=== PATIENT | female | born 1965 | race American Indian/Alaskan Native ===

== ENCOUNTER 2018-06-01 15:29 | Emergency (ER) | payer OTHER ==
[~2018-06-01] VITALS: Ht 162.6 cm; Wt 70.3 kg
[~2018-06-01 15:29] MED LIST: ACETAMINOPHEN325 M1 PO; AROMASIN25 MG PO; DOXYCYCLINE HY100 MG PO; METRONIDAZOLE500 MG PO; MOTRIN IB200 MG PO; PERCOCET 5-3251 EACH PO; PERCOCET 7.5-31 EACH PO; PSEUDOEPHEDRINE60 MG PO; TYLENOL WITH C1 EACH PO
[2018-06-01] MEDS ORDERED: TAMOXIFEN CITRA20 MG PO (15:41)
[2018-06-01] MEDS ORDERED: GUAIFEN-CODEINE10 ML PO (15:56)
[2018-06-01] MEDS ORDERED: ZITHROMAX250 MG PO (15:56)
== END 2018-06-01 16:05 | disposition home or self-care (01) ==
LOC: ED 15:29
DX: J06.9 Acute upper respiratory infection, unspecified (principal)
CPT/HCPCS: 99282

== ENCOUNTER 2018-10-28 16:05 | Emergency (ER) | payer OTHER ==
[~2018-10-28] VITALS: Ht 162.6 cm; Wt 70.3 kg
[~2018-10-28 16:05] MED LIST changes: +GUAIFEN-CODEINE10 ML PO; +TAMOXIFEN CITRA20 MG PO; +ZITHROMAX250 MG PO
[2018-10-28] MEDS ORDERED: ULTRAM50 MG PO (16:31)
== END 2018-10-28 17:05 | disposition home or self-care (01) ==
LOC: ED 16:05
DX: J06.9 Acute upper respiratory infection, unspecified (principal); J45.909 Unspecified asthma, uncomplicated; K21.9 Gastro-esophageal reflux disease without esophagitis; Z79.899 Other long term (current) drug therapy
CPT/HCPCS: 99283

== ENCOUNTER 2019-08-09 17:29 | Emergency (ER) | payer OTHER ==
[~2019-08-09] VITALS: Ht 162.6 cm; Wt 62.6 kg
--- OUTSIDE RECORDS SUMMARY | ~2019-08-09 | XMS | Encounter Summary ---
Demographics + + + | Address | [address] | | | [place] [address] | + + + | Home Phone | | + + + | Preferred Language | Unknown | + + + | Marital Status | | + + + | Evangelical Affiliation | Unknown | + + + | Race | or | + + + | Ethnic Group | Not or | + + + Author + + + | Author | [facility] | + + + | Organization | [facility] | + + + | Address | Unknown | + + + | Phone | Unavailable | + + + Support + + +---------+ + | Name | Relationship | Address | Phone | + + +---------+ + | Jak Daley | ECON | Unknown | | + + +---------+ + Care Team Providers + +------+ + | Care Biofuels Engineering Manager Name | Role | Phone | + +------+ + | Mela Condon PA-C | PCP | | + +------+ + Encounter Details +--------+ + + + + | Date | Type | Department | Care Team | Description | +--------+ + + + + | 04/13/ | Ancillary | Diagnostic Imaging | Mela Condon | | | 2018 | Orders | Services [address] | | [facility] | | | | | [place], [place] | [place] [address] | | | | | [address] | [address] | | | | [address] [place], | | | | | | [place] [address] | | | | | | [phone] | | | | | | | | +--------+ + + + + Social History + +-------+ +--------+------+ | Tobacco Use | Types | Packs/Day | Years | Date | | | | | Used | | + +-------+ +--------+------+ | Never Smoker | | | | | + +-------+ +--------+------+ + +---+---+---+ | Smokeless Tobacco: | | | | | Never Used | | | | + +---+---+---+ + + +---------+ + | Alcohol Use | Drinks/Week | oz/Week | Comments | + + +---------+ + | No | | | | + + +---------+ + + + + | Sex Assigned at | Date Recorded | | | | + + + | Not on file | | + + + + + + + | Job Start Date | Occupation | Industry | + + + + | Not on file | Not on file | Not on file | + + + + + + + + | Travel History | Travel Start | Travel End | + + + + + + | No recent travel history available. | + + documented as of this encounter Plan of Treatment Not on filedocumented as of this encounter Visit Diagnoses Not on filedocumented in this encounter"
--- OUTSIDE RECORDS SUMMARY | ~2019-08-09 | XMS | Encounter Summary ---
Demographics + + + | Address | [address] | | | [place] [address] | + + + | Home Phone | | + + + | Preferred Language | Unknown | + + + | Marital Status | | + + + | Presybeterian Affiliation | Unknown | + + + | Race | Unknown | + + + | Ethnic Group | Unknown | + + + Author + + + | Author | [facility] | | | and [place] | + + + | Organization | [facility] | | | and [place] | + + + | Address | Unknown | + + + | Phone | Unavailable | + + + Support + + + + + | Name | Relationship | Address | Phone | + + + + + | Jak Daley | CARLOS | [address] | | | | [place], [place] | | | | | [address] | | + + + + + | Luis Downey | ECON | Unknown | | + + + + + | Kourtney Carlos | ECON | Unknown | | + + + + + | Adrianne Carlos | ECON | Unknown | | + + + + + | Rena Uribe | ECON | Unknown | | + + + + + | Luigi Benedict | ECON | [address] | | | | | [place] | | | | | [address] | | + + + + + Care Team Providers + +------+ + | Care Master Hearth Technician Name | Role | Phone | + +------+ + | Mela Condon PA-C | PCP | | + +------+ + Reason for Visit + + + | Reason | Comments | + + + | New Patient | swallowing-has a hard time eating or drinking-feels stuck been | | | going on for awhile and getting worse | + + + Evaluate & Treat (Routine) + + + + + + + | Status | Reason | Specialty | Diagnoses / | Referred By | Referred To | | | | | Procedures | Contact | Contact | + + + + + + + | Authorized | Specialty | Otolaryngolog | Diagnoses | Nina, | Servando Taylor | | | Services | y | Dysphagia, | Renee Haile, | [address], [address] | | | Required | | unspecified | MD [address] | | | | | type | [address] | [address] | | | | | | [place], | [place], | | | | | | [place] [address] | [place] [address] | | | | | | Phone: | Phone: | | | | | | [phone] | [phone] | | | | | | Fax: | Fax: | | | | | | [phone] | [phone] | + + + + + + + Encounter Details +--------+---------+ + + + | Date | Type | Department | Care Team | Description | +--------+---------+ + + + | 05/24/ | Office | [facility] | Renee Wood | Pharyngoesophageal | | 2019 | Visit | OTOLARYNGOLOGY [address] | MD Laz[place] [address] | dysphagia (Primary | | | | [address] | [place], [place] | Dx); | | | | [place], [place] | [address] | Laryngopharyngeal | | | | [address] | | reflux (LPR) | | | | [phone] | Servando Taylor MD | | | | | | [address] | | | | | | [address] [facility] [place] | | | | | | [address] | | | | | | | | +--------+---------+ + + + Social History + +-------+ [...] + + +---------+ + | No | 0 Standard drinks | 0.0 | | | | or equivalent | | | + + +---------+ + [...] + + documented as of this encounter Last Filed Vital Signs + + + + + | Vital Sign | Reading | Time Taken | Comments | + + + + + | Blood Pressure | - | - | | + + + + + | Pulse | 84 | 05/24/2019 1:06 PM | | | | | PDT | | + + + + + | Temperature | - | - | | + + + + + | Respiratory Rate | 16 | 05/24/2019 1:06 PM | | | | | PDT | | + + + + + | Oxygen Saturation | 98% | 05/24/2019 1:06 PM | | | | | PDT | | + + + + + | Inhaled Oxygen | - | - | | | Concentration | | | | + + + + + | Weight | 62.1 kg (137 lb) | 05/24/2019 1:06 PM | | | | | PDT | | + + + + + | Height | 162.6 cm (5' 4") | 05/24/2019 1:06 PM | | | | | PDT | | + + + + + | Body Mass Index | 23.52 | 05/24/2019 1:06 PM | | | | | PDT | | + + + + + documented in this encounter Progress Notes Servando Taylor MD - 05/24/2019 1:00 PM PDTPatient comes in because he is having difficulty with swallowing. She's had trouble intermittently now for about 5 years. About 4 years ag o she had an esophagoscopy and dilated the esophageal stricture. The symptoms have been wor se the last year and it generally is more of a problem when she eats something such as meat. It'll tend to get stuck in the area behind her voice box and then she has to try to get it back up or finally go through. She indicates she had a swallow study in [place] about a month ago and was told that it was normal. She does not use any medication for her heartbur n and takes only different types of foods to help. She stays away from acidic foods and the use of caffeine. She also stays away from IV Profen and anti-inflammatories that might giv e her more heartburn. She's having no change in her vocal function but has a very sensitive throat area. Examination: Patient is an alert 53-year-old female patient is communicating well in her vo ice quality is good. Skin of the face nose and ears all appears to be smooth and healthy. Ear canals are open and clean and drums were clear. No middle ear fluid or disease noted. In the nasal passages there's good space to breathe on both sides. The left side of the nos e was then sprayed well with some Abdullahi-Synephrine and topical Xylocaine. In the oral cavity no mass or lesions are noted. Patient is an extremely high gag reflex and basically choked herself with just opening her mouth. No mass seen in the posterior pharyngeal wall area. T ongue and soft palate otherwise are smooth the moves symmetrically. Neck there was no lymph adenopathy noted. Thyroid parotid and submandibular glands were smooth. She moves her neck well without any pain or discomfort noted. Special procedure: The fiberoptic scope was then used to look at the laryngeal area. The n mercedes passages open and clear and no mass or lesion seen in the nasopharynx. Rosenmuller's f osses are symmetrical and open. Posterior and lateral pharyngeal mercedes are very smooth. Ba se of the tongue vallecula and epiglottis there is no mass or lesion or thrush noted. The b ack of her vocal cords are swollen and she has evidence of laryngopharyngeal reflux. Her vo yobany cords are smooth and no tumor mass or noted on the vocal cord area. Piriform sinuses ar e open and clear without any mass or lesion noted. Impression: #1 dysphagia. #2 laryngopharyngeal reflux. Plan: Patient will start Prilosec 20 mg to take it twice a day. She'll be seen again in 6 weeks' time. The swallowing study will be obtained to be reviewed. documented in this encounter Plan of Treatment +--------+---------+ + + + | Date | Type | Specialty | Care Team | Description | +--------+---------+ + + + | 08/16/ | Office | Otolaryngology | Servando Taylor MD | | | 2018 | Visit | | [address] [facility] | | | | | | [address] [place], | | | | | | [place] [address] | | | | | | [phone] | | | | | | | | +--------+---------+ + + + + + +--------+ + + | Name | Type | Priori | Associated Diagnoses | Order Schedule | | | | ty | | | + + +--------+ + + | * [facility] [place] | Outpatient | Routin | Dysphagia, | Ordered: 02/19/2019 | | Otolaryngology - AMB | Referral | e | Unspecified Type | | | Referral | | | | | + + +--------+ + + documented as of this encounter Visit Diagnoses + + | Diagnosis | + + | Pharyngoesophageal dysphagia - Primary Dysphagia, pharyngoesophageal phase | + + | Laryngopharyngeal reflux (LPR) Other diseases of larynx | + + documented in this encounter
--- OUTSIDE RECORDS SUMMARY | ~2019-08-09 | XMS | Encounter Summary ---
Demographics + + + | Address | [address] | | | [place] [address] | + + + | Home Phone | | + + + | Preferred Language | Unknown | + + + | Marital Status | | + + + | Rastafarian Affiliation | Unknown | + + + | Race | Unknown | + + + | Ethnic Group | Unknown | + + + Author + + + | Author | [facility] | | | and [place] | + + + | Organization | [facility] | | | and [place] | [...] [place], [place] | | | | | [address] | | + + + + + [...] [place] | | | | | [address] | | + + + + + Care Team Providers + +------+ + | Care Data Entry Representative Name | Role | Phone | + +------+ + | Luis Garcia PA-C | PCP | | + +------+ + Encounter Details +--------+ + + + + | Date | Type | Department | Care Team | Description | +--------+ + + + + | 09/06/ | Hospital | [facility] | Renee Wood | | | 2015 | Encounter | [facility] | [place], [address] | | | | | ONCOLOGY [address] | [facility], [place] | | | | | [place], | [address] | | | | | [place] [address] | | | | | | [phone] | | | +--------+ + + + [...] + + documented as of this encounter Medications at Time of Discharge + + + +---------+ + + | Medication | Sig | Dispensed | Refills | Start | End Date | | | | | | Date | | + + + +---------+ + + | loratadine | Take 5 mg by mouth. | | 0 | | | | (CLARITIN) 10 mg | Every four hours prn | | | | 8 | | tablet | | | | | | + + + +---------+ + + | | Take 1 tablet by | 30 | 0 | 05/25/20 | | | oxyCODONE-acetaminop | mouth every 6 hours | tablet | | 15 | 6 | | hen (PERCOCET) 5-325 | as needed for Pain. | | | | | | mg per | | | | | | | tabletIndications: | | | | | | | Mastitis | | | | | | + + + +---------+ + + documented as of this encounter Plan of Treatment +--------+---------+ + + + | Date | Type | Specialty | Care Team | Description | +--------+---------+ + + + | 08/16/ | Office | Otolaryngology | Servando Taylor MD | | | 2019 | Visit | | [address] [facility] | | | | | | [address] [place], | | | | | | [place] [address] | | | | | | [phone] | | | | | | | | +--------+---------+ + + + documented as of this encounter Visit Diagnoses Not on filedocumented in this encounter"
--- OUTSIDE RECORDS SUMMARY | ~2019-08-09 | XMS | Encounter Summary ---
Demographics + + + | Address | [address] | | | [place] [address] | + + + | Home Phone | | + + + | Preferred Language | Unknown | + + + | Marital Status | | + + + | Oriental Orthodox Affiliation | Unknown | + + + | Race | Unknown | + + + | Ethnic Group | Unknown | + + + Author + + + | Author | [facility] | | | and [place] | + + + | Organization | [facility] | | | and [place] [...] [address], [place] | | | | | [address] | | + + + + + [...] [place] | | | | | [address] | | + + + + + Care Team Providers + +------+ + | Care Undergraduate Advisor Name | Role | Phone | + +------+ + | Mela Condon PA-C | PCP | | + +------+ + Reason for Visit + + + | Reason | Comments | + + + | Follow-up | | + + + Evaluate & Treat (Routine) +--------+--------+ + + + + | Status | Reason | Specialty | Diagnoses / | Referred By | Referred To | | | | | Procedures | Contact | Contact | +--------+--------+ + + + + | Closed | | Radiation | Diagnoses | [facility] | Nina, | | | | Oncology | Breast | Radiation | Renee Haile MD | | | | | cancer of | Oncology | [address] | | | | | upper-outer | Clinic [address] | | | | | quadrant of | [address] [place] | [place], | | | | | left female | [place], | [place] [address] | | | | | breast (HCC) | [place] | Phone: | | | | | Procedures | [address] | [phone] | | | | | [place] OFFICE | Phone: | Fax: | | | | | OUTPATIENT | [phone] | [phone] | | | | | VISIT 25 | Fax: | | | | | | MINUTES | [phone] | | +--------+--------+ + + + + Encounter Details +--------+ + + + + | Date | Type | Department | Care Team | Description | +--------+ + + + + | 01/20/ | Hospital | [facility] | Renee Wood | Malignant neoplasm | | 2019 | Encounter | [facility] | MD Lazara [address] | of upper-outer | | | | [facility]OG[facility] CLIN[facility] [address] [place], [place] | quadrant of left | | | | [address] [place] | [id number] | breast in female, | | | | [place] [address] | | estrogen receptor | | | | [phone] | | positive (HCC) | | | | | | (Primary Dx) | +--------+ + + + + Social [...] + + + | Blood Pressure | 116/64 | 01/20/2019 2:08 PM | | | | | PDT | | + + + + + | Pulse | 90 | 01/20/2019 2:08 PM | | | | | PDT | | + + + + + | Temperature | 36.6 C (97.9 F) | 01/20/2019 2:08 PM | | | | | PDT | | + + + + + | Respiratory Rate | 16 | 01/20/2019 2:08 PM | | | | | PDT | | + + + + + | Oxygen Saturation | 98% | 01/20/2019 2:08 PM | | | | | PDT | | + + + + + | Inhaled Oxygen | - | - | | | Concentration | | | | + + + + + | Weight | 62.6 kg (138 lb 0.1 | 01/20/2019 2:08 PM | | | | oz) | PDT | | + + + + + | Height | - | - | | + + + + + | Body Mass Index | 23.69 | 08/08/2016 4:34 PM | | | | | PST | | + + + + + documented in this encounter Discharge Instructions Patient Instructions Renee Wood MD - 01/20/2019 2:49 PM PDT- Bilateral screening mammogram due in February 2019. Anticipated at [facility], managed by Dr. Quesada. - Follow-up with Dr. Quesada, Med Onc at [facility] as directed with ongoing tamoxifen. - Order a swallow study at [place] to evaluate the difficulty swallowing and weight los s. From there I will determine if further imaging and/ evaluation by ENT or gastroenterolog y is needed. - Please also schedule a follow up with your PCP, Mela Condon PA-C. documented in this encounter Medications at Time of Discharge + + + +---------+ + + | Medication | Sig | Dispensed | Refills | Start | End Date | | | | | | Date | | + + + +---------+ + + | EPIPEN 2-DAVID 0.3 | Inject 0.3 mg into | | 0 | 06/27/20 | | | MG/0.3ML injection | the muscle as | | | 16 | | | | needed. | | | | | + + + +---------+ + + | Fexofenadine HCl | Take 1 tablet by | | 0 | | | | (TAMEKA ALLERGY PO) | mouth Daily. | | | | | + + + +---------+ + + | non-formulary | Allergy shots 1 | | 0 | | | | medication | time/week. | | | | | + + + +---------+ + + | tamoxifen | Take 1 tablet by | | 0 | 03/12/20 | | | (NOLVADEX) 20 MG | mouth Daily. | | | 18 | | | tablet | | | | | | + + + +---------+ + + documented as of this encounter Progress Notes Renee Wood MD - 01/20/2019 2:12 PM PDT Radiation Oncology Follow-up Chief Complaint/ICD10 ICD-10-CM ICD-9-CM 1. Malignant neoplasm of upper-outer quadrant of left breast in female, estrogen receptor p ositive (HCC) C50.412 174.4 Z17.0 V86.0 History of Present Illness: Carissa Downey is a 53 y.o. woman with a history of left breast cancer. Pathologic sta ge [place], pT1c pN0 cM0. Tumor characteristics: well-differentiated invasive ductal carcinoma, tumor size 1.1 cm, low-grade DCIS present. No LVSI. Negative margins. ER 100%, WA 7 0-75%, Ki-67 less than 1%, HER-2/jamia nonamplified by FISH with ratio 1.0, sentinel lymph n ode negative for metastatic carcinoma. Received adjuvant radiation with hypofractionated whole breast radiation, 40.05 to the breast with a 8 Gy of a Gy lumpectomy shu ost for a total 48.05 Gy in 20 fraction, completed on 06/14/15. Had undergone oophorectomy, intolerant of AI therapy due to arthralgia, continues on tamoxifen. - Carissa continues to report fatigue, low mood and multiple areas of pain. New for her is a low appetite and weight loss. She is also followed by Dr. Quesada at [facility], last seen in February 2018. Bilateral mammogram at that time was BIRADS-2. Concern over pain, fatigue and weigh t loss prompted a CT c/a/p and bone scan. These studies did not identify any evidence of me tastatic disease. - Carissa does continue on tamoxifen, started last spring reports generalized joint pain. Ot herwise she seems to be tolerating this well. - Today, she reports pain between her breast that is shooting in nature, 6/10 in severity a nd lasting about 1 week so far. - We also discussed some loss of appetite and weight loss. She describes difficulty eating due to an intermittent sore throat and difficulty swallowing. Does not report pain with sw allowing. Feels like things are getting stuck in her upper throat. She frequently regurgit ates or vomits after eating. Review of systems: Constitutional: Reports low energy. Reports loss appetite for last month. Patient has los t about 14 pounds since last visit. Denies fatigue. Denies high fevers, shaking chills, ano rexia, nausea, vomiting or night sweats. Ear, Nose, Mouth, Throat: Denies odynophagia, dysphagia, or tinnitus. Cardiovascular: Reports tires easily, only able to walk short distances when at the store. Denies shortness of breath, dyspnea on exertion, chest pain, palpitations or orthopnea. Respiratory: Reports sore throats on and off for last year. Denies cough, hemoptysis, or s putum production. Gastrointestinal: Denies abdominal pain, constipation, diarrhea, melena, or bright red bloo d per rectum. Genitourinary: Denies hematuria or dysuria. Musculoskeletal: Reports general joint pain. Neurologic: Reports headaches every other week over the last month and a half.. Denies vi sual changes, or numbness/tingling of the extremities. Endocrine: Denies peripheral edema or heat/cold intolerance. Hematologic: Denies spontaneous bruising or bleeding. Integumentary: Reports rash to left lower leg, being monitored by PCP. Note: Patient here for follow up for left breast cancer. Completed radiation on 06/14/15. Patient saw Dr. Quesada at [facility] on 03/12/2018 and had mammogram same day. My chart: Declined Pain assessment: Location: Reports pain to left breast and chest wall between breast, reports sharp shooting pains that last foe about a week. Pain Level: PAIN PROG PAIN LEVEL: 6 Pain Quality: Shooting Current pain regimen: none Current Outpatient Medications Medication Sig Dispense Refill EPIPEN 2-DAVID 0.3 MG/0.3ML injection Inject 0.3 mg into the muscle as needed. Fexofenadine HCl (TAMEKA ALLERGY PO) Take 1 tablet by mouth Daily. non-formulary medication Allergy shots 1 time/week. tamoxifen (NOLVADEX) 20 MG tablet Take 1 tablet by mouth Daily. No current facility-administered medications for this encounter. Allergies Allergen Reactions Bee Venom Swelling Intolerance No active intolerances/contraindications Vitals: 01/20/19 1408 BP: 116/64 Pulse: 90 Resp: 16 Temp: 36.6 C (97.9 F) Wt Readings from Last 3 Encounters: 01/20/19 62.6 kg (138 lb 0.1 oz) 08/08/16 68.9 kg (152 lb) 07/09/16 69.4 kg (152 lb 14.4 oz) Physical Exam: General: Healthy appearing woman in no acute medical distress. KPS: 80 HEENT: Pupils equal, round and reactive to light. No conjunctival icterus or injection. EOM I. Oral, moist mucus membranes. Lymphatic: No cervical, supraclavicular or axillary lymphadenopathy. Cardiovascular: Regular rate and rhythm, no murmur. Pulmonary: Breath sounds heard throughout, no adventitial sounds or increased work of breat drake at rest. Extremities: Upper and lower extremities warm and well perfused with no upper or lower extr emity edema. Neurologic: Alert, oriented and appropriated in conversation. CN II-IX grossly intact. Moves all 4 extremities normally with normal gait. Psychiatric: Appropriate. Breast: On upright exam breasts appear symmetric bilaterally with no contour abnormalities or malignant appearing skin changes. The left breast demonstrates a well-healed surgical i ncision. On supine exam palpation of the left breast demonstrates mild fibrosis at the site of prior lumpectomy. No discrete mass lesions are identified in either breast. There is n o pain with palpation. No nipple changes. Labs: No recent results. Imaging: Patient History: Patient has history of cancer in the left breast at age 48. No known family history of cancer. Malignant lumpectomy of the left breast, 2014. Last mammogram was performed 1 year and 1 month ago. Reason for exam: history of breast cancer, conservation therapy. C50.412 MA VY DIAGNOSTIC BILAT W/CAD: March 12, 2018 - Bilateral CC and MLO view(s) were taken. Prior study comparison: January 31, 2017, bilateral MA VY DIAGNOSTIC BILAT w/CAD performed at [facility]. There are scattered fibroglandular densities.Stable post-lumpectomy changes in the left breast. No suspicious calcifications, masses, or architectural distortion present in either breast.No significant changes when compared with prior studies. The images were obtained using full field digital mammography on the dedicated [email or web address] System with R2 CAD. Performed at [facility]. 3D tomosynthesis mammography was performed as part of this exam. ASSESSMENT: Benign - Category 2 RECOMMENDATION: Routine screening mammogram of both breasts in 1 year. I have personally reviewed the images and, if necessary, edited the report.I agree with the report as now presented. EXAM: CT of the chest, abdomen and pelvis WITH intravenous contrast. HISTORY: hx of early stage breast cancer, recent weight loss, diffuse bone pains COMPARISON: None available. TECHNIQUE:CT of the chest, abdomen and pelvis WITH intravenous contrast. Coronal and sa gittal reformats were generated and reviewed. FINDINGS: CHEST: No supraclavicular, axillary, mediastinal or hilar adenopathy. Heart and great vesse ls are unremarkable. No pleural or pericardial effusion. Lungs are clear. Left axillary clip s. LIVER: Gallbladder is surgically absent. No focal hepatic lesion. BILIARY: No ductal dilatation. PANCREAS: Unremarkable. SPLEEN: Unremarkable. ADRENALS: Unremarkable. KIDNEYS/URETERS: Unremarkable. PELVIC ORGANS/BLADDER: Bladder is unremarkable. Uterus is absent. No adnexal masses. GI TRACT: Unremarkable. PERITONEUM: No free air or fluid. LYMPH NODES: No lymphadenopathy. VESSELS: Unremarkable. BONES AND SOFT TISSUES: Unremarkable. IMPRESSION: No evidence of metastatic disease in the chest, abdomen or pelvis. I have personally reviewed the images and, if necessary, edited the report. I agree with e report as now presented. Final signature: Carolyn Murphy MD 04/09/2018 4:11 PM Preliminary: Carolyn Murphy MD Dictation initiated: Carolyn Murphy MD 04/09/2018 3:47 PM WHOLE-BODY BONE SCAN: 04/09/2018 3:00 PM HISTORY: 52 years of age, Female, with history of breast cancer, referred for staging. The patient reports no recent history of back pain, trauma, or fracture. COMPARISON: None. TECHNIQUE: Radiopharmaceutical: Tc-99m MDP 22.2 mCi intravenously. The intravenous administration of the radiopharmaceutical was uneventful. Approximately two and a half hours later, the patient returned for planar images of the whole body in anterio r and posterior projections. Additional spot views of the lateral skull, upper extremities, and posterior spine were obtained. FINDINGS: Physiologic distribution of the radiotracer with no abnormal foci of uptake concerning for osseous metastases. Irregular configuration of the bladder is attributed to extrinsic compre ssion. Soft tissue distribution of the radiopharmaceutical is normal. The kidneys and urinary bladder are visualized per normal clearance of the radiopharmaceuti yobany. IMPRESSION: No evidence of osseous metastasis. I have personally reviewed the images and, if necessary, edited the report. I agree with e report as now presented. Final signature: Vivek Meraz MD 04/09/2018 5:36 PM Preliminary: Stella Campbell MD 04/09/2018 3:32 PM Dictation initiated: Stella Campbell MD 04/09/2018 2:59 PM Assessment: ICD-10-CM ICD-9-CM 1. Malignant neoplasm of upper-outer quadrant of left breast in female, estrogen receptor p ositive (HCC) C50.412 174.4 Z17.0 V86.0 During today's visit Carissa appears to have ongoing issues with chest pain. She has reporte d this intermittently since treatment. Exam does not demonstrate any concerning for maligna nt findings. She underwent restaging studies as detailed above, requested by her primary ph ysician last summer. CT chest abdomen pelvis and bone scan did not identify any evidence of metastatic disease. She is also up-to-date on mammography which is benign. Breast exam to day also benign. Reassurance provided, regarding intermittent chest or breast pain. Manage ment with Tylenol or ibuprofen recommended. Concerning on review of systems she is having difficulty swallowing and losing weight. Her appetite is also down. The symptoms warrants further workup and I will request a swallow st udy to be done at [place]. Plan: - Bilateral screening mammogram due in February 2019. Anticipated at [facility], managed by Dr. Julio sun. - Follow-up with Dr. Quesada, Med Onc at [facility] as directed with ongoing tamoxifen. - Order a swallow study at [place] to evaluate the difficulty swallowing and weight los s. From there I will determine if further imaging and/ evaluation by ENT or gastroenterolog y is needed. - Please also schedule a follow up with your PCP, Mela Condon PA-C. Thank you for allowing me to participate in the care of Carissa Downey. If you should lepe ve any questions regarding this evaluation, please do not hesitate to contact me. Renee Wood M.D. Radiation Oncologist Department of Radiation Oncology [facility] Office: [phone] documented in this encounter Plan of Treatment +--------+---------+ + + + | Date | Type | Specialty | Care Team | Description | +--------+---------+ + + + | 08/16/ | Office | Otolaryngology | Servando Taylor MD | | | 2019 | Visit | | [address] [facility] | | | | | | [address], | | | | | | [place] [address] | | | | | | [phone] | | | | | | | | +--------+---------+ + + + documented as of this encounter Procedures + +--------+ + + + | Procedure Name | Priori | Date/Time | Associated Diagnosis | Comments | | | ty | | | | + +--------+ + + + | IMAGING REPORT - | | 03/19/2019 | | Results for this | | EXTERNAL SCAN | | 12:00 AM | | procedure are in the | | | | PDT | | results section. | + +--------+ + + + | IMAGING REPORT - | | 02/15/2019 | | Results for this | | EXTERNAL SCAN | | 12:00 AM | | procedure are in the | | | | PDT | | results section. | + +--------+ + + + | DIAGNOSTIC REPORT - | | 02/15/2019 | | Results for this | | EXTERNAL SCAN | | 12:00 AM | | procedure are in the | | | | PDT | | results section. | + +--------+ + + + documented in this encounter Results IMAGING REPORT - EXTERNAL SCAN (03/19/2019 12:00 AM PDT) + + + | Narrative | Performed At | + + + | Ordered by an | | | unspecified provider. | | + + + DIAGNOSTIC REPORT - EXTERNAL SCAN (02/15/2019 12:00 AM PDT) + + + | Narrative | Performed At | + + + | Ordered by an | | | unspecified provider. | | + + + IMAGING REPORT - EXTERNAL SCAN (02/15/2019 12:00 AM PDT) + + + | Narrative | Performed At | + + + | Ordered by an | | | unspecified provider. | | + + + documented in this encounter Visit Diagnoses + + | Diagnosis | + + | Malignant neoplasm of upper-outer quadrant of left breast in female, estrogen receptor | | positive (HCC) - Primary | + + documented in this encounter"
--- OUTSIDE RECORDS SUMMARY | ~2019-08-09 | XMS | Encounter Summary ---
Demographics + + + | Address | [address] | | | [place] [address] | + + + | Home Phone | | + + + | Preferred Language | Unknown | + + + | Marital Status | | + + + | Voodoo Affiliation | Unknown | + + + | Race | Unknown | + + + | Ethnic Group | Unknown | + + + Author + + + | Author | [facility] | | | and [place] | + + + | Organization | [facility] | | | and [place] [...] [address], [place] | | | | | [address] | | + + + + + [...] [place] | | | | | [address] | | + + + + + Care Team Providers + +------+ + | Care Publishing Manager Name | Role | Phone | [...] + + + | Closed | | Oncology | Diagnoses | Jose, | | | | | | Malignant | Luis Salcedo, | Narcisa, | | | | | neoplasm of | [id number] [id number] | Reggie Gutierrez MD | | | | | upper-outer | [facility] | [address] | | | | | quadrant of | [address] | [place] | | | | | unspecified | [place], | [place] | | | | | female | [place] [address] | [address] Phone: | | | | | breast (HCC) | Phone: | [phone] | | | | | Procedures | [phone] | Fax: | | | | | SC OFFICE | Fax: | [phone] | | | | | OUTPATIENT | [phone] | | | | | | VISIT 25 | | | | | | | MINUTES | | | +--------+--------+ + + + + Encounter Details +--------+ + + + + | Date | Type | Department | Care Team | Description | +--------+ + + + + | 07/09/ | Hospital | [facility] | Narcisa, | Breast cancer of | | 2016 | Encounter | [facility] | Reggie Gutierrez MD [address] | upper-outer quadrant | | | | [facility] [address] | of left female | | | | [address] | [place] [address] | breast (HCC) | | | | [facility] [place] [address] | [phone] | (Primary Dx) | | | | [phone] | | | +--------+ + + + [...] + + + | Blood Pressure | 112/74 | 07/09/2016 10:24 AM | | | | | PDT | | + + + + + | Pulse | 74 | 07/09/2016 10:24 AM | | | | | PDT | | + + + + + | Temperature | 37.1 C (98.7 F) | 07/09/2016 10:24 AM | | | | | PDT | | + + + + + | Respiratory Rate | 16 | 07/09/2016 10:24 AM | | | | | PDT | | + + + + + | Oxygen Saturation | 97% | 07/09/2016 10:24 AM | | | | | PDT | | + + + + + | Inhaled Oxygen | - | - | | | Concentration | | | | + + + + + | Weight | 69.4 kg (152 lb 14.4 | 07/09/2016 10:24 AM | | | | oz) | PDT | | + + + + + | Height | - | - | | + + + + + | Body Mass Index | 26.25 | 06/26/2016 2:44 PM | | | | | PDT | | + + + + + documented in this encounter Discharge Instructions Instructions Reggie Ervin MD - 07/09/2016Stop taking Exemestane. We won't do blood work today, since we are stopping your medicine. Repeat mammogram at [facility] in February 2017 I will see you after your mammogram in February to hear if you are feeling any better after sto pping Exemestane. documented in this encounter Medications at Time [...] + + + +---------+ + + | exemestane | | | 0 | 02/08/20 | | | (AROMASIN) 25 MG | | | | 16 | 6 | | tablet | | | | | | + + + +---------+ + + | | | | 0 | 06/05/20 | | | HYDROcodone-acetamin | | | | 16 | 8 | | ophen (NORCO) 5-325 | | | | | | | mg per tablet | | | | | | [...] documented as of this encounter Progress Notes Reggie Ervin MD - 07/09/2016 10:11 AM PDTFormatting of this note might be differe nt from the original. Hematology/Oncology Progress Note [facility] Pt. Name/Age/: Carissa Downey 50 y.o. 1965 Med. Record Number: [id number] Date of admission: 07/09/2016 Identifying Statement: Carissa Downey is a 50 y.o. female from [place] [address] with Stage IA, premenopausal ER-positive LEFT breast cancer. The patient chart and medications were reviewed in detail and the patient was seen and exam ined. History of Present Illnesses, their Current Assessments and Plans: Problems That Were Updated This Visit Breast cancer Overview ACTIVE DIAGNOSIS: Stage IA, ER-positive LEFT breast cancer, status post LEFT breast conse rvation and permanent ovarian function suppression. 1. Clinical breast exam by Dr. Nanci Kee on February 16, 2015 was notable for a palpable mas s in the upper outer quadrant of the left breast. Digital bilateral diagnostic mammography with left breast ultrasound on February 16, 2015 confirmed a hypoechoic mass in the upper outer q uadrant of the left breast 13 mm x 9 mm x 9 mm without evidence of any other suspicious nodu les. 2. On February 17, 2015 left breast core needle biopsy was performed by Dr. Iman Perales of [facility] diagnostic imaging. Pathological specimen [id number] was analyzed by Yessenia Champion a [facility] and returned a grade 1 invasive ductal carcinoma associated with ductal carcinoma in situ with comedonecrosis. Angiolymphatic invasion was a bsent. Estrogen receptor was positive with an Seth score of 8 out of 8. Progesterone rec eptor was positive with an Seth score of 7 out of 8. HER-2/jamia was negative by immunohist ochemistry with the score 0. HER-2/jamia analysis by FISH was indeterminate. 3. On March 14, 2015 Dr. Edi Upton performed and image guided left breast lumpectomy and ax [facility] sentinel lymph node biopsy. Specimen number [id number] returned a 1.1 cm well-diff erentiated invasive ductal carcinoma associated with ductal carcinoma in situ. No lymphovas cular invasion was identified. All surgical margins were free of disease. There was no reg ionally metastatic disease in the single sentinel lymph node. 4. Gynecological history: 3, para 3. Age of menarche was 15. Age of first pregnan cy was 21. She did not breast-feed her children. She has a history of exposure to oral con traceptive pills but no estrogen replacement therapy. The patient was menstruating irregula rly up until the time of her biopsy. 5. Status post adjuvant left breast radiation therapy supervised by Dr. Renee norton the [facility] in [facility] with 4005 cGy in 15 fractions to the left breast over 21 elapsed calendar days May 17, 2015 through 2014 followed immediately by 800 cGy boost to the lumpectomy scar in 4 fractions over 6 elapsed calendar days June 08, 2015 through June 14, 2015. 6. Initiation of endocrine therapy with medical ovarian function suppression and exemestane 25 mg orally daily June 30, 2015 7. Permanent ovarian function suppression with PARRISH/BSO August 28, 2015. 8. Exemestane discontinued on July 09, 2016 due to arthralgias. Current Assessment & Plan Carissa Downey returned to [facility] with her , Jak Daley, for follow-up after one year of adjuvant endocrine therapy with exemestane in itially combined with ovarian function suppression with goserelin and subsequently with perm anent ovarian function suppression with PARRISH/BSO. Chief complaint today is intractable arthralgias that are severe enough to require narcotic therapy. Clinical exam is notable for the absence of any joint deformities. Cosmetic result followi ng left breast conservation is excellent with no evidence of local recurrence. Mammographic data from [facility] in [facility] on February 29, [address] and inter[address] Dr. Iman Perales as BI-RADS Category 2, benign. Plan; extended, 25 minute office encounter with Carissa reviewing her symptom complex of intr actable arthralgias that coincided with the initiation of adjuvant endocrine therapy with ex emestane 25 mg orally daily on June 30, 2015. Symptoms are severe enough to warrant narco tic therapy. I gave Carissa my professional opinion that her arthralgias are due to exemestane and that jose m e adverse effects of exemestane on her sense of well-being do not warrant continuation of th erapy. Carissa will discontinue adjuvant endocrine therapy with exemestane. She'll follow up with jaqueline avila in February after her next mammogram at [facility] cancer clinic in [facility] to review her symptoms and to discuss other options for adjuvant endocrine therapy for her stage IA ER positive left breast cancer. Review of Systems: Constitutional: Reports energy level is pretty low- "barely get up to go to work, lunch yesica e I take a nap and go home and take nap". States night sweats happen 2 times per month. Repo rts appetite has been very low, weight loss of 3 lbs since end of May 2016. Denies hig h fevers, shaking chills, anorexia, nausea, vomiting. Ear, Nose, Mouth, Throat: Denies odynophagia, dysphagia, or tinnitus. Cardiovascular: Reports dyspnea on exertion, chest pain describes as ache in left breast ar ea. Denies shortness of breath, palpitations or orthopnea. Respiratory: Denies cough, hemoptysis, or sputum production. Gastrointestinal: Denies abdominal pain, constipation, diarrhea, melena, or bright red bloo d per rectum. Genitourinary: Denies hematuria or dysuria. Musculoskeletal: Reports generalized joint aches, all the time everyday. Neurologic: Report headaches intermittently. States she has numbness in fingers. Denies vi sual changes. Endocrine: Reports occasional swelling in left elbow. Denies heat/cold intolerance. Hematologic: Denies spontaneous bruising or bleeding. Integumentary: Reports having skin spots on along collarbone that are new to her. Denies ra sh or wounds. Pain: Reports pain today at 6/10, located in left breast. Note: Here for 3 month follow up. My chart: pending Past Medical and Surgical History, Social History and Problems: Past Medical History Diagnosis Date Anemia Cancer (HCC) breast cancer Environmental allergies GERD (gastroesophageal reflux disease) Heart murmur Past Surgical History Procedure Laterality Date Hysterectomy Breast surgery Upper gastrointestinal endoscopy Eye surgery Gallbladder surgery N/A Tubal ligation Social History Social History Marital Status: Spouse Name: N/A Number of Children: N/A Years of Education: N/A Occupational History Not on file. Social History Main Topics Smoking status: Not on file Smokeless tobacco: Not on file Alcohol Use: Not on file Drug Use: Not on file Sexual Activity: Not on file Other Topics Concern Not on file Social History Narrative No narrative on file Patient Active Problem List Diagnosis Breast cancer of upper-outer quadrant of left female breast Scheduled Medications: Patient Reported Taking Dosage exemestane (AROMASIN) 25 MG tablet (Taking) HYDROcodone-acetaminophen (NORCO) 5-325 mg per tablet (Taking) loratadine (CLARITIN) 10 mg tablet (Taking) Take 5 mg by mouth. Every four hours prn Number of times this order has been changed since signin Order [facility] [place] non-formulary medication (Taking) Allergy shots 1 time/week. oxyCODONE-acetaminophen (PERCOCET) 5-325 mg per tablet (Taking) Take 1 tablet by mouth ev lili 6 hours as needed for Pain. Number of times this order has been changed since signin Order [facility] [place] Allergies: Allergy: No Known Allergies Objectives: Temp: 37.1 C (98.7 F) BP: 112/74 mmHg Pulse: 74 Resp: 16 SpO2: 97 % on Min/Max Temp past 24 hours:No Data Recorded No intake or output data in the 24 hours ending 07/12/16 0702 Wt. Admission: Weight: 69.355 kg (152 lb 14.4 oz) Wt. Current: Weight: 69.355 kg (152 l b 14.4 oz) Wt Readings from Last 3 Encounters: 07/09/16 69.355 kg (152 lb 14.4 oz) 06/26/16 70.761 kg (156 lb) 04/15/16 67.5 kg (148 lb 13 oz) Physical Exam: General: The patient is alert and oriented. No acute distress. Eyes: Conjunctiva clear. Sclera anicteric. ENMT: Oropharynx fee of lesions, mucous membranes moist. Cardiovascular: Regular rate and rhythm, no rubs, gallops, or murmurs. Lungs: Clear to auscultation and percussion. Chest: Right breast is free of masses nipple discharge or nipple retraction. Treated left breast has an overall perfect cosmetic result. There are no palpable masses, nipple discha rge, nipple retraction; there is no edema or myofascial contraction. Abdomen: Soft, nontender, no hepatospenomegaly. No palpable masses. Bowel sounds present. Extremities: Nontender, no erythema, no edema. Skin: No rashes, bruising, or petechiae. Lymph: No palpable nodes in the neck, supraclavicular fossa, axilla or groin. Neurological: Cranial nerves are intact. Normal sensory and motor function, No focal defi cits noted. Muscular/Skeletal: No acute bony tenderness. No evidence of sarcopenia. Psychiatric: Normal mood and affect ECOG Performance Status [x] 0 [] 1 [] 2 []3 [] 4 ECOG PERFORMANCE STATUS* Grade ECOG Karnofsky 0 Fully active, able to carry on all pre-disease performance without restriction. 90 - 100 1 Restricted in physically strenuous activity but ambulatory and able to carry out work of a light or sedentary nature, e.g., light house work, office work 70 - 80 2 Ambulatory and capable of all selfcare but unable to carry out any work activ ities. Up and about more than 50% of waking hours 50 - 60 3 Capable of only limited selfcare, confined to bed or chair more than 50% of w aking hours 30 - 40 4 Completely disabled. Cannot carry on any selfcare. Totally confined to bed or chair 10 - 20 * As published in Am. J. Clin. Oncol.: Bill Aceves., Clint, R.H., Ney Rivers, Lauro Rincon, Gary Grossman., Troy Samson., Nadia, P CliveP.: Toxicity And Response Criteria Of The Eastern Cooperative Oncology Group. Am J Clin Onc ol 5:649-655, 1982. The ECOG Performance Status is in the public domain therefore available for public use. To duplicate the scale, please cite the reference above and credit the Eastern Cooperative Onco logy Group, Reggie Hurtado M.D., Group Chair Diagnostic studies: Available data and images were reviewed personally. See reports. Significant results and findings are addressed here or in the Assessment and Plan. Digital diagnostic bilateral mammography with CAD February 29, 2016 is [facility] in [facility] BI-RADS Category 2 benign. Pharmacovigilance: Palliative Care: Patient's Medications New Prescriptions No medications on file Modified Medications No medications on file Discontinued Medications OXYCODONE-ACETAMINOPHEN (PERCOCET) 5-325 MG PER TABLET Take 1 tablet by mouth every 6 h ours as needed for Pain. Procedure: REGGIE ERVIN MD Portions of this chart may have been created with [employer] voice recognition software. Occasi onal wrong-word or sound-alike substitutions may have occurred due to the inherent richard itations of voice recognition software. Please read the chart carefully and recognize, using context, where these substitutions have occurred. documented in t his encounter Plan of Treatment +--------+---------+ + + + | Date | Type | Specialty | Care Team | Description | +--------+---------+ + + + | 08/16/ | Office | Otolaryngology | Servando Taylor MD | | | 2019 | Visit | | [address] [facility] | | | | | | [address] [place], | | | | | | [place] [address] | | | | | | [phone] | | | | | | | | +--------+---------+ + + + + +---------+--------+ + + | Name | Type | Priori | Associated Diagnoses | Order Schedule | | | | ty | | | + +---------+--------+ + + | [facility] | Imaging | Routin | Breast cancer of | Expected: | | Diagnostic Bilateral | | e | upper-outer quadrant | 03/03/2017, Expires: | | | | | of left female | 09/09/2017 | | | | | breast (HCC) | | + +---------+--------+ + + documented as of this encounter Procedures + +--------+ + + + | Procedure Name | Priori | Date/Time | Associated Diagnosis | Comments | | | ty | | | | + +--------+ + + + | IMAGING REPORT - | | 02/29/2016 | | Results for this | | EXTERNAL SCAN | | 12:00 AM | | procedure are in the | | | | PDT | | results section. | + +--------+ + + + documented in this encounter Results IMAGING REPORT - EXTERNAL SCAN (02/29/2016 12:00 AM PDT) + + + | Narrative | Performed At | + + + | Ordered by an | | | unspecified provider. | | + + + documented in this encounter Visit Diagnoses + + | Diagnosis | + + | Breast cancer of upper-outer quadrant of left female breast (HCC) - Primary | + + documented in this encounter
--- OUTSIDE RECORDS SUMMARY | ~2019-08-09 | XMS | Clinical Summary ---
Demographics + + + | Address | [address] | | | [place] [address] | + + + | Home Phone | | + + + | Preferred Language | Unknown | + + + | Marital Status | | + + + | Voodoo Affiliation | Unknown | + + + | Race | or | + + + | Ethnic Group | Not or | + + + Author + + + | Author | [facility] | + + + | Organization | [facility] | + + + | Address | Unknown | + + + | Phone | Unavailable | + + + Support + + +---------+ + | Name | Relationship | Address | Phone | + + +---------+ + | Jak Edi | ECON | Unknown | | + + +---------+ + Care Team Providers + +------+ + | Care Electrical Engineering Designer Name | Role | Phone | + +------+ + | Mela Condon PA-C | PCP | | + +------+ + Source Comments BILLY is fully live on both [facility] and [facility] InPatient.[facility] Allergies + + + + + + | Active Allergy | Reactions | Severity | Noted | Comments | | | | | Date | | + + + + + + | Venom-Honey Bee | Edema | | 08/05/20 | | | | | | 16 | | + + + + + + Medications + + + +---------+------+------+-------+ | Medication | Sig | Dispensed | Refills | Star | End | Statu | | | | | | t | Date | s | | | | | | Date | | | + + + +---------+------+------+-------+ | | Take 1 tablet by | | 0 | | | Activ | | fexofenadine/pseudoe | mouth once daily. | | | | | e | | phedrine (TAMEKA-D | | | | | | | | 12 HOUR ORAL) | | | | | | | + + + +---------+------+------+-------+ | tamoxifen 20 mg | Take 1 tablet by | 90 | 3 | 06/ | | Activ | | oral | mouth once daily. | tablet | | 4/20 | | e | | tabletIndications: | | | | 18 | | | | Malignant neoplasm | | | | | | | | of upper-outer | | | | | | | | quadrant of left | | | | | | | | breast in female, | | | | | | | | estrogen receptor | | | | | | | | positive (HCC) | | | | | | | + + + +---------+------+------+-------+ Active Problems + + + | Problem | Noted Date | + + + | Encounter for monitoring tamoxifen therapy | 06/18/2018 | + + + | Malignant neoplasm of upper-outer quadrant of left breast in | 01/30/2018 | | female, estrogen receptor positive | | + + + Family History + + +------+ + | Medical History | Relation | Name | Comments | + + +------+ + | Lung Cancer | Mother | | | + + +------+ + | Breast Cancer | Neg Hx | | No family hx of breast cancer | + + +------+ + + +------+--------+ + | Relation | Name | Status | Comments | + +------+--------+ + | Mother | | | | + +------+--------+ + Social History + +-------+ +--------+------+ | [...] recent travel history available. | + + Last Filed Vital Signs + + + + + | Vital Sign | Reading | Time Taken | Comments | + + + + + | Blood Pressure | 111/70 | 03/12/2018 11:19 AM | | | | | PDT | | + + + + + | Pulse | 88 | 03/12/2018 11:19 AM | | | | | PDT | | + + + + + | Temperature | 36.9 C (98.5 F) | 03/12/2018 11:19 AM | | | | | PDT | | + + + + + | Respiratory Rate | 16 | 03/12/2018 11:19 AM | | | | | PDT | | + + + + + | Oxygen Saturation | 99% | 03/12/2018 11:19 AM | | | | | PDT | | + + + + + | Inhaled Oxygen | - | - | | | Concentration | | | | + + + + + | Weight | 64.5 kg (142 lb 4.8 | 03/12/2018 11:19 AM | | | | oz) | PDT | | + + + + + | Height | 164.5 cm (5' 4.75") | 03/12/2018 11:19 AM | | | | | PDT | | + + + + + | Body Mass Index | 23.86 | 03/12/2018 11:19 AM | | | | | PDT | | + + + + + Plan of Treatment + + + + + | Health Maintenance | Due Date | Last Done | Comments | + + + + + | Pneumococcal | | | | | vaccination (1 of 3 | 4 | | | | - PCV13) | | | | + + + + + | Influenza (Flu) | | | | | vaccination (#1) | 9 | | | + + + + + Results Not on filefrom Last 3 Months Insurance + +--------+ +--------+ + +--------+ | Payer | Benefi | Subscriber | Effect | Phone | Address | Type | | | t Plan | ID | cortney | | | | | | / | | Dates | | | | | | Group | | | | | | + +--------+ +--------+ + +--------+ | GEHA | GEHA | [phone] | Effect | [phone] | [address] | Indemn | | | | | [place]ney | [address] | [id number] [place] | ity | | | | | for | | [place] | | | | | | all | | [address] | | | | | | dates | | | | + +--------+ +--------+ + +--------+ | [employer] | [employer] | [phone] | Effect | | | Agency | | SERVICE | | | cortney | | | | | | HEALTH | | for | | | | | | | | all | | | | | | SERVIC | | dates | | | | | | E | | | | | | + +--------+ +--------+ + +--------+ + +--------+ +--------+ + + | Guarantor Name | Accoun | Relation to | Date | Phone | Billing Address | | | t Type | Patient | of | | | | | | | | | | + +--------+ +--------+ + + | Carissa Downey | Person | Self | [birth year] | [address] | | | madhuri/[place]in | | 1966 | [phone] | [place] [address] | | | daniel | | | 9 (Home) | | + +--------+ +--------+ + +
--- OUTSIDE RECORDS SUMMARY | ~2019-08-09 | XMS | Encounter Summary ---
Demographics + + + | Address | [address] | | | [place] [address] | + + + | Home Phone | | + + + | Preferred Language | Unknown | + + + | Marital Status | | + + + | Yazdanism Affiliation | Unknown | + + + | Race | Unknown | + + + | Ethnic Group | Unknown | + + + Author + + + | Author | [facility] | | | and [place] | + + + | Organization | [facility] | | | [...] [address], [place] | | | | | [address] | | + + + + + [...] [place] | | | | | [address] | | + + + + + Care Team Providers + +------+ + | Care Technical Writing Lead/Mgr Name | Role | Phone | + +------+ + | Luis Garcia PA-C | PCP | | + +------+ + Reason for Visit + + + | Reason | Comments | + + + | IDT Note | | + + + Encounter Details +--------+ + + + + | Date | Type | Department | Care Team | Description | +--------+ + + + + | 05/11/ | Telephone | [facility] | Leo Rawls, | IDT Note | | 2014 | | [facility] | RN | | | | | ONCOLOGY [address] | | | | | | [place], | | | | | | [place] [address] | | | | | | [phone] | | | +--------+ + + + [...] 2019 | Visit | | [address] [facility] | | | | | | [address], | | | | | | [place] [address] | | | | | | [phone] | | | | | | | | +--------+---------+ + + + documented as of this encounter Visit Diagnoses Not on filedocumented in this encounter"
--- OUTSIDE RECORDS SUMMARY | ~2019-08-09 | XMS | Encounter Summary ---
Demographics + + + | Address | [address] | | | [place] [address] | + + + | Home Phone | | + + + | Preferred Language | Unknown | + + + | Marital Status | | + + + | Alevism Affiliation | Unknown | + + + | Race | Unknown | + + + | Ethnic Group | Unknown | + + + Author + + + | Author | [facility] | | | and [place] | + + + | Organization | [facility] | | | and [place] [...] [address], [place] | | | | | [address] | | + + + + + [...] [place] | | | | | [address] | | + + + + + Care Team Providers + +------+ + | Care Ship Erector Name | Role | Phone | + +------+ + | Luis Garcia PA-C | PCP | | + +------+ + Reason for Visit Evaluate & Treat (Routine) +--------+--------+ + + + + | Status | Reason | Specialty | Diagnoses / | Referred By | Referred To | | | | | Procedures | Contact | Contact | +--------+--------+ + + + + | Closed | | Radiation | Diagnoses | Won, | Nina, | | | | Oncology | Malignant | Edi Morse | Renee Haile MD | | | | | neoplasm of | [address] | | | | | breast | [address] | | | | | (female), | [address] | [place], | | | | | unspecified | [place], | [place] [address] | | | | | site | [place] [address] | Phone: | | | | | consult/dante | Phone: | [phone] | | | | | st/won | [phone] | Fax: | | | | | Procedures | Fax: | [phone] | | | | | [place] OFFICE | [phone] | | | | | | OUTPATIENT | | | | | | | VISIT 25 | | | | | | | MINUTES NEW | | | | | | | PATIENT | | | +--------+--------+ + + + + Encounter Details +--------+ + + + + | Date | Type | Department | Care Team | Description | +--------+ + + + + | 05/03/ | Hospital | [facility] | Renee Wood | | | 2015 | Encounter | MED CTR RADIATION | [place], [address] | | | | | ONCOLOGY [address] [place], [place] | | | | | [place], | [address] | | | | | [place] [address] | | | | | | [phone] | | | +--------+ + + + [...] 2019 | Visit | | [address] [facility] | | | | | | [address] [place], | | | | | | [place] [address] | | | | | | [phone] | | | | | | | | +--------+---------+ + + + documented as of this encounter Visit Diagnoses Not on filedocumented in this encounter"
--- OUTSIDE RECORDS SUMMARY | ~2019-08-09 | XMS | Encounter Summary ---
Demographics + + + | Address | [address] | | | [place] [address] | + + + | Home Phone | | + + + | Preferred Language | Unknown | + + + | Marital Status | | + + + | Sikh Affiliation | Unknown | + + + | Race | or | + + + | Ethnic Group | Not or | + + + Author + + + | Author | [facility] [employer] [facility] | + + + | Organization | [facility] | + + + | Address | Unknown | + + + | Phone | Unavailable | + + + Support + + +---------+ + | Name | Relationship | Address | Phone | + + +---------+ + | Jak Daley | ECON | Unknown | | + + +---------+ + Care Team Providers + +------+ + | Care Funding Specialist Name | Role | Phone | + +------+ + | Mela Condon PA-C | PCP | | + +------+ + Encounter Details +--------+ + + + + | Date | Type | Department | Care Team | Description | +--------+ + + + + | 02/28/ | Document-Sc | Health Information | Unknown . | | | 2016 | anned | Services [id number] | | | | | | [address] | | | | | | Mailcode: [id number] | | | | | | [facility] | | | | | | [place], [place] | | | | | | [address] | | | | | | [phone] | | | +--------+ + + + [...] + + + | RADIOLOGY | | 02/29/2016 | | Results for this | | | | 12:00 AM | | procedure are in the | | | | PDT | | results section. | + +--------+ + + + documented in this encounter Results RADIOLOGY (02/29/2016 12:00 AM PDT) + + + | Narrative | Performed At | + + + | | | + + + documented in this encounter Visit Diagnoses Not on filedocumented in this encounter"
--- OUTSIDE RECORDS SUMMARY | ~2019-08-09 | XMS | Encounter Summary ---
Demographics + + + | Address | [address] | | | [place] [address] | + + + | Home Phone [...] Author | [facility] | | | and [place] | + + + | Organization | [facility] | | | and [...] [address], [place] | | | | | [address] | | + + + + + [...] [place] | | | | | [address] | | + + + + + Care Team Providers + +------+ + | Care Serologist Name | Role | Phone | + [...] Closed | | Radiation | Diagnoses | Jose, | Nina, | | | | Oncology | Malignant | Luis Salcedo, | Renee Haile MD | | | | | neoplasm of | [place] [address] | [address] | | | | | upper-outer | [address] | [address] | | | | | quadrant of | [address] | [place], | | | | | unspecified | [place], | [place] [address] | | | | | female | [place] [address] | Phone: | | | | | breast (HCC) | Phone: | [phone] | | | | | Procedures | [phone] | Fax: | | | | | [place] OFFICE | Fax: | [phone] | | | | | OUTPATIENT | [phone] | | | | | | VISIT 25 | | | | | | | MINUTES | | | +--------+--------+ + + + + Encounter Details +--------+ + + + + | Date | Type | Department | Care Team | Description | +--------+ + + + + | 07/09/ | Hospital | [facility] | Narcisa, | | | 2016 | Encounter | MED CTR RADIATION | Mu Gutierrez MD [address] | | | | [address] [place] | | | | | [place], | [place] [address] | | | | | [place] [address] | [phone] | | | | | [phone] | | | | | | | Renee Wood, | | | | | | [address] | | | | | | [place], [place] | | | | | | [address] | | | | | | | [...] as of this encounter Progress Notes Renee Fuentes MD - 07/09/2016 12:00 AM [facility] Radiation Oncology Follow-up Note PATIENT: Carissa Downey MR#: [id number] :1965 DOS:07/09/2016 ICD/Diagnosis: 174.4 - Malignant neoplasm of upper-outer quadrant of female breast, Diagnosed 04/2015 (Act cortney) Chief Complaint/History of Present Illness: Carissa Downey is a 50 year old woman with a history of left breast cancer. Pathologic stage IA, pT1c pN0 cM0. Tumor characteristics: well-differentiated invasive ductal carcinom a, tumor size 1.1 cm, low-grade DCIS present. No LVSI. Negative margins. ER 100%, IL 70- 75%, Ki-67 less than 1%, HER-2/jamia nonamplified by FISH with ratio 1.0, sentinel lymph node negative for metastatic carcinoma. Received adjuvant radiation with hypofractionated whol e breast radiation, 40.05 to the breast with a 8 Gy of a lbabdqz90 Gy lumpectomy boost for a total 48.05 Gy in 20 fraction, completed on 06/14/15. Had undergone oophorectomy, contin ued AI therapy due to arthralgia. Carissa returns to clinic for routine follow-up, she is one year out from radiation treatmen t. Continues to have difficulty with breast tenderness. She has not been able to see OT d ue to difficulty with scheduling around work. Also continues to follow with . They have opted to discontinue exemestane due to arthralgia. Bilateral diagnostic mammogram performed at [facility] on 02/29/16 was benign, BIRADS-2. She has not identified any lumps or nodules. Denies headaches or new areas of pain. Cont inues to feel fatigue and a depressed mood. Review of Systems: ROS ConstitutionalAbnormal - Complains of a poor appetite. Complains of fatigue. Complains of night sweats. Complains of rigors / chills. Denies fever and change in weight.ROS EyesN ormal - Denies blurred vision, double vision and visual difficulties.ROS ENMTNormal - Denie s dysphagia, esophagitis, mouth dryness and sinusitis.ROS NeckNormal - Denies neck masses, muscle weakness, neck pain, decreased range of motion and swelling of the neck.ROS Integum entaryNormal - Denies blistering, bruising, dry skin, pruritus and rash.ROS BreastsAbnormal - Complains of pain.ROS CardiovascularAbnormal - Complains of dyspnea. Denies arrhythmias, chest pain, edema and palpitations. ROS RespiratoryNormal - Denies cough, hemoptysis and w heezing.ROS GastrointestinalNormal - Denies abdominal pain, constipation, diarrhea, nausea and vomiting.ROS Genitourinary (F)Normal - Denies dysuria, frequency, nocturia, urgency an d urine color change.ROS MusculoskeletalAbnormal - Complains of bone pain, joint pain and m uscle weakness. Denies arthritis and decreased range of motion.ROS NeurologicAbnormal - Com plains of motor weakness Numbness in hands. Denies dizziness, headaches and sensory problem s. ROS PsychiatricAbnormal - Complains of depression related to the CA diagnosis. Denies m ood swings and euphoria.ROS EndocrineNormal - Denies diabetes, hot flashes and thyroid dise ase.ROS Hematologic/LymphaticAbnormal - Complains of easy bruising. Denies tender or enlarg ed lymph nodes. Medications: EXEMESTANE TABLET ORAL percocet 7.5-325 mg TABLET Take as Directed Allergies: No Known Allergies Vital Signs: Performed on 07/09/2016, 11:29Weight 68.7 kg Temperature 36.2 C (LOW) Pulse 88 / min Respiration 16 / min BP111/59 mm(hg) O2 Sat 99 % Pain 6 Physical Exam: General: Healthy appearing woman in no acute medical distress. KPS: 90 HEENT: Pupils equal , round and reactive to light. No conjunctival icterus or injection. EOMI. Oral, moist mucu s membranes. Lymphatic: No cervical, supraclavicular or axillary lymphadenopathy. Cardiovascular: Regul ar rate and rhythm, no murmur. Pulmonary: Breath sounds heard throughout, no adventitial sounds or increased work of dante thing at rest. Extremities: Upper and lower extremities warm and well perfused with no upper or lower ext remity edema. Neurologic: Alert, oriented and appropriated in conversation. CN II-IX grossly intact. Moves all 4 extremities normally with normal gait. Psychiatric: Appropriate. Breast: On upright exam breasts appear symmetric bilaterally with no contour abnormalitie s or malignant appearing skin changes. The left breast demonstrates a well-healed surgical incision. On supine exam palpation of the left breast demonstrates minimal fibrosis at th e site of prior lumpectomy. No discrete mass lesions are identified in either breast. The re is mild pain with palpation. No nipple changes. Questionnaires: Are you having pain?YesWhere does it hurt most?left breastRate your pain from 0-10: 0-10 scale with 0 = no pain and 10= worst [id number] your pain (quality) i.e. aching, s harp, stabbing, etc.sharpWhat do you use for pain medication? Name and dosePercocet Imaging, pathology and pertinent labs reviewed personally and described above in history o f present illness. Impression/Plan: 50 year old woman with a history of left breast cancer. Pathologic stage IA, pT1c pN0 cM0. Tumor characteristics: well-differentiated invasive ductal carcinoma, tumor size 1.1 cm, l ow-grade DCIS present. No LVSI. Negative margins. ER 100%, IL 70-75%, Ki-67 less than 1 %, HER-2/jamia nonamplified by FISH with ratio 1.0, sentinel lymph node negative for metasta tic carcinoma. Recieved adjuvant radiation with hypofractionated whole breast irradiaiton, 40.05 to the breast with a 8 Gy of a aecghkl80 Gy lumpectomy boost for a total 48.05 Gy in 20 fraction, completed on 06/14/15. Had undergone oophorectomy, continued AI therapy due t o arthralgias. History and exam today are benign with regard to breast cancer. She continues to have mil d edema and hypersensitivity at the left breast, but is unable to receive OT due to work sc heduling conflicts. She also continues to be challenged by chronic fatigue and depression. I attempted to connect her with our onsite OT, but she was not immediately available. OT referral again offered, and declined. She was encouraged to continue physical activity and massage/stretching techniques on the treated side. Aerobic physical activity would also be supportive for her mood. We will plan for follow-up in 6 months. Next mammogram due i n February 2017. She will also continue follow-up with Dr. Brewster in [place]. Thank you for allowing me to participate in the care of Carissa Downey. If you should have any questions regarding this evaluation, please do not hesitate to contact me. Renee Johnson M.D. Radiation Oncologist Department of Radiation Oncology [facility] Electronically signed by Renee Fuentes M.D CC: FREDDY Kitchen M.D. Nanci Kee M.D. Mu Brewster M.D. [facility]-- This note was transcribed using [employer] speech recognition software. As a result, there ma y be unintended for medical and/or spelling errors. Every attempt is made to correct dicta tion. If there are any questions or errors please contact our office. CSN: [id number] signed by Renee Fuentes MD at 07/15/2016 2:59 PM PDTd ocumented in this encounter Plan of Treatment +--------+---------+ + + + | Date | Type | Specialty | Care Team | Description | +--------+---------+ + + + | 08/16/ | Office | Otolaryngology | Servando Taylor MD | | | 2019 | Visit | | [address] [facility] | | | | | | [address] [place], | | | | | | [place] [address] | | | | | | [phone] | | | | | | | | +--------+---------+ + + + documented as of this encounter Visit Diagnoses Not on filedocumented in this encounter"
--- OUTSIDE RECORDS SUMMARY | ~2019-08-09 | XMS | Encounter Summary ---
Demographics + + + | Address | [address] | | | [place] [address] | + + + | Home Phone | | + + + | Preferred Language | Unknown | + + + | Marital Status | | + + + | Jew Affiliation | Unknown | + + + | Race | Unknown | + + + | Ethnic Group | Unknown | + + + Author + + + | Author | [facility] | | | and [place] | + + + | Organization | [facility] | | | and [place] [...] [address], [place] | | | | | [address] | | + + + + + [...] [place] | | | | | [address] | | + + + + + Care Team Providers + +------+ + | Care Consumer Services Consultant Name | Role | Phone | + +------+ + | Luis Garcia PA-C | PCP | | + +------+ + Reason for Visit +--------+ + | Reason | Comments | +--------+ + | Other | | +--------+ + Encounter Details +--------+ + + + + | Date | Type | Department | Care Team | Description | +--------+ + + + + | 02/06/ | Telephone | [facility] | Renee Wood | Other | | 2017 | | MED CTR RADIATION | MD [place] [address] | | | | | ONCOLOGY [address] [place], [place] | | | | | [place], | [address] | | | | | [place] [address] | | | | | | [phone] | | | +--------+ + + + [...] 2019 | Visit | | [address] [facility] | | | | | | [address], | | | | | | [place] [address] | | | | | | [phone] | | | | | | | | +--------+---------+ + + + documented as of this encounter Visit Diagnoses Not on filedocumented in this encounter"
--- OUTSIDE RECORDS SUMMARY | ~2019-08-09 | XMS | Encounter Summary ---
Demographics + + + | Address | [address] | | | [place] [address] | + + + | Home Phone | | + + + | Preferred Language | Unknown | + + + | Marital Status | | + + + | Druze Affiliation | Unknown | + + + | Race | or | + + + | Ethnic Group | Not or | + + + Author + + + | Author | [facility] | + + + | Organization | [facility] | + + + | Address | Unknown | + + + | Phone | Unavailable | + + + Support + + +---------+ + | Name | Relationship | Address | Phone | + + +---------+ + | Jak Daley | ECON | Unknown | | + + +---------+ + Care Team Providers + +------+ + | Care Industrial Economics Professor Name | Role | Phone | + +------+ + | Mela Condon PA-C | PCP | | + +------+ + Encounter Details +--------+ + + + + | Date | Type | Department | Care Team | Description | +--------+ + + + + | 03/12/ | Hospital | Women's Imaging | Jemima Quesada | | | 2018 | Encounter | Center at [facility] [address] | MD Carolyn [address] | | | | | [facility] | [place], [place] | | | | | [place], | [address] | | | | | [address], | [phone] | | | | | [place] [address] | | | | | | [phone] | | | +--------+ + + + [...] | + +--------+ + + + | [facility] | Routin | 03/12/2018 | Malignant neoplasm | Results for this | | BILAT W/CAD | e | 10:01 AM | of upper-outer | procedure are in the | | | | PDT | quadrant of left | results section. | | | | | breast in female, | | | | | | estrogen receptor | | | | | | positive (HCC) | | + +--------+ + + + documented in this encounter Results [facility] BILAT W/CAD (03/12/2018 10:01 AM PDT) [...] cancer, conservation | | | therapy. C50.412 [facility]ST[facility] BILAT W/CAD: March 12, 2018 - | | | Bilateral CC and MLO view(s) were taken. | | | Prior study comparison: January 31, 2017, bilateral [facility] | | | BILAT w/CAD performed at [facility]. There | | | are scattered fibroglandular densities. Stable post-lumpectomy | | | changes in the left breast. No suspicious calcifications, masses, or | | | architectural distortion present in either breast. No significant | | | changes when compared with prior studies. The images were | | | obtained using full field digital mammography on the dedicated | | | [employer] with R2 CAD. Performed at [facility] | | | [place]. 3D tomosynthesis mammography was performed as part [...] 12, 2018 - Accession #: | | [id number] CC and MLO view(s) were taken.Prior study comparison: January 31, 2017, | | bilateral MA VY DIAGNOSTICBILAT w/CAD performed at [facility] | | [place].There are scattered fibroglandular densities. Stable post-lumpectomy changes | | in the left breast. No suspicious calcifications, masses, or architectural distortion | | present in either breast. No significant changes when compared with prior studies.The | | images were obtained using full field digital mammography on the dedicated [employer] | | System with R2 CAD. Performed at [facility]. 3D | | tomosynthesis mammography wasperformed as [...] Hologic System with R2 CAD. Performed at [facility]. 3D tomosynthesis mammography was | |performed as [...] | | positive (HCC) | + + documented in this encounter"
--- OUTSIDE RECORDS SUMMARY | ~2019-08-09 | XMS | Encounter Summary ---
Demographics + + + | Address | [address] | | | [place] [address] | + + + | Home Phone | | + + + | Preferred Language | Unknown | + + + | Marital Status | | + + + | Baptist Affiliation | Unknown | + + + | Race | Unknown | + + + | Ethnic Group | Unknown | + + + Author + + + | Author | [facility] | | | and [place] | + + + | Organization | [facility] | | | and [place] | [...] [address], [place] | | | | | [address] | | + + + + + [...] [place] | | | | | [address] | | + + + + + Care Team Providers + +------+ + | Care Senior Construction Manager Name | Role | Phone | + +------+ + | Luis Garcia PA-C | PCP | | + +------+ + Encounter Details +--------+ + + + + | Date | Type | Department | Care Team | Description | +--------+ + + + + | 08/05/ | Abstract | [facility] | Rubén Merlos, | | | 2016 | | REHABILITATION | [address] | | | | | MEDICINE [address] [place], [place] | | | | | [address] [place] | [address] | | | | | [place] [address] | | | | | | [phone] | | | +--------+ + + + [...] 2018 | Visit | | [address] [facility] | | | | | | [address] | | | | | | [place] [address] | | | | | | [phone] | | | | | | | | +--------+---------+ + + + documented as of this encounter Visit Diagnoses Not on filedocumented in this encounter"
--- OUTSIDE RECORDS SUMMARY | ~2019-08-09 | XMS | Encounter Summary ---
Demographics + + + | Address | [address] | | | [place] [address] | + + + | Home Phone [...] + + + | Author | [facility] | + + + | Organization | [facility] | + + + | Address | Unknown | + + + | Phone | Unavailable | + + + Support + + +---------+ + | Name | Relationship | Address | Phone | + + +---------+ + | Jak Daley | ECON | Unknown | | + + +---------+ + Care Team Providers + +------+ + | Care Patent Searcher Name | Role | Phone | + +------+ + | Mela Condon PA-C | PCP | | + +------+ + Reason for Visit + + + | Reason | Comments | + + + | New Patient Visit | | + + + Intake Referral (Routine) +--------+--------+ + + + + | Status | Reason | Specialty | Diagnoses / | Referred By | Referred To | | | | | Procedures | Contact | Contact | +--------+--------+ + + + + | Closed | | Surgical | Diagnoses | | Fairchild, | | | | Oncology | Malignant | Narcisa, | Puja Haile, | | | | | neoplasm of | Mu Gutierrez, | [employer] [address] | | | | | upper-outer | MD [address] | [address] | | | | | quadrant of | Re[address] Lucio | [address] | | | | | left female | [place], | [facility], [place] | | | | | breast | [place] [address] | [address] | | | | | request for | Phone: | Phone: | | | | | 2nd opinion | [phone] | [phone] | | | | | | Fax: | Fax: | | | | | | [phone] | [phone] | +--------+--------+ + + + + Encounter Details +--------+---------+ + + + | Date | Type | Department | Care Team | Description | +--------+---------+ + + + | 05/05/ | Office | [facility] | Puja Fairchild, | Breast pain, right | | 2017 | Visit | at [facility] [address] | [employer] [address] | (Primary Dx); | | | | [address] | [address] | Personal history of | | | | Thomas Mccormick | [place], [place] | breast cancer | | | | [place], [place] | [address] | | | | | [address] | [phone] | | | | | [phone] | | | +--------+---------+ + + + [...] this encounter Last Filed Vital Signs + +---------+ + + | Vital Sign | Reading | Time Taken | Comments | + +---------+ + + | Blood Pressure | 122/74 | 01/31/2017 11:39 AM | | | | | PDT | | + +---------+ + + | Pulse | - | - | | + +---------+ + + | Temperature | - | - | | + +---------+ + + | Respiratory Rate | - | - | | + +---------+ + + | Oxygen Saturation | - | - | | + +---------+ + + | Inhaled Oxygen | - | - | | | Concentration | | | | + +---------+ + + | Weight | - | - | | + +---------+ + + | Height | - | - | | + +---------+ + + | Body Mass Index | - | - | | + +---------+ + + documented in this encounter Progress Katie Austin MA - 01/31/2017 11:00 AM PDTSpoke with pt and read her the note below bibi robert and she say she is comfortable with waiting 1 yr for FU with us. She had an appt with Moy vega's office but cancelled it when she received the letter stating everything looked ok. I told her I would add a recall for 10 months to call her and schedule her for her 1 yr fu. El ectronically signed by Katie Dee MA at 02/19/2017 10:13 AM PDTKatie Dee MA - 01/2017 11:00 AM PDTTc to pt, [facility] Puja Heck FNP - 01/31/2017 11:00 AM PDTBreast imaging results as follow s: ASSESSMENT: Benign - Category 2 (Overall) VY NAVJOT BI CAD: Benign - category 2 finding. Right breast ULTRASOUND R: Right breast is negative - category 1. There were no suspicious findings in either breast, in particular in areas of concern. Will offer patient screening breast MRI to assess for recurrent disease. I have also referred he r to Hem Onc but I received a message from Dr. Quesada's office informing me that they have b een unable to get a hold of her. Will have MA phone her with above options and schedule acco rdingly. If she declines would encourage her to continue her follow-up with her Hem Onc/PCP providers and see her back PRN. Puja Heck FNP - 01/31/2017 11:00 AM PDT [facility] OUTPATIENT [facility] Patient: Carissa Downey Date: 01/31/2017 : 1965 AGE: 51 y.o. Referring Provider: Mu Brewster MD Visit Provider: NORRIS SALAS Reason for Visit: New patient visit History of present illness: Carissa Downey 51 y.o. female presents today for a breast evalu ation regarding right breast pain. Her history is such she was diagnosed with a stage IA lef t breast cancer in 2014 which was teated with lumpectomy and sentinel lymph node biopsy foll owed by whole breast radiation. 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 She had 0/1 SLN. She was started on examestane which she took for about a year but she stopped due to intoler able arthralgias. She was not started on any other risk reduction medication. She has done w ell up until mid-2015 when she started having sharp shooting pains in the contralateral d[address] st. The pain is intermittent, happens about 4-5 times per month, but when it happens the kimberley n is sharp "like a needle poking me". It will hurt for a while and then go away. The pain in itially started in the medial breast but now it effects both the medial and lateral breast. She also says she feels some intermittent swelling in both her axillary regions but this is not necessarily in relation to when she is having the pain. She says that she has been presc ribed pain medication for this and it will help but she would prefer not to take pain pills due to side effects, makes her too sleepy. She had a BIRADS cat. 2 mammogram 02/2016. She say s she has had a lot of generalized joint pain and has been diagnosed with arthritis. She say s she has been referred to a Head Of It. She is also reporting an intermittent R sternal "lump or swelling" that is very tender. She seems to notice this every couple of months and then this seems to resolve. Says she doesn' t feel it today. She denies other breast symptoms of masses, skin changes, nipple discharge, or adenopathy. She also denies any new constitutional symptoms of fatigue, weight loss, fev er, or headache. She had a permanent ovarian suppression PARRISH/BSO 08/28/2015 which she report s was for risk reduction. Past Medical History: Diagnosis Date Arthropathy Malignant neoplasm (HCC) left breast 2014, low grade IDC Past Surgical History Procedure Laterality Date Tubal ligation Hysterectomy PARRISH/BSO 2014 Allergies Allergen Reactions Venom-Honey Bee Edema Current Medication List Name Sig EPINEPHRINE 0.3 MG/0.3 ML INJECTION, AUTO-INJECTOR Inject into the muscle (IM). LORATADINE 10 MG TABLET Take by mouth. NAPROXEN 500 MG TABLET REVIEW OF SYSTEMS: A 14-point review of systems intake form was filled out by the patient a nd reviewed with the patient. Patient denies any new constitutional symptoms. CONSTITUTIONAL: No fevers, chills, night sweats, unusual fatigue anorexia or weight loss. EYES: No significant visual difficulties. No diplopia. EARS, NOSE, AND THROAT: No difficulties with hearing. No difficulty swallowing, sore throat or mouth pain.No symptoms of rhinitis. ENDOCRINE: No polyuria or polydipsia. No cold or heat intolerance. No significant hot fla shes. HEMATOLOGIC/LYMPHATIC: No abnormal bleeding or bruises. Unaware of any adenopathy. CARDIOVASCULAR: No anginal chest pain, palpitations or orthopnea. RESPIRATORY: No dyspnea on exertion, pleuritic chest pain, cough or hemoptysis. GASTROINTESTINAL: No nausea, vomiting, diarrhea, constipation, or significant change in shu wels. No melena or hematochezia. No abdominal pain. GENITOURINARY: No hematuria, dysuria, increased frequency, urgency, hesitancy or incontinen ce. MUSCULOSKELETAL: No unusual aches or pains. No decreased range of motion. INTEGUMENTARY: No rashes, inflammation, ulcerations or skin changes. NEUROLOGIC: No headache, blurred vision, no weakness or numbness. PSYCHIATRIC: No depression or anxiety. 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 No acute distress. Head and neck: Normocephalic, atraumatic. Sclerae are anicteric. Neck is soft and supple. N o masses. No cervical or clavicular adenopathy. Chest/Lungs: CTAB Heart: RRR, no m/r/g Abdomen: Soft, nontender, and nondistended. No palpable masses. No organomegaly detected. Extremities: No cyanosis, clubbing, or edema. Breast exam: A multi-positional bilateral breast exam was performed. There is no skin dimpl ing or nipple retraction. Mild left radiation skin changes. Well healed R axillary scar from excision of "fatty tumor". Well healed left upper outer quadrant lumpectomy scar and keloi d left axillary scar. Right breast: no palpable dominant masses, no nipple discharge, no ski n changes. Right axilla: no palpable adenopathy. Left breast: no palpable dominant masses, n o nipple discharge. There is a paucity of tissue underlying lumpectomy scar from surgical re moval. Medial to this there is some mild tissue thickening likely from radiation changes. Le ft axilla: no palpable adenopathy. Assessment: Carissa Downey is a 51 year old with a personal history of stage 1a left breast cancer 2014. She presents today with a year long history of R breast pain. Her clinical exam today is wi thout suspicious findings. Today I have recommended B/L diagnostic mammograms (vy) and R U S. We discussed her concern about the intermittent sternal mass and that given that there is no visible mass on exam today this is hard to assess. We will start with the imaging today and pending those results we can discuss a plan from there. We briefly touched on an MRI giv en her concerns about her symptoms, including pros and cons, namely the risk for false posit ginger but that a negative study would be very reassuring that there was no evidence of malign velasquez in either breast. We may also be able to evaluate inframammary lymph nodes. We then discussed that breast pain can be cyclical or noncyclical. Cyclical pain being asso ciated with hormonal changes associated with the menstrual cycle, usually occuring prior to the onset of the menstrual cycle. Noncyclical pain, however, is often more elusive and can b e related to various causes such as breast masses (i.e. Cysts), large pendulous breasts due to stretching of the Rupert's ligaments, diet and lifestyle, hormone therapies, duct ectasia , mastitis, or musculoskeletal causes. Pain can also be related to malignancy, although less commonly. We discussed that there are various things to try to help manage the pain, namely wearing a good supportive bra (having a proper bra fitting), wearing a bra to sleep in for support, using warm compresses or ice, taking a trial course of Tylenol or ibuprofen and/or both. We discussed that in some cases when pain is severe, the medication tamoxifen can be u seful in managing these symptoms. We briefly touched on this as a possible option for the pa in but also as an adjuvant therapy for her breast cancer. I have informed her that if she is interested I would have her talk to her medical oncologist. Today she has asked if she can see one of our Hem Onc providers here at [facility]. I have placed a referral for this but this wi ll have to be scheduled on another day which she is willing to come back for. I will plan to phone her with her final imaging results and we can establish a further plan from there. At the end of her visit today, all of her questions were answered to her satisf action. Contact information given for any questions and/or concerns. Follow-up Plan: B/L diagnostic mammograms and R US today Consider MRI pending imaging Referral to Hem Onc to discuss adjuvant endocrine therapy (? Tamoxifen for breast pain) I spent 45 minutes with this patient, over 50% of which was spent in counseling/coordinatio n of care. NORRIS SALAS documented in this encounter Plan of Treatment Not on filedocumented as of this encounter Results US BREAST RIGHT (01/31/2017 1:53 PM PDT) + + | Specimen | + + | | + + + + + | Narrative | Performed At | + + + | Reason for exam: history of breast cancer, conservation therapy. | [facility] | | N64.4 Mastodynia Z85.3 Personal history of malignant neoplasm of | RADIOLOGY | | breast Reason for Exam:->Personal history of breast cancer h/o | BREAST IMAGING | | left breast cancer s/p lumpectomy with radiation for stage I breast | | | ca. having R breast pain for about a year with no clinical | | | abnormalities appreciate. also reporting an intermittent R side | | | sternal mass no clinical findings today Reason for Exam:->Other (see | | | comments) Location of Concern?->R medial and lateral breast. R | | | sternal region reports intermittent mass not appreciated on exam | | | today How many target lesions?->0 Associated symptoms?->pain Mode of | | | Travel->AMBULATORY Is this paid for by an IRB-approved research | | | study?->No Order Comment: BP on (01/31/2017) 122/74 MA VY | | | DIAGNOSTIC BILAT W/CAD: January 31, 2017 - | | | Bilateral CC and MLO view(s) were taken. CC with magnification and | | | LM with magnification view(s) were taken of the left breast. | | | Radiologists: Radha Shine MD; Andres Osborn MD There are | | | scattered fibroglandular densities. Stable post-lumpectomy changes | | | in the left breast. No suspicious calcifications, masses, or | | | architectural distortion present in either breast. No significant | | | changes when compared with prior studies. US BREAST RIGHT: January | | | 2016 - Radiologist: Radha Shine MD Targeted | | | ultrasound to evaluate the area of focal breast pain in the mid | | | upper right breast and at the lower outer quadrant, as well as the | | | area of intermittent swelling at the sternum demonstrated normal | | | tissue in all these areas without suspicious calcifications, masses, | | | or architectural distortion present. The images were obtained | | | using full field digital mammography on the dedicated Hologic System | | | with R2 CAD. Performed at [facility]. | | | ASSESSMENT: Benign - Category 2 (Overall) VY NAVJOT BI CAD: Benign - | | | category 2 finding. Right breast ULTRASOUND R: Right breast is | | | negative - category 1. RECOMMENDATION: Continued clinical | | | monitoring of the right breast and sternum to assess for worsening | | | of symptoms or new symptoms. Routine screening mammogram in 1 year. | | | I have personally reviewed the images and, if necessary, edited | | | the report. I agree with the report as now presented. | | + + + + + | Procedure Note | + + | Service Account, Radiant Res In Interface - 01/31/2017 3:00 PM PDT Reason for exam: | | history of breast cancer, conservation therapy. N64.4 Mastodynia Z85.3 Personal history | | of malignant neoplasm ofbreast Reason for Exam:->Personal history of breast cancer | | h/o left breast cancer s/p lumpectomy with radiation for stage I breast ca. having R | | breast pain for about a year with no clinicalabnormalities appreciate. also reporting an | | intermittent R side sternal mass no clinical findings today Reason for Exam:->Other | | (see comments) Location of Concern?->R medial and lateral breast.R sternal region | | reports intermittent mass not appreciated on exam today How many target lesions?->0 | | Associated symptoms?->painMode of Travel->AMBULATORY Is this paid for by an IRB-approved | | research study?->No Order Comment: BP on (01/31/2017) 122/74MA VY DIAGNOSTIC BILAT | | W/CAD: January 31, 2017 - CC and MLO view(s) were taken. CC | | with magnification and LM with magnification view(s) were taken of the left | | breast.Radiologists: Radha Shine MD; Andres Osborn MDThere are scattered | | fibroglandular densities. Stable post-lumpectomy changes in the left breast. No | | suspicious calcifications, masses, or architectural distortion present in either breast. | | No significant changes when compared with prior studies.US BREAST RIGHT: January 31, 2017 - | | Radha Shine MDTargeted ultrasound to evaluate the | | area of focal breast pain in the mid upper right breast and at the lower outer quadrant, | | as well as the area of intermittent swelling at the sternum demonstrated normal tissue | | in all these areas without suspicious calcifications, masses, or architectural | | distortion present.The images were obtained using full field digital mammography on the | | dedicated Hologic System with R2 CAD. Performed at [facility] | | [place].ASSESSMENT: Benign - Category 2 (Overall)VY NAVJOT BI CAD: Benign - category 2 | | finding.Right breast ULTRASOUND R: Right breast is negative - category | | 1.RECOMMENDATION:Continued clinical monitoring of the right breast and sternum to assess | | for worsening of symptoms or new symptoms.Routine screening mammogram in 1 year.I have | | personally reviewed the images and, if necessary, edited the report. I agree with the | | report as now presented. | |well as the area of intermittent swelling at the sternum | |demonstrated normal tissue in all these areas without suspicious | |calcifications, masses, or architectural distortion present. | | | |The images were obtained using full field digital mammography on | |the dedicated Hologic System with R2 CAD. Performed at [place] | |[facility] [place]. | | | |ASSESSMENT: Benign - Category 2 (Overall) | |VY NAVJOT BI CAD: Benign - category 2 finding. | |Right breast ULTRASOUND R: Right breast is negative - category 1. | | | |RECOMMENDATION: | |Continued clinical monitoring of the right breast and sternum to | |assess for worsening of symptoms or new symptoms. | |Routine screening mammogram in 1 year. | | | | | |I have personally reviewed the images and, if necessary, edited the report. I agree with t he report as now presented. | + + + +---------+ + + | Performing | Address | City/State/[facility] | Phone Number | | Organization | | | | + +---------+ + + | [facility] | | | | | BREAST IMAGING | | | | + +---------+ + + MA VY DIAGNOSTIC CARMEN W/CHEO (01/31/2017 1:15 PM PDT) + + | Specimen | + + | | + + + + + | Narrative | Performed At | + + + | ADDENDUM: This addendum does not change the prior final report. | [facility] | | It is generated in order to document 3D tomosynthesis was utilized | RADIOLOGY VOICE | | in interpretation of the digital mammogram. Reason for exam: | RECOGNITION | | history of breast cancer, conservation therapy. N64.4 Mastodynia | | | Z85.3 Personal history of malignant neoplasm of breast Reason for | | | Exam:->Personal history of breast cancer h/o left breast cancer | | | s/p lumpectomy with radiation for stage I breast ca. having R breast | | | pain for about a year with no clinical abnormalities appreciate. | | | also reporting an intermittent R side sternal mass no clinical | | | findings today Reason for Exam:->Other (see comments) Location of | | | Concern?->R medial and lateral breast. R sternal region reports | | | intermittent mass not appreciated on exam today How many target | | | lesions?->0 Associated symptoms?->pain Mode of Travel->AMBULATORY Is | | | this paid for by an IRB-approved research study?->No Order Comment: | | | BP on (01/31/2017) 122/74 MA VY DIAGNOSTIC BILAT W/CAD: January 31 | | | 2016 - Bilateral CC and MLO view(s) were | | | taken. CC with magnification and LM with magnification view(s) | | | were taken of the left breast. Radiologists: Radha Shine MD; | | | Andres Osborn MD There are scattered fibroglandular densities. | | | Stable post-lumpectomy changes in the left breast. No suspicious | | | calcifications, masses, or architectural distortion present in | | | either breast. No significant changes when compared with prior | | | studies. US BREAST RIGHT: January 31, 2017 - | | | Radiologist: Radha Shine MD Targeted ultrasound to evaluate the area | | | of focal breast pain in the mid upper right breast and at the lower | | | outer quadrant, as well as the area of intermittent swelling at the | | | sternum demonstrated normal tissue in all these areas without | | | suspicious calcifications, masses, or architectural distortion | | | present. The images were obtained using full field digital | | | mammography on the dedicated Hologic System with R2 CAD. Performed | | | at [facility]. ASSESSMENT: Benign - | | | Category 2 (Overall) VY NAVJOT BI CAD: Benign - category 2 finding. | | | Right breast ULTRASOUND R: Right breast is negative - category 1. | | | RECOMMENDATION: Continued clinical monitoring of the right breast and | | | sternum to assess for worsening of symptoms or new symptoms. | | | Routine screening mammogram in 1 year. I have personally | | | reviewed the images and, if necessary, edited the report. I agree | | | with the report as now presented. | | + + + + + | Procedure Note | + + | Service Account, Radiant Res In Interface - 03/14/2017 10:47 AM PDT ADDENDUM:This | | addendum does not change the prior final report. It is generated in order to document | | 3D tomosynthesis was utilized in interpretation of the digital mammogram.Reason for | | exam: history of breast cancer, conservation therapy. N64.4 Mastodynia Z85.3 Personal | | history of malignant neoplasm ofbreast Reason for Exam:->Personal history of breast | | cancer h/o left breast cancer s/p lumpectomy with radiation for stage I breast ca. | | having R breast pain for about a year with no clinicalabnormalities appreciate. also | | reporting an intermittent R side sternal mass no clinical findings today Reason for | | Exam:->Other (see comments) Location of Concern?->R medial and lateral breast.R sternal | | region reports intermittent mass not appreciated on exam today How many target | | lesions?->0 Associated symptoms?->painMode of Travel->AMBULATORY Is this paid for by an | | IRB-approved research study?->No Order Comment: BP on (01/31/2017) 122/74MA VY | | DIAGNOSTIC BILAT W/CAD: January 31, 2017 - CC and MLO view(s) | | were taken. CC with magnification and LM with magnification view(s) were taken of the | | left breast.Radiologists: Radha Shine MD; Andres Osborn MDThere are scattered | | fibroglandular densities. Stable post-lumpectomy changes in the left breast. No | | suspicious calcifications, masses, or architectural distortion present in either breast. | | No significant changes when compared with prior studies.US BREAST RIGHT: January 31, 2017 - | | Radha Shine MDTargeted ultrasound to evaluate the | | area of focal breast pain in the mid upper right breast and at the lower outer quadrant, | | as well as the area of intermittent swelling at the sternum demonstrated normal tissue | | in all these areas without suspicious calcifications, masses, or architectural | | distortion present.The images were obtained using full field digital mammography on the | | dedicated Hologic System with R2 CAD. Performed at [facility] | | [place].ASSESSMENT: Benign - Category 2 (Overall)VY NAVJOT BI CAD: Benign - category 2 | | finding.Right breast ULTRASOUND R: Right breast is negative - category | | 1.RECOMMENDATION:Continued clinical monitoring of the right breast and sternum to assess | | for worsening of symptoms or new symptoms.Routine screening mammogram in 1 year.I have | | personally reviewed the images and, if necessary, edited the report. I agree with the | | report as now presented. | |Targeted ultrasound to evaluate the area of focal breast pain in | |the mid upper right breast and at the lower outer quadrant, as | |well as the area of intermittent swelling at the sternum | |demonstrated normal tissue in all these areas without suspicious | |calcifications, masses, or architectural distortion present. | | | |The images were obtained using full field digital mammography on | |the dedicated Hologic System with R2 CAD. Performed at [place] | |[place] [facility]. | | | |ASSESSMENT: Benign - Category 2 (Overall) | |VY NAVJOT BI CAD: Benign - category 2 finding. | |Right breast ULTRASOUND R: Right breast is negative - category 1. | | | |RECOMMENDATION: | |Continued clinical monitoring of the right breast and sternum to | |assess for worsening of symptoms or new symptoms. | |Routine screening mammogram in 1 year. | | | | [...] | | | | | VOICE RECOGNITION | | | | + +---------+ + + documented in this encounter Visit Diagnoses + + | Diagnosis | + + | Breast pain, right - Primary Mastodynia | + + | Personal history of breast cancer Personal history of malignant neoplasm of breast | + + documented in this encounter
--- OUTSIDE RECORDS SUMMARY | ~2019-08-09 | XMS | Encounter Summary ---
Demographics + + + | Address | [address] | | | [place] [address] | + + + | Home Phone | | + + + | Preferred Language | Unknown | + + + | Marital Status | | + + + | Evangelical Affiliation | Unknown | + + + | Race | or | + + + | Ethnic Group | Not or | + + + Author + + + | Author | [facility] [employer] [facility] | + + + | Organization | [facility] | + + + | Address | Unknown | + + + | Phone | Unavailable | + + + Support + + +---------+ + | Name | Relationship | Address | Phone | + + +---------+ + | Jka Daley | ECON | Unknown | | + + +---------+ + Care Team Providers + +------+ + | Care Locomotive Pipe Fitter Name | Role | Phone | + +------+ + | Mela Condon PA-C | PCP | | + +------+ + Reason for Visit + + + | Reason | Comments | + + + | Lab Results | | + + + Encounter Details +--------+ + + + + | Date | Type | Department | Care Team | Description | +--------+ + + + + | 03/13/ | Telephone | Hematology/Medical | Jemima Quesada | Lab Results | | 2018 | | Oncology at [place] | MD Carolyn [address] | | | | | for Health & Healing | [address] [place], [place] | | | | | [address] | [address] | | | | | Mailcode: [place] | [phone] | | | | | for Health and | | | | | | Healing, [address] | | | | | | [place], [place] | | | | | | [address] | | | | | | [phone] | | | +--------+ + + + [...]
--- OUTSIDE RECORDS SUMMARY | ~2019-08-09 | XMS | Encounter Summary ---
Demographics + + + | Address | [address] | | | [place] [address] | + + + | Home Phone | | + + + | Preferred Language | Unknown | + + + | Marital Status | | + + + | Buddhism Affiliation | Unknown | + + + | Race | or | + + + | Ethnic Group | Not or | + + + Author + + + | Author | [facility] [facility] | + + + | Organization | [facility] | + + + | Address | Unknown | + + + | Phone | Unavailable | + + + Support + + +---------+ + | Name | Relationship | Address | Phone | + + +---------+ + | Jak Daley | ECON | Unknown | | + + +---------+ + Care Team Providers + +------+ + | Care Category Director Name | Role | Phone | + +------+ + | Mela Condon PA-C | PCP | | + +------+ + Encounter Details +--------+ + + + + | Date | Type | Department | Care Team | Description | +--------+ + + + + | 03/14/ | Document-Sc | Health Information | Unknown . | | | 2014 | anned | Services [phone] | | | | | | [address] | | | | | | Mailcode: OP17A | | | | | | [facility] | | | | | | [place], [place] | | | | | | [address] | | | | | | [phone] | | | +--------+ + + + [...] + + + | RADIOLOGY | | 03/14/2015 | | Results for this | | | | 12:00 AM | | procedure are in the | | | | PDT | | results section. | + +--------+ + + + documented in this encounter Results RADIOLOGY (03/14/2015 12:00 AM PDT) + + + | Narrative | Performed At | + + + | | | + + + documented in this encounter Visit Diagnoses Not on filedocumented in this encounter"
--- OUTSIDE RECORDS SUMMARY | ~2019-08-09 | XMS | Encounter Summary ---
Demographics + + + | Address | [address] | | | [place] [address] | + + + | Home Phone [...] + + + | Author | [facility] | + + + | Organization | [facility] | + + + | Address | Unknown | + + + | Phone | Unavailable | + + + Support + + +---------+ + | Name | Relationship | Address | Phone | + + +---------+ + | Jak Daley | ECON | Unknown | | + + +---------+ + Care Team Providers + +------+ + | Care Marketing Analytics Analyst Name | Role | Phone | + +------+ + | Mela Condon PA-C | PCP | | + +------+ + Encounter Details +--------+ + + + + | Date | Type | Department | Care Team | Description | +--------+ + + + + | 03/13/ | Document-Sc | Health Information | Unknown . | | | 2014 | anned | Services [phone] | | | | | | [address] | | | | | | Mailcode: OP17A | | | | | | [facility] | | | | | | [place], [place] | | | | | | [address] | | | | | | [phone] | | | +--------+ + + + [...] + + + | RADIOLOGY | | 03/13/2015 | | Results for this | | | | 12:00 AM | | procedure are in the | | | | PDT | | results section. | + +--------+ + + + documented in this encounter Results RADIOLOGY (03/13/2015 12:00 AM PDT) + + + | Narrative | Performed At | + + + | | | + + + documented in this encounter Visit Diagnoses Not on filedocumented in this encounter"
--- OUTSIDE RECORDS SUMMARY | ~2019-08-09 | XMS | Encounter Summary ---
Demographics + + + | Address | [address] | | | [place] [address] | + + + | Home Phone [...] + + | Author | [facility] | + + + | Organization | [facility] | + + + | Address | Unknown | + + + | Phone | Unavailable | + + + Support + + +---------+ + | Name | Relationship | Address | Phone | + + +---------+ + | Jak Daley | ECON | Unknown | | + + +---------+ + Care Team Providers + +------+ + | Care Pest Locator Name | Role | Phone | + [...] | Malignant | Jemima Leon, | [address] | | | | | neoplasm of | [address] | [address] | | | | | upper-outer | [address] | [address] | | | | | quadrant of | [place], [place] | Mailcode: | | | | | left breast | [address] | [address] | | | | | in female, | Phone: | [address] | | | | | estrogen | [phone] | [place], [place] | | | | | receptor | Fax: | [address] | | | | | positive | [phone] | Phone: | | | | | (HCC) | | [phone] | | | | | Weight loss | | Fax: | | | | | Bone pain | | [phone] | | | | | Procedures | | | | | | | NM BONE &/OR | | | | | | | JOINT | | | | | | | IMAGING | | | | | | | WHOLE BODY | | | | | | | CO BONE | | | | | | [...] | Malignant | Jemima Leon, | [address] | | | | | neoplasm of | MD [address] | [address] | | | | | upper-outer | [address] | [address] | | | | | quadrant of | [place], [place] | Mailcode: | | | | | left breast | [address] | [address] | | | | | in female, | Phone: | [address] | | | | | estrogen | [phone] | [place], [place] | | | | | receptor | Fax: | [address] | | | | | positive | [phone] | Phone: | | | | | (HCC) | | [phone] | | | | | Weight loss | | Fax: | | | | | Bone pain | | [phone] | | | | | Procedures | | | | | | | NM BONE &/OR | | | | | | | JOINT | | | | | | | IMAGING | | | | | | | WHOLE BODY | | | | | | | CO BONE | | | | | | | IMAGING, | | | | | | | WHOLE BODY | | | +--------+--------+ + + + + Encounter Details +--------+ + + + + | Date | Type | Department | Care Team | Description | +--------+ + + + + | 04/09/ | Hospital | Nuclear Medicine | Jemima Quesada | | | 2018 | Encounter | at [facility] [address] MD [address] | | | | | [address] | [place], [place] | | | | | Mailcode: [address] | [address] | | | | | [address] | [phone] | | | | | [place], [place] | | | | | | [address] | | | | | | [phone] | | | +--------+ + + + [...]
--- OUTSIDE RECORDS SUMMARY | ~2019-08-09 | XMS | Encounter Summary ---
Demographics + + + | Address | [address] | | | [place] [address] | + + + | Home Phone | | + + + | Preferred Language | Unknown | + + + | Marital Status | | + + + | Rastafarian Affiliation | Unknown | + + + | Race | Unknown | + + + | Ethnic Group | Unknown | + + + Author + + + | Author | [facility] | | | and [place] | + + + | Organization | [facility] | | | and [place] [...] [place], [place] | | | | | [address] | | + + + + + [...] [place] | | | | | [address] | | + + + + + Care Team Providers + +------+ + | Care Beverage Specialist Name | Role | Phone | [...] | +--------+ + + + + | 06/29/ | Telephone | [facility] | Renee Wood | Other | | 2015 | | [facility] | MD Lazara [address] | | | | | ONCOLOGY CLINIC [address] | [address] [place], [place] | | | | | [address] | [address] | | | | | [place] [address] | | | | | | [phone] | | | +--------+ + + + [...] | Visit | | [address] [facility] | | | | | | [address], | | | | | | [place] [address] | | | | | | [phone] | | | | | | | | +--------+---------+ + + + documented as of this encounter Visit Diagnoses Not on filedocumented in this encounter"
--- OUTSIDE RECORDS SUMMARY | ~2019-08-09 | XMS | Encounter Summary ---
Demographics + + + | Address | [address] | | | [place] [address] | + + + | Home Phone | | + + + | Preferred Language | Unknown | + + + | Marital Status | | + + + | Sikh Affiliation | Unknown | + + + | Race | Unknown | + + + | Ethnic Group | Unknown | + + + Author + + + | Author | [facility] | | | and [place] | + + + | Organization | [facility] | | | and [...] [address], [place] | | | | | [address] | | + + + + + [...] [place] | | | | | [address] | | + + + + + Care Team Providers + +------+ + | Care Cvt Rn Name | Role | Phone | + +------+ + | Luis Garcia PA-C | PCP | | + +------+ + Reason for Visit +--------+ + | Reason | Comments | +--------+ + | Other | Survivorship | +--------+ + Encounter Details +--------+ + + + + | Date | Type | Department | Care Team | Description | +--------+ + + + + | 12/26/ | Telephone | [facility] | MargaritaPanchitoy Fili, | Other (Survivorship) | | 2015 | | MED CTR MEDICAL | RN | | | | | ONCOLOGY CLINIC [address] | | | | | | [address] | | | | | | [place] [address] | | | | | | [phone] | | | +--------+ + + + [...] 2019 | Visit | | [address] [facility] | | | | | | [address] | | | | | | [place] [address] | | | | | | [phone] | | | | | | | | +--------+---------+ + + + documented as of this encounter Visit Diagnoses Not on filedocumented in this encounter"
--- OUTSIDE RECORDS SUMMARY | ~2019-08-09 | XMS | Encounter Summary ---
Demographics + + + | Address | [address] | | | [place] [address] | + + + | Home Phone [...] + | Author | [facility] | | | and [place] | + + + | Organization | [facility] | | | and [place] [...] [place], [place] | | | | | [address] | | + + + + + [...] [place] | | | | | [address] | | + + + + + Care Team Providers + +------+ + | Care Supervisor Process Testing Name | Role | Phone | + +------+ + | Luis Garcia PA-C | PCP | | + +------+ + Reason for Visit +--------+ + | Reason | Comments | +--------+ + | Other | | +--------+ + Encounter Details +--------+ + + + + | Date | Type | Department | Care Team | Description | +--------+ + + + + | 03/06/ | Telephone | [facility] | Jeanine Barfield, | Other | | 2015 | | [facility] RAD[facility] | RN | | | | | ONCOLOGY [address] | | | | | | [place], | | | | | | [place] [address] | | | | | | [phone] | | | +--------+ + + + [...] 2019 | Visit | | [address] [facility] | | | | | | [address], | | | | | | [place] [address] | | | | | | [phone] | | | | | | | | +--------+---------+ + + + documented as of this encounter Visit Diagnoses Not on filedocumented in this encounter"
--- OUTSIDE RECORDS SUMMARY | ~2019-08-09 | XMS | Encounter Summary ---
Demographics + + + | Address | [address] | | | [place] [address] | + + + | Home Phone | | + + + | Preferred Language | Unknown | + + + | Marital Status | | + + + | Mosque Affiliation | Unknown | + + + | Race | Unknown | + + + | Ethnic Group | Unknown | + + + Author + + + | Author | [facility] | | | and [place] | + + + | Organization | [facility] | | | and [...] [address], [place] | | | | | [address] | | + + + + + [...] [place] | | | | | [address] | | + + + + + Care Team Providers + +------+ + | Care Litigation Counsel Name | Role | Phone | + [...] | Renee Wood | Other | | 2014 | | MED CTR RAD[facility]ATION | MD Lazara [address] | | | | | ONCOLOGY [address] | [address] [place], [place] | | | | | [place], | [address] | | | | | [place] [address] | | | | | | [phone] | | | +--------+ + + + [...] 2019 | Visit | | [address] [facility] | | | | | | [address], | | | | | | [place] [address] | | | | | | [phone] | | | | | | | | +--------+---------+ + + + documented as of this encounter Visit Diagnoses Not on filedocumented in this encounter"
--- OUTSIDE RECORDS SUMMARY | ~2019-08-09 | XMS | Encounter Summary ---
Demographics + + + | Address | [address] | | | [place] [address] | + + + | Home Phone [...] + + | Author | [facility] | + + + | Organization | [facility] | + + + | Address | Unknown | + + + | Phone | Unavailable | + + + Support + + +---------+ + | Name | Relationship | Address | Phone | + + +---------+ + | Jak Daley | ECON | Unknown | | + + +---------+ + Care Team Providers + +------+ + | Care Field Crop Harvest Worker Name | Role | Phone | + +------+ + | Mela Condon PA-C | PCP | | + +------+ + Reason for Referral Consultation (Routine) +--------+--------+ + + + + | Status | Reason | Specialty | Diagnoses / | Referred By | Referred To | | | | | Procedures | Contact | Contact | +--------+--------+ + + + + | Closed | | Hematology & | Diagnoses | Zzsro | Dipak, | | | | Oncology | Hx of | Breast [facility] | Jemima Leon, | | | | | breast | [address] | [address] | | | | | cancer | [address] | [address] | | | | | Procedures | [address] | [place], [place] | | | | | CONSULT TO | Thomas | [address] | | | | | HEMATOLOGY / | Pavilion | Phone: | | | | | ONCOLOGY | [place], [place] | [phone] | | | | | PRACTICE | [address] | Fax: | | | | | | Phone: | [phone] | | | | | | [phone] | | | | | | | Fax: | | | | | | | [phone] | | +--------+--------+ + + + + Reason for Visit + + + | Reason | Comments | + + + | Medication Question | [facility] 02/04 | + + + Encounter Details +--------+ + + + + | Date | Type | Department | Care Team | Description | +--------+ + + + + | 02/04/ | Telephone | [facility] | Katie Dee MA | Medication Question | | 2017 | | at [facility] [address] | [address] | ([facility] 02/04 ) | | | | [address] | [address] | | | | | Thomas [address] | [place], [place] | | | | | [place], [place] | [address] | | | | | [address] | | | | | | [phone] | | | +--------+ + + + [...] + | Diagnosis | + + | Hx of breast cancer - Primary Personal history of malignant neoplasm of breast | + + documented in this encounter"
--- OUTSIDE RECORDS SUMMARY | ~2019-08-09 | XMS | Encounter Summary ---
Demographics + + + | Address | [address] | | | [place] [address] | + + + | Home Phone | | + + + | Preferred Language | Unknown | + + + | Marital Status | | + + + | Orthodoxy Affiliation | Unknown | + + + | Race | Unknown | + + + | Ethnic Group | Unknown | + + + Author + + + | Author | [facility] | | | and [place] | + + + | Organization | [facility] | | | and [place] [...] [address], [place] | | | | | [address] | | + + + + + [...] [place] | | | | | [address] | | + + + + + Care Team Providers + +------+ + | Care Training Engineer Name | Role | Phone | [...] | +--------+ + + + + | 07/24/ | Telephone | [facility] | Kayla Avila, | Other | | 2014 | | [facility] | RN | | | | | ONCOLOGY CLINIC [address] | | | | | | [address] | | | | | | [place] [address] | | | | | | [phone] | | | +--------+ + + + [...] 2019 | Visit | | [address] [facility] | | | | | | [address], | | | | | | [place] [address] | | | | | | [phone] | | | | | | | | +--------+---------+ + + + documented as of this encounter Visit Diagnoses Not on filedocumented in this encounter"
--- OUTSIDE RECORDS SUMMARY | ~2019-08-09 | XMS | Encounter Summary ---
Demographics + + + | Address | [address] | | | [place] [address] | + + + | Home Phone | | + + + | Preferred Language | Unknown | + + + | Marital Status | | + + + | Episcopalian Affiliation | Unknown | + + + | Race | or | + + + | Ethnic Group | Not or | + + + Author + + + | Author | [facility] [employer] [facility] | + + + | Organization | [facility] | + + + | Address | Unknown | + + + | Phone | Unavailable | + + + Support + + +---------+ + | Name | Relationship | Address | Phone | + + +---------+ + | Jak Daley | ECON | Unknown | | + + +---------+ + Care Team Providers + +------+ + | Care Sales Representative Raw Fibers Name | Role | Phone | + +------+ + | Mela Condon PA-C | PCP | | + +------+ + Encounter Details +--------+ + + + + | Date | Type | Department | Care Team | Description | +--------+ + + + + | 02/12/ | Night Monitor | Hematology/Medical | Jemiam Quesada | Breast cancer of | | 2017 | | Oncology at [place] | MD Carolyn [address] | lower-inner quadrant | | | | for Health & Healing | [address] [place], [place] | of left female | | | | [address] | [address] | breast (HCC) | | | | Mailcode: [place] | [phone] | (Primary Dx) | | | | for Health and | | | | | | Healing, [address] | | | | | | [place], [place] | | | | | | [address] | | | | | | [phone] | | | +--------+ + + + [...] | + +--------+ + + + | PATHOLOGY CONSULT - | Routin | 02/19/2017 | Breast cancer of | Results for this | | REVIEW OUTSIDE | e | | lower-inner quadrant | procedure are in the | | SLIDES | | | of left female | results section. | | | | | breast (HCC) | | + +--------+ + + + documented in this encounter Results PATHOLOGY CONSULT - REVIEW OUTSIDE SLIDES (02/19/2017) + + + + + + | Component | Value | Ref Range | Performed | Pathologist | | | | | At | Signature | + + + + + + | PATHOLOGY | SOURCE OF SPECIMEN:A | | [facility] | | | CONSULT - | Left breast core biopsy- | | DEPARTMENT | | | SLIDES | 3:00SOURCE OF | | OF | | | | SPECIMEN:B [place] | | PATHOLOGY | | | | lymph node left axilla; | | | | | | left breastlumpectomy | | | | | | Materials | | | | | | Received:Referring | | | | | | Institution: [facility] | | | | | | [facility] | | | | | | [place] [address] | | | | | | Specimen A:Outside | | | | | | Accession Number: | | | | | | [id number] | | | | | | Collection Date: | | | | | | 02/17/2015Sublabeled | | | | | | H&E | | | | | | A | | | | | | 1 | | | | | | Specimen B:Outside | | | | | | Accession Number: | | | | | | [id number] | | | | | | Collection Date: | | | | | | 03/14/2015Sublabeled | | | | | | | | | | | | H&E | | | | | | A-B | | | | | | 10 Final | | | | | | Pathologic Diagnosis:A. 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 | | | | | | [place] lymph node left | | | | | | axilla, biopsy | | | | | | ([id number], 03.14.15, A): | | | | | | - One lymph | | | | | | node with no diagnostic | | | | | | abnormality (0/1)- | | | | | | Negative for | | | | | | malignancy C. | | | | | | Left breast lumpectomy | | | | | | ([id number], 03.14.15, B) | | | | | | - Invasive | | | | | | ductal carcinoma, 1.1 | | | | | | cm, modified | | | | | | Pleitez-Holloway grade I | | | | | | - Ductal | | | | | | carcinoma in-situ, | | | | | | oof-vy-sfyangetdrdz | | | | | | grade - Negative | | | | | | for definitive | | | | | | lymphovascular | | | | | | invasion - | | | | | | Surgical margins free of | | | | | | tumor Comment: | | | | | | Thank you for sharing | | | | | | this case, we completely | | | | | | concur with | | | | | | Akira and Dr. Prieto | | | | | | Lyle' diagnoses. | | | | | | Case seen by:Mela | | | | | | Cuba Saldana/Surgical | | | | | | Pathology Oswald Olvera | | | | | | Cuba Barba/Pathologist | | | | | | Clinical | | | | | | History:51 yo female. | | | | | | My electronic | | | | | | signature indicates that | | | | | | I have personally | | | | | | reviewed alldiagnostic | | | | | | slides, the gross and/or | | | | | | microscopic portion of | | | | | | thisreport and | | | | | | formulated the final | | | | | | diagnosis. | | | | | | Rendering Diagnostician: | | | | | | Rohit Barba | | | | | | CubaPathologistElectroni | | | | | | sunita Signed 02/25/2017 | | | | | | 6:21PM | | | | + + + + + + + + | Specimen | + + | | + + + + + + + | Performing | Address | City/State/Zipcode | Phone Number | | Organization | | | | + + + + + | [facility] | [address] | [place] [address] | | | PATHOLOGY | [address] | | | + + + + + documented in this encounter Visit Diagnoses + + | Diagnosis | + + | Breast cancer of lower-inner quadrant of left female breast (HCC) - Primary | + + documented in this encounter"
--- OUTSIDE RECORDS SUMMARY | ~2019-08-09 | XMS | Encounter Summary ---
Demographics + + + | Address | [address] | | | [place] [address] | + + + | Home Phone | | + + + | Preferred Language | Unknown | + + + | Marital Status | | + + + | Muslim Affiliation | Unknown | + + + | Race | Unknown | + + + | Ethnic Group | Unknown | + + + Author + + + | Author | [facility] | | | and Johnnyana | + + + | Organization | [facility] | | | and [...] [place], [place] | | | | | [address] | | + + + + + [...] [place] | | | | | [address] | | + + + + + Care Team Providers + +------+ + | Care Retail Tire Sales Manager Name | Role | Phone | + +------+ + | Luis Garcia PA-C | PCP | | + +------+ + Reason for Referral Evaluate & Treat (Routine) +--------+ + + + + + | Status | Reason | Specialty | Diagnoses / | Referred By | Referred To | | | | | Procedures | Contact | Contact | +--------+ + + + + + | Closed | Specialty | Physical | Diagnoses | Janett, | Gaurang, | | | Services | Medicine and | Bilateral | Ross | MD Rubén | | | Required | Rehabilitatio | javed | LAURA Smith | [address] | | | | n | tunnel | [address] | [address] | | | | | syndrome | [address] [place] | [place], [place] | | | | | Cubital | [place], [place] | [address] Phone: | | | | | tunnel | [address] | [phone] | | | | | syndrome, | Phone: | Fax: | | | | | bilateral | [phone] | [phone] | | | | | | Fax: | | | | | | | [phone] | | +--------+ + + + + + Encounter Details +--------+ + + + + | Date | Type | Department | Care Team | Description | +--------+ + + + + | 07/01/ | Orders Only | [facility] | Ross Rowland | Bilateral carpal | | 2016 | | ORTHOPEDIC SURGERY | LAURA Smith [address] | tunnel syndrome | | | | [address] [facility] | [address] [place] | (Primary Dx); | | | | [place], [place] | [place] [address] | Cubital tunnel | | | | [address] | [phone] | syndrome, bilateral | | | | [phone] | | | +--------+ + + + [...] 2019 | Visit | | [address] [place] | | | | | | [address] [place], | | | | | | [place] [address] | | | | | | [phone] | | | | | | | | +--------+---------+ + + + + + +--------+ + + | Name | Type | Priori | Associated Diagnoses | Order Schedule | | | | ty | | | + + +--------+ + + | * [facility] | Outpatient | Routin | Bilateral carpal | Ordered: 07/01/2016 | | Physiatry - AMB | Referral | e | tunnel syndrome | | | Referral | | | Cub[place] Tunnel | | | | | | Syndrome, Bilateral | | + + +--------+ + + documented as of this encounter Visit Diagnoses + + | Diagnosis | + + | Bilateral carpal tunnel syndrome - Primary Carpal tunnel syndrome | + + | Cub[place] tunnel syndrome, bilateral | + + documented in this encounter"
--- OUTSIDE RECORDS SUMMARY | ~2019-08-09 | XMS | Encounter Summary ---
Demographics + + + | Address | [address] | | | [place] [address] | + + + | Home Phone | | + + + | Preferred Language | Unknown | + + + | Marital Status | | + + + | Rastafari Affiliation | Unknown | + + + | Race | Unknown | + + + | Ethnic Group | Unknown | + + + Author + + + | Author | [facility] | | | and Johnnyana | + + + | Organization | [facility] | [...] [address], [place] | | | | | [address] | | + + + + + [...] [place] | | | | | [address] | | + + + + + Care Team Providers + +------+ + | Care Technician Name | Role | Phone | [...] | +--------+ + + + + | 05/30/ | Telephone | [facility] | Narcisa, | Other | | 2014 | | [facility] | Mu Gutierrez MD [address] | | | | | ON[facility]OGY CLINIC [address] | [address] [place] | | | | | [address] [place] | [place] [address] | | | | | [place] [address] | [phone] | | | | | [phone] | | | +--------+ + + + [...] | Visit | | [address] [facility] | | | | | | [address] [place], | | | | | | [place] [address] | | | | | | [phone] | | | | | | | | +--------+---------+ + + + documented as of this encounter Visit Diagnoses Not on filedocumented in this encounter"
--- OUTSIDE RECORDS SUMMARY | ~2019-08-09 | XMS | Encounter Summary ---
Demographics + + + | Address | [address] | | | [place] [address] | + + + | Home Phone | | + + + | Preferred Language | Unknown | + + + | Marital Status | | + + + | Evangelical Affiliation | Unknown | + + + | Race | Unknown | + + + | Ethnic Group | Unknown | + + + Author + + + | Author | [facility] | | | and Johnnyana | + + + | Organization | [facility] | | | and Johnnyana [...] [address], [place] | | | | | [address] | | + + + + + [...] [place] | | | | | [address] | | + + + + + Care Team Providers + +------+ + | Care Rn Primary Care Name | Role | Phone | + +------+ + | Luis Garcia PA-C | PCP | | + +------+ + Reason for Visit +--------+ + | Reason | Comments | +--------+ + | Other | | +--------+ + Encounter Details +--------+ + + + + | Date | Type | Department | Care Team | Description | +--------+ + + + + | 01/29/ | Telephone | [facility] | Renee Wood | Other | | 2017 | | [facility] | MD Lazara [address] | | | | | ONCOLOGY CLINIC [address] | [address] [place] | | | | | [address] [place] | [address] | | | | | [place] [address] | | | | | | [phone] | | | +--------+ + + + [...] | Visit | | [address] [facility] | | | | | | [address] [place], | | | | | | [place] [address] | | | | | | [phone] | | | | | | | | +--------+---------+ + + + documented as of this encounter Visit Diagnoses Not on filedocumented in this encounter"
--- OUTSIDE RECORDS SUMMARY | ~2019-08-09 | XMS | Encounter Summary ---
Demographics + + + | Address | [address] | | | [place] [address] | + + + | Home Phone | | + + + | Preferred Language | Unknown | + + + | Marital Status | | + + + | Gnosticism Affiliation | Unknown | + + + | Race | or | + + + | Ethnic Group | Not or | + + + Author + + + | Author | [facility] [employer] [facility] | + + + | Organization | [facility] | + + + | Address | Unknown | + + + | Phone | Unavailable | + + + Support + + +---------+ + | Name | Relationship | Address | Phone | + + +---------+ + | Jak Daley | ECON | Unknown | | + + +---------+ + Care Team Providers + +------+ + | Care Fitting Room Maintenance Mechanic Name | Role | Phone | + +------+ + | Mela Condon PA-C | PCP | | + +------+ + Encounter Details +--------+ + + + + | Date | Type | Department | Care Team | Description | +--------+ + + + + | 02/17/ | Document-Sc | Health Information | Unknown . | | | 2014 | anned | Services [address] | | | | | | [address] | | | | | | Mailcode: [id number] | | | | | | [facility] | | | | | | [place], [place] | | | | | | [address] | | | | | | [phone] | | | +--------+ + + + [...] + + + | RADIOLOGY | | 02/17/2015 | | Results for this | | | | 12:00 AM | | procedure are in the | | | | PDT | | results section. | + +--------+ + + + documented in this encounter Results RADIOLOGY (02/17/2015 12:00 AM PDT) + + + | Narrative | Performed At | + + + | | | + + + documented in this encounter Visit Diagnoses Not on filedocumented in this encounter"
--- OUTSIDE RECORDS SUMMARY | ~2019-08-09 | XMS | Encounter Summary ---
Demographics + + + | Address | [address] | | | [place] [address] | + + + | Home Phone | | + + + | Preferred Language | Unknown | + + + | Marital Status | | + + + | Spiritism Affiliation | Unknown | + + + | Race | Unknown | + + + | Ethnic Group | Unknown | + + + Author + + + | Author | [facility] | | | and Johnnyana | + + + | Organization | [facility] | | | and Johnnyana [...] [address], [place] | | | | | [address] | | + + + + + [...] [place] | | | | | [address] | | + + + + + Care Team Providers + +------+ + | Care Leather Goods I Assembler Name | Role | Phone | + +------+ + | Luis Garcia PA-C | PCP | | + +------+ + Reason for Referral Diagnostic/Screening (Routine) +--------+--------+ + + + + | Status | Reason | Specialty | Diagnoses / | Referred By | Referred To | | | | | Procedures | Contact | Contact | +--------+--------+ + + + + | Closed | | Radiology | Diagnoses | Riegert, | [address] | | | | | Malignant | Renee M, | [address] | | | | | neoplasm of | [address] | [place], | | | | | left breast | [address] | [place] [address] | | | | | (HCC) | [place], | Phone: | | | | | Procedures | [place] [address] | [phone] | | | | | CT Treatment | Phone: | Fax: | | | | | Plan | [phone] | [phone] | | | | | Complex | Fax: | | | | | | | [phone] | | +--------+--------+ + + + + Encounter Details +--------+ + + + + | Date | Type | Department | Care Team | Description | +--------+ + + + + | 05/04/ | Orders Only | [facility] | Renee Wood | Malignant neoplasm | | 2015 | | [facility] RAD[facility] | MD Lazara [address] | of left breast (HCC) | | | | ONCOLOGY [address] | [address] [place] | (Primary Dx) | | | | [place], | [address] | | | | | [place] [address] | | | | | | [phone] | | | +--------+ + + + [...] 2019 | Visit | | [address] [facility] | | | | | | [address] [place], | | | | | | [place] [address] | | | | | | [phone] | | | | | | | | +--------+---------+ + + + documented as of this encounter Results CT Treatment Plan Complex (05/10/2015 3:59 PM PDT) + + | Specimen | + + | | + + + + + | Narrative | Performed At | + + + | No Radiologist interpretation, please see Chart Review. | [facility] | + + + + +---------+ + + | Performing | Address | City/State/Zipcode | Phone Number | | Organization | | | | + +---------+ + + | [facility] | | | | + +---------+ + + documented in this encounter Visit Diagnoses + + | Diagnosis | + + | Malignant neoplasm of left breast (HCC) - Primary Malignant neoplasm of breast | | (female), unspecified site | + + documented in this encounter"
--- OUTSIDE RECORDS SUMMARY | ~2019-08-09 | XMS | Encounter Summary ---
Demographics + + + | Address | [address] | | | [place] [address] | + + + | Home Phone | | + + + | Preferred Language | Unknown | + + + | Marital Status | | + + + | Samaritan Affiliation | Unknown | + + + | Race | or | + + + | Ethnic Group | Not or | + + + Author + + + | Author | [facility] | + + + | Organization | [facility] | + + + | Address | Unknown | + + + | Phone | Unavailable | + + + Support + + +---------+ + | Name | Relationship | Address | Phone | + + +---------+ + | Jak Daley | ECON | Unknown | | + + +---------+ + Care Team Providers + +------+ + | Care Manufacturing Engineer Paint Name | Role | Phone | + [...] | Malignant | Jemima Leon, | s [address] | | | | | neoplasm of | [address] | [address] | | | | | upper-outer | [address] | [address] | | | | | quadrant of | [place], [place] | Mailcode: | | | | | left breast | [address] | [address] [facility] | | | | | in female, | Phone: | Hospital | | | | | estrogen | [phone] | [place], [place] | | | | | receptor | Fax: | [address] | | | | | positive | [phone] | Phone: | | | | | (HCC) | | [phone] | | | | | Weight loss | | Fax: | | | | | Bone pain | | [phone] | | | | | Procedures | | | | | | | CT CHEST, | | | | | | | ABDOMEN AND | | | | | | | PELVIS W IV | | | | | | | CONTRAST RI | | | | | | | CT | | | | | | | ABDOMEN&PELV | | | | | | | IS | | | | | | | W/CONTRAST | | | | | | | RI CAT SCAN | | | | | [...] | | | | quadrant of | [place], [place] | Mailcode: | | | | | left breast | [address] | [address] [facility] | | | | | in female, | Phone: | Hospital | | | | | estrogen | [phone] | [place], [place] | | | | | receptor | Fax: | [address] | | | | | positive | [phone] | Phone: | | | | | (HCC) | | [phone] | | | | | Weight loss | | Fax: | | | | | Bone pain | | [phone] | | | | | Procedures | | | | | | | CT CHEST, | | | | | | | ABDOMEN AND | | | | | | | PELVIS W IV | | | | | | | CONTRAST RI | | | | | | | CT | | | | | | | ABDOMEN&PELV | | | | | | | IS | | | | | | | W/CONTRAST | | | | | | | RI CAT SCAN | | | | | [...] | 2018 | Encounter | Services at [facility] | MD Carolyn [address] | | | | | [address] | [place], [place] | | | | | [address] Mailcode: | [id number] | | | | | [address] [facility] | [phone] | | | | | [place], [place] | | | | | | [address] | | | | | | [phone] | | | +--------+ + + + [...]
--- OUTSIDE RECORDS SUMMARY | ~2019-08-09 | XMS | Encounter Summary ---
Demographics + + + | Address | [address] | | | [place] [address] | + + + | Home Phone | | + + + | Preferred Language | Unknown | + + + | Marital Status | | + + + | Mandaeism Affiliation | Unknown | + + + | Race | or | + + + | Ethnic Group | Not or | + + + Author + + + | Author | [facility] | + + + | Organization | [facility] | + + + | Address | Unknown | + + + | Phone | Unavailable | + + + Support + + +---------+ + | Name | Relationship | Address | Phone | + + +---------+ + | Jak Daley | ECON | Unknown | | + + +---------+ + Care Team Providers + +------+ + | Care Lapidarist Name | Role | Phone | + +------+ + | Mela Condon PA-C | PCP | | + +------+ + Encounter Details +--------+ + + + + | Date | Type | Department | Care Team | Description | +--------+ + + + + | 02/12/ | Concrete Boom Pump Operator | Hematology/Medical | Jemima Quesada | Breast cancer of | | 2017 | | Oncology at [place] | MD Carolyn [address] | lower-inner quadrant | | | | for Health & Healing | [address] [place], [place] | of left female | | | | [address] | [address] | breast (HCC) | | | | Mailcode: [place] | [phone] | (Primary Dx) | | | | for Health and | | | | | | Healing, [address] | | | | | | [place], [place] | | | | | | [address] | | | | | | [phone] | | | +--------+ + + + [...] | OF | | | | SPECIMEN:B Letart | | PATHOLOGY | | | | lymph node left axilla; | | | | | | left breastlumpectomy | | | | | | Materials | | | | | | Received:Referring | | | | | | Institution: [facility] | | | | | | [facility] | | | | | | [place] [address] | | | | | | Specimen A:Outside | | | | | | Accession Number: | | | | | | [id number] | | | | | | Collection Date: | | | | | | 02/17/2015Sublabeled | | | | | | H&E | | | | | | A | | | | | | 1 | | | | | | Specimen B:Outside | | | | | | Accession Number: | | | | | | [id number] | | | | | | Collection [...] | | | | | biopsy- 3:00 ([id number], | | | | | | 05.15) [...] B. | | | | | | Letart lymph node left | | | | | | axilla, biopsy | | | | | | ([id number], 03.14.15, A): | | | | | | - One lymph | | | | | | node with no diagnostic | | | | | | abnormality (0/1)- | | | | | | Negative for | | | | | | malignancy C. 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
--- OUTSIDE RECORDS SUMMARY | ~2019-08-09 | XMS | Encounter Summary ---
Demographics + + + | Address | [address] | | | [place] [address] | + + + | Home Phone | | + + + | Preferred Language | Unknown | + + + | Marital Status | | + + + | Mandaen Affiliation | Unknown | + + + | Race | Unknown | + + + | Ethnic Group | Unknown | + + + Author + + + | Author | [facility] | | | and Johnnyana | + + + | Organization | [facility] | | | and [...] [address], [place] | | | | | [address] | | + + + + + [...] [place] | | | | | [address] | | + + + + + Care Team Providers + +------+ + | Care Sub Arc Operator Name | Role | Phone | [...] neoplasm of | Mu C, | [address] | | | | | upper-outer | MD [address] | [place], | | | | | quadrant of | [address] | [place] [address] | | | | | female | [place], | Phone: | | | | | breast (HCC) | [place] [address] | [phone] | | | | | Procedures | Phone: | Fax: | | | | | [place] | [phone] | [phone] | | | | | [place] | Fax: | | | | | | ACETATE | [phone] | | | | | | IMPLANT, 3.6 | | | | | | | MG | | | +--------+--------+ + + + + Encounter Details +--------+ + + + + | Date | Type | Department | Care Team | Description | +--------+ + + + + | 05/25/ | Hospital | [facility] | Narcisa, | Canceled (Clinic | | 2015 | Encounter | MED CTR CHEMO | Mu Gutierrez MD [address] | and/or Provider | | | | INFUSION [address] | [address] [place] | Cancellation) | | | | [place], | [place] [address] | | | | | [place] [address] | [phone] | | | | | [phone] | | | +--------+ + + + [...] | | | | | | [place] [address] | | | | | | [phone] | | | | | | | | +--------+---------+ + + + documented as of this encounter Visit Diagnoses Not on filedocumented in this encounter"
--- OUTSIDE RECORDS SUMMARY | ~2019-08-09 | XMS | Encounter Summary ---
Demographics + + + | Address | [address] | | | [place] [address] | + + + | Home Phone | | + + + | Preferred Language | Unknown | + + + | Marital Status | | + + + | Denominational Affiliation | Unknown | + + + | Race | or | + + + | Ethnic Group | Not or | + + + Author + + + | Author | [facility] | + + + | Organization | [facility] | + + + | Address | Unknown | + + + | Phone | Unavailable | + + + Support + + +---------+ + | Name | Relationship | Address | Phone | + + +---------+ + | Jak Daley | ECON | Unknown | | + + +---------+ + Care Team Providers + +------+ + | Care Gang Rider Name | Role | Phone | + +------+ + | Mela Condon PA-C | PCP | | + +------+ + Reason for Visit + + + | Reason | Comments | + + + | Refill Request | Tamoxifen | + + + Encounter Details +--------+--------+ + + + | Date | Type | Department | Care Team | Description | +--------+--------+ + + + | 04/30/ | Refill | Hematology/Medical | Jemima Quesada | Refill Request | | 2019 | | Oncology at Center | MD Carolyn [address] | (Tamoxifen) | | | | for Health & Healing | [address] [place], [place] | | | | | [address] | [address] | | | | | Mailcode: [place] | [phone] | | | | | for Health and | | | | | | Healing, [address] | | | | | | [place], [place] | | | | | | [address] | | | | | | [phone] | | | +--------+--------+ + + + Social History + +-------+ [...]
--- OUTSIDE RECORDS SUMMARY | ~2019-08-09 | XMS | Encounter Summary ---
Demographics + + + | Address | [address] | | | [place] [address] | + + + | Home Phone | | + + + | Preferred Language | Unknown | + + + | Marital Status | | + + + | Bahai Affiliation | Unknown | + + + | Race | Unknown | + + + | Ethnic Group | Unknown | + + + Author + + + | Author | [facility] | | | and Johnnyana | + + + | Organization | [facility] | [...] [address], [place] | | | | | [address] | | + + + + + [...] [place] | | | | | [address] | | + + + + + Care Team Providers + +------+ + | Care Incoming Inspector Name | Role | Phone | + [...] | | ONCOLOGY CLINIC [address] [place], [place] | | | | | [address] [place] | [address] | | | | | [place] [address] | | | | | | [phone] | | | +--------+ + + + [...] | Visit | | [address] [facility] | | | | | | [address] [place], | | | | | | [place] [address] | | | | | | [phone] | | | | | | | | +--------+---------+ + + + documented as of this encounter Visit Diagnoses Not on filedocumented in this encounter"
--- OUTSIDE RECORDS SUMMARY | ~2019-08-09 | XMS | Encounter Summary ---
Demographics + + + | Address | [address] | | | [place] [address] | + + + | Home Phone | | + + + | Preferred Language | Unknown | + + + | Marital Status | | + + + | Jehovah'S Witness Affiliation | Unknown | + + + | Race | Unknown | + + + | Ethnic Group | Unknown | + + + Author + + + | Author | [facility] | | | and Johnnyana | + + + | Organization | [facility] | | | and [place] [...] [address], [place] | | | | | [address] | | + + + + + [...] [place] | | | | | [address] | | + + + + + Care Team Providers + +------+ + | Care Harvest Contractor Name | Role | Phone | + +------+ + | Luis Garcia PA-C | PCP | | + +------+ + Reason for Visit +--------+ + | Reason | Comments | +--------+ + | Other | | +--------+ + Encounter Details +--------+ + + + + | Date | Type | Department | Care Team | Description | +--------+ + + + + | 07/04/ | Telephone | [facility] | Renee Wood | Other | | 2015 | | MED CTR MEDICAL | MD Lazara [address] | | | | | ONCOLOGY CLINIC [address] | [address] [place], [place] | | | | | [address] [place] | [address] | | | | | [place] [address] | | | | | | [phone] | | | +--------+ + + + [...] | Visit | | [address] [facility] | | | | | | [address] [place] [place], | | | | | | [place] [address] | | | | | | [phone] | | | | | | | | +--------+---------+ + + + documented as of this encounter Visit Diagnoses Not on filedocumented in this encounter"
--- OUTSIDE RECORDS SUMMARY | ~2019-08-09 | XMS | Encounter Summary ---
Demographics + + + | Address | [address] | | | [place] [address] | + + + | Home Phone | | + + + | Preferred Language | Unknown | + + + | Marital Status | | + + + | Episcopal Affiliation | Unknown | + + + | Race | Unknown | + + + | Ethnic Group | Unknown | + + + Author + + + | Author | [facility] | | | and Johnnyana | + + + | Organization | [facility] | | | and [place] [...] [address], [place] | | | | | [address] | | + + + + + [...] [place] | | | | | [address] | | + + + + + Care Team Providers + +------+ + | Care Operating Cost Clerk Name | Role | Phone | + +------+ + | Luis Garcia PA-C | PCP | | + +------+ + Encounter Details +--------+ + + + + | Date | Type | Department | Care Team | Description | +--------+ + + + + | 08/06/ | Hospital | [facility] | Renee Wood | | | 2015 | Encounter | MED CTR RADIATION | [place], [address] | | | | | ONCOLOGY [address] | [facility] [place] | | | | | [place], | [address] | | | | | [place] [address] | | | | | | [phone] | | | +--------+ + + + [...] 2019 | Visit | | [address] [facility] | | | | | | [address] [place], | | | | | | [place] [address] | | | | | | [phone] | | | | | | | | +--------+---------+ + + + documented as of this encounter Visit Diagnoses Not on filedocumented in this encounter"
--- OUTSIDE RECORDS SUMMARY | ~2019-08-09 | XMS | Encounter Summary ---
Demographics + + + | Address | [address] | | | [place] [address] | + + + | Home Phone | | + + + | Preferred Language | Unknown | + + + | Marital Status | | + + + | Bahai Affiliation | Unknown | + + + | Race | or | + + + | Ethnic Group | Not or | + + + Author + + + | Author | [facility] [email or web address] [facility] | + + + | Organization | [facility] | + + + | Address | Unknown | + + + | Phone | Unavailable | + + + Support + + +---------+ + | Name | Relationship | Address | Phone | + + +---------+ + | Jak Daley | ECON | Unknown | | + + +---------+ + Care Team Providers + +------+ + | Care Supervisor Sunglasses Name | Role | Phone | + [...] [address] | | | | | | [place], [place] | | | | | | [address] | | | +--------+ + + + [...]
--- OUTSIDE RECORDS SUMMARY | ~2019-08-09 | XMS | Encounter Summary ---
Demographics + + + | Address | [address] | | | [place] [address] | + + + | Home Phone [...] | Author | [facility] | | | and [place] | + + + | Organization | [facility] | | | and [...] [place], [place] | | | | | [address] | | + + + + + [...] [place] | | | | | [address] | | + + + + + Care Team Providers + +------+ + | Care Towerman Name | Role | Phone | + [...] | | | quadrant of | [address] | [place], | | | | | left female | [place], | [place] [address] | | | | | breast (HCC) | [place] | Phone: | | | | | Procedures | [address] | [phone] | | | | | [place] OFFICE | Phone: | Fax: | | | | | OUTPATIENT | [phone] | [phone] | | | | | VISIT 25 | Fax: | | | | | | MINUTES | [phone] | | +--------+--------+ + + + + Encounter Details +--------+ + + + + | Date | Type | Department | Care Team | Description | +--------+ + + + + | 12/23/ | Hospital | [facility] | Renee Wood | No Show | | 2019 | Encounter | MED CTR RADIATION | MD Lazara [address] | | | | | ONCOLOGY CLINIC [address] [facility] | | | | | [address] | [address] | | | | | [place] [address] | | | | | | [phone] | | | +--------+ + + + [...] 2018 | Visit | | [address] [facility] | | | | | | [address] | | | | | | [place] [address] | | | | | | [phone] | | | | | | | | +--------+---------+ + + + documented as of this encounter Visit Diagnoses Not on filedocumented in this encounter"
--- OUTSIDE RECORDS SUMMARY | ~2019-08-09 | XMS | Encounter Summary ---
Demographics + + + | Address | [address] | | | [place] [address] | + + + | Home Phone | | + + + | Preferred Language | Unknown | + + + | Marital Status | | + + + | Catholic Affiliation | Unknown | + + + | Race | Unknown | + + + | Ethnic Group | Unknown | + + + Author + + + | Author | [facility] | | | and [place] | + + + | Organization | [facility] | | [...] [address], [place] | | | | | [address] | | + + + + + [...] [place] | | | | | [address] | | + + + + + Care Team Providers + +------+ + | Care Senior Mechanical Engineer Name | Role | Phone | [...] | | | neoplasm of | PA-C [id number] | [address] | | | | | upper-outer | [address] | | | | | quadrant of | WAY | [place], | | | | | unspecified | [place], | [place] [address] | | | | | female | [place] [address] | Phone: | | | | | breast (HCC) | Phone: | [phone] | | | | | Procedures | [phone] | Fax: | | | | | IN OFFICE | Fax: | [phone] | | | | | OUTPATIENT | [phone] | | | | | | VISIT 25 | | | | | | | MINUTES | | | +--------+--------+ + + + + Encounter Details +--------+ + + + + | Date | Type | Department | Care Team | Description | +--------+ + + + + | 01/08/ | Hospital | [facility] | Renee Wood | No Show | | 2017 | Encounter | MED CTR RADIATION | Lazara, [address] | | | | | ONCOLOGY [address] [place], [place] | | | | | [place], | [address] | | | | | [place] [address] | | | | | | [phone] | | | +--------+ + + + [...] 2018 | Visit | | [address] [facility] | | | | | | [address] | | | | | | [place] [address] | | | | | | [phone] | | | | | | | | +--------+---------+ + + + documented as of this encounter Visit Diagnoses Not on filedocumented in this encounter"
--- OUTSIDE RECORDS SUMMARY | ~2019-08-09 | XMS | Encounter Summary ---
Demographics + + + | Address | [address] | | | [place] [address] | + + + | Home Phone | | + + + | Preferred Language | Unknown | + + + | Marital Status | | + + + | Spiritism Affiliation | Unknown | + + + | Race | or | + + + | Ethnic Group | Not or | + + + Author + + + | Author | [facility] [place] | + + + | Organization | [facility] | + + + | Address | Unknown | + + + | Phone | Unavailable | + + + Support + + +---------+ + | Name | Relationship | Address | Phone | + + +---------+ + | Jak Daley | ECON | Unknown | | + + +---------+ + Care Team Providers + +------+ + | Care Refinery Operator Helper Crude Unit Name | Role | Phone | + +------+ + | Mela Condon PA-C | PCP | | + +------+ + Encounter Details +--------+ + + + + | Date | Type | Department | Care Team | Description | +--------+ + + + + | 02/28/ | Document-Sc | Health Information | Unknown . | | | 2016 | anned | Services [id number] | | | | | | [address] | | | | | | Mailcode: [id number] | | | | | | [facility] | | | | | | [place], [place] | | | | | | [address] | | | | | | [phone] | | | +--------+ + + + [...]
--- OUTSIDE RECORDS SUMMARY | ~2019-08-09 | XMS | Encounter Summary ---
Demographics + + + | Address | [address] | | | [place] [address] | + + + | Home Phone | | + + + | Preferred Language | Unknown | + + + | Marital Status | | + + + | Mandaen Affiliation | Unknown | + + + | Race | Unknown | + + + | Ethnic Group | Unknown | + + + Author + + + | Author | [facility] | | | and [place] | + + + | Organization | [facility] | | | and [...] [address], [place] | | | | | [address] | | + + + + + [...] [place] | | | | | [address] | | + + + + + Care Team Providers + +------+ + | Care Seismic Prospecting Observer Helper Name | Role | Phone | [...] [place] | | | | | [address] [place] | [place] [address] | | | | | [place] [address] | [phone] | | | | | [phone] | | | +--------+ + + + [...] | Visit | | [address] [facility] | | | | | | [address] [place] [place], | | | | | | [place] [address] | | | | | | [phone] | | | | | | | | +--------+---------+ + + + documented as of this encounter Visit Diagnoses Not on filedocumented in this encounter"
--- OUTSIDE RECORDS SUMMARY | ~2019-08-09 | XMS | Encounter Summary ---
Demographics + + + | Address | [address] | | | [place] [address] | + + + | Home Phone | | + + + | Preferred Language | Unknown | + + + | Marital Status | | + + + | Voodoo Affiliation | Unknown | + + + | Race | Unknown | + + + | Ethnic Group | Unknown | + + + Author + + + | Author | [facility] | | | and [place] | + + + | Organization | [facility] | | | and [...] [address], [place] | | | | | [address] | | + + + + + [...] [place] | | | | | [address] | | + + + + + Care Team Providers + +------+ + | Care Cash Application Clerk Name | Role | Phone | [...] | | ONCOLOGY CLINIC [address] [place], [place] | (Primary Dx) | | | | [place] | [address] | | | | | [place] [address] | | | | | | [phone] | | | +--------+ + + + [...] 2019 | Visit | | [address] [facility] | | | | | | [address] | | | | | | [place] [address] | | | | | | [phone] | | | | | | | [...]
--- OUTSIDE RECORDS SUMMARY | ~2019-08-09 | XMS | Encounter Summary ---
Demographics + + + | Address | [address] | | | [place] [address] | + + + | Home Phone [...] [facility] | | | and [place] | + + + | Organization | [facility] | | | and [place] [...] [address], [place] | | | | | [address] | | + + + + + [...] | Luigi Benedict | ECON | [address] | | | | | [place] | | | | | [address] | | + + + + + Care Team Providers + +------+ + | Care Electrical Maintenance Supervisor Name | Role | Phone | + [...] [place], [place] | | | | | [place], | [address] | | | | | [place] [address] | | | | | | [phone] | | | +--------+ + + + [...] 2018 | Visit | | [address] [facility] | | | | | | [address], | | | | | | [place] [address] | | | | | | [phone] | | | | | | | | +--------+---------+ + + + documented as of this encounter Visit Diagnoses + + | Diagnosis | + + | Mastitis - Primary Inflammatory disease of breast | + + documented in this encounter"
--- OUTSIDE RECORDS SUMMARY | ~2019-08-09 | XMS | Encounter Summary ---
Demographics + + + | Address | [address] | | | [place] [address] | + + + | Home Phone | | + + + | Preferred Language | Unknown | + + + | Marital Status | | + + + | Sabianism Affiliation | Unknown | + + + | Race | Unknown | + + + | Ethnic Group | Unknown | + + + Author + + + | Author | [facility] | | | and [place] | + + + | Organization | [facility] | | | and [...] [address], [place] | | | | | [address] | | + + + + + [...] [place] | | | | | [address] | | + + + + + Care Team Providers + +------+ + | Care Fresh Foods Technician Name | Role | Phone | [...] | +--------+ + + + + | 03/23/ | Telephone | [facility] | Renee Wood | Other | | 2019 | | MED CTR MEDICAL | MD Lazara [address] | | | | | ONCOLOGY CLINIC [address] | [place], [place] | | | | | [facility] | [address] | | | | | [place] [address] | | | | | | [phone] | | | +--------+ + + + [...] Visit | | [address] [facility] | | | | | | [address], | | | | | | [place] [address] | | | | | | [phone] | | | | | | | | +--------+---------+ + + + documented as of this encounter Visit Diagnoses Not on filedocumented in this encounter"
--- OUTSIDE RECORDS SUMMARY | ~2019-08-09 | XMS | Clinical Summary ---
Demographics + + + | Address | [address] | | | [place] [address] | + + + | Home Phone | | + + + | Preferred Language | Unknown | + + + | Marital Status | Unknown | + + + | Holiness Affiliation | Unknown | + + + | Race | Unknown | + + + | Ethnic Group | Unknown | + + + Author + + + | Author | [facility] (Historical as of | | | 05-15-19) | + + + | Organization | [facility] (Historical as of | | | 05-15-19) [...] [place] | | | | | [address] | | + + + + + Care Team Providers + +------+ + | Care Varitypist Name | Role | Phone | + [...] | | | + +--------+ +------+-------+---------+ | /[facility] | YELLOW | [id number] | | | | | PLANS | [place] | | | | | + +--------+ +------+-------+---------+ | [employer] | [employer] | [id number] | | | | | | - [...] | daniel | | | 0428 | [address] | + +--------+ +--------+ + +"
--- OUTSIDE RECORDS SUMMARY | ~2019-08-09 | XMS | Encounter Summary ---
Demographics + + + | Address | [address] | | | [place] [address] | + + + | Home Phone [...] + | Author | [facility] | + + + | Organization | [facility] | + + + | Address | Unknown | + + + | Phone | Unavailable | + + + Support + + +---------+ + | Name | Relationship | Address | Phone | + + +---------+ + | Jak Daley | ECON | Unknown | | + + +---------+ + Care Team Providers + +------+ + | Care Rn Case Manager Name | Role | Phone | [...] | Malignant | Jemima Leon, | [address] | | | | | neoplasm of | [address] | [address] | | | | | upper-outer | [address] | [address] | | | | | quadrant of | [place], [place] | Mailcode: | | | | | left breast | [address] | [address] | | | | | in female, | Phone: | [address] | | | | | estrogen | [phone] | [place], [place] | | | | | receptor | Fax: | [address] | | | | | positive | [phone] | Phone: | | | | | (HCC) | | [phone] | | | | | Weight loss | | Fax: | | | | | Bone pain | | [phone] | | | | | Procedures | | | | | | | NM BONE &/OR | | | | | | | JOINT | | | | | | | IMAGING | | | | | | | WHOLE BODY | | | | | | | CA BONE | | | | | | | IMAGING, | | | | | | | WHOLE BODY | | | +--------+--------+ + + + + Diagnostic Testing (Routine) +--------+--------+ + + + + | Status | Reason | Specialty | Diagnoses / | Referred By | Referred To | | | | | Procedures | Contact | Contact | +--------+--------+ + + + + | Closed | | Radiology | Diagnoses | Moymmer, | Rad Ct Scan | | | | | Malignant | Jemima Leon, | [facility] [address] | | | | | neoplasm of | MD [address] | [address] | | | | | upper-outer | [address] | [address] | | | | | quadrant of | [place], [place] | Mailcode: | | | | | left breast | [address] | [address] [facility] | | | | | in female, | Phone: | Hospital | | | | | estrogen | [phone] | [place], [place] | | | | | receptor | Fax: | [address] | | | | | positive | [phone] | Phone: | | | | | (HCC) | | [phone] | | | | | Weight loss | | Fax: | | | | | Bone pain | | [phone] | | | | | Procedures | | | | | | | CT CHEST, | | | | | | | ABDOMEN AND | | | | | | | PELVIS W IV | | | | | | | CONTRAST CA | | | | | | | CT | | | | | | | ABDOMEN&PELV | | | | | | | IS | | | | | | | W/CONTRAST | | | | | | | CA CAT SCAN | | | | | | | OF CHEST | | | | | | | CONTRAST | | | +--------+--------+ + + + + Reason for Visit Intake Referral (Routine) +--------+--------+ + + + + | Status | Reason | Specialty | Diagnoses / | Referred By | Referred To | | | | | Procedures | Contact | Contact | +--------+--------+ + + + + | Closed | | Hematology & | Diagnoses | [facility] | | | | Oncology | breast | Epic Dept | [facility] | | | | | cancer | | [address] | | | | | Procedures | | Mailcode: | | | | | [place] NEW | | Center for | | | | | PATIENT | | Health and | | | | | LEVEL V CA | | Healing, | | | | | EST PATIENT | | [address] | | | | | LEVEL V | | [place], [place] | | | | | | | [address] | | | | | | | Phone: | | | | | | | [phone] | | | | | | | Fax: | | | | | | | [phone] | +--------+--------+ + + + + Encounter Details +--------+---------+ + + + | Date | Type | Department | Care Team | Description | +--------+---------+ + + + | 03/12/ | Office | Hematology/Medical | Justus Waddelleen | Malignant neoplasm | | 2018 | Visit | Oncology at [place] | MD Caorlyn [address] | of upper-outer | | | | for Health & Healing | Ave [place], [place] | quadrant of left | | | | [address] | [address] | breast in female, | | | | Mailcode: [place] | [phone] | estrogen receptor | | | | for Health and | | positive (HCC) | | | | Healing, [address] | | (Primary Dx); Weight | | | | [place], [place] | | loss; Bone pain | | | | [address] | | | | | | [phone] | | | +--------+---------+ + + + [...] + + + documented in this encounter Patient Instructions Patient Instructions Jemima Waddell Md - 03/12/2018 11:00 AM PDTDoris, I do recommend diagnostic bone scan and CAT scan given your weight loss and diffuse bone pa ins. Schedule these at [facility] in next 1-3 weeks. We will contact you with results. Go to lab today. You are a good candidate for tamoxifen to decrease risk of breast cancer recurrence. You ca n start this now. If your weight loss and feeling full easily persists, you should schedule office visit with you primary care provider to consider referral for upper endoscopy (especially if CAT scan is normal). Schedule routine follow-up with me in 3-4 months. JEMIMA WADDELL MD HEMATOLOGY/MEDICAL ONCOLOGY AT [address] Mailcode: [address] [place] [address] documented in this encounter Progress Notes Dipak Ortega, Jemima Leon - 03/12/2018 11:00 AM PDTFormatting of this note might be different f rom the original. Medical Oncology [facility] [place] Consult 03/12/2018 Carissa Downey is a 52 y.o. female here for evaluation of breast cancer. Referred by No Referring Provider P*. Records reviewed as detailed in my note. 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 She presented with palpable lump. She is s/p lumpectomy and SNB, T = 1.1 cm IDC G1, SN = 0/1 (Dr. Edi Upton, [place] ). Left breast radiation ended 06/14/15. She took adjuvant exemestane Jun 2015 to Jun 2016 (i nitially with ovarian suppression, then PARRISH/BSO 08/28/15), stopped due to arthralgias and shu ne pains. Then tried tamoxifen from Jul 2016 to Aug 2016 (and she can't remember why she sto pped, outside chart notes depression and brain fog). She last saw Dr. Brewster last year (in [place]). She tells me today she is interested in re-trying adjuvant endocrine therapy and transferri ng her care to [facility]. 03/12/18 bilateral mammogram: benign, cat 2. Carissa tells me she has been quite limited in last 1.5 years due to chronic, diffuse bone pa ins (describes not being able to play with grandson due to pains, becomes tearful about this ). She describes pains located in shoulders, between shoulders, wrists, elbows, knees, and b ack. She tells me providers closer to home have diagnosed her with fibromyalgia and she ment ions work-up for rheumatoid arthritis was done (presumably negative). She also describes 10 lb weight loss in last 1-2 months, associated with feeling full easy. Denies any nausea, vom iting, difficulty swallowing, or abdominal pains/stomach pains. She tells me her previous right breast pain is not as bothersome. She is . No HRT. No family hx of breast or ovarian cancer. She is unaccompanied. She lives with domestic partner (of >10 years). She has three grown alexandra baptiste (in their 20's, youngest just moved back in with her). She lives in [place]. PAST MEDICAL HISTORY: Past Medical History: Diagnosis Date Arthropathy Breast cancer, stage 1, estrogen receptor positive, left (HCC) 2014 [id number] IDC ER+CA+ Chronic fatigue Depression Mastodynia of right breast chronic PAST SURGICAL HISTORY: Past Surgical History: Procedure Laterality Date LUMPECTOMY OF LEFT BREAST WITH SENTINEL NODE BIOPSY 2014 NASAL SEPTOPLASTY 03/01/2016 PARRISH-BSO (TOTAL ABDOMINAL HYSTERECTOMY AND BILATERAL SALPINGO-OOPHORECTOMY) 07/2015 TUBAL LIGATION Current Outpatient Prescriptions Medication Sig fexofenadine/pseudoephedrine (TAMEKA-D 12 HOUR ORAL) Take 1 tablet by mouth once daily . tamoxifen 20 mg oral tablet Take 1 tablet by mouth once daily. No current facility-administered medications for this visit. Social History Social History Marital status: Spouse name: N/A Number of children: N/A Years of education: N/A Occupational History Not on file. Social History Main Topics Smoking status: Never Smoker Smokeless tobacco: Never Used Alcohol use No Drug use: No Sexual activity: Yes Partners: Male Other Topics Concern Not on file Social History Narrative No narrative on file Family History Problem Relation Lung Cancer Mother Breast Cancer Neg Hx No family hx of breast cancer Review of Systems: As per HPI. See scanned document reviewed by me. She also reports hx of anemia, trouble sleeping, headaches, blurry vision, stiff neck. Rest of 14-point ROS is neg ative. Physical exam ECOG status is 0 BP 111/70 | Pulse 88 | Temp (Src) 36.9 C (98.5 F) (Oral) | RR 16 | Ht 1.645 m (5' 4.75" ) | Wt 64.5 kg (142 lb 4.8 oz) | SpO2 99% | BMI 23.86 kg/(m^2) General: pleasant, no acute distress. HEENT: Normocephalic and atraumatic. The pupils are equal, round, and reactive to light. Or opharynx is clear. Neck: Supple. Nodes: No cervical, supraclavicular, or axillary lymphadenopathy appreciated. Cardiac: Regular rate and rhythm. Lungs: Clear to auscultation in all landeros. Breast examination: s/p left lumpectomy UOQ, no dominant masses. Right breast is without do minant masses. Abdomen: Normal bowel sounds. Soft, nondistended, and nontender. No hepatosplenomegaly. Extremities: No edema. Musculoskeletal: 5/5 strength in bilteral long tract groups Neurologic: Awake, alert, oriented, appropriate. Grossly nonfocal. Skin: Without rashes or ecchymoses. 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 She presented with palpable waldo mp. She is s/p lumpectomy and SNB, T = 1.1 cm IDC G1, SN = 0/1. Left breast radiation ended 06/14/15. She took adjuvant exemestane Jun 2015 to Jun 2016 (initially with ovarian suppressi on, then PARRISH/BSO 08/28/15), stopped due to arthralgias and bone pains. Then tried tamoxifen from Jul 2016 to Aug 2016 (and she can't remember why she stopped, outside chart notes depre ssion and brain fog). She presents to discuss re-initiation of adjuvant endocrine therapy an d would like to transfer care to [facility]. She is motivated to try tamoxifen again (and she chooses this over aromatase inhibitor). We reviewed this is associated with lower rates of breast cancer recurrence and improved overa survival. Reviewed side effects of tamoxifen, including but not limited to hot flashes, v aginal dryness or discharge, less commonly cataracts and rarely blood clots (she does not lepe ve to worry about uterine cancer given prior hysterectomy). Given her chronic, diffuse bone pains for last 1.5 years and weight loss, recommend staging CT c/a/p and bone scan to rule out disease recurrence. We also discussed if CAT scan and bone scan are normal, but her early satiety and weight lo ss persists, she should follow-up with her PCP for consideration for upper endoscopy val cazares Also recommend comprehensive labs given weight loss (and tells me feels cold a lot)--CBC wi th diff, CMP, and TSH. Routine follow-up in 3-4 months, will coordinate sooner if diagnostic tests are abnormal an d is needed. I spent 60 minutes with the patient. Greater than 50% of the time was spent counseling the patient regarding diagnosis and treatment plan. JEMIMA WADDELL MD HEMATOLOGY/MEDICAL ONCOLOGY AT [address] [place] Mailcode: [address] [place] [address] documented in this encounter Plan of Treatment Not on filedocumented as of this encounter Results CT CHEST, ABDOMEN AND [...] presented. | | | |Final signature: Carolyn Muprhy MD 04/09/2018 4:11 PM | |Preliminary: Carolyn [...] | | | + +---------+ + + NM BONE &/OR JOINT IMAGING WHOLE BODY [...] necessary, edited the report. I agree with th e report as now presented. | | [...] | | | + +---------+ + + TSH (03/12/2018 12:54 PM PDT) + +-------+ + + + | Component | Value | Ref Range | Performed | Pathologist | | | | | At | Signature | + +-------+ + + + | TSH | 1.46 | 0.50 - 5.07 | [facility] | | | | | mIU/L | LABORATORY | | | | | | SERVICES, | | | | | | CORE | | + +-------+ + + + + + | Specimen | + + | Blood - Blood | | (substance) | + + + + + | Narrative | Performed At | + + + | TSH reference ranges are influenced by a variety of environmental | [facility] | | influences, age, gender and ethnicity. The supplied reference limits | LABORATORY | | are based on published values utilizing a similar TSH assay, and | SERVICES, CORE | | should be interpreted with caution. | | + + + + + + + + | Performing | Address | City/State/Zipcode | Phone Number | | Organization | | | | + + + + + | [facility] | [address] | [place] [address] | | | SERVICES, CORE | [address] | | | + + + + + COMPLETE METABOLIC SET (NA,K,CL,CO2,BUN,CREAT,GLUC,CA,AST,ALT,BILI TOTAL,ALK PHOS,ALB,PROT TOTAL) (03/12/2018 12:54 PM PDT) + +---------+ + + + | Component | Value | Ref Range | Performed | Pathologist | | | | | At | Signature | + +---------+ + + + | GLUCOSE, | 92 | 70 - 99 mg/dL | [facility] | | | PLASMA | | | LABORATORY | | | (LAB) | | | SERVICES, | | | | | | CORE | | + +---------+ + + + | BUN, PLASMA | 10 | 6 - 20 mg/dL | [facility] | | | (LAB) | | | LABORATORY | | | | | | SERVICES, | | | | | | CORE | | + +---------+ + + + | CREATININE | 0.92 | 0.60 - 1.10 | [facility] | | | PLASMA | | mg/dL | LABORATORY | | | (LAB) | | | SERVICES, | | | | | | CORE | | + +---------+ + + + | EGFR | >60 | >60 mL/min | [facility] | | | - | | | LABORATORY | | | GEORGIAN | | | SERVICES, | | | | | | CORE | | + +---------+ + + + | EGFR NON | >60 | >60 mL/min | [facility] | | | -HOLA | | | LABORATORY | | | RICAN | | | SERVICES, | | | | | | CORE | | + +---------+ + + + | SODIUM, | 141 | 136 - 145 | [facility] | | | PLASMA | | mmol/L | LABORATORY | | | (LAB) | | | SERVICES, | | | | | | CORE | | + +---------+ + + + | POTASSIUM, | 3.8 | 3.4 - 5.0 | [facility] | | | PLASMA | | mmol/L | LABORATORY | | | (LAB) | | | SERVICES, | | | | | | CORE | | + +---------+ + + + | CHLORIDE, | 107 | 97 - 108 mmol/L | [facility] | | | PLASMA | | | LABORATORY | | | (LAB) | | | SERVICES, | | | | | | CORE | | + +---------+ + + + | TOTAL CO2, | 27 | 21 - 32 mmol/L | [facility] | | | PLASMA | | | LABORATORY | | | (LAB) | | | SERVICES, | | | | | | CORE | | + +---------+ + + + | CALCIUM, | 9.1 | 8.6 - 10.2 | [facility] | | | PLASMA | | mg/dL | LABORATORY | | | (LAB) | | | SERVICES, | | | | | | CORE | | + +---------+ + + + | CALCIUM(ALB | 9.2 | 8.6 - 10.2 | [facility] | | | CORRECTED) | | mg/dL | LABORATORY | | | | | | SERVICES, | | | | | | CORE | | + +---------+ + + + | BILIRUBIN | 0.6 | 0.3 - 1.2 mg/dL | [facility] | | | TOTAL | | | LABORATORY | | | | | | SERVICES, | | | | | | CORE | | + +---------+ + + + | TOTAL | 8.1 | 6.4 - 8.2 g/dL | [facility] | | | PROTEIN, | | | LABORATORY | | | PLASMA | | | SERVICES, | | | (LAB) | | | CORE | | + +---------+ + + + | ALBUMIN, | 3.9 | 3.5 - 4.7 g/dL | [facility] | | | PLASMA | | | LABORATORY | | | (LAB) | | | SERVICES, | | | | | | CORE | | + +---------+ + + + | ALK PHOS | 93 | 42 - 98 U/L | [facility] | | | | | | LABORATORY | | | | | | SERVICES, | | | | | | CORE | | + +---------+ + + + | AST(SGOT) | 17 | <=41 U/L | [facility] | | | | | | LABORATORY | | | | | | SERVICES, | | | | | | CORE | | + +---------+ + + + | ALT (SGPT) | 20 | <=60 U/L | [facility] | | | | | | LABORATORY | | | | | | SERVICES, | | | | | | CORE | | + +---------+ + + + | ANION GAP | 7 | 4 - 11 mmol/L | [facility] | | | | | | LABORATORY | | | | | | SERVICES, | | | | | | CORE | | + +---------+ + + + | ANION | 7 | 4 - 11 mmol/L | [facility] | | | GAP(ALB | | | LABORATORY | | | CORRECTED) | | | SERVICES, | | | | | | CORE | | + +---------+ + + + | POTASSIUM | No Hemo | | [facility] | | | CMNT | | | LABORATORY | | | | | | SERVICES, | | | | | | CORE | | + +---------+ + + + | BILI T CMNT | No Hemo | | [facility] | | | | | | LABORATORY | | | | | | SERVICES, | | | | | | CORE | | + +---------+ + + + | AST CMNT | No Hemo | | [facility] | | | | | | LABORATORY | | | | | | SERVICES, | | | | | | CORE | | + +---------+ + + + + + | Specimen | + + | Blood - Blood | | (substance) | + + + + + | Narrative | Performed At | + + + | GFR is estimated using the MDRD equation recommended by the | [facility] | | National Kidney Disease Education Program. Estimated GFR | LABORATORY | | Interpretive Information: <60 mL/min/1.73 sq m | SERVICES, CORE | | Chronic Kidney Disease <15 mL/min/1.73 sq m | | | Kidney Failure Estimated GFR greater that 60 mL/min/1.73 sq m is of | | | limited clinical value. The MDRD equation is not valid in the | | | following situations: - Patients under 18 years of age - Severe | | | malnutrition or obesity - Vegetarian diet - Rapidly changing kidney | | | function - Amputees, paraplegics, or other muscle-wasting diseses | | + + + + + + + + | Performing | Address | City/State/Zipcode | Phone Number | | Organization | | | | + + + + + | [facility] | [address] | [place] [address] | | | SERVICES, CORE | [address] | | | + + + + + documented in this encounter Visit Diagnoses + + | Diagnosis | + + | Malignant neoplasm of upper-outer quadrant of left breast in female, estrogen receptor | | positive (HCC) - Primary | + + | Weight loss Loss of weight | + + | Bone pain Disorder of bone and cartilage, unspecified | + + documented in this encounter
--- OUTSIDE RECORDS SUMMARY | ~2019-08-09 | XMS | Encounter Summary ---
Demographics + + + | Address | [address] | | | [place] [address] | + + + | Home Phone | | + + + | Preferred Language | Unknown | + + + | Marital Status | | + + + | Restorationist Affiliation | Unknown | + + + | Race | Unknown | + + + | Ethnic Group | Unknown | + + + Author + + + | Author | [facility] | | | and [place]ana | + + + | Organization | [facility] [...] [place], [place] | | | | | [address] | | + + + + + [...] [place] | | | | | [address] | | + + + + + Care Team Providers + +------+ + | Care Gas Reverser Name | Role | Phone | + [...] W | | | | | | [place], | | | | | | [place] [address] | | | | | | [phone] | | | +--------+ + + + [...] 08/16/ | Office | Otolaryngology | Servando Tyalor MD | | | 2019 | Visit | | [address] [facility] | | | | | | [address], | | | | | | [place] [address] | | | | | | [phone] | | | | | | | | +--------+---------+ + + + documented as of this encounter Visit Diagnoses Not on filedocumented in this encounter"
--- OUTSIDE RECORDS SUMMARY | ~2019-08-09 | XMS | Encounter Summary ---
Demographics + + + | Address | [address] | | | [place] [address] | + + + | Home Phone [...] + + + | Author | [facility] | + + + | Organization | [facility] | + + + | Address | Unknown | + + + | Phone | Unavailable | + + + Support + + +---------+ + | Name | Relationship | Address | Phone | + + +---------+ + | Jak Daley | ECON | Unknown | | + + +---------+ + Care Team Providers + +------+ + | Care Lead Cook Name | Role | Phone | + [...] 2017 | Encounter | Center at [facility] [address] | SKI LIFT OPERATOR [address] | | | | | [address] [facility] | [address] | | | | | [place] M[place]orm[place], | [place], [place] | | | | | [address] [place], | [address] | | | | | [place] [address] | [phone] | | | | | [phone] | | | +--------+ + + + [...] | [facility] | Routin | 01/31/2017 | Breast pain, right | Results for this | | BILAT W/CAD | e | 1:15 PM | Personal history | procedure are in the | | | | PDT | of breast cancer | results section. | + +--------+ + + + documented in this encounter Results [facility] BILAT W/CAD (01/31/2017 1:15 PM PDT) + + | [...] | | BP on (01/31/2017) 122/74 [place] Pay with [employer] DIAGNOSTIC BILAT W/CAD: January 31, | | | 2016 - Bilateral CC [...] CAD. Performed | | | at [facility]. ASSESSMENT: Benign - | | | [...] | | left breast.Radiologists: Radha Shine MD; Aurora Amaya are scattered | | fibroglandular densities. Stable post-lumpectomy changes in the left breast. No | | suspicious calcifications, masses, or architectural distortion present in either breast. | | No significant changes when compared with prior studies.US BREAST RIGHT: January 31, 2017 - | | Radha Shnie MDTargeted ultrasound to evaluate the | | [...] Hologic System with R2 CAD. Performed at [facility] | | [place].ASSESSMENT: Benign - Category 2 (Overall)VY NAVJOT BI [...] Hologic System with R2 CAD. Performed at [facility]. | | | |ASSESSMENT: Benign - [...]
--- OUTSIDE RECORDS SUMMARY | ~2019-08-09 | XMS | Clinical Summary ---
Demographics + + + | Address | [address] | | | [place] [address] | + + + | Home Phone | | + + + | Preferred Language | Unknown | + + + | Marital Status | | + + + | Roman Catholic Affiliation | Unknown | + + [...] Team Providers + +------+ + | Care Product Grader Name | Role | Phone | + +------+ + | Mela Condon PA-C | PCP | | + +------+ + Source Comments [facility] is fully live on both [facility] Ambulatory and [facility] InPatient.[facility] Allergies + + + + [...] | | | cortney | 6 | [id number] | ity | | | | | for | | [place] | | | | | | all | | [address] | | | | | | dates | | | | + +--------+ +--------+ + +--------+ | [facility] | BELGIAN | [phone] | Effect | | | [...] | | madhuri/Lenin | | 1966 | [phone] | [place] [address] | | | danile | | | 9 (Home) | | + +--------+ +--------+ + +
--- OUTSIDE RECORDS SUMMARY | ~2019-08-09 | XMS | Encounter Summary ---
Demographics + + + | Address | [address] | | | [place] [address] | + + + | Home Phone | | + + + | Preferred Language | Unknown | + + + | Marital Status | | + + + | Faith Affiliation | Unknown | + + + | Race | Unknown | + + + | Ethnic Group | Unknown | + + + Author + + + | Author | [facility] | | | and [place] | + + + | Organization | [facility] | | | and [place] [...] [place], [place] | | | | | [address] | | + + + + + [...] [place] | | | | | [address] | | + + + + + Care Team Providers + +------+ + | Care Electrical And Instrumentation Mechanic Name | Role | Phone | [...] [place], [place] | | | | | [place], | [address] | | | | | [place] [address] | | | | | | [phone] | | | +--------+ + + + [...] | Visit | | [address] [facility] | | | | | | [address], | | | | | | [place] [address] | | | | | | [phone] | | | | | | | | +--------+---------+ + + + documented as of this encounter Visit Diagnoses Not on filedocumented in this encounter"
--- OUTSIDE RECORDS SUMMARY | ~2019-08-09 | XMS | Encounter Summary ---
Demographics + + + | Address | [address] | | | [place] [address] | + + + | Home Phone [...] + + | Author | [facility] | + + + | Organization | [facility] | + + + | Address | Unknown | + + + | Phone | Unavailable | + + + Support + + +---------+ + | Name | Relationship | Address | Phone | + + +---------+ + | Jak Daley | ECON | Unknown | | + + +---------+ + Care Team Providers + +------+ + | Care Armored Service Technician Name | Role | Phone | + +------+ + PCP | Unavailable | + +------+ + Encounter Details +--------+ + + + + | Date | Type | Department | Care Team | Description | +--------+ + + + + | 03/13/ | Hospital | LAB SURGICAL | | | | 2014 | Encounter | PATHOLOGY [address] | | | | | | [address] | | | | | | [place], [place] | | | | | | [address] | | | +--------+ + + + [...] | PATHOLOGY CONSULT - | Routin | 03/13/2015 | | Results for this | | REVIEW OUTSIDE | e | | | procedure are in the | | SLIDES | | | | results section. | + +--------+ + + + documented in this encounter Results PATHOLOGY CONSULT - REVIEW OUTSIDE SLIDES (03/13/2015) + + + + + + | Component | Value | Ref Range | Performed | Pathologist | | | | | At | Signature | + + + + + + | PATHOLOGY | SOURCE OF SPECIMEN:A | | [facility] | | | CONSULT - | Endometrial biopsy; | | DEPARTMENT | | | SLIDES | cervical polyp, | | OF | | | | biopsySOURCE OF | | PATHOLOGY | | | | SPECIMEN:B PapSOURCE OF | | | | | | SPECIMEN:C Uterus, | | | | | | cervix, 6 o'clock | | | | | | region, biopsy; | | | | | | uterus,endocervix, | | | | | | curettageSOURCE OF | | | | | | SPECIMEN:D Endocervix, | | | | | | curettage; endometrium, | | | | | | curettage; cervix,cone | | | | | | bx; cervix, 5-6, bx | | | | | | Materials | | | | | | Received:Referring | | | | | | Institution: [facility] | | | | | | [facility] | | | | | | [facility] [place], [place] | | | | | | [address]on | | | | | | Accession Number: | | | | | | [id number] | | | | | | Collection Date: | | | | | | 02/10/2015Sublabeled | | | | | | H&E | | | | | | IHC Blocks | | | | | | A to B | | | | | | 8 | | | | | | 1 2 | | | | | | (A, B) Specimen | | | | | | BOutside Accession | | | | | | Number: [id number] | | | | | | Collection Date: | | | | | | 02/10/2015Stained | | | | | | 1 Specimen | | | | | | COutside Accession | | | | | | Number: [id number] | | | | | | Collection Date: | | | | | | 02/27/2015Sublabeled | | | | | | H&E | | | | | | Blocks A to B | | | | | | 4 | | | | | | 2 (A, B) | | | | | | Specimen DOutside | | | | | | Accession Number: | | | | | | [id number] | | | | | | Collection Date: | | | | | | 03/03/2015Sublabeled | | | | | | H&E | | | | | | IHC | | | | | | | | | | | | Blocks A to D | | | | | | 9 | | | | | | 13 | | | | | | 9 (A, B, C1, | | | | | | C2, C3, C4,C5, C6, D) | | | | | | Final Pathologic | | | | | | Diagnosis:A: | | | | | | Endometrial biopsy and | | | | | | cervical polyp | | | | | | ([id number], 02/10/15): | | | | | | - Secretory phase | | | | | | endometrium, negative | | | | | | for hyperplasia and | | | | | | carcinoma - Benign | | | | | | endocervical polyp | | | | | | B: Cervix, [facility] | | | | | | Pap cytology ([id number], | | | | | | 02/10/15): - | | | | | | Atypical glandular cells | | | | | | of undetermined | | | | | | significance (ANDRA) | | | | | | (seecomment) C: | | | | | | Cervix biopsy at 6:00 | | | | | | and ECC ([id number], | | | | | | 02/27/15):- Benign | | | | | | squamous and glandular | | | | | | mucosa -D: | | | | | | Cervical cone, | | | | | | cervical biopsies, and | | | | | | endometrial curettage | | | | | | ([id number],03/03/15):- | | | | | | Benign cervical | | | | | | mucosa- | | | | | | Proliferative phase | | | | | | endometrium, negative | | | | | | for hyperplasia | | | | | | andcarcinoma | | | | | | Comment: Thank you for | | | | | | sharing this | | | | | | challenging case for our | | | | | | review. Wereviewed the | | | | | | cervical Pap blinded to | | | | | | your diagnosis and the | | | | | | followupsurgical | | | | | | biopsies. Two of us | | | | | | thought the Pap smear | | | | | | was best classified | | | | | | asreactive. One | | | | | | thought ANDRA, favor | | | | | | reactive. We agree | | | | | | there are a fewatypical | | | | | | glandular groups that in | | | | | | retrospect are most | | | | | | likely | | | | | | reactiveendocervical | | | | | | cells. The followup | | | | | | biopsies, including | | | | | | cervical cone biopsyare | | | | | | all negative for | | | | | | dysplasia and carcinoma. | | | | | | In the absence of | | | | | | endocervical AIS | | | | | | cytologic features, or | | | | | | grade 3endometrial or | | | | | | ovarian cancer features, | | | | | | we prefer ANDRA when | | | | | | thedifferential | | | | | | diagnosis is low grade | | | | | | endometrial cancer. | | | | | | Approximately 50%of | | | | | | ANDRA diagnoses are | | | | | | negative for malignancy | | | | | | in followup, which is | | | | | | alsothe outcome in this | | | | | | case. This opinion | | | | | | was discussed with | | | | | | Akira on03/14/15. | | | | | | Case seen by:Edi | | | | | | Cuba Duarte/Surgical | | | | | | Pathology FellowAndy | | | | | | Veyliotti, | | | | | | ASCP/CytotechnologistTer | | | | | | ry Tiago Nash M.D., | | | | | | Ph.D./Cytopathologist | | | | | | and Surgical | | | | | | PathologistThese slides | | | | | | will be returned at a | | | | | | later dateT:03/14/15/ | | | | | | Clinical | | | | | | History:49-year-old | | | | | | female with negative HPV | | | | | | test, but atypical | | | | | | cervical Papdiagnosed as | | | | | | adenocarcinoma (NOS). | | | | | | Pap and followup | | | | | | biopsies submitted | | | | | | forconsultation. | | | | | | My electronic signature | | | | | | indicates that I have | | | | | | personally reviewed | | | | | | alldiagnostic slides, | | | | | | the gross and/or | | | | | | microscopic portion of | | | | | | thisreport and | | | | | | formulated the final | | | | | | diagnosis. | | | | | | Rendering Diagnostician: | | | | | | Harsh Nash M.D., | | | | | | Ph.DPathologistElectroni | | | | | | sunita Signed 03/15/2015 | | | | | | 1:51PM | | | | + + + + + + + + | Specimen | + + | | + + + + + + + | Performing | Address | City/State/Zipcode | Phone Number | | Organization | | | | + + + + + | [facility] | [address] | [place] [address] | | | PATHOLOGY | [address] | | | + + + + + documented in this encounter Visit Diagnoses Not on filedocumented in this encounter"
--- OUTSIDE RECORDS SUMMARY | ~2019-08-09 | XMS | Encounter Summary ---
Demographics + + + | Address | [address] | | | [place] [address] | + + + | Home Phone [...] | Author | [facility] | + + + | Organization | [facility] | + + + | Address | Unknown | + + + | Phone | Unavailable | + + + Support + + +---------+ + | Name | Relationship | Address | Phone | + + +---------+ + | Jak Daley | ECON | Unknown | | + + +---------+ + Care Team Providers + +------+ + | Care Ocean Import Representative Name | Role | Phone | [...] 2018 | Only | YOHAN Leon MD [address] | | | | | [address] Mail[address]: RPB07 | [place], [place] | | | | | [facility] [place] | [address] | | | | | [address] | [phone] | | | | | [phone] | | | +--------+ + + + [...] | | | | REGIMEN | - [id number]: Anastrozole | | | | | | [...] | | | | REGIMEN - Breast [id number]: | | | | | | Anastrozole [...] | | | | | | Category: [id number] | | | | | | Grade: [id number] Surgical | | | | | | Plan: No Surgery | | | | | | PlannedER Status: | | | | | | Positive (+)AJCC 8 Stage | | | | | | Grouping: IAHER2 | | | | | | Status: Negative (-)AJCC | | | | | | T Category: [id number] N | | | | | | Category: [id number] Status: | | | | | | Positive (+)Intent of | | | | | | Therapy:Non-Curative / | | | | | | Palliative Intent, | | | | | | Discussed with Patient | | | | + + + + + + | ONCOLOGY | [id number] | | VIA | | | PATHWAYS [...]
--- OUTSIDE RECORDS SUMMARY | ~2019-08-09 | XMS | Encounter Summary ---
Demographics + + + | Address | [address] | | | [place] [address] | + + + | Home Phone [...] + | Author | [facility] | | | and [place]hnyana | + + + | Organization | [facility] | | | and [...] [place], [place] | | | | | [address] | | + + + + + [...] [place] | | | | | [address] | | + + + + + Care Team Providers + +------+ + | Care Night Guard Name | Role | Phone | + +------+ + | Mela Condon PA-C | PCP | | + +------+ + Encounter Details +--------+ + + + + | Date | Type | Department | Care Team | Description | +--------+ + + + + | 05/25/ | Hospital | [facility] | Narcisa, | Canceled (Clinic | | 2015 | Encounter | MED CTR MEDICAL | Mu Gutierrez MD [address] | and/or Provider | | | | ONCOLOGY CLINIC [address] [place] | Cancellation) | | | | [address] [place] | [place] [address] | | | | | [place] [address] | [phone] | | | | | [phone] | | | +--------+ + + + [...] 2019 | Visit | | [address] [place] | | | | | | [address], | | | | | | [place] [address] | | | | | | [phone] | | | | | | | | +--------+---------+ + + + documented as of this encounter Visit Diagnoses Not on filedocumented in this encounter"
--- OUTSIDE RECORDS SUMMARY | ~2019-08-09 | XMS | Encounter Summary ---
Demographics + + + | Address | [address] | | | [place] [address] | + + + | Home Phone | | + + + | Preferred Language | Unknown | + + + | Marital Status | | + + + | Druze Affiliation | Unknown | + + + | Race | or | + + + | Ethnic Group | Not or | + + + Author + + + | Author | [facility] | + + + | Organization | [facility] | + + + | Address | Unknown | + + + | Phone | Unavailable | + + + Support + + +---------+ + | Name | Relationship | Address | Phone | + + +---------+ + | Jak Daley | ECON | Unknown | | + + +---------+ + Care Team Providers + +------+ + | Care Natural Gas Plant Supervisor Name | Role | Phone | [...] | | | | breast | [address] | [address] | | | | | cancer | [address] | [address]pos | | | | | Procedures | [address] | [place], [place] | | | | | CONSULT TO | Thomas | [address] | | | | | HEMATOLOGY / | Pavilion | Phone: | | | | | ONCOLOGY | [place], [place] | [phone] | | | | | PRACTICE | [address] | Fax: | | | | | | Phone: | [phone] | | | | | | [phone] | | | | | | | Fax: | | | | | | | [phone] | | +--------+--------+ + + + + [...] E | [address] | ([facility] 02/04 ) | | | | [address] | [address] | | | | | [address] | [place], [place] | | | | | [place], [place] | [address] | | | | | [address] | | | | | | [phone] | | | +--------+ + + + [...]
--- OUTSIDE RECORDS SUMMARY | ~2019-08-09 | XMS | Encounter Summary ---
Demographics + + + | Address | [address] | | | [place] [address] | + + + | Home Phone [...] | Author | [facility] | | | and [place] | + + + | Organization | [facility] [...] [place], [place] | | | | | [address] | | + + + + + [...] [place] | | | | | [address] | | + + + + + Care Team Providers + +------+ + | Care Surgical Assistant Certified Name | Role | Phone | + [...] | | | | female | [place] [address] | [place], [place] | | | | | breast, | Phone: | [address] | | | | | unspecified | [phone] | Phone: | | | | | laterality | Fax: | [phone] | | | | | 174.4 | [phone] | Fax: | | | | | (ICD-9-CM) - | | [phone] | | | | | [phone] | [...] | | | | | | | [place] [facility] | | | | | | [...] | | ONCOLOGY [address] [facility] [place] | quadrant of female | | | | [place], | [address] | breast, unspecified | | | | [place] [address] | | laterality (HCC) | | | | [phone] | | (Primary Dx) | +--------+ + [...] 2019 | Visit | | [address] [facility] | | | | | | [address], | | | | | | [place] [address] | | | | | | [phone] | | | | | | | [...]
--- OUTSIDE RECORDS SUMMARY | ~2019-08-09 | XMS | Encounter Summary ---
Demographics + + + | Address | [address] | | | [place] [address] | + + + | Home Phone | | + + + | Preferred Language | Unknown | + + + | Marital Status | | + + + | Uatsdin Affiliation | Unknown | + + + | Race | Unknown | + + + | Ethnic Group | Unknown | + + + Author + + + | Author | [facility] | | | and [place] | + + + | Organization | [facility] | | | and [place] [...] [place], [place] | | | | | [address] | | + + + + + [...] [place] | | | | | [address] | | + + + + + Care Team Providers + +------+ + | Care Art Dealer Name | Role | Phone | + [...] | | ONCOLOGY CLINIC [address] [place], [place] | (Primary Dx) | | | | [address] [place] | [address] | | | | | [place] [address] | | | | | | [phone] | | | +--------+ + + + [...] 2019 | Visit | | [address] | | | | | | [address] | | | | | | [place] [address] | | | | | | [phone] | | | | | | | [...]
--- OUTSIDE RECORDS SUMMARY | ~2019-08-09 | XMS | Encounter Summary ---
Demographics + + + | Address | [address] | | | [place] [address] | + + + | Home Phone | | + + + | Preferred Language | Unknown | + + + | Marital Status | | + + + | Restoration Affiliation | Unknown | + + + | Race | Unknown | + + + | Ethnic Group | Unknown | + + + Author + + + | Author | [facility] | | | and [place] | + + + | Organization | [facility] | | | and [place] [...] [place], [place] | | | | | [address] | | + + + + + [...] [place] | | | | | [address] | | + + + + + Care Team Providers + +------+ + | Care Lacquerer Name | Role | Phone | + [...] | | | | syndrome | [facility] | [place], [place] | | | | | Cubital | [place], [place] | [address] Phone: | | | | | tunnel | [address] | [phone] | | | | | syndrome, | Phone: | Fax: | | | | | bilateral | [phone] | [phone] | | | | | | Fax: | | | | | | | [phone] | | +--------+ + + + + + Encounter Details +--------+ + + + + | Date | Type | Department | Care Team | Description | +--------+ + + + + | 08/08/ | Procedure | [facility] | Rubén Merlos, | Bilateral hand | | 2015 | visit | PHYSIATRY [address] | MD Noni SCHAEFER | numbness (Primary | | | | [place], | [address] [place], [place] | Dx) | | | | [place] [address] | [id number] | | | | | [phone] | | | +--------+ + + + [...] | | | | | | [place] [address] | | | | | | [phone] | | | | | | | [...] + | Rubén Merlos MD 08/20/2016 16:23 [facility] | | | Physician Group Musculoskeletal[facility] Sp[facility], [facility]iatry [place] | | | Medical [address] [address] Ph: | | | Test Date: 08/08/2016 | | | Patient Name: Carissa Downey : 1955 Physician: Kvng Merlos | | | MR #: [id number] Sex: Female Referring Physician: Arya Rowland, | | | PA-Brenda HISTORY: Ms. Downey is a 50 year-old [...] Kvng | | | MD Gaurang Diplomate, [place] Board [employer] Physical Medicine and | | | Rehabilitation. | | + + + documented in this encounter Visit Diagnoses + + | Diagnosis | + + | Bilateral hand numbness - Primary Disturbance of skin sensation | + + documented in this encounter
--- OUTSIDE RECORDS SUMMARY | ~2019-08-09 | XMS | Encounter Summary ---
Demographics + + + | Address | [address] | | | [place] [address] | + + + | Home Phone | | + + + | Preferred Language | Unknown | + + + | Marital Status | | + + + | Orthodox Affiliation | Unknown | + + + | Race | Unknown | + + + | Ethnic Group | Unknown | + + + Author + + + | Author | [facility] | | | and [place] | + + + | Organization | [facility] | | | and [...] [place], [place] | | | | | [address] | | + + + + + [...] [place] | | | | | [address] | | + + + + + Care Team Providers + +------+ + | Care Community Ambassador Name | Role | Phone | + +------+ + | Luis Garcia PA-C | PCP | | + +------+ + Encounter Details +--------+ + + + + | Date | Type | Department | Care Team | Description | +--------+ + + + + | 09/06/ | Hospital | [facility] | Renee Wood | | | 2015 | Encounter | MED CTR RADIATION | [place], [address] | | | | | ONCOLOGY [address] | [facility], [place] | | | | | [place], | [address] | | | | | [place] [address] | | | | | | [phone] | | | +--------+ + + + [...] 2019 | Visit | | [address] [facility] | | | | | | [address], | | | | | | [place] [address] | | | | | | [phone] | | | | | | | | +--------+---------+ + + + documented as of this encounter Visit Diagnoses Not on filedocumented in this encounter"
--- OUTSIDE RECORDS SUMMARY | ~2019-08-09 | XMS | Encounter Summary ---
Demographics + + + | Address | [address] | | | [place] [address] | + + + | Home Phone [...] + + + | Author | [facility] | + + + | Organization | [...] Team Providers + +------+ + | Care Florist Supplies Salesperson Name | Role | Phone | + +------+ + | Mela Condon PA-C | PCP | | + +------+ + Encounter Details +--------+ + + + + | Date | Type | Department | Care Team | Description | +--------+ + + + + | 02/02/ | Results | Registration [address] | | | 2018 | Only | YOHAN Leon MD [address] | | | | | [address] Mail[address]: RPB07 | [place], [place] | | | | | [facility] [place] | [address] | | | | | [address] | [phone] | | | | | [phone] | | | +--------+ + + + [...] + | ONCOLOGY PATHWAYS | Routin | 02/02/2018 | | Results for this | | TREATMENT DECISION | e | | | procedure are in the | | | | | | results section. | + +--------+ + + + documented in this encounter Results ONCOLOGY PATHWAYS TREATMENT DECISION (02/02/2018) + + + + + + | Component | Value | Ref Range | Performed | Pathologist | | | | | At | Signature | + + + + + + | ONCOLOGY | Breast - No Medical | | VIA | | | PATHWAYS | Intervention - Off | | ONCOLOGY | | | TREATMENT | Treatment. | | PATHWAYS | | | PLAN | | | | | | REGIMEN | | | | | + + + + + + | ONCOLOGY | Breast - No Medical | | VIA | | | PATHWAYS | Intervention - Off | | ONCOLOGY | | | TREATMENT | Treatment. | | PATHWAYS | | | DECISION | | | | | | DETAILS | | | | | + + [...]
--- OUTSIDE RECORDS SUMMARY | ~2019-08-09 | XMS | Encounter Summary ---
Demographics + + + | Address | [address] | | | [place] [address] | + + + | Home Phone | | + + + | Preferred Language | Unknown | + + + | Marital Status | | + + + | Anabaptist Affiliation | Unknown | + + + | Race | Unknown | + + + | Ethnic Group | Unknown | + + + Author + + + | Author | [facility] | | | and [place]ana | + + + | Organization | [facility] | | | and [place] | [...] [place], [place] | | | | | [address] | | + + + + + [...] [place] | | | | | [address] | | + + + + + Care Team Providers + +------+ + | Care Cupola Melter Name | Role | Phone | + [...] + | 06/19/ | Telephone | [facility] | Renee Wood | Other | | 2014 | | MED CTR RADIATION | MD [address]azara [address] | | | | | ONCOLOGY [address] | [address] [place], [place] | | | | | [place], | [address] | | | | | [place] [address] | | | | | | [phone] | | | +--------+ + + + [...] 2019 | Visit | | [address] [facility] | | | | | | [address], | | | | | | [place] [address] | | | | | | [phone] | | | | | | | | +--------+---------+ + + + documented as of this encounter Visit Diagnoses Not on filedocumented in this encounter"
--- OUTSIDE RECORDS SUMMARY | ~2019-08-09 | XMS | Encounter Summary ---
Demographics + + + | Address | [address] | | | [place] [address] | + + + | Home Phone | | + + + | Preferred Language | Unknown | + + + | Marital Status | | + + + | Buddhist Affiliation | Unknown | + + + | Race | or | + + + | Ethnic Group | Not or | + + + Author + + + | Author | [facility] | + + + | [...] Providers + +------+ + | Care Sales Mgr Name | Role | Phone | + [...] Records | | 2017 | | at [facility] [address] | [address] | Received (St. | | | | [address] | [address] | [place] bolden | | | | [place] | [place], [place] | reports ) | | | | [place], [place] | [address] | | | | | [address] | | | | | | [phone] | | | +--------+ + + + [...]
--- OUTSIDE RECORDS SUMMARY | ~2019-08-09 | XMS | Encounter Summary ---
Demographics + + + | Address | [address] | | | [place] [address] | + + + | Home Phone [...] Author | [facility] | | | and Johnnyana | + + + | Organization | [facility] | | | and Johnnyana [...] [place], [place] | | | | | [address] | | + + + + + [...] [place] | | | | | [address] | | + + + + + Care Team Providers + +------+ + | Care Stone Polisher Name | Role | Phone | + [...] | | | quadrant of | [address] | [place], | | | | | left female | [place], | [place] [address] | | | | | breast (HCC) | [place] | Phone: | | | | | Procedures | [address] | [phone] | | | | | NE OFFICE | Phone: | Fax: | | | | | OUTPATIENT | [phone] | [phone] | | | | | VISIT 25 | Fax: | | | | | | MINUTES | [phone] | | +--------+--------+ + + + + Encounter Details +--------+ + + + + | Date | Type | Department | Care Team | Description | +--------+ + + + + | 12/23/ | Hospital | [facility] | Renee Wood | No Show | | 2019 | Encounter | MED CTR RADIATION | MD Lazara [address] | | | | | ONCOLOGY CLINIC [address] | [facility] | | | | | [address] | [address] | | | | | [place] [address] | | | | | | [phone] | | | +--------+ + + + [...] 2018 | Visit | | [address] [facility] | | | | | | [address] | | | | | | [place] [address] | | | | | | [phone] | | | | | | | | +--------+---------+ + + + documented as of this encounter Visit Diagnoses Not on filedocumented in this encounter"
--- OUTSIDE RECORDS SUMMARY | ~2019-08-09 | XMS | Encounter Summary ---
Demographics + + + | Address | [address] | | | [place] [address] | + + + | Home Phone | | + + + | Preferred Language | Unknown | + + + | Marital Status | | + + + | Islam Affiliation | Unknown | + + + | Race | Unknown | + + + | Ethnic Group | Unknown | + + + Author + + + | Author | [facility] | | | and [place]ana | + + + | Organization | [facility] | | | and [place] | [...] [address], [place] | | | | | [address] | | + + + + + [...] [place] | | | | | [address] | | + + + + + Care Team Providers + +------+ + | Care Welding Supervisor Name | Role | Phone | [...] | | ONCOLOGY CLINIC [address] | [address] [place], [place] | | | | | [address] [place] | [id number] | | | | | [place] [address] | | | | | | [phone] | | | +--------+ + + + [...] | Visit | | [address] [facility] | | | | | | [address], | | | | | | [place] [address] | | | | | | [phone] | | | | | | | | +--------+---------+ + + + documented as of this encounter Visit Diagnoses Not on filedocumented in this encounter"
--- OUTSIDE RECORDS SUMMARY | ~2019-08-09 | XMS | Encounter Summary ---
Demographics + + + | Address | [address] | | | [place] [address] | + + + | Home Phone | | + + + | Preferred Language | Unknown | + + + | Marital Status | | + + + | Oriental Orthodox Affiliation | Unknown | + + + | Race | Unknown | + + + | Ethnic Group | Unknown | + + + Author + + + | Author | [facility] | | | and [place] | + + + | Organization | [facility] | [...] [place], [place] | | | | | [address] | | + + + + + [...] [place] | | | | | [address] | | + + + + + Care Team Providers + +------+ + | Care Mammal Keeper Name | Role | Phone | + [...] | | | | | | [place] [address] | | | | | | [phone] | | | +--------+ + + + [...] | | | | | | [place] [address] | | | | | | [phone] | | | | | | | | +--------+---------+ + + + documented as of this encounter Visit Diagnoses Not on filedocumented in this encounter"
--- OUTSIDE RECORDS SUMMARY | ~2019-08-09 | XMS | Encounter Summary ---
Demographics + + + | Address | [address] | | | [place] [address] | + + + | Home Phone [...] | [facility] | | | and [place] | + + + | Organization | [facility] | [...] [address], [place] | | | | | [address] | | + + + + + [...] [place] | | | | | [address] | | + + + + + Care Team Providers + +------+ + | Care Supervisor Pullet Farm Name | Role | Phone | + [...] ONCOLOGY CLINIC [address] | [address] [place], [place] | | | | | [address] | [address] | | | | | [place] [address] | | | | | | [phone] | | | +--------+ + + + [...] | Visit | | [address] [facility] | | | | | | [address] [place] [place], | | | | | | [place] [address] | | | | | | [phone] | | | | | | | | +--------+---------+ + + + documented as of this encounter Visit Diagnoses Not on filedocumented in this encounter"
--- OUTSIDE RECORDS SUMMARY | ~2019-08-09 | XMS | Encounter Summary ---
Demographics + + + | Address | [address] | | | [place] [address] | + + + | Home Phone | | + + + | Preferred Language | Unknown | + + + | Marital Status | | + + + | Jehovah'S Witness Affiliation | Unknown | + + + | Race | Unknown | + + + | Ethnic Group | Unknown | + + + Author + + + | Author | [facility] | | | and [place] | + + + | Organization | [facility] | | | and [...] [address], [place] | | | | | [address] | | + + + + + [...] [place] | | | | | [address] | | + + + + + Care Team Providers + +------+ + | Care Insurance Sales Assistant Name | Role | Phone | + +------+ + | Mela Condon PA-C | PCP | | + +------+ + Encounter Details +--------+ + + + + | Date | Type | Department | Care Team | Description | +--------+ + + + + | 05/25/ | Hospital | [facility] | Narcisa, | Canceled (Clinic | | 2015 | Encounter | [facility] | Mu Gutierrez MD [address] | and/or Provider | | | | ONCOLOGY CLINIC [address] | [address] [place] | Cancellation) | | | | [address] [place] | [place] [address] | | | | | [place] [address] | [phone] | | | | | [phone] | | | +--------+ + + + [...] 2019 | Visit | | [address] [place] | | | | | | [address] [place], | | | | | | [place] [address] | | | | | | [phone] | | | | | | | | +--------+---------+ + + + documented as of this encounter Visit Diagnoses Not on filedocumented in this encounter"
--- OUTSIDE RECORDS SUMMARY | ~2019-08-09 | XMS | Encounter Summary ---
Demographics + + + | Address | [address] | | | [place] [address] | + + + | Home Phone [...] Author | [facility] | + + + | Organization | [facility] | + + + | Address | Unknown | + + + | Phone | Unavailable | + + + Support + + +---------+ + | Name | Relationship | Address | Phone | + + +---------+ + | Jak Daley | ECON | Unknown | | + + +---------+ + Care Team Providers + +------+ + | Care Security System Installer Name | Role | Phone | + [...] | | 2018 | | [facility] [place] | MD Carolyn [address] | | | | | for Health & Healing | [facility] [place] | | | | | [address] | [address] | | | | | Mailcode: [place] | [phone] | | | | | for Health and | | | | | | [address] | | | | | | [place], [place] | | | | | | [address] | | | | | | [phone] | | | +--------+ + + + [...]
--- OUTSIDE RECORDS SUMMARY | ~2019-08-09 | XMS | Encounter Summary ---
Demographics + + + | Address | [address] | | | [place] [address] | + + + | Home Phone [...] | Author | [facility] | | | and [place] | + + + | Organization | [facility] | | | and [place] [...] [address], [place] | | | | | [address] | | + + + + + [...] [place] | | | | | [address] | | + + + + + Care Team Providers + +------+ + | Care Computer Patternmaker Name | Role | Phone | + [...] | Malignant | Renee M, | [address] [place] | | | | | neoplasm of | MD [address] | [place], | | | | | left breast | [address] | [place] [address] | | | | | (HCC) | [place], | Phone: | | | | | Procedures | [place] [address] | [phone] | | | | | CT Treatment | Phone: | Fax: | | | | | Plan | [phone] | [phone] | | | | | Complex | Fax: | | | | | | | [phone] | | +--------+--------+ + + + + Reason for Visit Diagnostic/Screening (Routine) +--------+--------+ + + + + | Status | Reason | Specialty | Diagnoses / | Referred By | Referred To | | | | | Procedures | Contact | Contact | +--------+--------+ + + + + | Closed | | Radiology | Diagnoses | Riegert, | [address] | | | | | Malignant | Renee M, | [address] [place] | | | | | neoplasm of | MD [address] | [place], | | | | | left breast | [address] | [place] [address] | | | | | (HCC) | [place], | Phone: | | | | | Procedures | [place] [address] | [phone] | | | | | CT Treatment | Phone: | Fax: | | | | | Plan | [phone] | [phone] | | | | | Complex | Fax: | | | | | | | [phone] | | +--------+--------+ + + + + Encounter Details +--------+ + + + + | Date | Type | Department | Care Team | Description | +--------+ + + + + | 05/10/ | Hospital | [facility] | Renee Wood | Malignant neoplasm | | 2015 | Encounter | MED CTR CT [address] | MD Lazara [address] | of left breast (HCC) | | | | [place], | [place], [place] | | | | | [place] [address] | [address] | | | | | [phone] | | | +--------+ + + + [...] [place], | | | | | | [place] [address] | | | | | | [phone] | | | | | | | | +--------+---------+ + + + documented as of this encounter Procedures + +--------+ + + + | Procedure Name | Priori | Date/Time | Associated Diagnosis | Comments | | | ty | | | | + +--------+ + + + | CT TREATMENT PLAN | Routin | 05/10/2015 | Malignant neoplasm | Results for this | | COMPLEX | e | 3:59 PM | of left breast | procedure are in the | | | | PDT | (HCC) | results section. | + +--------+ + + + documented in this encounter Results CT Treatment Plan Complex [...] | Malignant neoplasm of left breast (HCC) Malignant neoplasm of breast (female), | | unspecified site | + + documented in this encounter"
--- OUTSIDE RECORDS SUMMARY | ~2019-08-09 | XMS | Encounter Summary ---
Demographics + + + | Address | [address] | | | [place] [address] | + + + | Home Phone | | + + + | Preferred Language | Unknown | + + + | Marital Status | | + + + | Caodaism Affiliation | Unknown | + + + | Race | or | + + + | Ethnic Group | Not or | + + + Author + + + | Author | [facility] | + + + | Organization | [facility] | + + + | Address | Unknown | + + + | Phone | Unavailable | + + + Support + + +---------+ + | Name | Relationship | Address | Phone | + + +---------+ + | Jak Daley | ECON | Unknown | | + + +---------+ + Care Team Providers + +------+ + | Care Plug Paster Name | Role | Phone | + +------+ + | Mela Condon PA-C | PCP | | + +------+ + Reason for Visit Diagnostic Testing (Routine) +--------+--------+ + + + + | Status | Reason | Specialty | Diagnoses / | Referred By | Referred To | | | | | Procedures | Contact | Contact | +--------+--------+ + + + + | Closed | | Radiology | Diagnoses | Dipak | Rad Nuc Med | | | | | Malignant | Jemima Leon, | [address] | | | | | neoplasm of | [address] | [address] | | | | | upper-outer | [address] | [address] | | | | | quadrant of | [place], [place] | Mailcode: | | | | | left breast | [address] | [address] | | | | | in female, | Phone: | [address] | | | | | estrogen | [phone] | [place], [place] | | | | | receptor | Fax: | [address] | | | | | positive | [phone] | Phone: | | | | | (HCC) | | [phone] | | | | | Weight loss | | Fax: | | | | | Bone pain | | [phone] | | | | | Procedures | | | | | | | NM BONE &/OR | | | | | | | JOINT | | | | | | | IMAGING | | | | | | | WHOLE BODY | | | | | | | OH BONE | | | | | | [...] | | 2018 | Encounter | at [facility] [address] | Carolyn, [address] | | | | | [address] | [facility] [place] | | | | | Mailcode: [id number] | [address] | | | | | [address] | [phone] | | | | | [place], [place] | | | | | | [address] | | | | | | [phone] | | | +--------+ + + + [...] tablet by | 90 | 3 | // | | | oral | mouth once [...]
--- OUTSIDE RECORDS SUMMARY | ~2019-08-09 | XMS | Encounter Summary ---
Demographics + + + | Address | [address] | | | [place] [address] | + + + | Home Phone [...] | Author | [facility] | + + + | Organization [...] Team Providers + +------+ + | Care Resin Painter Name | Role | Phone | + +------+ + | Mela Condon PA-C | PCP | | + +------+ + Encounter Details +--------+ + + + + | Date | Type | Department | Care Team | Description | +--------+ + + + + | 03/14/ | Document-Sc | Health Information | Unknown . | | | 2014 | anned | Services [address] | | | | | | [address] | | | | | | Mailcode: [id number] | | | | | | [facility] | | | | | | [place], [place] | | | | | | [address] | | | | | | [phone] | | | +--------+ + + + [...]
--- OUTSIDE RECORDS SUMMARY | ~2019-08-09 | XMS | Encounter Summary ---
Demographics + + + | Address | [address] | | | [place] [address] | + + + | Home Phone | | + + + | Preferred Language | Unknown | + + + | Marital Status | | + + + | Sikhism Affiliation | Unknown | + + + | Race | Unknown | + + + | Ethnic Group | Unknown | + + + Author + + + | Author | [facility] | | | and [place] | + + + | Organization | [facility] [...] [place], [place] | | | | | [address] | | + + + + + [...] [place] | | | | | [address] | | + + + + + Care Team Providers + +------+ + | Care Fitness And Wellness Director Name | Role | Phone | [...] | +--------+ + + + + | 07/25/ | Telephone | [facility] | Narcisa, | Other | | 2015 | | MED CTR MED[facility] | Mu Gutierrez MD [address] | | | | | ONCOLOGY CLINIC [address] | [address] [place] | | | | | [address] [place] | [place] [address] | | | | | [place] [address] | [phone] | | | | | [phone] | | | +--------+ + + + [...] | Visit | | [address] [facility] | | | | | | [address] [place], | | | | | | [place] [address] | | | | | | [phone] | | | | | | | | +--------+---------+ + + + documented as of this encounter Visit Diagnoses Not on filedocumented in this encounter"
--- OUTSIDE RECORDS SUMMARY | ~2019-08-09 | XMS | Encounter Summary ---
Demographics + + + | Address | [address] | | | [place] [address] | + + + | Home Phone | | + + + | Preferred Language | Unknown | + + + | Marital Status | | + + + | Yarsanism Affiliation | Unknown | + + + | Race | or | + + + | Ethnic Group | Not or | + + + Author + + + | Author | [facility] | + + + | [...] Team Providers + +------+ + | Care Sas Architect Name | Role | Phone | + [...] (recall | | 2018 | | at [facility] [address] | [address] [facility] | letter mailed ) | | | | [address] | [address] | | | | | Thomas Mccormick | [place], [place] | | | | | [place], [place] | [address] | | | | | [address] | | | | | | [phone] | | | +--------+ + + + [...]
--- OUTSIDE RECORDS SUMMARY | ~2019-08-09 | XMS | Encounter Summary ---
Demographics + + + | Address | [address] | | | [place] [address] | + + + | Home Phone [...] | [facility] | | | and [place] | + + + | Organization | [facility] | | | and [place] [...] [address], [place] | | | | | [address] | | + + + + + [...] [place] | | | | | [address] | | + + + + + Care Team Providers + +------+ + | Care Irrigation Manager Name | Role | Phone | [...] | | | ONCOLOGY CLINIC [address] | [place], [place] | | | | | [facility] | [address] | | | | | [place] [address] | | | | | | [phone] | | | +--------+ + + + [...] Visit | | [address] [facility] | | | | | | [address] [place], | | | | | | [place] [address] | | | | | | [phone] | | | | | | | | +--------+---------+ + + + documented as of this encounter Visit Diagnoses Not on filedocumented in this encounter"
--- OUTSIDE RECORDS SUMMARY | ~2019-08-09 | XMS | Encounter Summary ---
Demographics + + + | Address | [address] | | | [place] [address] | + + + | Home Phone | | + + + | Preferred Language | Unknown | + + + | Marital Status | | + + + | Adventism Affiliation | Unknown | + + + | Race | Unknown | + + + | Ethnic Group | Unknown | + + + Author + + + | Author | [facility] | | | and [place] | + + + | Organization | [facility] | [...] [address], [place] | | | | | [address] | | + + + + + [...] [place] | | | | | [address] | | + + + + + Care Team Providers + +------+ + | Care Language Interpreter Name | Role | Phone | + [...] | | | neoplasm of | [place] [address] | [address] | | | | | upper-outer | [address] | [address] | | | | | quadrant of | WAY | [place], | | | | | unspecified | [place], | [place] [address] | | | | | female | [place] [address] | Phone: | | | | | breast (HCC) | Phone: | [phone] | | | | | Procedures | [phone] | Fax: | | | | | [place] OFFICE | Fax: | [phone] | | | | | OUTPATIENT | [phone] | | | | | | VISIT 25 | | | | | | | MINUTES | | | +--------+--------+ + + + + Encounter Details +--------+ + + + + | Date | Type | Department | Care Team | Description | +--------+ + + + + | 01/08/ | Hospital | [facility] | Renee Wood | No Show | | 2017 | Encounter | MED CTR RADIATION | [place], [address] | | | | | ONCOLOGY [address] | [address] [place], [place] | | | | | [place], | [address] | | | | | [place] [address] | | | | | | [phone] | | | +--------+ + + + [...] 2018 | Visit | | [address] [facility] | | | | | | [address] | | | | | | [place] [address] | | | | | | [phone] | | | | | | | | +--------+---------+ + + + documented as of this encounter Visit Diagnoses Not on filedocumented in this encounter"
--- OUTSIDE RECORDS SUMMARY | ~2019-08-09 | XMS | Encounter Summary ---
Demographics + + + | Address | [address] | | | [place] [address] | + + + | Home Phone | | + + + | Preferred Language | Unknown | + + + | Marital Status | | + + + | Synagogue Affiliation | Unknown | + + + | Race | Unknown | + + + | Ethnic Group | Unknown | + + + Author + + + | Author | [facility] | | | and [place] | + + + | Organization | [facility] | | | and [...] [place], [place] | | | | | [address] | | + + + + + [...] [place] | | | | | [address] | | + + + + + Care Team Providers + +------+ + | Care Fisheries Technical Officer Name | Role | Phone | [...] | | unspecified | [place], | [place] [address] | | | | | site | [place] [address] | Phone: | | | | | consult/dante | Phone: | [phone] | | | | | st/won | [phone] | Fax: | | | | | Procedures | Fax: | [phone] | | | | | [place] OFFICE | [phone] | | | | | | OUTPATIENT [...] + | 05/03/ | Hospital | [facility] | Renee Wood | | | 2015 | Encounter | MED CTR RADIATION | [place], [address] | | | | | ONCOLOGY [address] | [address] [place], [place] | | | | | [place], | [address] | | | | | [place] [address] | | | | | | [phone] | | | +--------+ + + + [...] | Visit | | [address] [facility] | | | | | | [address] [place], | | | | | | [place] [address] | | | | | | [phone] | | | | | | | | +--------+---------+ + + + documented as of this encounter Visit Diagnoses Not on filedocumented in this encounter"
--- OUTSIDE RECORDS SUMMARY | ~2019-08-09 | XMS | Encounter Summary ---
Demographics + + + | Address | [address] | | | [place] [address] | + + + | Home Phone | | + + + | Preferred Language | Unknown | + + + | Marital Status | | + + + | Scientologist Affiliation | Unknown | + + + | Race | Unknown | + + + | Ethnic Group | Unknown | + + + Author + + + | Author | [facility] | | | and [place] | + + + | Organization | [facility] | | | [...] [address], [place] | | | | | [address] | | + + + + + [...] [place] | | | | | [address] | | + + + + + Care Team Providers + +------+ + | Care Front Desk Name | Role | Phone | + [...] | | syndrome | [address] [place] | [place], [place] | | | | | Cubital | [place], [place] | [address] Phone: | | | | | tunnel | [address] | [phone] | | | | | syndrome, | Phone: | Fax: | | | | | bilateral | [phone] | [phone] | | | | | | Fax: | | | | | | | [phone] | | +--------+ + + + + + Encounter Details +--------+ + + + + | Date | Type | Department | Care Team | Description | +--------+ + + + + | 07/01/ | Orders Only | [facility] | [facility] [place] | Bilateral carpal | | 2016 | | ORTHOPEDIC SURGERY | [address] | tunnel syndrome | | | | [address] [facility] | [address] [place] | (Primary Dx); | | | | [place], [place] | [place] [address] | 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
--- OUTSIDE RECORDS SUMMARY | ~2019-08-09 | XMS | Encounter Summary ---
Demographics + + + | Address | [address] | | | [place] [address] | + + + | Home Phone [...] + + + | Author | [facility] | + [...] Team Providers + +------+ + | Care Flight Engineer Name | Role | Phone | + +------+ + | Mela Condon PA-C | PCP | | + +------+ + Encounter Details +--------+------+ + + + | Date | Type | Department | Care Team | Description | +--------+------+ + + + | 03/12/ | Lab | Laboratory at [facility] | | Malignant neoplasm | | 2018 | | [address] | | of upper-outer | | | | [place], [place] | | quadrant of left | | | | [address] | | breast in female, | | | | [phone] | | estrogen receptor | | | [...] | 2018. | LABORATORY | | | [facility], | | | [facility] | | | HEALTH + | | | HEALING | + + + + + + + + | Performing | Address | City/State/Zipcode | Phone Number | | Organization | | | | + + + + + | [facility] | [address] | [place] [address] | | | SERVICES, [facility] | | | | | HEALTH [...] | + + + + + | [facility] | [address] [facility] | [place] [address] | | | SERVICES, CORE | [place] [...] | | | LABORATORY | | | [place] | | | SERVICES, | | | [...] | + + + + + | [facility] | [address] | [place] [address] | | | SERVICES, CORE | [place] [...]
--- OUTSIDE RECORDS SUMMARY | ~2019-08-09 | XMS | Encounter Summary ---
Demographics + + + | Address | [address] | | | [place] [address] | + + + | Home Phone | | + + + | Preferred Language | Unknown | + + + | Marital Status | | + + + | Gnosticist Affiliation | Unknown | + + + | Race | Unknown | + + + | Ethnic Group | Unknown | + + + Author + + + | Author | [facility] | | | and [place] | + + + | Organization | [facility] | | | and [place] [...] [place], [place] | | | | | [address] | | + + + + + [...] [place] | | | | | [address] | | + + + + + Care Team Providers + +------+ + | Care Electric Hoist Operator Name | Role | Phone | [...] | | | | | | [place] [address] | | | | | | [phone] | | | +--------+ + + + [...] 2019 | Visit | | [address] [facility] | | | | | | [address] [place], | | | | | | [place] [address] | | | | | | [phone] | | | | | | | | +--------+---------+ + + + documented as of this encounter Visit Diagnoses Not on filedocumented in this encounter"
--- OUTSIDE RECORDS SUMMARY | ~2019-08-09 | XMS | Encounter Summary ---
Demographics + + + | Address | [address] | | | [place] [address] | + + + | Home Phone [...] | [facility] | | | and Johnnyana | + + + | Organization | [facility] | | | and [place] [...] [place], [place] | | | | | [address] | | + + + + + | Luis Downey | ECON | Unknown | | + + + + + | Kourtney Carlos | ECON | Unknown | | + + + + + | Adrianne Carlos | ECON | Unknown | | + + + + + | Rena rUibe | ECON | Unknown | | + + + + + | Luigi Benedict | ECON | [address] | | | | | [place] | | | | | [address] | | + + + + + Care Team Providers + +------+ + | Care Executive Vice President And Chief Operating Officer Name | Role | Phone | [...] | | | | site | [place] [address] | [address] Phone: | | | | | Procedures | Phone: | [phone] | | | | | [place] OFFICE | [phone] | Fax: | | | | | OUTPATIENT | Fax: | [phone] | | | | | VISIT 25 | [phone] | | | | | | MINUTES | | | +--------+--------+ + + + + Encounter Details +--------+ + + + + | Date | Type | Department | Care Team | Description | +--------+ + + + + | 05/22/ | Hospital | [facility] | Narcisa, | Breast cancer of | | 2015 | Encounter | MED CTR MEDICAL | Reggie Gutierrez MD [address] | upper-outer quadrant | | | | ONCOLOGY CLINIC [address] [place] | of left female | | | | [address] [place] | [place] [address] | breast (HCC) | | | | [place] [address] | [phone] | (Primary Dx) | | | | [phone] | | | +--------+ + + + [...] nt from the original. Hematology/Oncology Progress Note [facility] Pt. Name/Age/: Carissa Downey 49 y.o. 1965 Med. Record Number: [id number] Date of admission: 05/22/2015 Identifying Statement: Carissa Downey is a 49 y.o. female from [address] [place] [address] [place] [address] with Stage IA, premenopausal ER-positive LEFT breast [...] was performed by Dr. Iman Perales of [facility] diagnostic imaging. Pathological specimen [id number] was analyzed by Yessenia Champion a [facility] and returned a grade 1 invasive [...] image guided left breast lumpectomy and [facility] sentinel lymph node biopsy. Specimen number [id number] returned a 1.1 cm well-diff erentiated invasive [...] mg subcutaneously monthly. To be initiated in [place], then sandhya ed forward monthly in [place] once she is finished with her radiation [...] this chart may have been created with [employer] voice recognition software. 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
--- OUTSIDE RECORDS SUMMARY | ~2019-08-09 | XMS | Encounter Summary ---
Demographics + + + | Address | [address] | | | [place] [address] | + + + | Home Phone [...] + | Author | [facility] | | | and [place] | + + + | Organization | [facility] | | | and [...] [address], [place] | | | | | [address] | | + + + + + [...] [place] | | | | | [address] | | + + + + + Care Team Providers + +------+ + | Care Magnetizer Name | Role | Phone | + [...] | | unspecified | [place], | [place] [address] | | | | | female | [place] [address] | Phone: | | | | | breast (HCC) | Phone: | [phone] | | | | | Procedures | [phone] | Fax: | | | | | [place] OFFICE | Fax: | [phone] | | | | | OUTPATIENT | [phone] | | | | | | VISIT 25 | | | | | | | MINUTES | | | +--------+--------+ + + + + Encounter Details +--------+ + + + + | Date | Type | Department | Care Team | Description | +--------+ + + + + | 09/27/ | Hospital | [facility] | Renee Wood | Screening mammogram | | 2015 | Encounter | MED CTR RADIATION | MD Lazara [address] | for high-risk | | | | ONCOLOGY [address] | [facility] [place] | patient (Primary Dx) | | | | [place], | [address] | | | | | [place] [address] | | | | | | [phone] | | | +--------+ + + + [...] 12:00 AM PSTPATIENT: Carissa Miriam Vicente:09/27/2013MR #: [id number]:[id number] Radiation Oncology Follow-up Clinic Note ICD/Diagnosis: 174.4 [...] present. No LVSI. Negative margins. ER 100%, DC 70-75%, Ki-67 less than 1 %, HER-2/jamia nonamplified by FISH with ratio 1.0, sentinel lymph node negative for metasta tic carcinoma. Received adjuvant radiation with hypofractionated whole breast irradiation, 40.05 to the breast with a 8 Gy of a dxpaevs77 Gy lumpectomy boost for a total 48.05 [...] Exam performed in the presence of a aeronautical engineering technologist. On upright exam breasts appear sym metric [...] present. No LVSI. Negative margins. ER 100%, DC 70-75%, Ki-67 less than 1 %, HER-2/jamia nonamplified by FISH with ratio 1.0, sentinel lymph node negative for metasta tic carcinoma. Received adjuvant radiation with hypofractionated whole breast irradiation, 40.05 to the breast with a 8 Gy of a jnasmid62 Gy lumpectomy boost for a total 48.05 [...] will be ordered to be done at [facility]. I have asked her to return for [...] M.D. Radiation Oncologist Department of Radiation Oncology [facility] This note was transcribed using PingSome speech recognition software. As a result, there ma y be unintended for medical and/or spelling errors. Every attempt is made to correct dicta tion. If there are any questions or errors please contact our office. Page 1 of 3 CSN: [id number] signed by Renee Fuentes MD at 10/04/2015 2:58 PM PSTd ocumented in this encounter Plan of Treatment +--------+---------+ + + + | Date | Type | Specialty | Care Team | Description | +--------+---------+ + + + | 08/16/ | Office | Otolaryngology | Servando Taylor MD | | | 2018 | Visit | | [address] [facility] | | | | | | [address] [place], | | | | | | [place] [address] | | | | | | [phone] | | | | | | | [...]
--- OUTSIDE RECORDS SUMMARY | ~2019-08-09 | XMS | Encounter Summary ---
Demographics + + + | Address | [address] | | | [place] [address] | + + + | Home Phone [...] | Author | [facility] | + + + | Organization [...] Team Providers + +------+ + | Care Four Slide Machine Operator Name | Role | Phone | + +------+ + | Mela Condon PA-C | PCP | | + +------+ + Encounter Details +--------+ + + + + | Date | Type | Department | Care Team | Description | +--------+ + + + + | 01/30/ | Color Expert | Hematology/Medical | Jemima Quesada | Malignant neoplasm | | 2018 | | Oncology at [place] | MD Carolyn [address] | of [facility] | | | | for Health & Healing | [address] [place], [place] | quadrant of left | | | | [address] | [address] | breast in female, | | | | Mailcode: [place] | [phone] | estrogen receptor | | | | for Health and | | positive (HCC) | | | | Healing, [address] | | (Primary Dx) | | | | [place], [place] | | | | | | [address] | | | | | | [phone] | | | +--------+ + + + [...] on filedocumented as of this encounter Results Daqi DIAGNOSTIC BILAT W/CAD (03/12/2018 10:01 AM PDT) [...] cancer, conservation | | | therapy. C50.412 Daqi DIAGNOSTIC BILAT W/CAD: March 12, 2018 - | | | Bilateral CC and MLO view(s) were taken. | | | Prior study comparison: January 31, 2017, bilateral MA YV DIAGNOSTIC | | | BILAT w/CAD performed at [facility]. There | | | are scattered fibroglandular densities. Stable post-lumpectomy | | | changes in the left breast. No suspicious calcifications, masses, or | | | architectural distortion present in either breast. No significant | | | changes when compared with prior studies. The images were | | | obtained using full field digital mammography on the dedicated | | | The Library System with R2 CAD. Performed at [facility] | | | [place]. 3D tomosynthesis mammography was performed as part [...] 12, 2018 - Accession #: | | [id number] CC and MLO view(s) were taken.Prior study comparison: January 31, 2017, | | bilateral MA VY DIAGNOSTICBILAT w/CAD performed at [facility] | | [place].There are scattered fibroglandular densities. Stable post-lumpectomy changes | | in the left breast. No suspicious calcifications, masses, or architectural distortion | | present in either breast. No significant changes when compared with prior studies.The | | images were obtained using full field digital mammography on the dedicated The Library | | System with R2 CAD. Performed at [facility]. 3D | | tomosynthesis mammography wasperformed [...] Hologic System with R2 CAD. Performed at [facility]. 3D tomosynthesis mammography was | [...]
--- OUTSIDE RECORDS SUMMARY | ~2019-08-09 | XMS | Encounter Summary ---
Demographics + + + | Address | [address] | | | [place] [address] | + + + | Home Phone | | + + + | Preferred Language | Unknown | + + + | Marital Status | | + + + | Latter Day Affiliation | Unknown | + + + | Race | Unknown | + + + | Ethnic Group | Unknown | + + + Author + + + | Author | [facility] | | | and [place] | + + + | Organization | [facility] | | | [...] [address], [place] | | | | | [address] | | + + + + + [...] [place] | | | | | [address] | | + + + + + Care Team Providers + +------+ + | Care Wheelchair Van Driver Name | Role | Phone | [...] + | 07/24/ | Telephone | [facility] | Lisa Regalado, | Psychosocial Support | | 2014 | | MED CTR MEDICAL | PROCESSING MANAGER | | | | | ONCOLOGY CLINIC [address] | | | | | | [address] | | | | | | [place] [address] | | | | | | [phone] | | | +--------+ + + + [...] 2019 | Visit | | [address] | | | | | | [address] [place], | | | | | | [place] [address] | | | | | | [phone] | | | | | | | | +--------+---------+ + + + documented as of this encounter Visit Diagnoses Not on filedocumented in this encounter"
--- OUTSIDE RECORDS SUMMARY | ~2019-08-09 | XMS | Encounter Summary ---
Demographics + + + | Address | [address] | | | [place] [address] | + + + | Home Phone | | + + + | Preferred Language | Unknown | + + + | Marital Status | | + + + | Mormon Affiliation | Unknown | + + + | Race | Unknown | + + + | Ethnic Group | Unknown | + + + Author + + + | Author | [facility] | | | and [place] | + + + | Organization | [facility] | | | [...] [address], [place] | | | | | [address] | | + + + + + [...] [place] | | | | | [address] | | + + + + + Care Team Providers + +------+ + | Care Sales Trainee Name | Role | Phone | + [...] [place], [place] | | | | | [place], | [address] | | | | | [place] [address] | | | | | | [phone] | | | +--------+ + + + [...] | Visit | | [address] [facility] | | | | | | [address], | | | | | | [place] [address] | | | | | | [phone] | | | | | | | | +--------+---------+ + + + documented as of this encounter Visit Diagnoses + + | Diagnosis | + + | Mastitis - Primary Inflammatory disease of breast | + + documented in this encounter"
--- OUTSIDE RECORDS SUMMARY | ~2019-08-09 | XMS | Encounter Summary ---
Demographics + + + | Address | [address] | | | [place] [address] | + + + | Home Phone [...] Author | [facility] | | | and [place] | + + + | Organization | [facility] | | | and [place] [...] [address], [place] | | | | | [address] | | + + + + + [...] [place] | | | | | [address] | | + + + + + Care Team Providers + +------+ + | Care Raw Hide Trimmer Name | Role | Phone | + [...] [place], [place] | | | | | [place], | [address] | | | | | [place] [address] | | | | | | [phone] | | | +--------+ + + + [...] | Visit | | [address] [facility] | | | | | | [address] [place], | | | | | | [place] [address] | | | | | | [phone] | | | | | | | | +--------+---------+ + + + documented as of this encounter Visit Diagnoses Not on filedocumented in this encounter"
--- OUTSIDE RECORDS SUMMARY | ~2019-08-09 | XMS | Encounter Summary ---
Demographics + + + | Address | [address] | | | [place] [address] | + + + | Home Phone | | + + + | Preferred Language | Unknown | + + + | Marital Status | | + + + | Sikh Affiliation | Unknown | + + + | Race | or | + + + | Ethnic Group | Not or | + + + Author + + + | Author | [facility] | + + + | Organization | [facility] | + + + | Address | Unknown | + + + | Phone | Unavailable | + + + Support + + +---------+ + | Name | Relationship | Address | Phone | + + +---------+ + | Jak Daley | ECON | Unknown | | + + +---------+ + Care Team Providers + +------+ + | Care Certified Emergency Vehicle Technician Name | Role | Phone | [...] | Malignant | Jemima Leon, | [address] | | | | | neoplasm of | [address] | | | | | upper-outer | [address] | [address] | | | | | quadrant of | [place], [place] | Mailcode: | | | | | left breast | [address] | [address] | | | | | in female, | Phone: | [address] | | | | | estrogen | [phone] | [place], [place] | | | | | receptor | Fax: | [address] | | | | | positive | [phone] | Phone: | | | | | (HCC) | | [phone] | | | | | Weight loss | | Fax: | | | | | Bone pain | | [phone] | | | | | Procedures | | | | | | | [place] BONE &/OR | | | | | | | JOINT | | | | | | | IMAGING | | | | | | | WHOLE BODY | | | | | | | MS BONE | | | | | | [...] | | 2018 | Encounter | at [facility] [address] | [place]yn, [address] | | | | | [address] | [facility] [place] | | | | | Mailcode: [address] | [address] | | | | | [address] | [phone] | | | | | [place], [place] | | | | | | [address] | | | | | | [phone] | | | +--------+ + + + [...]
--- OUTSIDE RECORDS SUMMARY | ~2019-08-09 | XMS | Encounter Summary ---
Demographics + + + | Address | [address] | | | [place] [address] | + + + | Home Phone | | + + + | Preferred Language | Unknown | + + + | Marital Status | | + + + | Pentecostal Affiliation | Unknown | + + + | Race | Unknown | + + + | Ethnic Group | Unknown | + + + Author + + + | Author | [facility] | | | and [place] | + + + | Organization | [facility] | | | and [...] [address], [place] | | | | | [address] | | + + + + + [...] [place] | | | | | [address] | | + + + + + Care Team Providers + +------+ + | Care Armorer Technician Name | Role | Phone | [...] | | ONCOLOGY CLINIC [address] | [address] [place], [place] | | | | | [address] [place] | [address] | | | | | [place] [address] | | | | | | [phone] | | | +--------+ + + + [...] | Visit | | [address] [facility] | | | | | | [address], | | | | | | [place] [address] | | | | | | [phone] | | | | | | | | +--------+---------+ + + + documented as of this encounter Visit Diagnoses Not on filedocumented in this encounter"
--- OUTSIDE RECORDS SUMMARY | ~2019-08-09 | XMS | Encounter Summary ---
Demographics + + + | Address | [address] | | | [place] [address] | + + + | Home Phone [...] | Author | [facility] | | | and [place] | + + + | Organization | [facility] | | | and [...] [address], [place] | | | | | [address] | | + + + + + [...] [place] | | | | | [address] | | + + + + + Care Team Providers + +------+ + | Care Dry Cleaning Machine Operator Name | Role | Phone [...] | | | | syndrome | [facility] | [place], [place] | | | | | Cubital | [place], [place] | [address] Phone: | | | | | tunnel | [address] | [phone] | | | | | syndrome, | Phone: | Fax: | | | | | bilateral | [phone] | [phone] | | | | | | Fax: | | | | | | | [phone] | | +--------+ + + + + + Encounter Details +--------+ + + + + | Date | Type | Department | Care Team | Description | +--------+ + + + + | 08/08/ | Procedure | [facility] | Rubén Merlos, | Bilateral hand | | 2015 | visit | PHYSIATRY [address] | MD Noni SCHAEFER | numbness (Primary | | | | [place], | [address] [place], [place] | Dx) | | | | [place] [address] | [id number] | | | | | [phone] | | | +--------+ + + + [...] [place], | | | | | | [place] [address] | | | | | | [phone] | | | | | | | [...] + | Rubén Merlos MD 08/20/2016 16:23 [facility] | | | Physician Group Musculoskeletal[facility] Sp[facility], Physiatry [place] | | | Medical [address] [address] Ph: | | | Test Date: 08/08/2016 | | | Patient Name: Carissa Downey : 1955 Physician: Kvng Merlos | | | MR #: [id number] Sex: Female Referring Physician: Arya Rowland, | [...] Kvng | | | MD Gaurang Diplomate, [place] [employer] Physical Medicine and | | | Rehabilitation. | | + + + documented in this encounter Visit Diagnoses + + | Diagnosis | + + | Bilateral hand numbness - Primary Disturbance of skin sensation | + + documented in this encounter
--- OUTSIDE RECORDS SUMMARY | ~2019-08-09 | XMS | Encounter Summary ---
Demographics + + + | Address | [address] | | | [place] [address] | + + + | Home Phone [...] Author | [facility] | | | and [place] | + + + | Organization | [facility] | [...] [address], [place] | | | | | [address] | | + + + + + [...] [place] | | | | | [address] | | + + + + + Care Team Providers + +------+ + | Care Corporate Representative Name | Role | Phone | [...] | quadrant of | [place], | [place], [place] | | | | | left breast | [place] [address] | [address] | | | | | in female, | Phone: | Phone: | | | | | estrogen | [phone] | [phone] | | | | | receptor | Fax: | Fax: | | | | | positive | [phone] | [phone] | | | | | (HCC) | [...] | | | neoplasm of | [place] [address] | [address] | | | | | upper-outer | [address] | | | | | quadrant of | WAY | [place], | | | | | unspecified | [place], | [place] [address] | | | | | female | [place] [address] | Phone: | | | | | breast (HCC) | Phone: | [phone] | | | | | Procedures | [phone] | Fax: | | | | | IN OFFICE | Fax: | [phone] | | | | | OUTPATIENT | [phone] | | | | | | VISIT 25 | | | | | | | MINUTES | | | +--------+--------+ + + + + Encounter Details +--------+ + + + + | Date | Type | Department | Care Team | Description | +--------+ + + + + | 12/17/ | Hospital | [facility] | Renee Wood | Malignant neoplasm | | 2018 | Encounter | MED CTR RADIATION | MD Lazara [address] | of upper-outer | | | | ONCOLOGY CLINIC [address] | [place], [place] | quadrant of left | | | | [address] [place] | [address] | breast in female, | | | | [place] [address] | | estrogen receptor | | | | [phone] | | positive (HCC) | | | [...] physician as well. -Plan for follow-up at [facility]. Carissa expressed interest in starting tamoxifen for chemo prev ention. -Annual screening Mammogram to be ordered at [facility], due in January 2018 -Follow-up with me [...] No LVSI. Negative margins. ER 100%, IN 70-75%, Ki-67 less than 1%, HER-2/jamia nonamplified by FISH with ratio 1.0, sentinel lymph node ne gative for metastatic carcinoma. Received adjuvant radiation with hypofractionated whole b reast radiation, 40.05 to the breast with a 8 Gy of a vferkmc69 Gy lumpectomy boost for a t otal 48.05 Gy in 20 fraction, completed on 06/14/15. Had undergone oophorectomy, continued AI therapy due to arthralgia. Carissa was last seen in Jun 2016. She cancelled planned follow-up here in January 2017 due to co nsultation around that time with the [facility] breast clinic. On 01/31/17 She had a consulation wi th the surgical SENIOR DESIGNER, Puja Fairchild. History was reviewed and surveillance [...] ositive (HCC) C50.412 174.4 AMB REFERRAL TO [facility] Medical Oncology Z17.0 V86.0 2. Breast cancer screening, high risk patient Z12.31 V76.11 [place] Tomosynthesis Screening [place] ateral Carissa Downey is a 52 y.o. woman with a history of left breast cancer. Pathologic stag e IA, pT1c pN0 cM0. Tumor characteristics: well-differentiated invasive ductal carcinoma, t umor size 1.1 cm, low-grade DCIS present. No LVSI. Negative margins. ER 100%, IN 70-75%, Ki-67 less than 1%, HER-2/jamia nonamplified by FISH with ratio 1.0, sentinel lymph node ne gative for metastatic carcinoma. Received adjuvant radiation with hypofractionated whole b reast radiation, 40.05 to the breast with a 8 Gy of a ttrpacf46 Gy lumpectomy boost for a t otal [...] has requested ongoing follow-up and imaging at [facility]. She is agreed for annual follow-u p with me as well. We discussed the option of tamoxifen. She expressed interest. I encour aged her to undergo consultation with medical oncologist in January when she returns to [facility] for imaging. Plan: It was so nice [...] physician as well. -Plan for follow-up at [facility]. Carissa expressed interest in starting tamoxifen for chemo prev ention. -Annual screening Mammogram to be ordered at [facility], due in January 2018 -Follow-up with me in 1 year, sooner if needed. Orders Placed This Encounter Procedures [place] Tomosynthesis Screening Bilateral AMB REFERRAL TO [facility] Medical Oncology Thank you for allowing me to participate in the care of Carissa Downey. If you should lepe ve any questions regarding this evaluation, please do not hesitate to contact me. Renee Sanches M.D. Radiation Oncologist Department of Radiation Oncology [facility] Office: [phone] CC: Patient Care Team: Luis Gacria PA-C as PCP - General (Physician Feeder Associate-Medical) Nanci Kee MD (Obstetrics and Gynecology) Renee Zhong MD as Physician (Radiation Oncology) NORRIS Blanchard as Consulting Physician (Nurse Practitioner - Family) Jemima Quesada MD as Consulting Physician (Oncology) documented in thi s encounter Plan of Treatment +--------+---------+ + + + | Date | Type | Specialty | Care Team | Description | +--------+---------+ + + + | 08/16/ | Office | Otolaryngology | Servando Taylor MD | | | 2019 | Visit | | [address] [facility] | | | | | | [address] [place], | | | | | | [place] [address] | | | | | | [phone] | | | | | | | [...] +--------+ + + | AMB REFERRAL TO [facility] | Outpatient | Routin | Malignant [...]
--- OUTSIDE RECORDS SUMMARY | ~2019-08-09 | XMS | Encounter Summary ---
Demographics + + + | Address | [address] | | | [place] [address] | + + + | Home Phone | | + + + | Preferred Language | Unknown | + + + | Marital Status | | + + + | Synagogue Affiliation | Unknown | + + + | Race | Unknown | + + + | Ethnic Group | Unknown | + + + Author + + + | Author | [facility] | | | and [place] | + + + | Organization | [facility] | | | and [place] [...] [place], [place] | | | | | [address] | | + + + + + [...] [place] | | | | | [address] | | + + + + + Care Team Providers + +------+ + | Care Course Instructor Name | Role | Phone | + [...] [place] | | | | | [address] [place] | [place] [address] | | | | | [place] [address] | [phone] | | | | | [phone] | | | +--------+ + + + [...] | Visit | | [address] [facility] | | | | | | [address], | | | | | | [place] [address] | | | | | | [phone] | | | | | | | | +--------+---------+ + + + documented as of this encounter Visit Diagnoses Not on filedocumented in this encounter"
--- OUTSIDE RECORDS SUMMARY | ~2019-08-09 | XMS | Encounter Summary ---
Demographics + + + | Address | [address] | | | [place] [address] | + + + | Home Phone [...] Author | [facility] | | | and [place]ana | + + + | Organization | [facility] | | | and [...] [address], [place] | | | | | [address] | | + + + + + [...] [place] | | | | | [address] | | + + + + + Care Team Providers + +------+ + | Care Sub Assembly Team Worker Name | Role | Phone | + +------+ + | Luis Garcia PA-C | PCP | | + +------+ + Encounter Details +--------+ + + + + | Date | Type | Department | Care Team | Description | +--------+ + + + + | 08/06/ | Hospital | [facility] | Renee Wood | | | 2015 | Encounter | MED CTR RADIATION | [place], [address] | | | | | ONCOLOGY [address] | [facility], [place] | | | | | [place], | [address] | | | | | [place] [address] | | | | | | [phone] | | | +--------+ + + + [...] | Visit | | [address] [facility] | | | | | | [address], | | | | | | [place] [address] | | | | | | [phone] | | | | | | | | +--------+---------+ + + + documented as of this encounter Visit Diagnoses Not on filedocumented in this encounter"
--- OUTSIDE RECORDS SUMMARY | ~2019-08-09 | XMS | Encounter Summary ---
Demographics + + + | Address | [address] | | | [place] [address] | + + + | Home Phone [...] + | Author | [facility] / ?.?? [facility] | + + + | Organization [...] Team Providers + +------+ + | Care Straightener And Aligner Name | Role | Phone | + [...] | for Health & Healing | [address] [place], [place] | | | | | [address] | [address] | | | | | Mailcode: [place] | [phone] | | | | | for Health and | | | | | | Healing, [address] | | | | | | [place], [place] | | | | | | [address] | | | | | | [phone] | | | +--------+--------+ + + + [...]
--- OUTSIDE RECORDS SUMMARY | ~2019-08-09 | XMS | Encounter Summary ---
Demographics + + + | Address | [address] | | | [place] [address] | + + + | Home Phone [...] + | Author | [facility] | | | and [place]ana | + + + | Organization | [facility] | | [...] [address], [place] | | | | | [address] | | + + + + + [...] [place] | | | | | [address] | | + + + + + Care Team Providers + +------+ + | Care Aluminum Pool Installer Name | Role | Phone | [...] ONCOLOGY CLINIC [address] [place], [place] | | | | | [address] [place] | [address] | | | | | [place] [address] | | | | | | [phone] | | | +--------+ + + + [...] | Visit | | [address] [facility] | | | | | | [address], | | | | | | [place] [address] | | | | | | [phone] | | | | | | | | +--------+---------+ + + + documented as of this encounter Visit Diagnoses Not on filedocumented in this encounter"
--- OUTSIDE RECORDS SUMMARY | ~2019-08-09 | XMS | Encounter Summary ---
Demographics + + + | Address | [address] | | | [place] [address] | + + + | Home Phone [...] + + | Author | [facility] | | | and [place] | + + + | Organization | [facility] | | | and [...] [address], [place] | | | | | [address] | | + + + + + [...] [place] | | | | | [address] | | + + + + + Care Team Providers + +------+ + | Care Counsel Name | Role | Phone | [...] | | | quadrant of | [address] | [place], | | | | | left female | [place], | [place] [address] | | | | | breast (HCC) | [place] | Phone: | | | | | Procedures | [address] | [phone] | | | | | [place] OFFICE | Phone: | Fax: | | | | | OUTPATIENT | [phone] | [phone] | | | | | VISIT 25 | Fax: | | | | | | MINUTES | [phone] | | +--------+--------+ + + + + Encounter Details +--------+ + + + + | Date | Type | Department | Care Team | Description | +--------+ + + + + | 01/20/ | Hospital | [facility] | Renee Wood | Malignant neoplasm | | 2019 | Encounter | MED CTR RADIATION | MD [place]azara [address] | of upper-outer | | | | ONCOLOGY CLINIC [address] | [address] [place], [place] | quadrant of left | | | | [place] | [id number] | breast in female, | | | | [place] [address] | | estrogen receptor | | | | [phone] | | positive (HCC) | | | [...] mammogram due in February 2019. Anticipated at [facility], managed by Dr. Quesada. - Follow-up with Dr. Quesada, Med Onc at [facility] as directed with ongoing tamoxifen. - Order a swallow study at [place] to evaluate the difficulty swallowing and weight [...] present. No LVSI. Negative margins. ER 100%, NM 7 0-75%, Ki-67 less than 1%, HER-2/jamia [...] is also followed by Dr. Quesada at [facility], last seen in February 2018. Bilateral [...] on 06/14/15. Patient saw Dr. Quesada at [facility] on 03/12/2018 and had mammogram same [...] MA VY DIAGNOSTIC BILAT w/CAD performed at [facility]. There are scattered fibroglandular densities.Stable post-lumpectomy changes in the left breast. No suspicious calcifications, masses, or architectural distortion present in either breast.No significant changes when compared with prior studies. The images were obtained using full field digital mammography on the dedicated Fit Steps System with R2 CAD. Performed at [facility]. 3D tomosynthesis mammography was performed as [...] swallow st udy to be done at [place]. Plan: - Bilateral screening mammogram due in February 2019. Anticipated at [facility], managed by Dr. Julio sun. - Follow-up with Dr. Quesada, Med Onc at [facility] as directed with ongoing tamoxifen. - Order a swallow study at [place] to evaluate the difficulty swallowing and weight [...] M.D. Radiation Oncologist Department of Radiation Oncology [facility] Office: [phone] documented in this encounter Plan of Treatment +--------+---------+ + + + | Date | Type | Specialty | Care Team | Description | +--------+---------+ + + + | 08/16/ | Office | Otolaryngology | Servando Taylor MD | | | 2019 | Visit | | [address] [facility] | | | | | | [address], | | | | | | [place] [address] | | | | | | [phone] | | | | | | | [...]
--- OUTSIDE RECORDS SUMMARY | ~2019-08-09 | XMS | Clinical Summary ---
Demographics + + + | Address | [address] | | | [place] [address] | + + + | Home Phone [...] + | Author | [facility] | | | and [place] | + + + | Organization | [facility] | | [...] [address], [place] | | | | | [address] | | + + + + + [...] [place] | | | | | [address] | | + + + + + Care Team Providers + +------+ + | Care Tanning Consultant Name | Role | Phone | [...] performed by Dr. Iman Perales of [facility] diagnostic imaging. Pathological specimen [id number] | | was analyzed by Dr. Alba Champion a [facility] and | | returned a grade [...] | sentinel lymph node biopsy. Specimen number [id number] | | returned a 1.1 cm well-differentiated [...] supervised by Dr. Renee Johnson of the [facility] | [facility] in [facility] with 4005 | | cGy in 15 [...] Plan: | | Carissa Downey returned to [facility] | | [place] with her , Jak Daley, for follow-up [...] | evidence of local recurrence.Mammographic data from [place] | [facility] in [facility] on February 29, 2016 and interpreted [...] after | | her next mammogram at [facility] cancer clinic in | | [facility] to review her symptoms and to discuss other | | options for adjuvant endocrine therapy for her stage IA ER | | positive left breast cancer. | + + Encounters +--------+ + + + + | Date | Type | Specialty | Care Team | Description | +--------+ + + + + | 06/01/ | Orders Only | Otolaryngology | Servando Taylor MD | Dysphagia, | | 2018 | | | | pharyngoesophageal | | | | | | phase (Primary Dx) | +--------+ + + + + | 05/24/ | Office | Otolaryngology | Renee Wood | Pharyngoesophageal | | 2018 | Visit | | MD Brandon Haile Glyn | dysphagia (Primary | | | | | MD Baron | Dx); | | | | | | Laryngopharyngeal | | | | | | reflux (LPR) | +--------+ + + + + from Last 3 Months Immunizations + + + + | Name [...] + + + + Plan of Treatment +--------+---------+ + + + | Date | Type | Specialty | Care Team | Description | +--------+---------+ + + + | 08/16/ | Office | Otolaryngology | Servando Taylor MD | | | 2018 | Visit | | [address] [facility] | | | | | | [address], | | | | | | [place] [address] | | | | | | [phone] | | | | | | | | +--------+---------+ + + + + + + + + | Health [...] + + | Vaccine: Influenza | | 07/08/2018, 09/02/2001, | | | (#1) | 9 | 07/19/1998 | | + + + + + [...] +--------+ +---------+--------+ | GEHA | GEHA | [id number] | 09/29/19 | [phone] | | PPO | | | [employer]ET[employer] | | 16-Pre | 6 | | | | | PPO | | sent | | | | + +--------+ +--------+ +---------+--------+ | [facility] | IHS | [id number] | 09/29/19 | | | Indemn | [...] | | al/Fam | | 1966 | [phone] | [place] | | | daniel | | | 9 (Home) | [address] | | | | | | [phone] | | | | | | | 7 (Work) | | + +--------+ +--------+ + + Advance Directives + + + + + | Type | Date Recorded | Patient | Explanation | | | | Pest Control Supervisor | | + + + + + | Power of | | | | | Rn Clinical Documentation Specialist | | | | + + + + + | Advance | | | | | Directive | | | | + + + + +
--- OUTSIDE RECORDS SUMMARY | ~2019-08-09 | XMS | Encounter Summary ---
Demographics + + + | Address | [address] | | | [place] [address] | + + + | Home Phone | | + + + | Preferred Language | Unknown | + + + | Marital Status | | + + + | Holiness Affiliation | Unknown | + + + | Race | Unknown | + + + | Ethnic Group | Unknown | + + + Author + + + | Author | [facility] | | | and Johnnyana | + + + | Organization | [facility] | | | and [place] [...] [address], [place] | | | | | [address] | | + + + + + [...] [place] | | | | | [address] | | + + + + + Care Team Providers + +------+ + | Care Machine Hoop Maker Name | Role | Phone | + +------+ + PCP | Unavailable | + +------+ + Encounter Details +--------+ + + + + | Date | Type | Department | Care Team | Description | +--------+ + + + + | 05/21/ | Hospital | [facility] | Afua Zambrano, | | | 2010 | Encounter | MED CTR LABORATORY | MD [address] | | | | | [address] [place] | [place], | | | | | [place], [place] | [place] [address] | | | | | [address] | [phone] | | | | | [phone] | | | +--------+ + + + [...] | Visit | | [address] [facility] | | | | | | [address], | | | | | | [place] [address] | | | | | | [phone] | | | | | | | [...] (H) | 70 - 109 mg/dL | [facility] | | | | | | [facility] | [facility] | [facility] | | | | | | [facility] - | | | | | | LABORATORY | | + + + + + + | Calcium | 8.9 | 8.3 - 10.5 | [facility] | | | | | mg/dL | [facility] | | | | | [facility] | | | | | | C[facility] - | | | | | | LABORATORY | | + + + + + + | BUN | 7 | 7 - 18 mg/dL | [facility] | | | | | | ST. [...] | >60Comment: For | >60 mL/min/A | [facility] | | | GFR | -Americans, | [...] | + + + + + | [facility] | [address] | [place], [place] | [phone] | | [facility] | | [address] | | | - LABORATORY | | | | + + + + + | [facility] | [address] | [place], [place] | | | [facility] | | [address] | | | - LABORATORY | | | | + + + + + documented in this encounter Visit Diagnoses Not on filedocumented in this encounter"
--- OUTSIDE RECORDS SUMMARY | ~2019-08-09 | XMS | Encounter Summary ---
Demographics + + + | Address | [address] | | | [place] [address] | + + + | Home Phone [...] [facility] | + + + | Organization | [...] Team Providers + +------+ + | Care Mobile Solutions Architect Name | Role | Phone | + +------+ + | Mela Condon PA-C | PCP | | + +------+ + Encounter Details +--------+ + + + + | Date | Type | Department | Care Team | Description | +--------+ + + + + | 03/12/ | Procedure | Diagnostic Imaging | | | | 2017 | Pass | Services at [facility] | | | | | | [address] | | | | | | Jazzmine Abernathy Mailcode: | | | | | | [address] [facility] | | | | | | [place], [place] | | | | | | [address] | | | | | | [phone] | | | +--------+ + + + [...]
--- OUTSIDE RECORDS SUMMARY | ~2019-08-09 | XMS | Encounter Summary ---
Demographics + + + | Address | [address] | | | [place] [address] | + + + | Home Phone [...] Author | [facility] | + + + | Organization [...] Team Providers + +------+ + | Care Yardage Control Operator Forming Name | Role | Phone | + [...] 2018 | Only | YOHAN Leon MD [address] | | | | | [place] Mailcode: RPB[address] | [place], [place] | | | | | [facility] [place] | [address] | | | | | [address] | [phone] | | | | | [phone] | | | +--------+ + + + [...]
--- OUTSIDE RECORDS SUMMARY | ~2019-08-09 | XMS | Encounter Summary ---
Demographics + + + | Address | [address] | | | [place] [address] | + + + | Home Phone [...] + + + | Author | [facility] | + + + | Organization [...] Team Providers + +------+ + | Care Student Life Advisor Name | Role | Phone | [...] | | 2018 | | [facility] at [place] | MD Carolyn [address] | | | | | for Health & Healing | Ave [place], [place] | | | | | [address] | [address] | | | | | Mailcode: [place] | [phone] | | | | | for Health and | | | | | | Healing, [address] | | | | | | [place], [place] | | | | | | [address] | | | | | | [phone] | | | +--------+ + + + [...]
--- OUTSIDE RECORDS SUMMARY | ~2019-08-09 | XMS | Encounter Summary ---
Demographics + + + | Address | [address] | | | [place] [address] | + + + | Home Phone [...] + + + | Author | [facility] | + + + | Organization [...] Team Providers + +------+ + | Care Hollow Tile Partition Erector Name | Role | Phone | [...] | | 2018 | | [facility]cology at [place] | MD Carolyn [address] | | | | | for Health & Healing | Ave [facility] [place] | | | | | [address] | [address] | | | | | Mailcode: [place] | [phone] | | | | | for Health and | | | | | | [address] | | | | | | [place], [place] | | | | | | [address] | | | | | | [phone] | | | +--------+ + + + [...]
--- OUTSIDE RECORDS SUMMARY | ~2019-08-09 | XMS | Encounter Summary ---
Demographics + + + | Address | [address] | | | [place] [address] | + + + | Home Phone | | + + + | Preferred Language | Unknown | + + + | Marital Status | | + + + | Uatsdin Affiliation | Unknown | + + + | Race | or | + + + | Ethnic Group | Not or | + + + Author + + + | Author | [facility] | + + [...] Team Providers + +------+ + | Care Wash House Worker Name | Role | Phone | [...] | neoplasm of | Mu Gutierrez, | CASKET ASSEMBLER [address] | | | | | upper-outer | MD [address] | [address] | | | | | quadrant of | [address] | [address] | | | | | left female | [place], | [facility] [place] | | | | | breast | [place] [address] | [address] | | | | | request for | Phone: | Phone: | | | | | 2nd opinion | [phone] | [phone] | | | | | | Fax: | Fax: | | | | | | [phone] | [phone] | +--------+--------+ + + + + Encounter Details +--------+---------+ + + + | Date | Type | Department | Care Team | Description | +--------+---------+ + + + | 05/05/ | Office | [facility] | Puja Fairchild, | Breast pain, right | | 2017 | Visit | at [facility] [address] | CASKET ASSEMBLER [address] | (Primary Dx); | | | | [address] | [address] | Personal history of | | | | [place] | [place], [place] | breast cancer | | | | [place], [place] | [address] | | | | | [address] | [phone] | | | | | [phone] | | | +--------+---------+ + + + [...] 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 She had 0/1 SLN. [...] s she has been referred to a It Application Support Analyst. She is also reporting an intermittent R [...] numbness. PSYCHIATRIC: No depression or anxiety. 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 I have placed a referral [...] | | with R2 CAD. Performed at [facility]. | | | ASSESSMENT: Benign - [...] Hologic System with R2 CAD. Performed at [facility] | | [place].ASSESSMENT: Benign - Category 2 (Overall)VY NAVJOT BI [...] Hologic System with R2 CAD. Performed at [place] | |[facility] [place]. | | | |ASSESSMENT: Benign - Category [...] + + | Performing | Address | City[facility] | Phone Number | | Organization | [...] R2 CAD. Performed | | | at [facility]. ASSESSMENT: Benign - | | | Category 2 (Overall) YV NAVJOT BI CAD: Benign - category 2 [...] Hologic System with R2 CAD. Performed at [facility] | | [place].ASSESSMENT: Benign - Category 2 (Overall)VY NAVJOT BI [...] Hologic System with R2 CAD. Performed at [place] | |[facility]. | | | |ASSESSMENT: Benign - [...]
--- OUTSIDE RECORDS SUMMARY | ~2019-08-09 | XMS | Encounter Summary ---
Demographics + + + | Address | [address] | | | [place] [address] | + + + | Home Phone [...] | Author | [facility] | | | and [place] | + + + | Organization | [facility] | | | and [place] [...] [place], [place] | | | | | [address] | | + + + + + [...] [place] | | | | | [address] | | + + + + + Care Team Providers + +------+ + | Care Research And Insights Executive Name | Role | Phone | + [...] neoplasm of | Mu C, | [address] [place] | | | | | upper-outer | MD [address] | [place], | | | | | quadrant of | [address] | [place] [address] | | | | | female | [place], | Phone: | | | | | breast (HCC) | [place] [address] | [phone] | | | | | Procedures | Phone: | Fax: | | | | | [place] | [phone] | [phone] | | | | | GOSERELIN | Fax: | | | | | | ACETATE | [phone] | | | | | | IMPLANT, 3.6 | | | | | | | MG | | | +--------+--------+ + + + + Encounter Details +--------+ + + + + | Date | Type | Department | Care Team | Description | +--------+ + + + + | 05/25/ | Hospital | [facility] | Narcisa, | Canceled (Clinic | | 2015 | Encounter | MED CTR CHEMO | Mu Gutierrez MD [address] | and/or Provider | | | | INFUSION [address] [place] | Cancellation) | | | | [place], | [place] [address] | | | | | [place] [address] | [phone] | | | | | [phone] | | | +--------+ + + + [...] 2019 | Visit | | [address] [facility] | | | | | | [address], | | | | | | [place] [address] | | | | | | [phone] | | | | | | | | +--------+---------+ + + + documented as of this encounter Visit Diagnoses Not on filedocumented in this encounter"
--- OUTSIDE RECORDS SUMMARY | ~2019-08-09 | XMS | Encounter Summary ---
Demographics + + + | Address | [address] | | | [place] [address] | + + + | Home Phone | | + + + | Preferred Language | Unknown | + + + | Marital Status | | + + + | Mandaen Affiliation | Unknown | + + + | Race | Unknown | + + + | Ethnic Group | Unknown | + + + Author + + + | Author | [facility] | | | and [place]ana | + + + | Organization | [facility] [...] [place], [place] | | | | | [address] | | + + + + + [...] [place] | | | | | [address] | | + + + + + Care Team Providers + +------+ + | Care Animal Control Licensing Worker Name | Role | Phone | [...] | | | | | | [place] [address] | | | | | | [phone] | | | +--------+ + + + [...] | Visit | | [address] [facility] | | | | | | [address], | | | | | | [place] [address] | | | | | | [phone] | | | | | | | | +--------+---------+ + + + documented as of this encounter Visit Diagnoses Not on filedocumented in this encounter"
--- OUTSIDE RECORDS SUMMARY | ~2019-08-09 | XMS | Encounter Summary ---
Demographics + + + | Address | [address] | | | [place] [address] | + + + | Home Phone [...] + + | Author | [facility] | + + + | Organization [...] Team Providers + +------+ + | Care Mixer Blender Name | Role | Phone | + [...] Rd | | | | | | [place], [place] | | | | | | [address] | | | +--------+ + + + [...]
--- OUTSIDE RECORDS SUMMARY | ~2019-08-09 | XMS | Encounter Summary ---
Demographics + + + | Address | [address] | | | [place] [address] | + + + | Home Phone [...] Author | [facility] | | | and [place]ana | + + + | Organization | [facility] | | [...] [place], [place] | | | | | [address] | | + + + + + [...] [place] | | | | | [address] | | + + + + + Care Team Providers + +------+ + | Care Tape Transferrer Name | Role | Phone | + [...] | | ONCOLOGY CLINIC [address] [place], [place] | | | | | [address] [place] | [id number] | | | | | [place] [address] | | | | | | [phone] | | | +--------+ + + + [...] | Visit | | [address] [facility] | | | | | | [address], | | | | | | [place] [address] | | | | | | [phone] | | | | | | | | +--------+---------+ + + + documented as of this encounter Visit Diagnoses Not on filedocumented in this encounter"
--- OUTSIDE RECORDS SUMMARY | ~2019-08-09 | XMS | Encounter Summary ---
Demographics + + + | Address | [address] | | | [place] [address] | + + + | Home Phone [...] | Author | [facility] | + + + | Organization | [facility] | + + + | Address | Unknown | + + + | Phone | Unavailable | + + + Support + + +---------+ + | Name | Relationship | Address | Phone | + + +---------+ + | Jak Daley | ECON | Unknown | | + + +---------+ + Care Team Providers + +------+ + | Care Fish And Wildlife Technician Name | Role | Phone | [...] 2018 | Only | YOHAN Leon MD [address] | | | | | [address] Mailcode: [id number] | [place], [place] | | | | | [facility] [place] | [address] | | | | | [address] | [phone] | | | | | [phone] | | | +--------+ + + + [...] | | | | REGIMEN | - [id number]: Anastrozole | | | | | | [...] | | | | REGIMEN - Breast [id number]: | | | | | | Anastrozole [...] | | | | | | Category: [id number] | | | | | | Grade: [id number] Surgical | | | | | | Plan: No Surgery | | | | | | PlannedER Status: | | | | | | Positive (+)AJCC 8 Stage | | | | | | Grouping: IAHER2 | | | | | | Status: Negative (-)AJCC | | | | | | T Category: [id number] N | | | | | | Category: [id number] Status: | | | | | | Positive (+)Intent of | | | | | | Therapy:Non-Curative / | | | | | | Palliative Intent, | | | | | | Discussed with Patient | | | | + + + + + + | ONCOLOGY | [id number] | | VIA | | | PATHWAYS [...]
--- OUTSIDE RECORDS SUMMARY | ~2019-08-09 | XMS | Encounter Summary ---
Demographics + + + | Address | [address] | | | [place] [address] | + + + | Home Phone [...] + + | Author | [facility] [employer] [facility] | + + [...] Team Providers + +------+ + | Care Comprehensive Advisor Name | Role | Phone | [...] | 2018 | Encounter | Center at [facility] [address] | MD Carolyn [address] | | | | | [address] [facility] | [place], [place] | | | | | [place], | [address] | | | | | [address] [place], | [phone] | | | | | [place] [address] | | | | | | [phone] | | | +--------+ + + + [...] | | BILAT w/CAD performed at [facility]. There | | | are scattered fibroglandular densities. Stable post-lumpectomy | | | changes in the left breast. No suspicious calcifications, masses, or | | | architectural distortion present in either breast. No significant | | | changes when compared with prior studies. The images were | | | obtained using full field digital mammography on the dedicated | | | Zipwhip System with R2 CAD. Performed at [facility] | | | [place]. 3D tomosynthesis mammography was performed as part [...] 12, 2018 - Accession #: | | [id number] CC and MLO view(s) were taken.Prior study comparison: January 31, 2017, | | bilateral MA VY DIAGNOSTICBILAT w/CAD performed at [facility] | | [place].There are scattered fibroglandular densities. Stable post-lumpectomy changes | | in the left breast. No suspicious calcifications, masses, or architectural distortion | | present in either breast. No significant changes when compared with prior studies.The | | images were obtained using full field digital mammography on the dedicated Zipwhip | | System with R2 CAD. Performed at [facility]. 3D | | tomosynthesis mammography wasperformed [...] System with R2 CAD. Performed at [facility]. 3D tomosynthesis mammography was | [...]
--- OUTSIDE RECORDS SUMMARY | ~2019-08-09 | XMS | Encounter Summary ---
Demographics + + + | Address | [address] | | | [place] [address] | + + + | Home Phone [...] Author | [facility] | | | and [place] | + + + | Organization | [facility] | | | and [place] | [...] [place], [place] | | | | | [address] | | + + + + + [...] [place] | | | | | [address] | | + + + + + Care Team Providers + +------+ + | Care Laborer Wharf Name | Role | Phone | + [...] [place] | | | | | [address] [place] | [place] [address] | | | | | [place] [address] | [phone] | | | | | [phone] | | | +--------+ + + + [...] | Visit | | [address] [facility] | | | | | | [address] [place], | | | | | | [place] [address] | | | | | | [phone] | | | | | | | | +--------+---------+ + + + documented as of this encounter Visit Diagnoses Not on filedocumented in this encounter"
--- OUTSIDE RECORDS SUMMARY | ~2019-08-09 | XMS | Encounter Summary ---
Demographics + + + | Address | [address] | | | [place] [address] | + + + | Home Phone [...] + | Author | [facility] | | | and [place] | + + + | Organization | [facility] | | | and [place] [...] [place], [place] | | | | | [address] | | + + + + + | Luis Downey | ECON | Unknown | | + + + + + | Kourtney Carlso | ECON | Unknown | | + + + + + | Adrianne Carlos | ECON | Unknown | | + + + + + | Rena Uribe | ECON | Unknown | | + + + + + | Luigi Benedict | ECON | [address] | | | | | [place] | | | | | [address] | | + + + + + Care Team Providers + +------+ + | Care Fundraising Officer Name | Role | Phone | [...] | | ONCOLOGY CLINIC [address] [place] | | | | | [address] [place] | [address] | | | | | [place] [address] | | | | | | [phone] | | | +--------+ + + + [...] | Visit | | [address] [facility] | | | | | | [address] [place], | | | | | | [place] [address] | | | | | | [phone] | | | | | | | | +--------+---------+ + + + documented as of this encounter Visit Diagnoses Not on filedocumented in this encounter"
--- OUTSIDE RECORDS SUMMARY | ~2019-08-09 | XMS | Encounter Summary ---
Demographics + + + | Address | [address] | | | [place] [address] | + + + | Home Phone [...] + + + | Author | [facility] [employer] [facility] | + + + | Organization | [facility] | + + + | Address | Unknown | + + + | Phone | Unavailable | + + + Support + + +---------+ + | Name | Relationship | Address | Phone | + + +---------+ + | Jak Daley | ECON | Unknown | | + + +---------+ + Care Team Providers + +------+ + | Care Director Chemistry Name | Role | Phone | + [...] Records | | 2017 | | at [facility] [address] | [address] | Received (St. | | | | [address] | [address] | Reilly bolden | | | | [place] | [place], [place] | reports ) | | | | [place], [place] | [address] | | | | | [address] | | | | | | [phone] | | | +--------+ + + + [...]
--- OUTSIDE RECORDS SUMMARY | ~2019-08-09 | XMS | Encounter Summary ---
Demographics + + + | Address | [address] | | | [place] [address] | + + + | Home Phone | | + + + | Preferred Language | Unknown | + + + | Marital Status | | + + + | Hoahaoism Affiliation | Unknown | + + + | Race | or | + + + | Ethnic Group | Not or | + + + Author + + + | Author | [facility] | + + [...] Team Providers + +------+ + | Care Mounted Police Name | Role | Phone | + +------+ + | Mela Condon PA-C | PCP | | + +------+ + Encounter Details +--------+------+ + + + | Date | Type | Department | Care Team | Description | +--------+------+ + + + | 03/12/ | Lab | Laboratory at [facility] | | Malignant neoplasm | | 2018 | | [address] | | of upper-outer | | | | [place], [place] | | quadrant of left | | | | [address] | | breast in female, | | | | [phone] | | estrogen receptor | | | [...] | 2018. | LABORATORY | | | [facility], | | | [facility] | | | HEALTH + | | | HEALING | + + + + + + + + | Performing | Address | City/State/Zipcode | Phone Number | | Organization | | | | + + + + + | [facility] | [address] | [place] [address] | | | SERVICES, [facility] | | | | | HEALTH [...] | + + + + + | [facility] | [address] [facility] | [place] [address] | | | SERVICES, CORE | YAIMA [...] | | | LABORATORY | | | EMIRATI | | | SERVICES, | | | [...] | + + + + + | [facility] | [address] | [place] [address] | | | SERVICES, CORE | YAIMA [...]
--- OUTSIDE RECORDS SUMMARY | ~2019-08-09 | XMS | Encounter Summary ---
Demographics + + + | Address | [address] | | | [place] [address] | + + + | Home Phone [...] + + + | Author | [facility] [employer] [facility] | + + + | Organization [...] Team Providers + +------+ + | Care Yard Jockey Name | Role | Phone | + +------+ + | Mela Condon PA-C | PCP | | + +------+ + Encounter Details +--------+ + + + + | Date | Type | Department | Care Team | Description | +--------+ + + + + | 03/12/ | Procedure | Diagnostic Imaging | | | | 2017 | Pass | Services at [facility] | | | | | | [address] | | | | | | [address] Mailcode: | | | | | | [address] [facility] | | | | | | [place], [place] | | | | | | [address] | | | | | | [phone] | | | +--------+ + + + [...]
--- OUTSIDE RECORDS SUMMARY | ~2019-08-09 | XMS | Encounter Summary ---
Demographics + + + | Address | [address] | | | [place] [address] | + + + | Home Phone [...] + + + | Author | [facility] [facility] | [...] Providers + +------+ + | Care Laboratory Mechanical Technician Name | Role | Phone | [...] | | 2018 | | Oncology at [place] | MD Carolyn [address] | (sharp breast pains) | | | | for Health & Healing | [address] [place], [place] | | | | | [address] | [address] | | | | | Mailcode: [place] | [phone] | | | | | for Health and | | | | | | Healing, [facility] [address] | | | | | | [place], [place] | | | | | | [address] | | | | | | [phone] | | | +--------+ + + + [...]
--- OUTSIDE RECORDS SUMMARY | ~2019-08-09 | XMS | Encounter Summary ---
Demographics + + + | Address | [address] | | | [place] [address] | + + + | Home Phone | | + + + | Preferred Language | Unknown | + + + | Marital Status | | + + + | Holiness Affiliation | Unknown | + + + | Race | Unknown | + + + | Ethnic Group | Unknown | + + + Author + + + | Author | [facility] | | | and [place] | + + + | Organization | [facility] | | | and [place] [...] [place], [place] | | | | | [address] | | + + + + + [...] [place] | | | | | [address] | | + + + + + Care Team Providers + +------+ + | Care Roller Gold Leaf Name | Role | Phone | + [...] | | | | | | [place] [address] | [place] [address] | | | | | | Phone: | Phone: | | | | | | [phone] | [phone] | | | | | | Fax: | Fax: | | | | | | [phone] | [phone] | + + + + + + [...] | | | CT Neck | [place] [address] | [place], [place] | | | | | Chest w | Phone: | [address] | | | | | Contrast | [phone] | Phone: | | | | | | Fax: | [phone] | | | | | | [phone] | Fax: | | | | | | | [phone] | +--------+--------+ + + + + Reason [...] ONCOLOGY CLINIC [address] [place] | | | | | [address] [place] | [address] | | | | | [place] [address] | | | | | | [phone] | | | +--------+ + + + [...] | Visit | | [address] [facility] | | | | | | [address] [place], | | | | | | [place] [address] | | | | | | [phone] | | | | | | | [...]
--- OUTSIDE RECORDS SUMMARY | ~2019-08-09 | XMS | Encounter Summary ---
Demographics + + + | Address | [address] | | | [place] [address] | + + + | Home Phone | | + + + | Preferred Language | Unknown | + + + | Marital Status | | + + + | Anabaptist Affiliation | Unknown | + + + | Race | Unknown | + + + | Ethnic Group | Unknown | + + + Author + + + | Author | [facility] | | | and [place] | + + + | Organization | [facility] | | | and [place] | [...] [place], [place] | | | | | [address] | | + + + + + [...] [place] | | | | | [address] | | + + + + + Care Team Providers + +------+ + | Care Player Services Representative Name | Role | Phone | + +------+ + PCP | Unavailable | + +------+ + Encounter Details +--------+ + + + + | Date | Type | Department | Care Team | Description | +--------+ + + + + | 06/12/ | Hospital | [facility] | Afua Zambrano, | | | 2010 | Encounter | MED CTR XRAY [address] | | | | | [address] [place] | [place], | | | | | [place] [address] | [place] [address] | | | | | [phone] | [phone] | | | | | | | [...] Visit | | [address] [facility] | | | | | | [address] [place], | | | | | | [place] [address] | | | | | | [phone] | | | | | | | [...] Performed At | + + + | [facility] Diagnostic [facility] Department | [facility] | | [address] [facility] | [facility] | | CARDIAC CT ANGIOGRAPHY, [...] proximal great vessels was performed with a dVisit [address] scan ner. | | [...] | | 13:29 Transcribed Date/Time: 06/13/2011 10:02 Elder Counselor: | | | < Addendum > ADDENDUM: [...] | <Electronically Signed by Afua Zambrano MD [facility] F[facility]> 06/14/11 | | | 0702 | | + + + + + | Procedure Note | + + | Higinio, Rad Conversion - 11/05/2013 3:49 PM [facility] | | Diagnostic Imaging Department [address] [place] [address] | | CARDIAC CT ANGIOGRAPHY, 06/12/2011 CLINICAL [...] ATELECTASIS. <Electronically Signed by Afua Zambrano MD [facility] | | FASE> 06/14/11 0702 | [...] 13:29 | |Transcribed Date/Time: 06/13/2011 10:02 | |Elder Counselor: | |< Addendum > | |ADDENDUM: 07/08/11 [...] | |<Electronically Signed by Afua Zambrano MD [facility]> 06/14/11 0702 | + + + +---------+ + + | Performing | Address | City/State/Zipcode | Phone Number | | Organization | | | | + +---------+ + + | [place] | | | | | [place] | | | | + +---------+ + + documented in this encounter Visit Diagnoses Not on filedocumented in this encounter"
--- OUTSIDE RECORDS SUMMARY | ~2019-08-09 | XMS | Encounter Summary ---
Demographics + + + | Address | [address] | | | [place] [address] | + + + | Home Phone [...] + | Author | [facility] [employer] [facility] | + + + | Organization | [facility] | + + + | Address | Unknown | + + + | Phone | Unavailable | + + + Support + + +---------+ + | Name | Relationship | Address | Phone | + + +---------+ + | Jak Daley | ECON | Unknown | | + + +---------+ + Care Team Providers + +------+ + | Care Fellmongering Machine Operator Name | Role | Phone [...] Encounter | Center at [facility] [address] | [facility] [employer] [facility] [address] | | | | | [address] | [address] | | | | | [place] | [place], [place] | | | | | [place], [place] | [address] | | | | | [address] | [phone] | | | | | [phone] | | | +--------+ + + + [...] full field digital mammography on the dedicated [employer] System | | | with R2 CAD. Performed at [facility]. | | | ASSESSMENT: Benign - Category [...] System with R2 CAD. Performed at [facility] | | [place].ASSESSMENT: Benign - Category 2 (Overall)VY NAVJOT BI [...] Hologic System with R2 CAD. Performed at [facility]. | | | |ASSESSMENT: Benign - [...]
--- OUTSIDE RECORDS SUMMARY | ~2019-08-09 | XMS | Encounter Summary ---
Demographics + + + | Address | [address] | | | [place] [address] | + + + | Home Phone [...] | Author | [facility] | | | and [place] | + + + | Organization | [facility] | | | [...] [place], [place] | | | | | [address] | | + + + + + [...] [place] | | | | | [address] | | + + + + + Care Team Providers + +------+ + | Care Stull Installer Name | Role | Phone | [...] + | 07/24/ | Telephone | [facility] | Lisa Regalado, | Psychosocial Support | | 2014 | | MED CTR MEDICAL | STUDENT LIFE VICE PRESIDENT | | | | | ONCOLOGY CLINIC [address] | | | | | | [address] | | | | | | [place] [address] | | | | | | [phone] | | | +--------+ + + + [...] [place], | | | | | | [place] [address] | | | | | | [phone] | | | | | | | | +--------+---------+ + + + documented as of this encounter Visit Diagnoses Not on filedocumented in this encounter"
--- OUTSIDE RECORDS SUMMARY | ~2019-08-09 | XMS | Encounter Summary ---
Demographics + + + | Address | [address] | | | [place] [address] | + + + | Home Phone [...] Author | [facility] | | | and [place] | + + + | Organization | [facility] | | | and [...] [place], [place] | | | | | [address] | | + + + + + [...] [place] | | | | | [address] | | + + + + + Care Team Providers + +------+ + | Care Customer Sales Specialist Name | Role | Phone | + +------+ + PCP | Unavailable | + +------+ + Encounter Details +--------+ + + + + | Date | Type | Department | Care Team | Description | +--------+ + + + + | 06/12/ | Hospital | [facility] | Afua Zambrano, | | | 2010 | Encounter | MED CTR XRAY [address] | | | | | [address] [place] | [place], | | | | | [place] [address] | [place] [address] | | | | | [phone] | [phone] | | | | | | | [...] | | | | | | [place] [address] | | | | | | [phone] | | | | | | | [...] Performed At | + + + | [facility] Diagnostic Imaging Department | [facility] | | [address] [facility] | [facility] | | CARDIAC CT ANGIOGRAPHY, | [...] proximal great vessels was performed with a XOR.MOTORS [address] scan ner. | | [...] | | 13:29 Transcribed Date/Time: 06/13/2011 10:02 Feed Project Engineer: | | | < Addendum > ADDENDUM: [...] | <Electronically Signed by Afua Zambrano MD [facility]> 06/14/11 | | | 0702 | | + + + + + | Procedure Note | + + | Higinio, Rad Conversion - 11/05/2013 3:[address] [facility] | | Diagnostic Imaging Department [address] [place] [address] | | CARDIAC CT ANGIOGRAPHY, 06/12/2011 CLINICAL [...] ATELECTASIS. <Electronically Signed by Afua Zambrano MD [facility] | | FASE> 06/14/11 0702 | [...] 13:29 | |Transcribed Date/Time: 06/13/2011 10:02 | |Feed Project Engineer: | |< Addendum > | |ADDENDUM: 07/08/11 [...] | |<Electronically Signed by Afua Zambrano MD [facility]> 06/14/11 0702 | + + [...]
--- OUTSIDE RECORDS SUMMARY | ~2019-08-09 | XMS | Clinical Summary ---
Demographics + + + | Address | [address] | | | [place] [address] | + + + | Home Phone [...] + + | Author | [facility] | | | and [place] | + + + | Organization | [facility] | | | and [place] [...] [place], [place] | | | | | [address] | | + + + + + [...] [place] | | | | | [address] | | + + + + + Care Team Providers + +------+ + | Care School Secretary Name | Role | Phone | + [...] was performed by Dr. Iman Perales of [facility] diagnostic imaging. Pathological specimen [id number] | | was analyzed by Dr. Alba Champion a [facility] and | | returned a grade [...] | sentinel lymph node biopsy. Specimen number [id number] | | returned a 1.1 cm well-differentiated [...] supervised by Dr. Renee Johnson of the [facility] | [facility] in [facility] with 4005 | | cGy in [...] Plan: | | Carissa Downey returned to [facility] | | [place] with her , Jak Daley, for follow-up [...] | evidence of local recurrence.Mammographic data from [facility] | [facility] in [facility] on February 29, 2016 and interpreted by [...] after | | her next mammogram at [facility] cancer clinic in | | [facility] to review her symptoms and to discuss [...] 2018 | Visit | | [address] [facility] | | | | | | [address] [place], | | | | | | [place] [address] | | | | | | [phone] | | | | | | | [...] +--------+ +---------+--------+ | GEHA | GEHA | [id number] | 09/29/19 | [phone] | | PPO | | | [employer] | | 16-Pre | 6 | | | | | PPO | | sent | | | | + +--------+ +--------+ +---------+--------+ | [facility] | [employer] | [id number] | 09/29/19 | | | Indemn | [...] daniel | | | 9 (Home) | [address] | | | | | | [phone] | | | | | | | 7 (Work) | | + +--------+ +--------+ + + Advance Directives + + + + + | Type | Date Recorded | Patient | Explanation | | | | Health Club Attendant | | + + + + + | Power of | | | | | Automatic Outsole Cutter | | | | + + + + + | Advance | | | | | Directive | | | | + + + + +
--- OUTSIDE RECORDS SUMMARY | ~2019-08-09 | XMS | Encounter Summary ---
Demographics + + + | Address | [address] | | | [place] [address] | + + + | Home Phone [...] Author | [facility] | | | and [place]ana | + + + | Organization | [facility] [...] [place], [place] | | | | | [address] | | + + + + + [...] [place] | | | | | [address] | | + + + + + Care Team Providers + +------+ + | Care Squilgeer Name | Role | Phone | + [...] [place] | | | | | [address] [place] | [place] [address] | | | | | [place] [address] | [phone] | | | | | [phone] | | | +--------+ + + + [...] | Visit | | [address] [facility] | | | | | | [address] [place], | | | | | | [place] [address] | | | | | | [phone] | | | | | | | | +--------+---------+ + + + documented as of this encounter Visit Diagnoses Not on filedocumented in this encounter"
--- OUTSIDE RECORDS SUMMARY | ~2019-08-09 | XMS | Encounter Summary ---
Demographics + + + | Address | [address] | | | [place] [address] | + + + | Home Phone [...] + + | Author | [facility] | + + + | Organization [...] Team Providers + +------+ + | Care Costume Shop Coordinator Name | Role | Phone | + +------+ + | Mela Condon PA-C | PCP | | + +------+ + Encounter Details +--------+ + + + + | Date | Type | Department | Care Team | Description | +--------+ + + + + | 04/10/ | Ancillary | Diagnostic Imaging | Mela Condon | | | 2018 | Orders | Services [address] | | | | | [facility] | [facility] | | | | | [place], [place] | [address] | | | | | [address] | [address] | | | | | [address] [place], | | | | | | [place] [address] | | | | | | [phone] | | | | | | | [...]
--- OUTSIDE RECORDS SUMMARY | ~2019-08-09 | XMS | Encounter Summary ---
Demographics + + + | Address | [address] | | | [place] [address] | + + + | Home Phone | | + + + | Preferred Language | Unknown | + + + | Marital Status | | + + + | Cheondoism Affiliation | Unknown | + + + | Race | or | + + + | Ethnic Group | Not or | + + + Author + + + | Author | [facility] | + + + | Organization [...] Team Providers + +------+ + | Care Activities Director Scouting Name | Role | Phone | + +------+ + | Mela Condon PA-C | PCP | | + +------+ + Encounter Details +--------+ + + + + | Date | Type | Department | Care Team | Description | +--------+ + + + + | 04/13/ | Ancillary | Diagnostic Imaging | Mela Condon | | | 2018 | Orders | Services [address] | | | | | [facility] | [facility] | | | | | [place], [place] | [address] | | | | | [address] | [address] | | | | | | [address] [place], | | | | | | [place] [address] | | | | | | [phone] | | | | | | | [...]
--- OUTSIDE RECORDS SUMMARY | ~2019-08-09 | XMS | Encounter Summary ---
Demographics + + + | Address | [address] | | | [place] [address] | + + + | Home Phone [...] + | Author | [facility] | + + + | Organization [...] Team Providers + +------+ + | Care Complex Case Manager Name | Role | Phone [...] (recall | | 2018 | | at [facility] [address] | [address] [facility] | letter mailed ) | | | | [address] | [facility] [address] | | | | | Thomas [address] | [place], [place] | | | | | [place], [place] | [address] | | | | | [address] | | | | | | [phone] | | | +--------+ + + + [...]
--- OUTSIDE RECORDS SUMMARY | ~2019-08-09 | XMS | Encounter Summary ---
Demographics + + + | Address | [address] | | | [place] [address] | + + + | Home Phone [...] | Author | [facility] | | | and [place] | + + + | Organization | [facility] | [...] [place], [place] | | | | | [address] | | + + + + + [...] [place] | | | | | [address] | | + + + + + Care Team Providers + +------+ + | Care Deburring And Tooling Machine Operator Name | Role | Phone [...] | Malignant | Renee M, | [place] | | | | | neoplasm of | MD [address] | [place], | | | | | left breast | [address] | [place] [address] | | | | | (HCC) | [place], | Phone: | | | | | Procedures | [place] [address] | [phone] | | | | | CT Treatment | Phone: | Fax: | | | | | Plan | [phone] | [phone] | | | | | Complex | Fax: | | | | | | | [phone] | | +--------+--------+ + + + + [...] | Malignant | Renee M, | [place] | | | | | neoplasm of | MD [address] | [place], | | | | | left breast | [address] | [place] [address] | | | | | (HCC) | [place], | Phone: | | | | | Procedures | [place] [address] | [phone] | | | | | CT Treatment | Phone: | Fax: | | | | | Plan | [phone] | [phone] | | | | | Complex | Fax: | | | | | | | [phone] | | +--------+--------+ + + + + Encounter Details +--------+ + + + + | Date | Type | Department | Care Team | Description | +--------+ + + + + | 05/10/ | Hospital | [facility] | Renee Wood | Malignant neoplasm | | 2015 | Encounter | MED CTR [address] | MD Lazara [address] | of left breast (HCC) | | | | [place], | [place], [place] | | | | | [place] [address] | [address] | | | | | [phone] | | | +--------+ + + + [...] [place], | | | | | | [place] [address] | | | | | | [phone] | | | | | | | [...]
--- OUTSIDE RECORDS SUMMARY | ~2019-08-09 | XMS | Clinical Summary ---
Demographics + + + | Address | [address] | | | [place] [address] | + + + | Home Phone | | + + + | Preferred Language | Unknown | + + + | Marital Status | Unknown | + + + | Yazidism Affiliation | Unknown | + + + | Race | Unknown | + + + | Ethnic Group | Unknown | + + + Author + + + | Author | [facility] (Historical as of | | | 05-15-19) | + + + | Organization | [facility] (Historical as of | | | 05-15-19) [...] [place] | | | | | [address] | | + + + + + Care Team Providers + +------+ + | Care Duplicator Punch Set Up Operator Name | Role | [...] | | | + +--------+ +------+-------+---------+ | /[facility] | YELLOW | [id number] | | | | | PLANS | HAWK | | | | | + +--------+ +------+-------+---------+ | AETNA | AETNA | [id number] | | | | | | - [...] | daniel | | | [address]28 | [address] | + +--------+ +--------+ + +"
--- OUTSIDE RECORDS SUMMARY | ~2019-08-09 | XMS | Encounter Summary ---
Demographics + + + | Address | [address] | | | [place] [address] | + + + | Home Phone | | + + + | Preferred Language | Unknown | + + + | Marital Status | | + + + | Methodist Affiliation | Unknown | + + + | Race | Unknown | + + + | Ethnic Group | Unknown | + + + Author + + + | Author | [facility] | | | and [place] | + + + | Organization | [facility] [...] [place], [place] | | | | | [address] | | + + + + + [...] [place] | | | | | [address] | | + + + + + Care Team Providers + +------+ + | Care Center Lead Consultant Name | Role | Phone | [...] | | | | female | [place] [address] | [address] Phone: | | | | | breast (HCC) | Phone: | [phone] | | | | | Procedures | [phone] | Fax: | | | | | [place] OFFICE | Fax: | [phone] | | | | | OUTPATIENT | [phone] | | | | | | VISIT 25 | | | | | | | MINUTES | | | +--------+--------+ + + + + Encounter Details +--------+ + + + + | Date | Type | Department | Care Team | Description | +--------+ + + + + | 04/15/ | Hospital | [facility] | Narcisa, | Breast cancer of | | 2016 | Encounter | MED CTR MEDICAL | Reggie Gutierrez MD [address] | upper-outer quadrant | | | | ONCOLOGY CLINIC [address] [place] | of left female | | | | [address] [place] [place] | [place] [address] | breast (HCC) | | | | [place] [address] | [phone] | (Primary Dx) | | | | [phone] | | | +--------+ + + + [...] nt from the original. Hematology/Oncology Progress Note [facility] Pt. Name/Age/: Carissa Downey 50 y.o. 1965 Med. Record Number: [id number] Date of admission: 04/15/2016 Identifying Statement: Carissa Downey is a 50 y.o. female [facility] [address] [facility] [address] with Stage IA, premenopausal ER-positive LEFT breast [...] core needle biopsy was performed by Dr. Iamn Perales of [facility] diagnostic imaging. Pathological specimen [id number] was analyzed by Yessenia Champion a [facility] and returned a grade 1 invasive [...] illary sentinel lymph node biopsy. Specimen number [id number] returned a 1.1 cm well-diff erentiated invasive [...] therapy supervised by Dr. Renee norton the [facility] with 4005 cGy in 15 fractions [...] has been changed since signin Order Audit [place] oxyCODONE-acetaminophen (PERCOCET) 5-325 mg per tablet (Taking) Take 1 tablet by mouth ev lili 6 hours as needed for Pain. Number of times this order has been changed since signin Order Audit [place] Allergies: Allergy: No Known Allergies Objectives: Temp: [...] is [facility] in [facility] BI-RADS Category 2 benign. Pharmacovigilance: Palliative Care: [...] this chart may have been created with [employer] voice recognition software. 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
--- OUTSIDE RECORDS SUMMARY | ~2019-08-09 | XMS | Encounter Summary ---
Demographics + + + | Address | [address] | | | [place] [address] | + + + | Home Phone | | + + + | Preferred Language | Unknown | + + + | Marital Status | | + + + | Latter-Day Affiliation | Unknown | + + + | Race | or | + + + | Ethnic Group | Not or | + + + Author + + + | Author | [facility] | + + + | Organization [...] Team Providers + +------+ + | Care Stitch Bonding Machine Tender Name | Role | Phone | + +------+ + | Mela Condon PA-C | PCP | | + +------+ + Encounter Details +--------+ + + + + | Date | Type | Department | Care Team | Description | +--------+ + + + + | 02/02/ | Document-Sc | Hematology/Medical | Jemima Quesada | | | 2018 | annart | [facility] [place] | MD Carolyn [address] | | | | | for Health & Healing | [place], [place] | | | | | [address] | [address] | | | | | Mailcode: [place] | [phone] | | | | | for Health and | | | | | | [facility] [place] [address] | | | | | | [place], [place] | | | | | | [address] | | | | | | [phone] | | | +--------+ + + + [...]
--- OUTSIDE RECORDS SUMMARY | ~2019-08-09 | XMS | Encounter Summary ---
Demographics + + + | Address | [address] | | | [place] [address] | + + + | Home Phone | | + + + | Preferred Language | Unknown | + + + | Marital Status | | + + + | Scientologist Affiliation | Unknown | + + + | Race | or | + + + | Ethnic Group | Not or | + + + Author + + + | Author | [facility] | + + + | Organization | [facility] | + + + | Address | Unknown | + + + | Phone | Unavailable | + + + Support + + +---------+ + | Name | Relationship | Address | Phone | + + +---------+ + | Jak Daley | ECON | Unknown | | + + +---------+ + Care Team Providers + +------+ + | Care Order Taker Name | Role | Phone | + +------+ + | Mela Condon PA-C | PCP | | + +------+ + Encounter Details +--------+ + + + + | Date | Type | Department | Care Team | Description | +--------+ + + + + | 02/02/ | Document-Sc | Hematology/Medical | Jemima Quesada | | | 2018 | annart | [facility]cology at [place] | MD Carolyn [address] | | | | | for Health & Healing | [place], [place] | | | | | [address] | [address] | | | | | Mailcode: [place] | [phone] | | | | | for Health and | | | | | | [facility] [place] [address] | | | | | | [place], [place] | | | | | | [address] | | | | | | [phone] | | | +--------+ + + + [...]
--- OUTSIDE RECORDS SUMMARY | ~2019-08-09 | XMS | Encounter Summary ---
Demographics + + + | Address | [address] | | | [place] [address] | + + + | Home Phone [...] + | Author | [facility] | + + + | Organization | [facility] | + + + | Address | Unknown | + + + | Phone | Unavailable | + + + Support + + +---------+ + | Name | Relationship | Address | Phone | + + +---------+ + | Jak Daley | ECON | Unknown | | + + +---------+ + Care Team Providers + +------+ + | Care Water/Wastewater Engineer Name | Role | Phone | + +------+ + | Mela Condon PA-C | PCP | | + +------+ + Encounter Details +--------+ + + + + | Date | Type | Department | Care Team | Description | +--------+ + + + + | 03/13/ | Document-Sc | Health Information | Unknown . | | | 2014 | anned | Services [address] | | | | | | [address] | | | | | | Mailcode: [id number] | | | | | | [facility] [place] | | | | | | [place], [place] | | | | | | [address] | | | | | | [phone] | | | +--------+ + + + [...]
--- OUTSIDE RECORDS SUMMARY | ~2019-08-09 | XMS | Encounter Summary ---
Demographics + + + | Address | [address] | | | [place] [address] | + + + | Home Phone | | + + + | Preferred Language | Unknown | + + + | Marital Status | | + + + | Spiritism Affiliation | Unknown | + + + | Race | Unknown | + + + | Ethnic Group | Unknown | + + + Author + + + | Author | [facility] | | | and Johnnyana | + + + | Organization | [facility] | | [...] [place], [place] | | | | | [address] | | + + + + + [...] [place] | | | | | [address] | | + + + + + Care Team Providers + +------+ + | Care Data Security Analyst Name | Role | Phone | [...] | | | neoplasm of | PA-C [address] | Reggie Gutierrez MD | | | | | upper-outer | [place] | [address] | | | | | quadrant of | [address] | [place] | | | | | unspecified | [place], | [place] | | | | | female | [place] [address] | [address] Phone: | | | | | breast (HCC) | Phone: | [phone] | | | | | Procedures | [phone] | Fax: | | | | | [place] OFFICE | Fax: | [phone] | | | | | OUTPATIENT | [phone] | | | | | | VISIT 25 | | | | | | | MINUTES | | | +--------+--------+ + + + + Encounter Details +--------+ + + + + | Date | Type | Department | Care Team | Description | +--------+ + + + + | 07/09/ | Hospital | [facility] | Narcisa, | Breast cancer of | | 2016 | Encounter | MED CTR MEDICAL | Reggie Gutierrez MD [address] | upper-outer quadrant | | | | ONCOLOGY CLINIC [address] [place] | of left female | | | | [address] [place] | [place] [address] | breast (HCC) | | | | [facility] [address] | [phone] | (Primary Dx) | | | | [phone] | | | +--------+ + + + [...] are stopping your medicine. Repeat mammogram at [facility] in February 2017 I will see [...] nt from the original. Hematology/Oncology Progress Note [facility] Pt. Name/Age/: Carissa Downey 50 y.o. 1965 Med. Record Number: [id number] Date of admission: 07/09/2016 Identifying Statement: Carissa Downey is a 50 y.o. female from [place] [address] with Stage IA, premenopausal ER-positive LEFT breast [...] was performed by Dr. Iman Perales of [facility] diagnostic imaging. Pathological specimen [id number] was analyzed by Yessenia Champion a [facility] and returned a grade 1 invasive [...] image guided left breast lumpectomy and ax [facility] sentinel lymph node biopsy. Specimen number [id number] returned a 1.1 cm well-diff erentiated invasive [...] therapy supervised by Dr. Renee norton the [facility] in [facility] with 4005 cGy in 15 fractions to [...] Assessment & Plan Carissa Downey returned to [facility] with her , Jak Daley, for [...] evidence of local recurrence. Mammographic data from [facility] in [facility] on February 29, 2016 and interpr [...] in February after her next mammogram at [facility] cancer clinic in [facility] to review her symptoms and [...] has been changed since signin Order Audit [place] non-formulary medication (Taking) Allergy shots 1 time/week. oxyCODONE-acetaminophen (PERCOCET) 5-325 mg per tablet (Taking) Take 1 tablet by mouth ev lili 6 hours as needed for Pain. Number of times this order has been changed since signin Order Audit [place] Allergies: Allergy: No Known Allergies Objectives: Temp: [...] mammography with CAD February 29, 2016 is [facility] in [facility] BI-RADS Category 2 benign. Pharmacovigilance: Palliative Care: Patient's Medications New Prescriptions No medications on file Modified Medications No medications on file Discontinued Medications OXYCODONE-ACETAMINOPHEN (PERCOCET) 5-325 MG PER TABLET Take 1 tablet by mouth every 6 h ours as needed for Pain. Procedure: REGGIE ERVIN MD Portions of this chart may have been created with [employer] voice recognition software. Occasi onal wrong-word or [...] 2019 | Visit | | [address] [facility] | | | | | | [address] [place], | | | | | | [place] [address] | | | | | | [phone] | | | | | | | [...]
--- OUTSIDE RECORDS SUMMARY | ~2019-08-09 | XMS | Encounter Summary ---
Demographics + + + | Address | [address] | | | [place] [address] | + + + | Home Phone [...] | Author | [facility] | + + + | Organization | [facility] | + + + | Address | Unknown | + + + | Phone | Unavailable | + + + Support + + +---------+ + | Name | Relationship | Address | Phone | + + +---------+ + | Jak Daley | ECON | Unknown | | + + +---------+ + Care Team Providers + +------+ + | Care Charge Preparation Technician Name | Role | Phone | + +------+ + | Mela Condon PA-C | PCP | | + +------+ + Encounter Details +--------+ + + + + | Date | Type | Department | Care Team | Description | +--------+ + + + + | 02/16/ | Document-Sc | Health Information | Unknown . | | | 2014 | anned | Services [address] | | | | | | [address] | | | | | | Mailcode: OP17A | | | | | | [facility] | | | | | | [place], [place] | | | | | | [address] | | | | | | [phone] | | | +--------+ + + + [...]
--- OUTSIDE RECORDS SUMMARY | ~2019-08-09 | XMS | Encounter Summary ---
Demographics + + + | Address | [address] | | | [place] [address] | + + + | Home Phone | | + + + | Preferred Language | Unknown | + + + | Marital Status | | + + + | Quaker Affiliation | Unknown | + + + | Race | Unknown | + + + | Ethnic Group | Unknown | + + + Author + + + | Author | [facility] | | | and Johnnyana | + + + | Organization | [facility] [...] [place], [place] | | | | | [address] | | + + + + + [...] [place] | | | | | [address] | | + + + + + Care Team Providers + +------+ + | Care Clay Artisan Name | Role | Phone | + +------+ + PCP | Unavailable | + +------+ + Encounter Details +--------+ + + + + | Date | Type | Department | Care Team | Description | +--------+ + + + + | 05/21/ | Hospital | [facility] | Afua Zambrano, | | | 2010 | Encounter | MED CTR LABORATORY | MD [address] | | | | | [address] [place] | [place], | | | | | [place], [place] | [place] [address] | | | | | [address] | [phone] | | | | | [phone] | | | +--------+ + + + [...] | Visit | | [address] [facility] | | | | | | [address] [place], | | | | | | [place] [address] | | | | | | [phone] | | | | | | | [...] 7 | 7 - 18 mg/dL | [facility] | | | | | | ST. [...] + | [facility] | [address] | [place], [place] | [phone] | | [facility] | | [address] | | | - LABORATORY | | | | + + + + + | [facility] [facility] | [address] | [place], [place] | | | [facility] | | [address] | | | - LABORATORY | | | | + + + + + documented in this encounter Visit Diagnoses Not on filedocumented in this encounter"
--- OUTSIDE RECORDS SUMMARY | ~2019-08-09 | XMS | Encounter Summary ---
Demographics + + + | Address | [address] | | | [place] [address] | + + + | Home Phone [...] + + | Author | [facility] | + + + | [...] Team Providers + +------+ + | Care Rib Sawyer Name | Role | Phone | + [...] | Malignant | Jemima Leon, | s [address] | | | | | neoplasm of | [address] | [address] | | | | | upper-outer | [address] [place] | [address] | | | | | quadrant of | [place], [place] | Mailcode: | | | | | left breast | [address] | [address] [facility] | | | | | in female, | Phone: | Hospital | | | | | estrogen | [phone] | [place], [place] | | | | | receptor | Fax: | [address] | | | | | positive | [phone] | Phone: | | | | | (HCC) | | [phone] | | | | | Weight loss | | Fax: | | | | | Bone pain | | [phone] | | | | | Procedures | [...] | | | | quadrant of | [place], [place] | Mailcode: | | | | | left breast | [address] | [address] [facility] | | | | | in female, | Phone: | Hospital | | | | | estrogen | [phone] | [place], [place] | | | | | receptor | Fax: | [address] | | | | | positive | [phone] | Phone: | | | | | (HCC) | | [phone] | | | | | Weight loss | | Fax: | | | | | Bone pain | | [phone] | | | | | Procedures | [...] | 2018 | Encounter | Services at [facility] | MD Carolyn [address] | | | | | [address] | [place], [place] | | | | | [address] Mailcode: | [id number] | | | | | [address] [facility] | [phone] | | | | | [place], [place] | | | | | | [address] | | | | | | [phone] | | | +--------+ + + + [...]
--- OUTSIDE RECORDS SUMMARY | ~2019-08-09 | XMS | Encounter Summary ---
Demographics + + + | Address | [address] | | | [place] [address] | + + + | Home Phone [...] Author | [facility] | | | and Johnnyana | + + + | Organization | [facility] | | | and [...] [place], [place] | | | | | [address] | | + + + + + [...] [place] | | | | | [address] | | + + + + + Care Team Providers + +------+ + | Care Pellet Post Inspector Name | Role | Phone | [...] | | | | site | [place] [address] | [address] Phone: | | | | | Procedures | Phone: | [phone] | | | | | [place] OFFICE | [phone] | Fax: | | | | | OUTPATIENT | Fax: | [phone] | | | | | VISIT 25 | [phone] | | | | | | MINUTES | | | +--------+--------+ + + + + Encounter Details +--------+ + + + + | Date | Type | Department | Care Team | Description | +--------+ + + + + | 05/22/ | Hospital | [facility] | Narcisa, | Breast cancer of | | 2015 | Encounter | MED CTR MEDICAL | Reggie Gutierrez MD [address] | upper-outer quadrant | | | | ONCOLOGY CLINIC [address] [place] | of left female | | | | [address] [place] | [place] [address] | breast (HCC) | | | | [place] [address] | [phone] | (Primary Dx) | | | | [phone] | | | +--------+ + + + [...] nt from the original. Hematology/Oncology Progress Note [facility] Pt. Name/Age/: Carissa Downey 49 y.o. 1965 Med. Record Number: [id number] Date of admission: 05/22/2015 Identifying Statement: Carissa Downey is a 49 y.o. female from [address] [place] [address] [place] [address] with Stage IA, premenopausal ER-positive LEFT breast [...] was performed by Dr. Iman Perales of [facility] diagnostic imaging. 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 Angiolymphatic invasion was a bsent. Estrogen receptor was positive with an Seht score of 8 out of 8. Progesterone rec eptor was positive with an Seth score of 7 out of 8. HER-2/jamia was negative by immunohist ochemistry with the score 0. HER-2/jamia analysis by FISH was indeterminate. 3. On March 14, 2015 Dr. Edi Upton performed and image guided left breast lumpectomy and ax [facility] sentinel lymph node biopsy. Specimen number [id number] returned a 1.1 cm well-diff erentiated invasive [...] mg subcutaneously monthly. To be initiated in [place], then sandhya ed forward monthly in [place] once she is finished with her radiation [...] this chart may have been created with [employer] voice recognition software. 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
--- OUTSIDE RECORDS SUMMARY | ~2019-08-09 | XMS | Encounter Summary ---
Demographics + + + | Address | [address] | | | [place] [address] | + + + | Home Phone [...] + | Author | [facility] | + + + | [...] Team Providers + +------+ + | Care Planimeter Operator Name | Role | Phone | + +------+ + | Mela Condon PA-C | PCP | | + +------+ + Encounter Details +--------+ + + + + | Date | Type | Department | Care Team | Description | +--------+ + + + + | 01/30/ | Trailer Rental Clerk | Hematology/Medical | Jemima Quesada | Malignant neoplasm | | 2018 | | Oncology at [place] | MD Carolyn [address] | of [facility] | | | | for Health & Healing | Ave [place], [place] | quadrant of left | | | | [address] | [address] | breast in female, | | | | Mailcode: [place] | [phone] | estrogen receptor | | | | for Health and | | positive (HCC) | | | | Healing, [address] | | (Primary Dx) | | | | [place], [place] | | | | | | [address] | | | | | | [phone] | | | +--------+ + + + [...] on filedocumented as of this encounter Results Lettuce DIAGNOSTIC BILAT W/CAD (03/12/2018 10:01 AM PDT) [...] cancer, conservation | | | therapy. C50.412 Lettuce DIAGNOSTIC BILAT W/CAD: March 12, 2018 - | | | Bilateral CC and MLO view(s) were taken. | | | Prior study comparison: January 31, 2017, bilateral MA VY DIAGNOSTIC | | | BILAT w/CAD performed at [facility]. There | | | are scattered fibroglandular densities. Stable post-lumpectomy | | | changes in the left breast. No suspicious calcifications, masses, or | | | architectural distortion present in either breast. No significant | | | changes when compared with prior studies. The images were | | | obtained using full field digital mammography on the dedicated | | | [employer] System with R2 CAD. Performed at [facility] | | | [place]. 3D tomosynthesis mammography was performed as part [...] 12, 2018 - Accession #: | | [id number] CC and MLO view(s) were taken.Prior study comparison: January 31, 2017, | | bilateral MA VY DIAGNOSTICBILAT w/CAD performed at [facility] | | [place].There are scattered fibroglandular densities. Stable post-lumpectomy changes | | in the left breast. No suspicious calcifications, masses, or architectural distortion | | present in either breast. No significant changes when compared with prior studies.The | | images were obtained using full field digital mammography on the dedicated [employer] | | System with R2 CAD. Performed at [facility]. 3D | | tomosynthesis mammography wasperformed [...] Hologic System with R2 CAD. Performed at [facility]. 3D tomosynthesis mammography was | |performed [...]
--- OUTSIDE RECORDS SUMMARY | ~2019-08-09 | XMS | Encounter Summary ---
Demographics + + + | Address | [address] | | | [place] [address] | + + + | Home Phone [...] + + | Author | [facility] | + + + | Organization | [...] Team Providers + +------+ + | Care Oilfield Plant And Field Operator Name | Role | Phone | [...] | Malignant | Jemima Leon, | [address] | | | | | neoplasm of | [address] | [address] | | | | | upper-outer | [address] | [address] | | | | | quadrant of | [place], [place] | Mailcode: | | | | | left breast | [address] | [address] | | | | | in female, | Phone: | [address] | | | | | estrogen | [phone] | [place], [place] | | | | | receptor | Fax: | [address] | | | | | positive | [phone] | Phone: | | | | | (HCC) | | [phone] | | | | | Weight loss | | Fax: | | | | | Bone pain | | [phone] | | | | | Procedures | | | | | | | NM BONE &/OR | | | | | | | JOINT | | | | | | | IMAGING | | | | | | | WHOLE BODY | | | | | | | [place] BONE | | | | | | [...] | | | | Malignant | Jemima eLon, | [address] | | | | | neoplasm of | MD [address] | [address] | | | | | upper-outer | [address] | [address] | | | | | quadrant of | [place], [place] | Mailcode: | | | | | left breast | [address] | [address] | | | | | in female, | Phone: | [address] | | | | | estrogen | [phone] | [place], [place] | | | | | receptor | Fax: | [address] | | | | | positive | [phone] | Phone: | | | | | (HCC) | | [phone] | | | | | Weight loss | | Fax: | | | | | Bone pain | | [phone] | | | | | Procedures | | | | | | | NM BONE &/OR | | | | | | | JOINT | | | | | | | IMAGING | | | | | | | WHOLE BODY | | | | | | | [place] BONE | | | | | | [...] | | 2018 | Encounter | at [facility] [address] MD [address] | | | | | [address] | [place], [place] | | | | | Mailcode: [address] | [address] | | | | | [address] | [phone] | | | | | [place], [place] | | | | | | [address] | | | | | | [phone] | | | +--------+ + + + [...] now presented. | | | |Final signature: Vievk Meraz MD 04/09/2018 5:36 PM | |Preliminary: [...]
--- OUTSIDE RECORDS SUMMARY | ~2019-08-09 | XMS | Encounter Summary ---
Demographics + + + | Address | [address] | | | [place] [address] | + + + | Home Phone [...] + | Author | [facility] | | | and [place] | + + + | Organization | [facility] | | | and [place] [...] [place], [place] | | | | | [address] | | + + + + + [...] [place] | | | | | [address] | | + + + + + Care Team Providers + +------+ + | Care Senior Counsel Name | Role | Phone | [...] W | | | | | | [place], | | | | | | [place] [address] | | | | | | [phone] | | | +--------+ + + + [...] 2019 | Visit | | [address] [facility] | | | | | | [address], | | | | | | [place] [address] | | | | | | [phone] | | | | | | | | +--------+---------+ + + + documented as of this encounter Visit Diagnoses Not on filedocumented in this encounter"
--- OUTSIDE RECORDS SUMMARY | ~2019-08-09 | XMS | Encounter Summary ---
Demographics + + + | Address | [address] | | | [place] [address] | + + + | Home Phone [...] Author | [facility] | + + + | Organization [...] Providers + +------+ + | Care Sas Sql Developer Name | Role | Phone | [...] | | 2018 | | [facility] at [place] | MD Carolyn [address] | | | | | for Health & Healing | Ave [place], [place] | | | | | [address] | [address] | | | | | Mailcode: [place] | [phone] | | | | | for Health and | | | | | | Healing, [address] | | | | | | [place], [place] | | | | | | [address] | | | | | | [phone] | | | +--------+ + + + [...]
--- OUTSIDE RECORDS SUMMARY | ~2019-08-09 | XMS | Encounter Summary ---
Demographics + + + | Address | [address] | | | [place] [address] | + + + | Home Phone | | + + + | Preferred Language | Unknown | + + + | Marital Status | | + + + | Jew Affiliation | Unknown | + + + | Race | Unknown | + + + | Ethnic Group | Unknown | + + + Author + + + | Author | [facility] | | | and [place] | + + + | Organization | [facility] | [...] [place], [place] | | | | | [address] | | + + + + + [...] [place] | | | | | [address] | | + + + + + Care Team Providers + +------+ + | Care Tourist Agent Name | Role | Phone | [...] | | | neoplasm of | PA-C [address] | [address] | | | | | upper-outer | [address] | | | | | quadrant of | WAY | [place], | | | | | unspecified | [place], | [place] [address] | | | | | female | [place] [address] | Phone: | | | | | breast (HCC) | Phone: | [phone] | | | | | Procedures | [phone] | Fax: | | | | | [place] OFFICE | Fax: | [phone] | | | | | OUTPATIENT | [phone] | | | | | | VISIT 25 | | | | | | | MINUTES | | | +--------+--------+ + + + + Encounter Details +--------+ + + + + | Date | Type | Department | Care Team | Description | +--------+ + + + + | 07/09/ | Hospital | [facility] | Narcisa, | | | 2016 | Encounter | MED CTR RADIATION | Mu Gutierrez MD [address] | | | | | [address] [place] | | | | | [place], | [place] [address] | | | | | [place] [address] | [phone] | | | | | [phone] | | | | | | | Renee Wood, | | | | | | [address] | | | | | | [place], [place] | | | | | | [address] | | | | | | | [...] Renee Fuentes MD - 07/09/2016 12:00 AM [facility] Radiation Oncology Follow-up Note PATIENT: Carissa Downey MR#: [id number] :1965 DOS:07/09/2016 ICD/Diagnosis: 174.4 - Malignant neoplasm of upper-outer quadrant of female breast, Diagnosed 04/2015 (Act cortney) Chief Complaint/History of Present Illness: Carissa Downey is a 50 year old woman with a history of left breast cancer. Pathologic stage IA, pT1c pN0 cM0. Tumor characteristics: well-differentiated invasive ductal carcinom a, tumor size 1.1 cm, low-grade DCIS present. No LVSI. Negative margins. ER 100%, CT 70- 75%, Ki-67 less than 1%, HER-2/jamia nonamplified by FISH with ratio 1.0, sentinel lymph node negative for metastatic carcinoma. Received adjuvant radiation with hypofractionated whol e breast radiation, 40.05 to the breast with a 8 Gy of a gyenyxk66 Gy lumpectomy boost for a total 48.05 [...] to arthralgia. Bilateral diagnostic mammogram performed at [place] on 02/29/16 was benign, BIRADS-2. She has [...] 0 = no pain and 10= worst [id number] your pain (quality) i.e. aching, s harp, [...] present. No LVSI. Negative margins. ER 100%, CT 70-75%, Ki-67 less than 1 %, HER-2/jamia [...] also continue follow-up with Dr. Brewster in [place]. Thank you for allowing me to participate in the care of Carissa Downey. If you should have any questions regarding this evaluation, please do not hesitate to contact me. Renee Johnson M.D. Radiation Oncologist Department of Radiation Oncology [facility] Electronically signed by Renee Fuentes M.D CC: FREDDY Kitchen M.D. Nanci Kee M.D. Mu Brewster M.D. [facility]-- This note was transcribed using [employer] speech recognition software. As a result, there ma y be unintended for medical and/or spelling errors. Every attempt is made to correct dicta tion. If there are any questions or errors please contact our office. CSN: [id number] signed by Renee Fuentes MD at 07/15/2016 [...] [place], | | | | | | [place] [address] | | | | | | [phone] | | | | | | | | +--------+---------+ + + + documented as of this encounter Visit Diagnoses Not on filedocumented in this encounter"
--- OUTSIDE RECORDS SUMMARY | ~2019-08-09 | XMS | Encounter Summary ---
Demographics + + + | Address | [address] | | | [place] [address] | + + + | Home Phone [...] | Author | [facility] | | | and [place] | + + + | Organization | [facility] | | [...] [place], [place] | | | | | [address] | | + + + + + [...] [place] | | | | | [address] | | + + + + + Care Team Providers + +------+ + | Care Title Vehicle Service Attendant Name | Role | Phone | [...] | | | | female | [place] [address] | [address] Phone: | | | | | breast (HCC) | Phone: | [phone] | | | | | Procedures | [phone] | Fax: | | | | | [place] OFFICE | Fax: | [phone] | | | | | OUTPATIENT | [phone] | | | | | | VISIT 25 | | | | | | | MINUTES | | | +--------+--------+ + + + + Encounter Details +--------+ + + + + | Date | Type | Department | Care Team | Description | +--------+ + + + + | 04/15/ | Hospital | [facility] | Narcisa, | Breast cancer of | | 2016 | Encounter | MED CTR MEDICAL | Reggie Gutierrez MD [address] | upper-outer quadrant | | | | [facility] CLINIC [address] [place] | of left female | | | | [address] [place] | [place] [address] | breast (HCC) | | | | [place] [address] | [phone] | (Primary Dx) | | | | [phone] | | | +--------+ + + + [...] nt from the original. Hematology/Oncology Progress Note [facility] Pt. Name/Age/: Carissa Downey 50 y.o. 1965 Med. Record Number: [id number] Date of admission: 04/15/2016 Identifying Statement: Carissa Downey is a 50 y.o. female [facility] [address] [facility] [address] with Stage IA, premenopausal ER-positive LEFT breast [...] performed by Dr. Iman Perales of [facility] diagnostic imaging. Pathological specimen [id number] was analyzed by Yessenia Champion a [facility] and returned a grade 1 invasive [...] illary sentinel lymph node biopsy. Specimen number [id number] returned a 1.1 cm well-diff erentiated invasive [...] therapy supervised by Dr. Renee norton the [facility] in [facility] with 4005 cGy in 15 fractions [...] has been changed since signin Order Audit [place] oxyCODONE-acetaminophen (PERCOCET) 5-325 mg per tablet (Taking) Take 1 tablet by mouth ev lili 6 hours as needed for Pain. Number of times this order has been changed since signin Order Audit [place] Allergies: Allergy: No Known Allergies Objectives: Temp: [...] mammography with CAD February 29, 2016 is [facility] in [facility] BI-RADS Category 2 benign. Pharmacovigilance: Palliative Care: [...] this chart may have been created with Miser[employer]are voice recognition software. 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
--- OUTSIDE RECORDS SUMMARY | ~2019-08-09 | XMS | Encounter Summary ---
Demographics + + + | Address | [address] | | | [place] [address] | + + + | Home Phone [...] | Author | [facility] | | | and [place] | + + + | Organization | [facility] | | [...] [place], [place] | | | | | [address] | | + + + + + [...] [place] | | | | | [address] | | + + + + + Care Team Providers + +------+ + | Care Small Engine Trainer Name | Role | Phone | + [...] | | | | female | [place] [address] | [place], [place] | | | | | breast, | Phone: | [address] | | | | | unspecified | [phone] | Phone: | | | | | laterality | Fax: | [phone] | | | | | 174.4 | [phone] | Fax: | | | | | (ICD-9-CM) - | | [phone] | | | | | C50.419 | [...] | | | | | | | [place] [facility] | | | | | | [...] | | ONCOLOGY [address] [facility] [place] | quadrant of female | | | | [place], | [address] | breast, unspecified | | | | [place] [address] | | laterality (HCC) | | | | [phone] | | (Primary Dx) | +--------+ + [...] 2019 | Visit | | [address] [facility] | | | | | | [address], | | | | | | [place] [address] | | | | | | [phone] | | | | | | | [...]
--- OUTSIDE RECORDS SUMMARY | ~2019-08-09 | XMS | Encounter Summary ---
Demographics + + + | Address | [address] | | | [place] [address] | + + + | Home Phone [...] Author | [facility] | | | and [place] | + + + | Organization | [facility] | | | and [place] [...] [place], [place] | | | | | [address] | | + + + + + [...] [place] | | | | | [address] | | + + + + + Care Team Providers + +------+ + | Care Airfield Operations Specialist Name | Role | Phone | [...] | quadrant of | [place], | [place], [place] | | | | | left breast | [place] [address] | [address] | | | | | in female, | Phone: | Phone: | | | | | estrogen | [phone] | [phone] | | | | | receptor | Fax: | Fax: | | | | | positive | [phone] | [phone] | | | | | (HCC) | [...] | | | neoplasm of | PA-C [address] | [address] | | | | | upper-outer | [address] | [address] | | | | | quadrant of | WAY | [place], | | | | | unspecified | [place], | [place] [address] | | | | | female | [place] [address] | Phone: | | | | | breast (HCC) | Phone: | [phone] | | | | | Procedures | [phone] | Fax: | | | | | [place] OFFICE | Fax: | [phone] | | | | | OUTPATIENT | [phone] | | | | | | VISIT 25 | | | | | | | MINUTES | | | +--------+--------+ + + + + Encounter Details +--------+ + + + + | Date | Type | Department | Care Team | Description | +--------+ + + + + | 12/17/ | Hospital | [facility] | Renee Wood | Malignant neoplasm | | 2018 | Encounter | MED CTR RADIATION | MD Lazara [address] | of upper-outer | | | | ONCOLOGY CLINIC [address] | [place], [place] | quadrant of left | | | | [address] [place] [place] | [address] | breast in female, | | | | [place] [address] | | estrogen receptor | | | | [phone] | | positive (HCC) | | | [...] well. -Plan for follow-up at [facility]. Carissa expressed interest in starting tamoxifen for chemo prev ention. -Annual screening Mammogram to be ordered at [facility], due in January 2018 -Follow-up with [...] present. No LVSI. Negative margins. ER 100%, OH 70-75%, Ki-67 less than 1%, HER-2/jamia nonamplified by FISH with ratio 1.0, sentinel lymph node ne gative for metastatic carcinoma. Received adjuvant radiation with hypofractionated whole b reast radiation, 40.05 to the breast with a 8 Gy of a Gy lumpectomy boost for a t otal 48.05 Gy in 20 fraction, completed on 06/14/15. Had undergone oophorectomy, continued AI therapy due to arthralgia. Carissa was last seen in Jun 2016. She cancelled planned follow-up here in January 2017 due to co nsultation around that time with the [facility] breast clinic. On 01/31/17 She had a consulation wi th the surgical HIGHWAY TRAFFIC CONTROL TECHNICIAN, Puja Fairchild. History was reviewed and surveillance [...] ositive (HCC) C50.412 174.4 AMB REFERRAL TO [facility] Medical Oncology Z17.0 V86.0 2. Breast cancer screening, high risk patient Z12.31 V76.11 [facility] Tomosynthesis Screening [place] ateral Carissa Downey is a 52 y.o. woman with a history of left breast cancer. Pathologic stag e IA, pT1c pN0 cM0. Tumor characteristics: well-differentiated invasive ductal carcinoma, t umor size 1.1 cm, low-grade DCIS present. No LVSI. Negative margins. ER 100%, OH 70-75%, Ki-67 less than 1%, HER-2/jamia nonamplified by FISH with ratio 1.0, sentinel lymph node ne gative for metastatic carcinoma. Received adjuvant radiation with hypofractionated whole b reast radiation, 40.05 to the breast with a 8 Gy of a luxmgcx51 Gy lumpectomy boost for a t otal [...] ongoing follow-up and imaging at [facility]. She is agreed for annual follow-u p with me as well. We discussed the option of tamoxifen. She expressed interest. I encour aged her to undergo consultation with medical oncologist in January when she returns to [facility] for imaging. Plan: It was so [...] well. -Plan for follow-up at [facility]. Carissa expressed interest in starting tamoxifen for chemo prev ention. -Annual screening Mammogram to be ordered at [facility], due in January 2018 -Follow-up with me in 1 year, sooner if needed. Orders Placed This Encounter Procedures [place] Tomosynthesis Screening Bilateral AMB REFERRAL TO [facility] Medical Oncology Thank you for allowing me to participate in the care of Carissa Downey. If you should lepe ve any questions regarding this evaluation, please do not hesitate to contact me. Renee Sanches M.D. Radiation Oncologist Department of Radiation Oncology [facility] Office: [phone] CC: Patient Care Team: Luis Garcia PA-C as PCP - General (Physician Business Process Architect-Medical) Nanci Kee MD (Obstetrics and Gynecology) Renee [...] | Visit | | [address] [facility] [facility] | | | | | | [address] [place], | | | | | | [place] [address] | | | | | | [phone] | | | | | | | [...] +--------+ + + | AMB REFERRAL TO [facility] | Outpatient | Routin | Malignant Neoplasm [...]
--- OUTSIDE RECORDS SUMMARY | ~2019-08-09 | XMS | Encounter Summary ---
Demographics + + + | Address | [address] | | | [place] [address] | + + + | Home Phone [...] + + + | Author | [facility] | + + + | [...] Team Providers + +------+ + | Care Burrer Operator Name | Role | Phone | [...] Rd | | | | | | [place], [place] | | | | | | [address] | | | +--------+ + + + [...] | | | | | | Institution: [facility] | | | | | | [facility] | | | | | | [facility] [place], [place] | | | | | | [address]Medppcgcosmar Simeon | | | | | | Accession Number: | | | | | | [id number] | | | | | | Collection [...] | | | | | | Number: [id number] | | | | | | Collection Date: | | | | | | 02/10/2015Stained | | | | | | 1 Specimen | | | | | | COutside Accession | | | | | | Number: [id number] | | | | | | Collection [...] Number: | | | | | | [id number] | | | | | | Collection [...] polyp | | | | | | ([id number], 02/10/15): | | | | | | - Secretory phase | | | | | | endometrium, negative | | | | | | for hyperplasia and | | | | | | carcinoma - Benign | | | | | | endocervical polyp | | | | | | B: Cervix, [facility] | | | | | | Pap cytology ([id number], | | | | | | 02/10/15): - | | | | | | Atypical glandular cells | | | | | | of undetermined | | | | | | significance (ANDRA) | | | | | | (seecomment) C: | | | | | | Cervix biopsy at 6:00 | | | | | | and ECC ([id number], | | | | | | 02/27/15):- Benign | | | | | | squamous and glandular | | | | | | mucosa -D: | | | | | | Cervical cone, | | | | | | cervical biopsies, and | | | | | | endometrial curettage | | | | | | ([id number],03/03/15):- | | | | | | Benign [...] | + + + + + | [facility] | [address] | [place] [address] | | | PATHOLOGY | [address] | | | + + + + + documented in this encounter Visit Diagnoses Not on filedocumented in this encounter"
--- OUTSIDE RECORDS SUMMARY | ~2019-08-09 | XMS | Encounter Summary ---
Demographics + + + | Address | [address] | | | [place] [address] | + + + | Home Phone [...] Author + + + | Author | [facility] | + + + | Organization | [...] Team Providers + +------+ + | Care Service Delivery Supervisor Name | Role | Phone | [...] Encounter | [facility] [address] | NEUROLOGICAL PHYSIOTHERAPIST [address] | | | | | [address] | [address] | | | | | [address] | [place], [place] | | | | | [place], [place] | [address] | | | | | [address] | [phone] | | | | | [phone] | | | +--------+ + + + [...] full field digital mammography on the dedicated [employer] System | | | with R2 CAD. Performed at [facility]. | | | ASSESSMENT: Benign - Category [...] Hologic System with R2 CAD. Performed at [facility] | | [place].ASSESSMENT: Benign - Category 2 (Overall)VY NAVJOT BI [...] Hologic System with R2 CAD. Performed at [facility]. | | | |ASSESSMENT: Benign - Category [...]
--- OUTSIDE RECORDS SUMMARY | ~2019-08-09 | XMS | Encounter Summary ---
Demographics + + + | Address | [address] | | | [place] [address] | + + + | Home Phone | | + + + | Preferred Language | Unknown | + + + | Marital Status | | + + + | Judaism Affiliation | Unknown | + + + | Race | Unknown | + + + | Ethnic Group | Unknown | + + + Author + + + | Author | [facility] | | | and [place]ana | + + + | Organization | [facility] | | | and [...] [place], [place] | | | | | [address] | | + + + + + [...] [place] | | | | | [address] | | + + + + + Care Team Providers + +------+ + | Care Environmental Resource Specialist Name | Role | Phone | [...] [place] | | | | | [address] [place] | [place] [address] | | | | | [place] [address] | [phone] | | | | | [phone] | | | +--------+ + + + [...] | Visit | | [address] [facility] | | | | | | [address], | | | | | | [place] [address] | | | | | | [phone] | | | | | | | | +--------+---------+ + + + documented as of this encounter Visit Diagnoses Not on filedocumented in this encounter"
--- OUTSIDE RECORDS SUMMARY | ~2019-08-09 | XMS | Encounter Summary ---
Demographics + + + | Address | [address] | | | [place] [address] | + + + | Home Phone [...] [facility] | + + + | Organization [...] Team Providers + +------+ + | Care Composer Teaching Artist Name | Role | Phone | + [...] Encounter | Center at [facility] [address] | SCIENTIFIC WRITER [address] | | | | | [address] [facility] | [address] | | | | | Josemanuel [place], | [place], [place] | | | | | [address] [place], | [address] | | | | | [place] [address] | [phone] | | | | | [phone] | | | +--------+ + + + [...] | | BP on (01/31/2017) 122/74 MA Solartrec DIAGNOSTIC BILAT W/CAD: January 31, | | [...] CAD. Performed | | | at [facility]. ASSESSMENT: Benign - | | | Category [...] Hologic System with R2 CAD. Performed at [facility] | | [place].ASSESSMENT: Benign - Category 2 (Overall)VY NAVJOT BI [...] R2 CAD. Performed at [facility]. | | | |ASSESSMENT: Benign - Category 2 (Overall) | |YV NAVJOT BI CAD: Benign - category 2 [...]
--- OUTSIDE RECORDS SUMMARY | ~2019-08-09 | XMS | Encounter Summary ---
Demographics + + + | Address | [address] | | | [place] [address] | + + + | Home Phone | | + + + | Preferred Language | Unknown | + + + | Marital Status | | + + + | Congregational Affiliation | Unknown | + + + | Race | Unknown | + + + | Ethnic Group | Unknown | + + + Author + + + | Author | [facility] | | | and [place]ana | + + + | Organization | [facility] | | | and [...] [address], [place] | | | | | [address] | | + + + + + [...] [place] | | | | | [address] | | + + + + + Care Team Providers + +------+ + | Care Client Insights Consultant Name | Role | Phone | [...] phase (Primary Dx) | | | | [place], [place] | [place] [address] | | | | | [address] | [phone] | | | | | [phone] | | | +--------+ + + + [...] | | | | | | [place] [address] | | | | | | [phone] | | | | | | | [...]
--- OUTSIDE RECORDS SUMMARY | ~2019-08-09 | XMS | Encounter Summary ---
Demographics + + + | Address | [address] | | | [place] [address] | + + + | Home Phone [...] Author | [facility] | | | and [place] | + + + | Organization | [facility] | [...] [address], [place] | | | | | [address] | | + + + + + [...] [place] | | | | | [address] | | + + + + + Care Team Providers + +------+ + | Care Cyber Systems Engineer Name | Role | Phone | [...] [place] | | | | | [address] [place] | [place] [address] | | | | | [place] [address] | [phone] | | | | | [phone] | | | +--------+ + + + [...] | Visit | | [address] [facility] | | | | | | [address], | | | | | | [place] [address] | | | | | | [phone] | | | | | | | | +--------+---------+ + + + documented as of this encounter Visit Diagnoses Not on filedocumented in this encounter"
--- OUTSIDE RECORDS SUMMARY | ~2019-08-09 | XMS | Encounter Summary ---
Demographics + + + | Address | [address] | | | [place] [address] | + + + | Home Phone | | + + + | Preferred Language | Unknown | + + + | Marital Status | | + + + | Hinduism Affiliation | Unknown | + + + | Race | Unknown | + + + | Ethnic Group | Unknown | + + + Author + + + | Author | [facility] | | | and [place]ana | + + + | Organization | [facility] | | | and [...] [address], [place] | | | | | [address] | | + + + + + [...] [place] | | | | | [address] | | + + + + + Care Team Providers + +------+ + | Care Wind Energy Engineer Name | Role | Phone | [...] phase (Primary Dx) | | | | [place], [place] | [place] [address] | | | | | [address] | [phone] | | | | | [phone] | | | +--------+ + + + [...] | | | | | | [place] [address] | | | | | | [phone] | | | | | | | [...]
--- OUTSIDE RECORDS SUMMARY | ~2019-08-09 | XMS | Encounter Summary ---
Demographics + + + | Address | [address] | | | [place] [address] | + + + | Home Phone [...] + + | Author | [facility] | + + + | [...] Team Providers + +------+ + | Care Park Warden Name | Role | Phone | + [...] | | 2018 | | Oncology at [place] | MD Carolyn [address] | | | | | for Health & Healing | [address] [place], [place] | | | | | [address] | [address] | | | | | Mailcode: [place] | [phone] | | | | | for Health and | | | | | | Healing, [address] | | | | | | [place], [place] | | | | | | [address] | | | | | | [phone] | | | +--------+ + + + [...]
--- OUTSIDE RECORDS SUMMARY | ~2019-08-09 | XMS | Encounter Summary ---
Demographics + + + | Address | [address] | | | [place] [address] | + + + | Home Phone [...] | Author | [facility] | | | and [place] | + + + | Organization | [facility] | | [...] [address], [place] | | | | | [address] | | + + + + + [...] [place] | | | | | [address] | | + + + + + Care Team Providers + +------+ + | Care Stationary Plant Operators Name | Role | Phone | + [...] | | | | | | [place] [address] | [place] [address] | | | | | | Phone: | Phone: | | | | | | [phone] | [phone] | | | | | | Fax: | Fax: | | | | | | [phone] | [phone] | + + + + + + + Encounter Details +--------+---------+ + + + | Date | Type | Department | Care Team | Description | +--------+---------+ + + + | 05/24/ | Office | [facility] | Renee Wood | Pharyngoesophageal | | 2019 | Visit | OTOLARYNGOLOGY [address] | MD Lazara [address] | dysphagia (Primary | | | | [address] | [place], [place] | Dx); | | | | [place], [place] | [address] | Laryngopharyngeal | | | | [address] | | reflux (LPR) | | | | [phone] | Servando Taylor MD | | | | | | [address] | | | | | | [address] [facility] [place] | | | | | | [address] | | | | | | | [...] indicates she had a swallow study in [place] about a month ago and was told [...] 2018 | Visit | | [address] [facility] | | | | | | [address], | | | | | | [place] [address] | | | | | | [phone] | | | | | | | [...]
--- OUTSIDE RECORDS SUMMARY | ~2019-08-09 | XMS | Encounter Summary ---
Demographics + + + | Address | [address] | | | [place] [address] | + + + | Home Phone | | + + + | Preferred Language | Unknown | + + + | Marital Status | | + + + | Presybeterian Affiliation | Unknown | + + + | Race | Unknown | + + + | Ethnic Group | Unknown | + + + Author + + + | Author | [facility] | | | and [place] | + + + | Organization | [facility] | | | and [place] [...] [address], [place] | | | | | [address] | | + + + + + [...] [address] | | | | | [place] | | | | | [address] | | + + + + + Care Team Providers + +------+ + | Care Vehicle Washer Name | Role | Phone | + [...] | | | | javed | [place] [address] | [address] [place] [address] | | | | | tunnel | [address] | [address] | | | | | syndrome | WAY | [place] | | | | | | [place], | [address] Phone: | | | | | | [place] [address] | [phone] | | | | | | Phone: | Fax: | | | | | | [phone] | [phone] | | | | | | Fax: | | | | | | | [phone] | | +--------+--------+ + + + + Encounter Details +--------+---------+ + + + | Date | Type | Department | Care Team | Description | +--------+---------+ + + + | 06/26/ | Office | [facility] | [address] | Bilateral carpal | | 2016 | Visit | ORTHOPEDIC SURGERY | [address] | tunnel syndrome | | | | [address] [facility] | [place] | (Primary Dx); | | | | [place] | [place] [address] | Cubital tunnel | | | | [address] | [phone] | syndrome, bilateral | | | | [phone] | | | +--------+---------+ + + + [...] | Visit | | [address] [facility] | | | | | | [address] [place] [address], | | | | | | [place] [address] | | | | | | [phone] | | | | | | | | +--------+---------+ + + + documented as of this encounter Visit Diagnoses + + | Diagnosis | + + | Bilateral carpal tunnel syndrome - Primary Carpal tunnel syndrome | + + | Cubital tunnel syndrome, bilateral | + + documented in this encounter
--- OUTSIDE RECORDS SUMMARY | ~2019-08-09 | XMS | Encounter Summary ---
Demographics + + + | Address | [address] | | | [place] [address] | + + + | Home Phone [...] + | Author | [facility] | | | and [place]ana | + + + | Organization | [facility] | | | and [...] [address], [place] | | | | | [address] | | + + + + + [...] [place] | | | | | [address] | | + + + + + Care Team Providers + +------+ + | Care Pulpwood Cutter Name | Role | Phone | [...] | | | | | | [place] [address] | [place] [address] | | | | | | Phone: | Phone: | | | | | | [phone] | [phone] | | | | | | Fax: | Fax: | | | | | | [phone] | [phone] | + + + + + + [...] | | | CT Neck | [place] [address] | [place], [place] | | | | | Chest w | Phone: | [address] | | | | | Contrast | [phone] | Phone: | | | | | | Fax: | [phone] | | | | | | [phone] | Fax: | | | | | | | [phone] | +--------+--------+ + + + + Reason [...] [facility] [address] | [place] | | | | | [address] [place] | [address] | | | | | [place] [address] | | | | | | [phone] | | | +--------+ + + + [...] 2019 | Visit | | [address] [facility] | | | | | | [address], | | | | | | [place] [address] | | | | | | [phone] | | | | | | | [...]
--- OUTSIDE RECORDS SUMMARY | ~2019-08-09 | XMS | Encounter Summary ---
Demographics + + + | Address | [address] | | | [place] [address] | + + + | Home Phone [...] + | Author | [facility] | + + + | [...] Team Providers + +------+ + | Care Csm Consultant Name | Role | Phone | + +------+ + | Mela Condon PA-C | PCP | | + +------+ + Encounter Details +--------+ + + + + | Date | Type | Department | Care Team | Description | +--------+ + + + + | 02/16/ | Document-Sc | Health Information | Unknown . | | | 2014 | anned | Services [address] | | | | | | [address] | | | | | | Mailcode: [id number] | | | | | | [facility] | | | | | | [place], [place] | | | | | | [address] | | | | | | [phone] | | | +--------+ + + + [...]
--- OUTSIDE RECORDS SUMMARY | ~2019-08-09 | XMS | Encounter Summary ---
Demographics + + + | Address | [address] | | | [place] [address] | + + + | Home Phone [...] + + | Author | [facility] [...] Team Providers + +------+ + | Care Loading Dock Helper Name | Role | Phone | + +------+ + | Mela Condon PA-C | PCP | | + +------+ + Encounter Details +--------+ + + + + | Date | Type | Department | Care Team | Description | +--------+ + + + + | 04/10/ | Ancillary | Diagnostic Imaging | Mela Condon | | | 2018 | Orders | Services [address] | | | | | [facility] | [facility] | | | | | [place], [place] | [address] | | | | | [address] | [address] | | | | | | [address] [place], | | | | | | [place] [address] | | | | | | [phone] | | | | | | | [...]
--- OUTSIDE RECORDS SUMMARY | ~2019-08-09 | XMS | Encounter Summary ---
Demographics + + + | Address | [address] | | | [place] [address] | + + + | Home Phone | | + + + | Preferred Language | Unknown | + + + | Marital Status | | + + + | Restorationism Affiliation | Unknown | + + + | Race | or | + + + | Ethnic Group | Not or | + + + Author + + + | Author | [facility] | + + + [...] Team Providers + +------+ + | Care Sexual Assault Counsellor Name | Role | Phone | + [...] | | 2018 | | Oncology at [place] | MD Carolyn [address] | (sharp breast pains) | | | | for Health & Healing | [address] [place], [place] | | | | | [address] | [address] | | | | | Mailcode: [place] | [phone] | | | | | for Health and | | | | | | Healing, [facility] [address] | | | | | | [place], [place] | | | | | | [address] | | | | | | [phone] | | | +--------+ + + + [...]
--- OUTSIDE RECORDS SUMMARY | ~2019-08-09 | XMS | Encounter Summary ---
Demographics + + + | Address | [address] | | | [place] [address] | + + + | Home Phone [...] Author | [facility] | | | and [place]ana | + + + | Organization | [facility] | | | and [...] [address], [place] | | | | | [address] | | + + + + + [...] [place] | | | | | [address] | | + + + + + Care Team Providers + +------+ + | Care Field Mechanical Meter Tester Name | Role | Phone | [...] | | | | javed | [place] [address] | [address] [place] [address] | | | | | tunnel | CON[address]ATED | [address] | | | | | syndrome | WAY | [place] | | | | | | [place], | [address] Phone: | | | | | | [place] [address] | [phone] | | | | | | Phone: | Fax: | | | | | | [phone] | [phone] | | | | | | Fax: | | | | | | | [phone] | | +--------+--------+ + + + + Encounter Details +--------+---------+ + + + | Date | Type | Department | Care Team | Description | +--------+---------+ + + + | 06/26/ | Office | [facility] | [address] | Bilateral carpal | | 2016 | Visit | ORTHOPEDIC SURGERY | [address] | tunnel syndrome | | | | [address] [facility] | [place] | (Primary Dx); | | | | [place] | [place] [address] | Cubital tunnel | | | | [address] | [phone] | syndrome, bilateral | | | | [phone] | | | +--------+---------+ + + + [...] | Visit | | [address] [facility] | | | | | | [address] [place], | | | | | | [place] [address] | | | | | | [phone] | | | | | | | | +--------+---------+ + + + documented as of this encounter Visit Diagnoses + + | Diagnosis | + + | Bilateral carpal tunnel syndrome - Primary Carpal tunnel syndrome | + + | Cubital tunnel syndrome, bilateral | + + documented in this encounter
--- OUTSIDE RECORDS SUMMARY | ~2019-08-09 | XMS | Encounter Summary ---
Demographics + + + | Address | [address] | | | [place] [address] | + + + | Home Phone [...] + + | Author | [facility] | + + + | [...] Providers + +------+ + | Care Medical Housekeeper Name | Role | Phone | + +------+ + | Mela Condon PA-C | PCP | | + +------+ + Encounter Details +--------+ + + + + | Date | Type | Department | Care Team | Description | +--------+ + + + + | 04/13/ | Ancillary | Diagnostic Imaging | Mela Condon | | | 2018 | Orders | Services [address] | | | | | [facility] | [facility] | | | | | [place], [place] | [place] | | | | | [address] | [address] | | | | | | [address] [place], | | | | | | [place] [address] | | | | | | [phone] | | | | | | | [...]
--- OUTSIDE RECORDS SUMMARY | ~2019-08-09 | XMS | Encounter Summary ---
Demographics + + + | Address | [address] | | | [place] [address] | + + + | Home Phone [...] Author + + + | Author | [facility] | + + + | [...] Team Providers + +------+ + | Care Tower Erector Name | Role | Phone | + +------+ + | Mela Condon PA-C | PCP | | + +------+ + Encounter Details +--------+ + + + + | Date | Type | Department | Care Team | Description | +--------+ + + + + | 04/13/ | Ancillary | Diagnostic Imaging | Mela Condon | | | 2018 | Orders | Services [address] | | | | | [facility] | [facility] | | | | | [place], [place] | [place] [address] | | | | | [address] | [address] | | | | | | [address] [place], | | | | | | [place] [address] | | | | | | [phone] | | | | | | | [...]
--- OUTSIDE RECORDS SUMMARY | ~2019-08-09 | XMS | Encounter Summary ---
Demographics + + + | Address | [address] | | | [place] [address] | + + + | Home Phone [...] | [facility] | | | and [place]ana | + + + | Organization | [facility] | | | and [...] [address], [place] | | | | | [address] | | + + + + + [...] [place] | | | | | [address] | | + + + + + Care Team Providers + +------+ + | Care Boom Storage Name | Role | Phone | + +------+ + | Luis Garcia PA-C | PCP | | + +------+ + Encounter Details +--------+ + + + + | Date | Type | Department | Care Team | Description | +--------+ + + + + | 08/05/ | Abstract | [facility] | Rubén Merlos, | | | 2016 | | REHABILITATION | [address] | | | | | MEDICINE [address] | [address] [place], [place] | | | | | [address] | [address] | | | | | [place] [address] | | | | | | [phone] | | | +--------+ + + + [...] 2018 | Visit | | [address] [facility] | | | | | | [address] | | | | | | [place] [address] | | | | | | [phone] | | | | | | | | +--------+---------+ + + + documented as of this encounter Visit Diagnoses Not on filedocumented in this encounter"
--- OUTSIDE RECORDS SUMMARY | ~2019-08-09 | XMS | Encounter Summary ---
Demographics + + + | Address | [address] | | | [place] [address] | + + + | Home Phone | | + + + | Preferred Language | Unknown | + + + | Marital Status | | + + + | Tenriism Affiliation | Unknown | + + + | Race | Unknown | + + + | Ethnic Group | Unknown | + + + Author + + + | Author | [facility] | | | and [place]ana | + + + | Organization | [facility] | | | and [...] [address], [place] | | | | | [address] | | + + + + + [...] [place] | | | | | [address] | | + + + + + Care Team Providers + +------+ + | Care Manager Paid Name | Role | Phone | + [...] | Malignant | Renee M, | [place] | | | | | neoplasm of | [address] | [place], | | | | | left breast | [address] | [place] [address] | | | | | (HCC) | [place], | Phone: | | | | | Procedures | [place] [address] | [phone] | | | | | CT Treatment | Phone: | Fax: | | | | | Plan | [phone] | [phone] | | | | | Complex | Fax: | | | | | | | [phone] | | +--------+--------+ + + + + [...] | (Primary Dx) | | | | [place], | [address] | | | | | [place] [address] | | | | | | [phone] | | | +--------+ + + + [...] 2019 | Visit | | [address] [facility] | | | | | | [address], | | | | | | [place] [address] | | | | | | [phone] | | | | | | | [...]
--- OUTSIDE RECORDS SUMMARY | ~2019-08-09 | XMS | Encounter Summary ---
Demographics + + + | Address | [address] | | | [place] [address] | + + + | Home Phone [...] | [facility] | | | and [place]ana | + + + | Organization | [facility] | | [...] [place], [place] | | | | | [address] | | + + + + + [...] [place] | | | | | [address] | | + + + + + Care Team Providers + +------+ + | Care Bacteriology Technician Name | Role | Phone | [...] [place], [place] | | | | | [place], | [address] | | | | | [place] [address] | | | | | | [phone] | | | +--------+ + + + [...] | | | | | | [place] [address] | | | | | | [phone] | | | | | | | | +--------+---------+ + + + documented as of this encounter Visit Diagnoses Not on filedocumented in this encounter"
--- OUTSIDE RECORDS SUMMARY | ~2019-08-09 | XMS | Encounter Summary ---
Demographics + + + | Address | [address] | | | [place] [address] | + + + | Home Phone | | + + + | Preferred Language | Unknown | + + + | Marital Status | | + + + | Mu-Ism Affiliation | Unknown | + + + | Race | or | + + + | Ethnic Group | Not or | + + + Author + + + | Author | [facility] | + + + | [...] Team Providers + +------+ + | Care Assignment Desk Assistant Name | Role | Phone | + +------+ + | Mela Condon PA-C | PCP | | + +------+ + Encounter Details +--------+ + + + + | Date | Type | Department | Care Team | Description | +--------+ + + + + | 02/17/ | Document-Sc | Health Information | Unknown . | | | 2014 | anned | Services [address] | | | | | | [address] | | | | | | Mailcode: OP17A | | | | | | [facility] | | | | | | [place], [place] | | | | | | [address] | | | | | | [phone] | | | +--------+ + + + [...]
--- OUTSIDE RECORDS SUMMARY | ~2019-08-09 | XMS | Encounter Summary ---
Demographics + + + | Address | [address] | | | [place] [address] | + + + | Home Phone | | + + + | Preferred Language | Unknown | + + + | Marital Status | | + + + | Cheondoism Affiliation | Unknown | + + + | Race | Unknown | + + + | Ethnic Group | Unknown | + + + Author + + + | Author | [facility] | | | and [place]ana | + + + | Organization | [facility] [...] [place], [place] | | | | | [address] | | + + + + + [...] [place] | | | | | [address] | | + + + + + Care Team Providers + +------+ + | Care Business Development Name | Role | Phone | + [...] | | unspecified | [place], | [place] [address] | | | | | female | [place] [address] | Phone: | | | | | breast (HCC) | Phone: | [phone] | | | | | Procedures | [phone] | Fax: | | | | | [place] OFFICE | Fax: | [phone] | | | | | OUTPATIENT | [phone] | | | | | | VISIT 25 | | | | | | | MINUTES | | | +--------+--------+ + + + + Encounter Details +--------+ + + + + | Date | Type | Department | Care Team | Description | +--------+ + + + + | 09/27/ | Hospital | [facility] | Renee Wood | Screening mammogram | | 2015 | Encounter | MED CTR RADIATION | MD Lazara [address] | for high-risk | | | | ONCOLOGY [address] | [facility] [place] | patient (Primary Dx) | | | | [place], | [address] | | | | | [place] [address] | | | | | | [phone] | | | +--------+ + + + [...] 12:00 AM PSTPATIENT: Carissa Miriam Vicente:09/27/2013MR #: [id number]:[id number] Radiation Oncology Follow-up Clinic Note ICD/Diagnosis: 174.4 [...] present. No LVSI. Negative margins. ER 100%, DE 70-75%, Ki-67 less than 1 %, HER-2/jamia nonamplified by FISH with ratio 1.0, sentinel lymph node negative for metasta tic carcinoma. Received adjuvant radiation with hypofractionated whole breast irradiation, 40.05 to the breast with a 8 Gy of a chphryr08 Gy lumpectomy boost for a total 48.05 Gy in 20 fraction, completed on 06/14/15. Carsisa was last seen at the completion of [...] Exam performed in the presence of a x ray tech. On upright exam breasts appear sym [...] present. No LVSI. Negative margins. ER 100%, DE 70-75%, Ki-67 less than 1 %, HER-2/jamia nonamplified by FISH with ratio 1.0, sentinel lymph node negative for metasta tic carcinoma. Received adjuvant radiation with hypofractionated whole breast irradiation, 40.05 to the breast with a 8 Gy of a hgryjca73 Gy lumpectomy boost for a total 48.05 [...] ordered to be done at [facility]. I have asked her to return [...] M.D. Radiation Oncologist Department of Radiation Oncology [facility] This note was transcribed using Prote[employer] speech recognition software. As a result, there ma y be unintended for medical and/or spelling errors. Every attempt is made to correct dicta tion. If there are any questions or errors please contact our office. Page 1 of 3 CSN: [id number] signed by Renee Fuentes MD at 10/04/2015 [...] [place], | | | | | | [place] [address] | | | | | | [phone] | | | | | | | [...]
--- OUTSIDE RECORDS SUMMARY | ~2019-08-09 | XMS | Encounter Summary ---
Demographics + + + | Address | [address] | | | [place] [address] | + + + | Home Phone | | + + + | Preferred Language | Unknown | + + + | Marital Status | | + + + | Buddhist Affiliation | Unknown | + + + | Race | Unknown | + + + | Ethnic Group | Unknown | + + + Author + + + | Author | [facility] | | | and [place]ana | + + + | Organization | [facility] | | | and [place] [...] [address], [place] | | | | | [address] | | + + + + + [...] [place] | | | | | [address] | | + + + + + Care Team Providers + +------+ + | Care Political Advisor Name | Role | Phone | [...] + | 12/26/ | Telephone | [facility] | MargaritaPanchitoy Fili, | Other (Survivorship) | | 2015 | | MED CTR MEDICAL | RN | | | | | ONCOLOGY CLINIC [address] | | | | | | [address] | | | | | | [place] [address] | | | | | | [phone] | | | +--------+ + + + [...] 2019 | Visit | | [address] [facility] | | | | | | [address] | | | | | | [place] [address] | | | | | | [phone] | | | | | | | | +--------+---------+ + + + documented as of this encounter Visit Diagnoses Not on filedocumented in this encounter"
--- OUTSIDE RECORDS SUMMARY | ~2019-08-09 | XMS | Encounter Summary ---
Demographics + + + | Address | [address] | | | [place] [address] | + + + | Home Phone [...] + | Author | [facility] [employer] [facility] | + + + | [...] Providers + +------+ + | Care Spray Machine Loader Name | Role | Phone | + [...] | Malignant | Jemima Leon, | [address] | | | | | neoplasm of | [address] | [address] | | | | | upper-outer | [address] | [address] | | | | | quadrant of | [place], [place] | Mailcode: | | | | | left breast | [address] | [address] | | | | | in female, | Phone: | [address] | | | | | estrogen | [phone] | [place], [place] | | | | | receptor | Fax: | [address] | | | | | positive | [phone] | Phone: | | | | | (HCC) | | [phone] | | | | | Weight loss | | Fax: | | | | | Bone pain | | [phone] | | | | | Procedures | [...] | | | | quadrant of | [place], [place] | Mailcode: | | | | | left breast | [address] | [address] [facility] | | | | | in female, | Phone: | Hospital | | | | | estrogen | [phone] | [place], [place] | | | | | receptor | Fax: | [address] | | | | | positive | [phone] | Phone: | | | | | (HCC) | | [phone] | | | | | Weight loss | | Fax: | | | | | Bone pain | | [phone] | | | | | Procedures | | | | | | | CT CHEST, | | | | | | | ABDOMEN AND | | | | | | | PELVIS W IV | | | | | | | CONTRAST ID | | | | | | | CT | | | | | | | ABDOMEN&PELV | | | | | | | IS | | | | | | | W/CONTRAST | | | | | | | ID CAT SCAN | | | | | [...] | Mailcode: | | | | | ID NEW | | Center for | | | | | PATIENT | | Health and | | | | | LEVEL V ID | | Healing, | | | | | EST PATIENT | | Building [address] | | | | | LEVEL V | | [place], [place] | | | | | | | [address] | | | | | | | Phone: | | | | | | | [phone] | | | | | | | Fax: | | | | | | | [phone] | +--------+--------+ + + + + Encounter Details +--------+---------+ + + + | Date | Type | Department | Care Team | Description | +--------+---------+ + + + | 03/12/ | Office | Hematology/Medical | Justus Waddelleen | Malignant neoplasm | | 2018 | Visit | Oncology at [place] | MD Carolyn [address] | of upper-outer | | | | for Health & Healing | [address] [place], [place] | quadrant of left | | | | [address] | [address] | breast in female, | | | | Mailcode: [place] | [phone] | estrogen receptor | | | | for Health and | | positive (HCC) | | | | Healing, Building [address] | | (Primary Dx); Weight | | | | [place], [place] | | loss; Bone pain | | | | [address] | | | | | | [phone] | | | +--------+---------+ + + + [...] diffuse bone pa ins. Schedule these at [facility] in next 1-3 weeks. We [...] months. JEMIMA WADDELL MD HEMATOLOGY/MEDICAL ONCOLOGY AT [address] Mailcode: [place] [address] documented in this encounter Progress Notes Dipak Ortega, Jemima Leon - 03/12/2018 11:00 AM PDTFormatting of this note might be different f rom the original. Medical Oncology [facility] Cancer [place] Consult 03/12/2018 Carissa Downey is a 52 y.o. female here for evaluation of breast cancer. Referred by No Referring Provider P*. Records reviewed as detailed in my note. 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 She presented with palpable lump. She is s/p lumpectomy and SNB, T = 1.1 cm IDC G1, SN = 0/1 (Dr. Edi Upton, [place] ). Left breast radiation ended 06/14/15. She took adjuvant exemestane Jun 2015 to Jun 2016 (i nitially with ovarian suppression, then PARRISH/BSO 08/28/15), stopped due to arthralgias and shu ne pains. Then tried tamoxifen from Jul 2016 to Aug 2016 (and she can't remember why she sto pped, outside chart notes depression and brain fog). She last saw Dr. Brewster last year (in [place]). She tells me today she is interested in re-trying adjuvant endocrine therapy and transferri ng her care to [facility]. 03/12/18 bilateral mammogram: benign, cat [...] back in with her). She lives in [place]. PAST MEDICAL HISTORY: Past Medical History: Diagnosis Date Arthropathy Breast cancer, stage 1, estrogen receptor positive, left (HCC) 2014 [id number] IDC ER+ID+ Chronic fatigue Depression Mastodynia of right breast [...] and plan: 52 yo postmenopausal female with [id number] ER+(100%)ID+(70-75%)[id number] - invasive ductal carcinoma G1 of left [...] d would like to transfer care to [facility]. She is motivated to try [...] plan. JEMIMA WADDELL MD HEMATOLOGY/MEDICAL ONCOLOGY AT [address] [place] Mailcode: [place] [place] [address] documented in this encounter Plan [...] [facility] | [address] | [place] [address] | | | SERVICES, CORE | YAIMA [...] | | | LABORATORY | | | GUYANESE | | | SERVICES, | | | [...] [facility] | [address] | [place] [address] | | | SERVICES, CORE | PARK [...]
[~2019-08-09 17:29] MED LIST changes: +ULTRAM50 MG PO
--- OUTSIDE RECORDS SUMMARY | 2019-08-09 17:32 | XMS ---
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 Ranjana has no Care Guidelines for this patient. iWlly VISIT COUNT (12 MO.) 2 TAO Tao TOTAL 2 NOTE: Visits indicate total known visits. 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
[2019-08-09] MEDS ORDERED: TRAMADOL HCL50 MG PO (21:41)
[2019-08-09] MEDS ORDERED: ZOFRAN4 MG PO (21:41)
== END 2019-08-09 22:23 | disposition home or self-care (01) ==
LOC: ED 17:29
DX: R10.11 Right upper quadrant pain (principal); Z79.891 Long term (current) use of opiate analgesic; Z79.899 Other long term (current) drug therapy
CPT/HCPCS: 74177; 80053; 81001; 83690; 85025; 96361; 96374; 96375; 99284-25; J1170; J2405; J7030; Q9967

== ENCOUNTER 2019-09-15 12:14 | Emergency (ER) | payer OTHER ==
[~2019-09-15] VITALS: Ht 162.6 cm; Wt 62.6 kg
--- OUTSIDE RECORDS SUMMARY | ~2019-09-15 | XMS | Encounter Summary ---
Demographics + + + | Address | [address] | | | [place] [address] | + + + | Home Phone | | + + + | Preferred Language | Unknown | + + + | Marital Status | | + + + | Zoroastrian Affiliation | Unknown | + + + | Race | or | + + + | Ethnic Group | Not or | + + + Author + + + | Author | [facility] | + + + | Organization | [facility] | + + + | Address | Unknown | + + + | Phone | Unavailable | + + + Support + + +---------+ + | Name | Relationship | Address | Phone | + + +---------+ + | Jak Daley | ECON | Unknown | | + + +---------+ + Care Team Providers + +------+ + | Care Mineral Mixer Name | Role | Phone | + +------+ + | Luis Garcia | PCP | | + +------+ + Reason for Visit + + + | Reason | Comments | + + + | Outside Records | [facility] reports | | Received | | + + + Encounter Details +--------+ + + + + | Date | Type | Department | Care Team | Description | +--------+ + + + + | 12/25/ | Telephone | [facility] | Katie Dee MA | Outside Records | | 2017 | | at [facility] [address] | [address] | Received (St[address] | | | | [place] | [address] | Reilly bolden | | | | [id number] [facility] | [place], [place] | reports ) | | | | [facility], | [address] | | | | | [place] [address] | | | | | | [phone] | | | +--------+ + + + + Social History + +-------+ +--------+------+ | Tobacco Use | Types | Packs/Day | Years | Date | | | | | Used | | + +-------+ +--------+------+ | Never Assessed | | | | | + +-------+ +--------+------+ + + + | Sex Assigned at [...]
--- OUTSIDE RECORDS SUMMARY | ~2019-09-15 | XMS | Encounter Summary ---
Demographics + + + | Address | [address] | | | [place] [address] | + + + | Home Phone | | + + + | Preferred Language | Unknown | + + + | Marital Status | | + + + | Mu-Ism Affiliation | Unknown | + + + | Race | or | + + + | Ethnic Group | Not or | + + + Author + + + | Author | [facility] | + + + | Organization | [facility] | + + + | Address | Unknown | + + + | Phone | Unavailable | + + + Support + + +---------+ + | Name | Relationship | Address | Phone | + + +---------+ + | Jak Daley | ECON | Unknown | | + + +---------+ + Care Team Providers + +------+ + | Care Bread Dumper Name | Role | Phone | + +------+ + | Mela Condon PA-C | PCP | | + +------+ + Reason for Visit + + + | Reason | Comments | + + + | Appointment | recall letter mailed | + + + Encounter Details +--------+ + + + + | Date | Type | Department | Care Team | Description | +--------+ + + + + | 12/03/ | Telephone | [facility] | Katie Dee MA | Appointment (recall | | 2018 | | at [facility] [address] | [address] | letter mailed ) | | | | [address] | [address] | | | | | [id number] [facility] | [place], [place] | | | | | [facility], | [address] | | | | | [place] [address] | | | | | | [phone] | | | +--------+ + + + [...]
--- OUTSIDE RECORDS SUMMARY | ~2019-09-15 | XMS | Encounter Summary ---
Demographics + + + | Address | [address] | | | [place] [address] | + + + | Home Phone | | + + + | Preferred Language | Unknown | + + + | Marital Status | | + + + | Islam Affiliation | Unknown | + + + | Race | Unknown | + + + | Ethnic Group | Unknown | + + + Author + + + | Author | [facility] | | | and [place] | + + + | Organization | [facility] | | | and [place] [...] [address], [place] | | | | | [address] | | + + + + + [...] [place] | | | | | [address] | | + + + + + Care Team Providers + +------+ + | Care Waste/Materials Exchange Specialist Name | Role | Phone | + +------+ + | Mela Condon PA-C | PCP | | + +------+ + Encounter Details +--------+ + + + + | Date | Type | Department | Care Team | Description | +--------+ + + + + | 01/25/ | Orders Only | [facility] | Renee Wood | Dysphagia, | | 2019 | | MED CTR RADIATION | MD Lazara [address] | unspecified type | | | | ONCOLOGY CLINIC [address] | [place], [place] | (Primary Dx) | | | | [address] [place] | [address] | | | | | [place] [address] | | | | | | [phone] | | | +--------+ + + + [...] as of this encounter Plan of Treatment + +---------+--------+ + + | Name | Type | Priori | Associated Diagnoses | Order Schedule | | | | ty | | | + +---------+--------+ + + | FL Video Swallow w | Imaging | Routin | Dysphagia, | Expected: | | Speech | | e | Unspecified Type | 01/25/2019, Expires: | | | | | | 01/26/2020 | + +---------+--------+ + + documented as of this encounter Visit Diagnoses + + | Diagnosis | + + | Dysphagia, unspecified type - Primary | + + documented in this encounter"
--- OUTSIDE RECORDS SUMMARY | ~2019-09-15 | XMS | Encounter Summary ---
Demographics + + + | Address | [address] | | | [place] [address] | + + + | Home Phone | | + + + | Preferred Language | Unknown | + + + | Marital Status | | + + + | Voodoo Affiliation | Unknown | + + + | Race | Unknown | + + + | Ethnic Group | Unknown | + + + Author + + + | Author | [facility] | | | and [place]ana | + + + | Organization | [facility] | | | and [place] [...] [address], [place] | | | | | [address] | | + + + + + [...] [address] | | | | | [place] | | | | | [address] | | + + + + + Care Team Providers + +------+ + | Care Evs Attendant Name | Role | Phone | + +------+ + | Luis Garcia PA-C | PCP | | + +------+ + Reason for Visit +--------+ + | Reason | Comments | +--------+ + | Other | | +--------+ + Encounter Details +--------+ + + + + | Date | Type | Department | Care Team | Description | +--------+ + + + + | 04/15/ | Telephone | [facility] | Narcisa, | Other | | 2015 | | MED CTR MEDICAL | Mu Gutierrez MD [address] | | | | | ONCOLOGY CLINIC [address] | [address] [place] | | | | | [address] [place] | [place] [address] | | | | | [place] [address] | [phone] | | | | | [phone] | | | +--------+ + + + [...]
--- OUTSIDE RECORDS SUMMARY | ~2019-09-15 | XMS | Encounter Summary ---
Demographics + + + | Address | [address] | | | [place] [address] | + + + | Home Phone | | + + + | Preferred Language | Unknown | + + + | Marital Status | | + + + | Anabaptism Affiliation | Unknown | + + + | Race | Unknown | + + + | Ethnic Group | Unknown | + + + Author + + + | Author | [facility] | | | and [place]ana | + + + | Organization | [facility] | | | and [place] | [...] [address], [place] | | | | | [address] | | + + + + + [...] [place] | | | | | [address] | | + + + + + Care Team Providers + +------+ + | Care Industrial Ecology Technician Name | Role | Phone | [...] | +--------+ + + + + | 06/19/ | Telephone | [facility] | Renee Wood | Other | | 2015 | | MED CTR MEDICAL | MD Lazara [address] | | | | | ONCOLOGY CLINIC [address] | [address] [place], [place] | | | | | [address] [place] | [address] | | | | | [place] [address] | | | | | | [phone] | | | +--------+ + + + [...]
--- OUTSIDE RECORDS SUMMARY | ~2019-09-15 | XMS | Encounter Summary ---
Demographics + + + | Address | [address] | | | [place] [address] | + + + | Home Phone | | + + + | Preferred Language | Unknown | + + + | Marital Status | | + + + | Moravian Affiliation | Unknown | + + + | Race | or | + + + | Ethnic Group | Not or | + + + Author + + + | Author | [facility] | + + + | Organization | [facility] | + + + | Address | Unknown | + + + | Phone | Unavailable | + + + Support + + +---------+ + | Name | Relationship | Address | Phone | + + +---------+ + | Jak Daley | ECON | Unknown | | + + +---------+ + Care Team Providers + +------+ + | Care Wood Piler Name | Role | Phone | + +------+ + | Mela Condon PA-C | PCP | | + +------+ + Encounter Details +--------+ + + + + | Date | Type | Department | Care Team | Description | +--------+ + + + + | 01/30/ | Rn Supplemental | Hematology/Medical | Jemima Quesada | Malignant neoplasm | | 2018 | | Oncology at [place] | MD Carolyn [address] | of [facility] | | | | for Health & Healing | [address] [place], [place] | quadrant of left | | | | [address] | [address] | breast in female, | | | | Mailcode: [place] | [phone] | estrogen receptor | | | | for Health and | | positive (HCC) | | | | Healing, [address] | | (Primary Dx) | | | | [place], [place] | | | | | | [address] | | | | | | [phone] | | | +--------+ + + + [...] Not on filedocumented as of this encounter Results [facility] DIAGNOSTIC BILAT W/CAD (03/12/2018 10:01 AM PDT) + + | Specimen | + + | | + + + + + | Narrative | Performed At | + + + | Patient History: Patient has history of cancer in the left breast | [facility] | | at age 48. No known family history of cancer. Malignant lumpectomy | RADIOLOGY | | of the left breast, 2014. Last mammogram was performed 1 year and 1 | BREAST IMAGING | | month ago. Reason for exam: history of breast cancer, conservation | | | therapy. C50.412 [facility] DIAGNOSTIC BILAT W/CAD: March 12, 2018 - | | | Bilateral CC and MLO view(s) were taken. | | | Prior study comparison: January 31, 2017, bilateral MA VY DIAGNOSTIC | | | BILAT w/CAD performed at [facility]. There | | | are scattered fibroglandular densities. Stable post-lumpectomy | | | changes in the left breast. No suspicious calcifications, masses, or | | | architectural distortion present in either breast. No significant | | | changes when compared with prior studies. The images were | | | obtained using full field digital mammography on the dedicated | | | [facility] with R2 CAD. Performed at [facility] | | | [place]. 3D tomosynthesis mammography was performed as part of | | | this exam. ASSESSMENT: Benign - Category 2 RECOMMENDATION: | | | Routine screening mammogram of both breasts in 1 year. I have | | | personally reviewed the images and, if necessary, edited the report. | | | I agree with the report as now presented. | | + + + + + | Procedure Note | + + | Service Account, Radiant Res In Interface - 03/12/2018 10:23 AM PDT Patient | | History:Patient has history of cancer in the left breast at age 48.No known family | | history of cancer.Malignant lumpectomy of the left breast, 2014.Last mammogram was | | performed 1 year and 1 month ago.Reason for exam: history of breast cancer, conservation | | therapy. C50.412MA VY DIAGNOSTIC BILAT W/CAD: March 12, 2018 - Accession #: | | [id number] CC and MLO view(s) were taken.Prior study comparison: January 31, 2017, | | bilateral MA VY DIAGNOSTICBILAT w/CAD performed at [facility] | | [place].There are scattered fibroglandular densities. Stable post-lumpectomy changes | | in the left breast. No suspicious calcifications, masses, or architectural distortion | | present in either breast. No significant changes when compared with prior studies.The | | images were obtained using full field digital mammography on the dedicated [facility] | | System with R2 CAD. Performed at [facility]. 3D | | tomosynthesis mammography wasperformed as part of this exam.ASSESSMENT: Benign - | | Category 2RECOMMENDATION:Routine screening mammogram of both breasts in 1 year.I have | | personally reviewed the images and, if necessary, edited the report. I agree with the | | report as now presented. | |either breast. No significant changes when compared with prior | |studies. | | | |The images were obtained using full field digital mammography on | |the dedicated [facility] with R2 CAD. Performed at [facility]. 3D tomosynthesis mammography was | |performed as part of this exam. | | | |ASSESSMENT: Benign - Category 2 | | | |RECOMMENDATION: | |Routine screening mammogram of both breasts in 1 year. | | | | | |I have personally reviewed the images and, if necessary, edited the report. I agree with t he report as now presented. | + + + +---------+ + + | Performing | Address | City/State/Zipcode | Phone Number | | Organization | | | | + +---------+ + + | [facility] | | | | | BREAST IMAGING | | | | + +---------+ + + documented in this encounter Visit Diagnoses + + | Diagnosis | + + | Malignant neoplasm of upper-outer quadrant of left breast in female, estrogen receptor | | positive (HCC) - Primary | + + documented in this encounter"
--- OUTSIDE RECORDS SUMMARY | ~2019-09-15 | XMS | Encounter Summary ---
Demographics + + + | Address | [address] | | | [place] [address] | + + + | Home Phone | | + + + | Preferred Language | Unknown | + + + | Marital Status | | + + + | Buddhism Affiliation | Unknown | + + + | Race | Unknown | + + + | Ethnic Group | Unknown | + + + Author + + + | Author | [facility] | | | and Johnnyana | + + + | Organization | [facility] | | | and [place]ana [...] [place], [place] | | | | | [address] | | + + + + + [...] | Luigi Benedict | ECON | [address] | | | | | [place] | | | | | [address] | | + + + + + Care Team Providers + +------+ + | Care Electronics Engineer Name | Role | Phone | + +------+ + PCP | Unavailable | + +------+ + Encounter Details +--------+ + + + + | Date | Type | Department | Care Team | Description | +--------+ + + + + | 05/21/ | Hospital | [facility] | Afua Zambrano, | | | 2010 | Encounter | MED CTR LABORATORY | MD [address] | | | | | [address] | [place], | | | | | [place], [place] | [place] [address] | | | | | [address] | [phone] | | | | | [phone] | | | +--------+ + + + [...] Not on filedocumented as of this encounter Procedures + +--------+ + + + | Procedure Name | Priori | Date/Time | Associated Diagnosis | Comments | | | ty | | | | + +--------+ + + + | BASIC METABOLIC | Routin | 05/21/2011 | | Results for this | | PANEL | e | 3:27 PM | | procedure are in the | | | | PDT | | results section. | + +--------+ + + + documented in this encounter Results Basic Metabolic Panel (05/21/2011 3:27 PM PDT) + + + + + + | Component | Value | Ref Range | Performed | Pathologist | | | | | At | Signature | + + + + + + | Glucose | 111 (H) | 70 - 109 mg/dL | [facility] | | | | | | [facility] | | | | | | [facility] | | | | | | [facility] - | | | | | | LABORATORY | | + + + + + + | Calcium | 8.9 | 8.3 - 10.5 | [facility] | | | | | mg/dL | [facility] | | | | | | [facility] | | | | | | C[facility] - | | | | | | LABORATORY | | + + + + + + | BUN | 7 | 7 - 18 mg/dL | [facility] | | | | | | [facility] | | | | | | [facility] | | | | | | [facility] - | | | | | | LABORATORY | | + + + + + + | Creatinine | 0.82 | 0.60 - 1.30 | [facility] | | | | | mg/dL | [facility] | | | | | | [facility] | | | | | | [facility] - | | | | | | LABORATORY | | + + + + + + | Estimated | >60Comment: For | >60 mL/min/A | [facility] | | | GFR | -Americans, | | [facility] | | | | please multiply the | | MEDICAL | | | | result by 1.210 | | CENTER - | | | | This is an estimated | | LABORATORY | | | | GFR and is based on | | | | | | a standard body | | | | | | mass and serum | | | | | | creatinine | | | | + + + + + + | BUN/Creatin | 8.5 (L) | 12 - 20 | [facility] | | | ine Ratio | | | [facility] | | | | | | [facility]ICAL | | | | | | CENTER - | | | | | | LABORATORY | | + + + + + + | Na | 137 | 136 - 149 mEq/L | [facility] | | | | | | [facility] | | | | | | [facility] | | | | | | [facility] - | | | | | | LABORATORY | | + + + + + + | K | 3.4 (L) | 3.5 - 5.1 mEq/l | [facility] | | | | | | [facility] | | | | | | [facility] | | | | | | [facility] - | | | | | | LABORATORY | | + + + + + + | Cl | 105 | 98 - 109 mEq/l | [facility] | | | | | | [facility] | | | | | | [facility] | | | | | | [facility] - | | | | | | LABORATORY | | + + + + + + | CO2 | 27 | 24 - 31 mEq/L | [facility] | | | | | | [facility] | | | | | | [facility] | | | | | | C[facility] - | | | | | | LABORATORY | | + + + + + + | Anion Gap | 8.4 | 6.0 - 17.0 | [facility] | | | | | | [facility] | | | | | | [facility] | | | | | | [facility] - | | | | | | LABORATORY | | + + + + + + + + | Specimen | + + | | + + + + + + + | Performing | Address | City/State/Zipcode | Phone Number | | Organization | | | | + + + + + | [facility] | [address] | [place], [place] | [phone] | | [facility] | | [address] | | | - LABORATORY | | | | + + + + + | [facility] | [address] | [place], [place] | | | [facility] | | [address] | | | - LABORATORY | | | | + + + + + documented in this encounter Visit Diagnoses Not on filedocumented in this encounter"
--- OUTSIDE RECORDS SUMMARY | ~2019-09-15 | XMS | Encounter Summary ---
Demographics + + + | Address | [address] | | | [place] [address] | + + + | Home Phone | | + + + | Preferred Language | Unknown | + + + | Marital Status | | + + + | Hinduism Affiliation | Unknown | + + + | Race | or | + + + | Ethnic Group | Not or | + + + Author + + + | Author | [facility] | + + + | Organization | [facility] | + + + | Address | Unknown | + + + | Phone | Unavailable | + + + Support + + +---------+ + | Name | Relationship | Address | Phone | + + +---------+ + | Jak Daley | ECON | Unknown | | + + +---------+ + Care Team Providers + +------+ + | Care Medical Representative Name | Role | Phone | + +------+ + | Mela Condon PA-C | PCP | | + +------+ + Encounter Details +--------+ + + + + | Date | Type | Department | Care Team | Description | +--------+ + + + + | 04/13/ | Ancillary | Diagnostic Imaging | Mela Condon | | | 2018 | Orders | Services [address] | | | | | [facility] | [facility] | | | | | [place], [place] | [address] [place] | | | | | [address] | [address] | | | | | | [address] [place], | | | | | | [place] [address] | | | | | | [phone] | | | | | | | [...]
--- OUTSIDE RECORDS SUMMARY | ~2019-09-15 | XMS | Encounter Summary ---
Demographics + + + | Address | [address] | | | [place] [address] | + + + | Home Phone | | + + + | Preferred Language | Unknown | + + + | Marital Status | | + + + | Sabianist Affiliation | Unknown | + + + | Race | or | + + + | Ethnic Group | Not or | + + + Author + + + | Author | [facility] | + + + | Organization [...] Team Providers + +------+ + | Care Hand Alterations Tailor Name | Role | Phone | + +------+ + | Mela Condon PA-C | PCP | | + +------+ + Reason for Referral Diagnostic Testing (Routine) +--------+--------+ + + + + | Status | Reason | Specialty | Diagnoses / | Referred By | Referred To | | | | | Procedures | Contact | Contact | +--------+--------+ + + + + | Closed | | Radiology | Diagnoses | Dipak, | Rad Nuc Med | | | | | Malignant | Jemima Leon, | [address] | | | | | neoplasm of | MD [address] | [address] | | | | | upper-outer | [address] | Loop | | | | | quadrant of | [place], [place] | Mailcode: | | | | | left breast | [address] | [address] | | | | | in female, | Phone: | [address] | | | | | estrogen | [phone] | [place], [place] | | | | | receptor | Fax: | [address] | | | | | positive | [phone] | Phone: | | | | | (HCC) | | [phone] | | | | | Weight loss | | Fax: | | | | | Bone pain | | [phone] | | | | | Procedures | | | | | | | NM BONE &/OR | | | | | | | JOINT | | | | | | | IMAGING | | | | | | | WHOLE BODY | | | | | | | MA BONE | | | | | | | IMAGING, | | | | | | | WHOLE BODY | | | +--------+--------+ + + + + Reason for Visit Diagnostic Testing (Routine) +--------+--------+ + + + + | Status | Reason | Specialty | Diagnoses / | Referred By | Referred To | | | | | Procedures | Contact | Contact | +--------+--------+ + + + + | Closed | | Radiology | Diagnoses | Dipak, | Rad Nuc Med | | | | | Malignant | Jemima Leon, | [address] | | | | | neoplasm of | MD [address] | [address] | | | | | upper-outer | [address] | Loop | | | | | quadrant of | [place], [place] | Mailcode: | | | | | left breast | [address] | [address] | | | | | in female, | Phone: | [address] | | | | | estrogen | [phone] | [place], [place] | | | | | receptor | Fax: | [phone] | | | | | positive | [phone] | Phone: | | | | | (HCC) | | [phone] | | | | | Weight loss | | Fax: | | | | | Bone pain | | [phone] | | | | | Procedures | | | | | | | NM BONE &/OR | | | | | | | JOINT | | | | | | | IMAGING | | | | | | | WHOLE BODY | | | | | | | MA BONE | | | | | | | IMAGING, | | | | | | | WHOLE BODY | | | +--------+--------+ + + + + Encounter Details +--------+ + + + + | Date | Type | Department | Care Team | Description | +--------+ + + + + | 04/09/ | Hospital | Nuclear Medicine | Jemima Qeusada | | | 2018 | Encounter | at [facility] [address] | MD Carolyn [address] | | | | | [address] | [place], [place] | | | | | Mailcode: [id number] [facility] | [address] | | | | | [facility] | [phone] | | | | | [place], [place] | | | | | | [address] | | | | | | [phone] | | | +--------+ + + + [...] | | 0 | | | | fexofenadine/pseudoe | mouth once daily. | | | | | | phedrine (TAMEKA-D | | | | | | | 12 HOUR ORAL) | | | | | | + + + +---------+ + + | tamoxifen 20 mg | Take 1 tablet by | 90 | 3 | 03/12/20 | | | oral | mouth once daily. | tablet | | 18 | | | tabletIndications: | | | | | | | Malignant neoplasm | | | | | | | of upper-outer | | | | | | | quadrant of left | | | | | | | breast in female, | | | | | | | estrogen receptor | | | | | | | positive (HCC) | | | | | | + + + +---------+ + + documented as of this encounter Plan of Treatment Not on filedocumented as of this encounter Procedures + +--------+ + + + | Procedure Name | Priori | Date/Time | Associated Diagnosis | Comments | | | ty | | | | + +--------+ + + + | NM BONE &/OR JOINT | Routin | 04/09/2018 | Malignant neoplasm | Results for this | | IMAGING WHOLE BODY | e | 3:00 PM | of upper-outer | procedure are in the | | | | PDT | quadrant of left | results section. | | | | | breast in female, | | | | | | estrogen receptor | | | | | | positive (HCC) | | | | | | Weight loss Bone | | | | | | pain | | + +--------+ + + + | ORDERS OTHER | | 04/09/2018 | | Results for this | | | | 12:00 AM | | procedure are in the | | | | PDT | | results section. | + +--------+ + + + documented in this encounter Results NM BONE &/OR JOINT IMAGING WHOLE BODY (04/09/2018 3:00 PM PDT) + + | Specimen | + + | | + + + + + | Narrative | Performed At | + + + | WHOLE-BODY BONE SCAN: 04/09/2018 3:00 PM HISTORY: 52 years of | [facility] | | age, Female, with history of breast cancer, referred for staging. The | RADIOLOGY VOICE | | patient reports no recent history of back pain, trauma, or fracture. | RECOGNITION 2 | | COMPARISON: None. TECHNIQUE: Radiopharmaceutical: Tc-99m MDP | | | 22.2 mCi intravenously. The intravenous administration of the | | | radiopharmaceutical was uneventful. Approximately two and a half hours | | | later, the patient returned for planar images of the whole body in | | | anterior and posterior projections. Additional spot views of the | | | lateral skull, upper extremities, and posterior spine were obtained. | | | FINDINGS: Physiologic distribution of the radiotracer with no | | | abnormal foci of uptake concerning for osseous metastases. Irregular | | | configuration of the bladder is attributed to extrinsic compression. | | | Soft tissue distribution of the radiopharmaceutical is normal. | | | The kidneys and urinary bladder are visualized per normal clearance of | | | the radiopharmaceutical. IMPRESSION: No evidence of osseous | | | metastasis. I have personally reviewed the images and, if | | | necessary, edited the report. I agree with the report as now | | | presented. Final signature: Vivek Meraz MD 04/09/2018 5:36 | | | PM Preliminary: Stella Campbell MD 04/09/2018 3:32 PM Dictation | | | initiated: Stella Campbell MD 04/09/2018 2:59 PM | | + + + + + | Procedure Note | + + | Service Account, Radiant Res In Interface - 04/09/2018 5:37 PM PDT WHOLE-BODY BONE | | SCAN: 04/09/2018 3:00 PM HISTORY: 52 years of age, Female, with history of breast cancer, | | referred for staging. The patient reports no recent history of back pain, trauma, or | | fracture. COMPARISON: None. TECHNIQUE: Radiopharmaceutical: Tc-99m MDP 22.2 mCi | | intravenously. The intravenous administration of the radiopharmaceutical was | | uneventful. Approximately two and a half hours later, the patient returned for planar | | images of the whole body in anterior and posterior projections. Additional spot views of | | the lateral skull, upper extremities, and posterior spine were obtained. FINDINGS: | | Physiologic distribution of the radiotracer with no abnormal foci of uptake concerning | | for osseous metastases. Irregular configuration of the bladder is attributed to | | extrinsic compression. Soft tissue distribution of the radiopharmaceutical is normal. | | The kidneys and urinary bladder are visualized per normal clearance of the | | radiopharmaceutical. IMPRESSION: No evidence of osseous metastasis. I have personally | | reviewed the images and, if necessary, edited the report. I agree with the report as now | | presented. Final signature: Vivek Meraz MD 04/09/2018 5:36 PM Preliminary: Stella | | MD Adrian 04/09/2018 3:32 PM Dictation initiated: Stella Campbell MD 04/09/2018 | | 2:59 PM | |The kidneys and urinary bladder are visualized per normal clearance of the radiopharmaceuti yobany. | | | |IMPRESSION: | | | |No evidence of osseous metastasis. | | | |I have personally reviewed the images and, if necessary, edited the report. I agree with e report as now presented. | | | |Final signature: Vivek Meraz MD 04/09/2018 5:36 PM | |Preliminary: Stella Campbell MD 04/09/2018 3:32 PM | |Dictation initiated: Stella Campbell MD 04/09/2018 2:59 PM | + + + +---------+ + + | Performing | Address | City/State/Zipcode | Phone Number | | Organization | | | | + +---------+ + + | [facility] | | | | | VOICE RECOGNITION 2 | | | | + +---------+ + + ORDERS OTHER (04/09/2018 12:00 AM PDT) + + + | Narrative | Performed At | + + + | | | + + + documented in this encounter Visit Diagnoses + + | Diagnosis | + + | Malignant neoplasm of upper-outer quadrant of left breast in female, estrogen receptor | | positive (HCC) | + + | Weight loss Loss of weight | + + | Bone pain Disorder of bone and cartilage, unspecified | + + documented in this encounter"
--- OUTSIDE RECORDS SUMMARY | ~2019-09-15 | XMS | Encounter Summary ---
Demographics + + + | Address | [address] | | | [place] [address] | + + + | Home Phone | | + + + | Preferred Language | Unknown | + + + | Marital Status | | + + + | Mormonism Affiliation | Unknown | + + + | Race | or | + + + | Ethnic Group | Not or | + + + Author + + + | Author | [facility] | + + + | Organization | [facility] | + + + | Address | Unknown | + + + | Phone | Unavailable | + + + Support + + +---------+ + | Name | Relationship | Address | Phone | + + +---------+ + | Jak Daley | ECON | Unknown | | + + +---------+ + Care Team Providers + +------+ + | Care Press Set Up Name | Role | Phone | + +------+ + | Mela Condon PA-C | PCP | | + +------+ + Encounter Details +--------+ + + + + | Date | Type | Department | Care Team | Description | +--------+ + + + + | 02/16/ | Document-Sc | Health Information | Unknown . | | | 2014 | anned | Services [id number] | | | | | [address] | | | | | | Mailcode: [id number] | | | | | | [facility] | | | | | | [place], [place] | | | | | | [address] | | | | | | [phone] | | | +--------+ + + + [...] | + +--------+ + + + | RADIOLOGY | | 02/16/2015 | | Results for this | | | | 12:00 AM | | procedure are in the | | | | PDT | | results section. | + +--------+ + + + documented in this encounter Results RADIOLOGY (02/16/2015 12:00 AM PDT) + + + | Narrative | Performed At | + + + | | | + + + documented in this encounter Visit Diagnoses Not on filedocumented in this encounter"
--- OUTSIDE RECORDS SUMMARY | ~2019-09-15 | XMS | Encounter Summary ---
Demographics + + + | Address | [address] | | | [place] [address] | + + + | Home Phone | | + + + | Preferred Language | Unknown | + + + | Marital Status | | + + + | Pentecostalism Affiliation | Unknown | + + + | Race | or | + + + | Ethnic Group | Not or | + + + Author + + + | Author | [facility] [employer] [facility] | + + + | Organization | [facility] | + + + | Address | Unknown | + + + | Phone | Unavailable | + + + Support + + +---------+ + | Name | Relationship | Address | Phone | + + +---------+ + | Jak aDley | ECON | Unknown | | + + +---------+ + Care Team Providers + +------+ + | Care Information Technology Auditor Name | Role | Phone | + [...] letter mailed ) | | | | [address] | [address] | | | | | [id number] [facility] | [place], [place] | | | | | [facility], | [address] | | | | | [place] [address] | | | | | | [phone] | | | +--------+ + + + [...]
--- OUTSIDE RECORDS SUMMARY | ~2019-09-15 | XMS | Encounter Summary ---
Demographics + + + | Address | [address] | | | [place] [address] | + + + | Home Phone | | + + + | Preferred Language | Unknown | + + + | Marital Status | | + + + | Yarsanism Affiliation | Unknown | + + + | Race | Unknown | + + + | Ethnic Group | Unknown | + + + Author + + + | Author | [facility] | | | and Johnnyana | + + + | Organization | [facility] | | | and [place] [...] [address], [place] | | | | | [address] | | + + + + + [...] [place] | | | | | [address] | | + + + + + Care Team Providers + +------+ + | Care Visual Arts Teacher Name | Role | Phone | + [...] | | unspecified | [place], | [place] [address] | | | | | site | [place] [address] | Phone: | | | | | consult/dante | Phone: | [phone] | | | | | st/won | [phone] | Fax: | | | | | Procedures | Fax: | [phone] | | | | | [place] OFFICE | [phone] | | | | | | OUTPATIENT [...] + + | 05/03/ | Hospital | [facility] | Renee Wood | | | 2015 | Encounter | MED CTR RADIATION | [place], [address] | | | | | ONCOLOGY [address] [place], [place] | | | | | [place], | [address] | | | | | [place] [address] | | | | | | [phone] | | | +--------+ + + + [...]
--- OUTSIDE RECORDS SUMMARY | ~2019-09-15 | XMS | Clinical Summary ---
Demographics + + + | Address | [address] | | | [place] [address] | + + + | Home Phone [...] Team Providers + +------+ + | Care Buckle Wire Inserter Name | Role | Phone | + +------+ + | Mela Condon PA-C | PCP | | + +------+ + Source Comments BILLY is fully live on both [facility] Ambulatory and [facility] InPatient.[facility] Allergies + + + + + [...] | | | cortney | 6 | [address] [place] | ity | | | | | for | | [place] | | | | | | all | | [address] | | | | | | dates | | | | + +--------+ +--------+ + +--------+ | [facility] | [place] | [phone] | Effect | | | [...] | | madhuri/Lenin | | 1966 | [phone] | [place] [address] | | | daniel | | | 9 (Home) | | + +--------+ +--------+ + +
--- OUTSIDE RECORDS SUMMARY | ~2019-09-15 | XMS | Encounter Summary ---
Demographics + + + | Address | [address] | | | [place] [address] | + + + | Home Phone | | + + + | Preferred Language | Unknown | + + + | Marital Status | | + + + | Yazidi Affiliation | Unknown | + + + | Race | or | + + + | Ethnic Group | Not or | + + + Author + + + | Author | [facility] | + + + | Organization | [facility] | + + + | Address | Unknown | + + + | Phone | Unavailable | + + + Support + + +---------+ + | Name | Relationship | Address | Phone | + + +---------+ + | Jak Daley | ECON | Unknown | | + + +---------+ + Care Team Providers + +------+ + | Care Auto Driver Name | Role | Phone | + +------+ + | Mela Condon PA-C | PCP | | + +------+ + Encounter Details +--------+ + + + + | Date | Type | Department | Care Team | Description | +--------+ + + + + | 04/13/ | Ancillary | Diagnostic Imaging | Mela Condon | | | 2018 | Orders | Services [address] | | | | | [facility] | [facility] | | | | | [place], [place] | [address] | | | | | [address] | [address] | | | | | | [address] [place], | | | | | | [place] [address] | | | | | | [phone] | | | | | | | [...]
--- OUTSIDE RECORDS SUMMARY | ~2019-09-15 | XMS | Encounter Summary ---
Demographics + + + | Address | [address] | | | [place] [address] | + + + | Home Phone | | + + + | Preferred Language | Unknown | + + + | Marital Status | | + + + | Protestant Affiliation | Unknown | + + + | Race | or | + + + | Ethnic Group | Not or | + + + Author + + + | Author | [facility] | + + + | Organization | [facility] | + + + | Address | Unknown | + + + | Phone | Unavailable | + + + Support + + +---------+ + | Name | Relationship | Address | Phone | + + +---------+ + | Jak Daley | ECON | Unknown | | + + +---------+ + Care Team Providers + +------+ + | Care Environmental Services Technician Name | Role | Phone | + +------+ + | Mela Condon PA-C | PCP | | + +------+ + Encounter Details +--------+ + + + + | Date | Type | Department | Care Team | Description | +--------+ + + + + | 02/19/ | Hospital | LAB SURGICAL | | | | 2016 | Encounter | PATHOLOGY [address] | | | | | | [address] | | | | | | [place], [place] | | | | | | [address] | | | +--------+ + + + [...]
--- OUTSIDE RECORDS SUMMARY | ~2019-09-15 | XMS | Encounter Summary ---
Demographics + + + | Address | [address] | | | [place] [address] | + + + | Home Phone | | + + + | Preferred Language | Unknown | + + + | Marital Status | | + + + | Denominational Affiliation | Unknown | + + + | Race | or | + + + | Ethnic Group | Not or | + + + Author + + + | Author | [facility] | + + + | Organization | [facility] | + + + | Address | Unknown | + + + | Phone | Unavailable | + + + Support + + +---------+ + | Name | Relationship | Address | Phone | + + +---------+ + | Jak Daley | ECON | Unknown | | + + +---------+ + Care Team Providers + +------+ + | Care Reverse Unit Operator Name | Role | Phone | + [...] Radiology | Diagnoses | Dipak, | Rad Ct Scan | | | | | Malignant | Jemima Leon, | s [address] | | | | | neoplasm of | [address] | [address] | | | | | upper-outer | [address] | [address] | | | | | quadrant of | [place], [place] | Mailcode: | | | | | left breast | [address] | [address] [facility] | | | | | in female, | Phone: | Hospital | | | | | estrogen | [phone] | [place], [place] | | | | | receptor | Fax: | [address] | | | | | positive | [phone] | Phone: | | | | | (HCC) | | [phone] | | | | | Weight loss | | Fax: | | | | | Bone pain | | [phone] | | | | | Procedures | | | | | | | CT CHEST, | | | | | | | ABDOMEN AND | | | | | | | PELVIS W IV | | | | | | | CONTRAST NV | | | | | | | CT | | | | | | | ABDOMEN&PELV | | | | | | | IS | | | | | | | W/CONTRAST | | | | | | | NV CAT SCAN | | | | | | | OF CHEST | | | | | | | CONTRAST | | | +--------+--------+ + + + + Reason for Visit Diagnostic Testing (Routine) +--------+--------+ + + + + | Status | Reason | Specialty | Diagnoses / | Referred By | Referred To | | | | | Procedures | Contact | Contact | +--------+--------+ + + + + | Closed | | Radiology | Diagnoses | Kemmer, | Rad Ct Scan | | | | | Malignant | Jemima Leon, | [facility] [address] | | | | | neoplasm of | MD [address] | [address] | | | | | upper-outer | [address] | [address] | | | | | quadrant of | [place], [place] | Mailcode: | | | | | left breast | [address] | [address] [facility] | | | | | in female, | Phone: | Hospital | | | | | estrogen | [phone] | [place], [place] | | | | | receptor | Fax: | [phone] | | | | | positive | [phone] | Phone: | | | | | (HCC) | | [phone] | | | | | Weight loss | | Fax: | | | | | Bone pain | | [phone] | | | | | Procedures | | | | | | | CT CHEST, | | | | | | | ABDOMEN AND | | | | | | | PELVIS W IV | | | | | | | CONTRAST NV | | | | | | | CT | | | | | | | ABDOMEN&PELV | | | | | | | IS | | | | | | | W/CONTRAST | | | | | | | NV CAT SCAN | | | | | | | OF CHEST | | | | | | | CONTRAST | | | +--------+--------+ + + + + Encounter Details +--------+ + + + + | Date | Type | Department | Care Team | Description | +--------+ + + + + | 04/09/ | Hospital | Diagnostic Imaging | Jemima Quesada | | | 2018 | Encounter | Services at [facility] | MD Carolyn [address] | | | | | [address] | [place], [place] | | | | | [address] Mailcode: | [id number] | | | | | [address] [facility] | [phone] | | | | | [place], [place] | | | | | | [address] | | | | | | [phone] | | | +--------+ + + + [...] | + +--------+ + + + | CT CHEST, ABDOMEN | Routin | 04/09/2018 | Malignant neoplasm | Results for this | | AND PELVIS W IV | e | 3:32 PM | of upper-outer | procedure are in the | | CONTRAST | | PDT | quadrant of left | results section. | | | | | breast in female, | | | | | | estrogen receptor | | | | | | positive (HCC) | | | | | | Weight loss Bone | | | | | | pain | | + +--------+ + + + documented in this encounter Results CT CHEST, ABDOMEN AND PELVIS W IV CONTRAST (04/09/2018 3:32 PM PDT) + + | Specimen | + + | | + + + + + | Narrative | Performed At | + + + | EXAM: CT of the chest, abdomen and pelvis WITH intravenous contrast. | [facility] | | HISTORY: hx of early stage breast cancer, recent weight loss, | RADIOLOGY VOICE | | diffuse bone pains COMPARISON: None available. TECHNIQUE: CT | RECOGNITION 2 | | of the chest, abdomen and pelvis WITH intravenous contrast. Coronal | | | and sagittal reformats were generated and reviewed. FINDINGS: | | | CHEST: No supraclavicular, axillary, mediastinal or hilar adenopathy. | | | Heart and great vessels are unremarkable. No pleural or pericardial | | | effusion. Lungs are clear. Left axillary clips. LIVER: Gallbladder | | | is surgically absent. No focal hepatic lesion. BILIARY: No ductal | | | dilatation. PANCREAS: Unremarkable. SPLEEN: Unremarkable. | | | ADRENALS: Unremarkable. KIDNEYS/URETERS: Unremarkable. PELVIC | | | ORGANS/BLADDER: Bladder is unremarkable. Uterus is absent. No adnexal | | | masses. GI TRACT: Unremarkable. PERITONEUM: No free air or fluid. | | | LYMPH NODES: No lymphadenopathy. VESSELS: Unremarkable. | | | BONES AND SOFT TISSUES: Unremarkable. IMPRESSION: No evidence | | | of metastatic disease in the chest, abdomen or pelvis. I have | | | personally reviewed the images and, if necessary, edited the report. I | | | agree with the report as now presented. Final signature: Carolyn Cotton | | | MD Jeffrey 04/09/2018 4:11 PM Preliminary: Carolyn Murphy MD | | | Dictation initiated: Carolyn Murphy MD 04/09/2018 3:47 PM | | + + + + + | Procedure Note | + + | Service Account, Radiant Res In Interface - 04/09/2018 4:12 PM PDT EXAM: CT of the | | chest, abdomen and pelvis WITH intravenous contrast. HISTORY: hx of early stage breast | | cancer, recent weight loss, diffuse bone pains COMPARISON: None available. TECHNIQUE: | | CT of the chest, abdomen and pelvis WITH intravenous contrast. Coronal and sagittal | | reformats were generated and reviewed. FINDINGS: CHEST: No supraclavicular, axillary, | | mediastinal or hilar adenopathy. Heart and great vessels are unremarkable. No pleural or | | pericardial effusion. Lungs are clear. Left axillary clips. LIVER: Gallbladder is | | surgically absent. No focal hepatic lesion.BILIARY: No ductal dilatation.PANCREAS: | | Unremarkable. SPLEEN: Unremarkable.ADRENALS: Unremarkable.KIDNEYS/URETERS: | | Unremarkable.PELVIC ORGANS/BLADDER: Bladder is unremarkable. Uterus is absent. No | | adnexal masses. GI TRACT: Unremarkable.PERITONEUM: No free air or fluid. LYMPH NODES: No | | lymphadenopathy.VESSELS: Unremarkable. BONES AND SOFT TISSUES: Unremarkable. | | IMPRESSION: No evidence of metastatic disease in the chest, abdomen or pelvis. I have | | personally reviewed the images and, if necessary, edited the report. I agree with the | | report as now presented. Final signature: Carolyn Murphy MD 04/09/2018 4:11 PM | | Preliminary: Carolyn Murphy MD Dictation initiated: Carolyn Murphy MD | | 04/09/2018 3:47 PM | |ADRENALS: Unremarkable. | |KIDNEYS/URETERS: Unremarkable. | |PELVIC ORGANS/BLADDER: Bladder is unremarkable. Uterus is absent. No adnexal masses. | | | |GI TRACT: Unremarkable. | |PERITONEUM: No free air or fluid. | | | |LYMPH NODES: No lymphadenopathy. | |VESSELS: Unremarkable. | | | |BONES AND SOFT TISSUES: Unremarkable. | | | |IMPRESSION: | | | |No evidence of metastatic disease in the chest, abdomen or pelvis. | | | |I have personally reviewed the images and, if necessary, edited the report. I agree with e report as now presented. | | | |Final signature: Carolyn Murphy MD 04/09/2018 4:11 PM | |Preliminary: Carolyn Murphy MD | |Dictation initiated: Carolyn Murphy MD 04/09/2018 3:47 PM | + + + +---------+ + [...] unspecified | + + documented in this encounter Administered Medications + +---------+ +--------+------+------+ | Medication Order | MAR | Action | Dose | Rate | Site | | | Action | Date | | | | + +---------+ +--------+------+------+ | iohexol (OMNIPAQUE) 350 mg | IV Push | 04/09/20 | 100 mL | | | | iodine/mL injection 100 mL 100 | | 18 3:33 | | | | | mL, intravenous, ONCE, 1 dose, | | PM PDT | | | | | Tammy 04/09/18 at 1615 | | | | | | + +---------+ +--------+------+------+ +---+---+ | | | +---+---+ documented in this encounter"
--- OUTSIDE RECORDS SUMMARY | ~2019-09-15 | XMS | Encounter Summary ---
Demographics + + + | Address | [address] | | | [place] [address] | + + + | Home Phone | | + + + | Preferred Language | Unknown | + + + | Marital Status | | + + + | Christian Affiliation | Unknown | + + + | Race | or | + + + | Ethnic Group | Not or | + + + Author + + + | Author | [facility] | + + + | Organization | [...] Providers + +------+ + | Care Hand Developer Name | Role | Phone | + +------+ + | Mela Condon PA-C | PCP | | + +------+ + Encounter Details +--------+ + + + + | Date | Type | Department | Care Team | Description | +--------+ + + + + | 04/10/ | Ancillary | Diagnostic Imaging | Mela Condon | | | 2018 | Orders | Services [address] | | | | | [facility] | [facility] | | | | | [place], [place] | [address] | | | | | [address] | [address] | | | | | [address] [place], | | | | | | [place] [address] | | | | | | [phone] | | | | | | | [...] filedocumented as of this encounter Visit Diagnoses + + | Diagnosis | + + | Weight loss Loss of weight | + + | Bone pain Disorder of bone and cartilage, unspecified | + + documented in this encounter"
--- OUTSIDE RECORDS SUMMARY | ~2019-09-15 | XMS | Encounter Summary ---
Demographics + + + | Address | [address] | | | [place] [address] | + + + | Home Phone | | + + + | Preferred Language | Unknown | + + + | Marital Status | | + + + | Advent Affiliation | Unknown | + + + | Race | or | + + + | Ethnic Group | Not or | + + + Author + + + | Author | [facility] | + + + | Organization | [facility] | + + + | Address | Unknown | + + + | Phone | Unavailable | + + + Support + + +---------+ + | Name | Relationship | Address | Phone | + + +---------+ + | Jak Daley | ECON | Unknown | | + + +---------+ + Care Team Providers + +------+ + | Care Polysomnography Technician Name | Role | Phone | + +------+ + | Mela Condon PA-C | PCP | | + +------+ + Encounter Details +--------+ + + + + | Date | Type | Department | Care Team | Description | +--------+ + + + + | 02/28/ | Document-Sc | Health Information | Unknown . | | | 2016 | anned | Services [address] | | | | | | [address] | | | | | | Mailcode: [id number] | | | | | | [facility] | | | | | | [place], [place] | | | | | | [address] | | | | | | [phone] | | | +--------+ + + + [...]
--- OUTSIDE RECORDS SUMMARY | ~2019-09-15 | XMS | Encounter Summary ---
Demographics + + + | Address | [address] | | | [place] [address] | + + + | Home Phone | | + + + | Preferred Language | Unknown | + + + | Marital Status | | + + + | Alevism Affiliation | Unknown | + + + | Race | Unknown | + + + | Ethnic Group | Unknown | + + + Author + + + | Author | [facility] | | | and [place] | + + + | Organization | [facility] | | | and [place] [...] [place], [place] | | | | | [address] | | + + + + + [...] [place] | | | | | [address] | | + + + + + Care Team Providers + +------+ + | Care Top Flavor Attendant Name | Role | Phone | + +------+ + | Luis Garcia PA-C | PCP | | + +------+ + Reason for Visit + + + | Reason | Comments | + + + | Follow-up | | + + + Encounter Details +--------+ + + + + | Date | Type | Department | Care Team | Description | +--------+ + + + + | 06/16/ | Telephone | [facility] | Renee Wood | Follow-up | | 2014 | | MED CTR RAD[facility]ATION | MD Lazara [address] | | | | | ONCOLOGY [address] [place], [place] | | | | | [place], | [address] | | | | | [place] [address] | | | | | | [phone] | | | +--------+ + + + [...]
--- OUTSIDE RECORDS SUMMARY | ~2019-09-15 | XMS | Clinical Summary ---
Demographics + + + | Address | [address] | | | [place] [address] | + + + | Home Phone | | + + + | Preferred Language | Unknown | + + + | Marital Status | Unknown | + + + | Evangelical Affiliation | Unknown | + + + | Race | Unknown | + + + | Ethnic Group | Unknown | + + + Author + + + | Author | [facility] (Historical as of | | | 05-15-19) | + + + | Organization | [facility] (Historical as of | | | 05-15-19) | + + + | Address | Unknown | + + + | Phone | Unavailable | + + + Support + + + + + | Name | Relationship | Address | Phone | + + + + + | Luigi Benedict | ECON | [address] | | | | | [place] | | | | | [address] | | + + + + + Care Team Providers + +------+ + | Care Housekeeping Laundry Worker Name | Role | Phone | + +------+ + PP | Unavailable | + +------+ + Allergies Not on File Current Medications Not on file Active Problems Not on file Social History + +-------+ +--------+------+ | Tobacco [...] on file | | + + + Plan of Treatment + + + + + | Health Maintenance | Due Date | Last Done | Comments | + + + + + | Vaccine: | | | | | Dtap/Tdap/Td (1 - | 7 | | | | Tdap) | | | | + + + + + | Cervical Cancer | | | | | Screening (Pap) | 8 | | | + + + + + | Vaccine: Zoster (1 | | | | | of 2) | 8 | | | + + + + + | Vaccine: Influenza | | 07/08/2018 | | | (#1) | 9 | | | + + + + + Results Not on filefrom Last 3 Months Insurance + +--------+ +------+-------+---------+ | Payer | Benefi | Subscriber | Type | Phone | Address | | | t Plan | ID | | | | | | / | | | | | | | Group | | | | | + +--------+ +------+-------+---------+ | /[employer] | YELLOW | [id number] | | | | | PLANS | [place] | | | | | + +--------+ +------+-------+---------+ | [employer]ETNA | AETNA | [id number] | | | | | | - GEHA | | | | | + +--------+ +------+-------+---------+ + +--------+ +--------+ + + | Guarantor Name | Accoun | Relation to | Date | Phone | Billing Address | | | t Type | Patient | of | | | | | | | | | | + +--------+ +--------+ + + | AIDA BYERS | Person | Self [birth year] | Home: | [address] | | | al/Fam | | 1966 | [phone] [place] | | | daniel | | | [phone] | [phone] | + +--------+ +--------+ + +"
--- OUTSIDE RECORDS SUMMARY | ~2019-09-15 | XMS | Encounter Summary ---
Demographics + + + | Address | [address] | | | [place] [address] | + + + | Home Phone | | + + + | Preferred Language | Unknown | + + + | Marital Status | | + + + | Christianity Affiliation | Unknown | + + + | Race | or | + + + | Ethnic Group | Not or | + + + Author + + + | Author | [facility] | + + + | Organization | [facility] | + + + | Address | Unknown | + + + | Phone | Unavailable | + + + Support + + +---------+ + | Name | Relationship | Address | Phone | + + +---------+ + | Jak Daley | ECON | Unknown | | + + +---------+ + Care Team Providers + +------+ + | Care Quantitative Developer Name | Role | Phone | [...] | 2018 | Encounter | [facility] at [facility] [address] MD [address] | | | | | [address] | [facility] [place] | | | | | [id number] | [address] | | | | | [facility], | [phone] | | | | | [place] [address] | | | | | | [phone] | | | +--------+ + + + [...] | | | BILAT w/CAD performed at [facility]. There | | | are scattered fibroglandular densities. Stable post-lumpectomy | | | changes in the left breast. No suspicious calcifications, masses, or | | | architectural distortion present in either breast. No significant | | | changes when compared with prior studies. The images were | | | obtained using full field digital mammography on the dedicated | | | [employer] System with R2 CAD. Performed at [facility] | | | [place]. 3D tomosynthesis mammography was performed as part [...] 12, 2018 - Accession #: | | [id number] CC and MLO view(s) were taken.Prior study comparison: January 31, 2017, | | bilateral MA VY DIAGNOSTICBILAT w/CAD performed at [facility] | | [place].There are scattered fibroglandular densities. Stable post-lumpectomy changes | | in the left breast. No suspicious calcifications, masses, or architectural distortion | | present in either breast. No significant changes when compared with prior studies.The | | images were obtained using full field digital mammography on the dedicated [employer] | | System with R2 CAD. Performed at [facility]. 3D | | tomosynthesis mammography wasperformed as [...] Hologic System with R2 CAD. Performed at [facility]. 3D tomosynthesis mammography was | [...]
--- OUTSIDE RECORDS SUMMARY | ~2019-09-15 | XMS | Encounter Summary ---
Demographics + + + | Address | [address] | | | [place] [address] | + + + | Home Phone | | + + + | Preferred Language | Unknown | + + + | Marital Status | | + + + | Methodist Affiliation | Unknown | + + + | Race | Unknown | + + + | Ethnic Group | Unknown | + + + Author + + + | Author | [facility] | | | and [place] | + + + | Organization | [facility] | | | and [...] [place], [place] | | | | | [address] | | + + + + + | Luis Downey | ECON | Unknown | | + + + + + | Kourntey Carlos | ECON | Unknown | | + + + + + | Adrianne Carlos | ECON | Unknown | | + + + + + | Rena Uribe | ECON | Unknown | | + + + + + | Luigi Benedict | ECON | [address] | | | | | [place] | | | | | [address] | | + + + + + Care Team Providers + +------+ + | Care Needle Molder Name | Role | Phone | + [...] + + | 12/25/ | Telephone | [facility] | Renee Wood | Other | | 2018 | | MED CTR MEDICAL | MD Lazara [address] | | | | | ONCOLOGY CLINIC [address] [place], [place] | | | | | [address] [place] | [address] | | | | | [place] [address] | | | | | | [phone] | | | +--------+ + + + [...]
--- OUTSIDE RECORDS SUMMARY | ~2019-09-15 | XMS | Encounter Summary ---
Demographics + + + | Address | [address] | | | [place] [address] | + + + | Home Phone | | + + + | Preferred Language | Unknown | + + + | Marital Status | | + + + | Baptism Affiliation | Unknown | + + + | Race | or | + + + | Ethnic Group | Not or | + + + Author + + + | Author | [facility] | + + + | Organization | [facility] | + + + | Address | Unknown | + + + | Phone | Unavailable | + + + Support + + +---------+ + | Name | Relationship | Address | Phone | + + +---------+ + | Jak Daley | ECON | Unknown | | + + +---------+ + Care Team Providers + +------+ + | Care Bee Producer Name | Role | Phone | + +------+ + | Mela Condon PA-C | PCP | | + +------+ + Encounter Details +--------+ + + + + | Date | Type | Department | Care Team | Description | +--------+ + + + + | 03/13/ | Document-Sc | Health Information | Unknown . | | | 2014 | anned | Services [phone] | | | | | | [address] | | | | | | Mailcode: [address]A | | | | | | [facility] | | | | | | [place], [place] | | | | | | [address] | | | | | | [phone] | | | +--------+ + + + [...]
--- OUTSIDE RECORDS SUMMARY | ~2019-09-15 | XMS | Clinical Summary ---
Demographics + + + | Address | [address] | | | [place] [address] | + + + | Home Phone | | + + + | Preferred Language | Unknown | + + + | Marital Status | | + + + | Restorationism Affiliation | Unknown | + + + | Race | Unknown | + + + | Ethnic Group | Unknown | + + + Author + + + | Author | [facility] | | | and Johnnyana | + + + | Organization | [facility] | | | and [...] [address], [place] | | | | | [address] | | + + + + + | Luis Downey | ECON | Unknown | | + + + + + | Kourtney Carlos | ECON | Unknown | | + + + + + | Marco Antonio Carlos | ECON | Unknown | | + + + + + | Rena Uribe | ECON | Unknown | | + + + + + | Luigi Benedict | ECON | [address] | | | | | [place] | | | | | [address] | | + + + + + Care Team Providers + +------+ + | Care Svp Group Director Name | Role | Phone | + +------+ + | Mela Codnon PA-C | PCP | | + +------+ + Allergies + + + + + + | Active Allergy | Reactions | Severity | Noted | Comments | | | | | Date | | + + + + + + | Bee Venom | Swelling | | 08/05/20 | | | | | | 16 | | + + + + + + Medications + + + +---------+------+------+-------+ | Medication | Sig | Dispensed | Refills | Star | End | Statu | | | | | | t | Date | s | | | | | | Date | | | + + + +---------+------+------+-------+ | EPIPEN 2-DAVID 0.3 | Inject 0.3 mg into | | 0 | 09/2 | | Activ | | MG/0.3ML injection | the muscle as | | | 9/20 | | e | | | needed. | | | 16 | | | + + + +---------+------+------+-------+ | non-formulary | Allergy shots 1 | | 0 | | | Activ | | medication | time/week. | | | | | e | + + + +---------+------+------+-------+ | Fexofenadine HCl | Take 1 tablet by | | 0 | | | Activ | | (TAMEKA ALLERGY PO) | mouth Daily. | | | | | e | + + + +---------+------+------+-------+ | tamoxifen | Take 1 tablet by | | 0 | 02/27 | | Activ | | (NOLVADEX) 20 MG | mouth Daily. 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 Clinical breast exam by | | Nanci Kee on February 16, 2015 was notable for a palpable mass in | | the upper outer quadrant of the left breast. Digital bilateral | | diagnostic mammography with left breast ultrasound on February 16 | | 2014 confirmed a hypoechoic mass in the upper outer quadrant of | | the left breast 13 mm x 9 mm x 9 mm without evidence of any other | | suspicious nodules.2. On February 17, 2015 left breast core needle | | biopsy was performed by Dr. Iman Perales of [facility] diagnostic imaging. Pathological specimen [id number] | | was analyzed by Dr. Alba Champion a [facility] and | | returned a grade 1 invasive ductal carcinoma associated with | | ductal carcinoma in situ with comedonecrosis. Angiolymphatic | | invasion was absent. Estrogen receptor was positive with an | | Seth score of 8 out of 8. Progesterone receptor was positive | | with an Seth score of 7 out of 8. HER-2/jamia was negative by | | immunohistochemistry with the score 0. HER-2/jamia analysis by | | FISH was indeterminate.3. On March 14, 2015 Dr. Edi Upton | | performed and image guided left breast lumpectomy and axillary | | sentinel lymph node biopsy. Specimen number [id number] | | returned a 1.1 cm well-differentiated invasive ductal carcinoma | | associated with ductal carcinoma in situ. No lymphovascular | | invasion was identified. All surgical margins were free of | | disease. There was no regionally metastatic disease in the | | single sentinel lymph node.4. Gynecological history: 3, | | para 3. Age of menarche was 15. Age of first was 21. | | She did not breast-feed her children. She has a history of | | exposure to oral contraceptive pills but no estrogen replacement | | therapy. The patient was menstruating irregularly up until the | | time of her biopsy.5. Status post adjuvant left breast radiation | | therapy supervised by Dr. Renee Johnson of the [facility] | [facility] in [facility] with 4005 | | cGy in 15 fractions to the left breast over 21 elapsed calendar | | days May 17, 2015 through June 07, 2015 followed | | immediately by 800 cGy boost to the lumpectomy scar in 4 | | fractions over 6 elapsed calendar days June 08, 2015 through | | June 14, 2015.6. Initiation of endocrine therapy with | | medical ovarian function suppression and exemestane 25 mg orally | | daily June 30, 20157. Permanent ovarian function suppression | | with PARRISH/BSO August 28, 2015.8. Exemestane discontinued on | | July 09, 2016 due to arthralgias. Last Assessment & Plan: | | Carissa Downey returned to [facility] | | [place] with her , Jak Daley, for follow-up after one | | year of adjuvant endocrine therapy with exemestane initially | | combined with ovarian function suppression with goserelin and | | subsequently with permanent ovarian function suppression with | | PARRISH/BSO.Chief complaint today is intractable arthralgias that are | | severe enough to require narcotic therapy.Clinical exam is | | notable for the absence of any joint deformities. Cosmetic | | result following left breast conservation is excellent with no | | evidence of local recurrence.Mammographic data from [place] | [facility] in [facility] on February 29, 2016 and interpreted by | | Dr. Iman Perales as BI-RADS Category 2, benign.Plan; extended, | | 25 minute office encounter with Carissa reviewing her symptom | | complex of intractable arthralgias that coincided with the | | initiation of adjuvant endocrine therapy with exemestane 25 mg | | orally daily on June 30, 2015. Symptoms are severe enough to | | warrant narcotic therapy.I gave Carissa my professional opinion | | that her arthralgias are due to exemestane and that the adverse | | effects of exemestane on her sense of well-being do not warrant | | continuation of therapy.Carissa will discontinue adjuvant endocrine | | therapy with exemestane. She'll follow up with me in February after | | her next mammogram at [facility] cancer [facility] in | | [facility] to review her symptoms and to discuss other | | options for adjuvant endocrine therapy for her stage IA ER | | positive left breast cancer. | + + Immunizations + + + + | Name | Administration Dates | Next Due | + + + + | INFLUENZA PF | 07/08/2018 | | | QUAD(PED/ADOL/ADULT) | | | | ,PSKT or VIAL | | | + + + + | INFLUENZA, | 09/02/2001, 07/19/1998 | | | UNSPECIFIED | | | | FORMULATION | | | + + + + | TD, UNSPECIFIED | 02/08/2005, 08/27/2004 | | | FORMULATION | | | + + + + Family History + + + + + | Medical History | Relation | Name | Comments | + + + + + | Diabetes | Brother | | | + + + + + | Cirrhosis | Brother | | | + + + + + | No known problems | Daughter | MARCO ANTONIO | | + + + + + | No known problems | Daughter | KIMBERLY | | + + + + + | No known problems | Father | | | + + + + + | No known problems | Grandchil | | | | | d | | | + + + + + | Hypertension | Maternal | | | | | Aunt | | | + + + + + | Diabetes | Maternal | | | | | Aunt | | | + + + + + | No known problems | Maternal | | | | | Grandfath | | | | | er | | | + + + + + | No known problems | Maternal | | | | | Grandmoth | | | | | er | | | + + + + + | No known problems | Maternal | | | | | Uncle | | | + + + + + | Lung cancer | Mother | | | + + + + + | No known problems | Paternal | | | | | Aunt | | | + + + + + | No known problems | Paternal | | | | | Grandfath | | | | | er | | | + + + + + | No known problems | Paternal | | | | | Grandmoth | | | | | er | | | + + + + + | No known problems | Paternal | | | | | Uncle | | | + + + + + | Diabetes | Sister | | | + + + + + | Other (see comment) | Sister | | HEPATITIS | + + + + + | No known problems | Son | | | + + + + + + + + + + | Relation | Name | Status | Comments | + + + + + | Brother | | Alive | | + + + + + | Brother | | | | + + + + + | Brother | | | | + + + + + | Daughter | Marco Antonio | Alive | | + + + + + | Daughter | Kimberly | Alive | | + + + + + | Daughter | MARCO ANTONIO | | | + + + + + | Daughter | KIMBERLY | | | + + + + + | Father | | | | + + + + + | Grandchild | | Alive | | + + + + + | Grandchild | | | | + + + + + | Maternal Aunt | Rena | Alive | | + + + + + | Maternal Aunt | | | | + + + + + | Maternal Aunt | | | | + + + + + | Maternal Grandfather | | | | + + + + + | Maternal Grandmother | | | | + + + + + | Maternal Uncle | | | | + + + + + | Maternal Uncle | | | | + + + + + | Mother | | | LUNG CANCER | + + + + + | Paternal Aunt | | Other | STATUS UNKNOWN | + + + + + | Paternal Aunt | | | | + + + + + | Paternal Grandfather | | Other | STATUS UNKNOWN | + + + + + | Paternal Grandmother | | Other | STATUS UNKNOWN | + + + + + | Paternal Uncle | | Other | STATUS UNKNOWN | + + + + + | Paternal Uncle | | | | + + + + + | Sister | Luis | Alive | | + + + + + | Sister | | Alive | | + + + + + | Sister | | | | + + + + + | Sister | | | | + + + + + | Son | | Alive | | + + + + + | Son | | | | + + + + + Social History + [...] | Vaccine: | | | | | Pneumococcal 19-64 | 4 | | | | (1 of 3 - PCV13) | | | | + + + + + | Vaccine: | | 02/08/2005, 08/27/2004 | | | Dtap/Tdap/Td (1 - | 5 | | | | Tdap) | | | | + + + + + | Breast Cancer | | | | | Screening | 3 | | | + + + + + | Colorectal Cancer | | | | | Screening | 8 | | | | (Colonoscopy) | | | | + + + + + | Vaccine: Zoster (1 | | | | | of 2) | 8 | | | + + + + + | Vaccine: Influenza | Completed | 07/21/2019, 07/08/2018, | | | | | 09/02/2001, Additional history | | | | | exists | | + + + + + Results Not on filefrom Last 3 Months Insurance + +--------+ +--------+ +---------+--------+ | Payer | Benefi | Subscriber | Effect | Phone | Address | Type | | | t Plan | ID | cortney | | | | | | / | | Dates | | | | | | Group | | | | | | + +--------+ +--------+ +---------+--------+ | GEHA | GEHA | [id number] | 09/29/19 | [phone] | | PPO | | | [employer]ETNA | | 16-Pre | 6 | | | | | PPO | | sent | | | | + +--------+ +--------+ +---------+--------+ | HEALTH | IHS | [id number] | 09/29/19 | | | Indemn | | SERVICE | YELLOW | | 14-Pre | | | ity | | | HAWK | | sent | | | | + +--------+ +--------+ +---------+--------+ + +--------+ +--------+ + + | Guarantor Name | Accoun | Relation to | Date | Phone | Billing Address | | | t Type | Patient | of | | | | | | | | | | + +--------+ +--------+ + + | Carissa Downey | Person | Self | [birth year] | | [address] | | | al/[place] | | 1966 | [phone] | [place] | | | daniel | | | 9 (Home) | [id number] | | | | | | [phone] | | | | | | | 7 (Work) | | + +--------+ +--------+ + + Advance Directives + + + + + | Type | Date Recorded | Patient | Explanation | | | | Gate Attendant | | + + + + + | Power of | | | | | Insecticide Maker | | | | + + + + + | Advance | | | | | Directive | | | | + + + + +
--- OUTSIDE RECORDS SUMMARY | ~2019-09-15 | XMS | Encounter Summary ---
Demographics + + + | Address | [address] | | | [place] [address] | + + + | Home Phone | | + + + | Preferred Language | Unknown | + + + | Marital Status | | + + + | Druze Affiliation | Unknown | + + + | Race | Unknown | + + + | Ethnic Group | Unknown | + + + Author + + + | Author | [facility] | | | and [place]ana | + + + | Organization | [facility] | | [...] [address], [place] | | | | | [address] | | + + + + + [...] [place] | | | | | [address] | | + + + + + Care Team Providers + +------+ + | Care It Solutions Sales Consultant Name | Role | Phone | [...] | | | neoplasm of | PA-C [id number] | [address] | | | | | upper-outer | [address] | | | | | quadrant of | WAY | [place], | | | | | unspecified | [place], | [place] [address] | | | | | female | [place] [address] | Phone: | | | | | breast (HCC) | Phone: | [phone] | | | | | Procedures | [phone] | Fax: | | | | | ID OFFICE | Fax: | [phone] | | | | | OUTPATIENT | [phone] | | | | | | VISIT 25 | | | | | | | MINUTES | | | +--------+--------+ + + + + Encounter Details +--------+ + + + + | Date | Type | Department | Care Team | Description | +--------+ + + + + | 01/08/ | Hospital | [facility] | Renee Wood | No Show | | 2017 | Encounter | MED CTR RADIATION | [place], [address] | | | | | ONCOLOGY [address] [place], [place] | | | | | [place], | [address] | | | | | [place] [address] | | | | | | [phone] | | | +--------+ + + + [...]
--- OUTSIDE RECORDS SUMMARY | ~2019-09-15 | XMS | Encounter Summary ---
Demographics + + + | Address | [address] | | | [place] [address] | + + + | Home Phone | | + + + | Preferred Language | Unknown | + + + | Marital Status | | + + + | Temple Affiliation | Unknown | + + + | Race | or | + + + | Ethnic Group | Not or | + + + Author + + + | Author | [facility] | + + + | Organization | [...] Team Providers + +------+ + | Care Manager Analysis Name | Role | Phone | + +------+ + | Mela Condon PA-C | PCP | | + +------+ + Encounter Details +--------+ + + + + | Date | Type | Department | Care Team | Description | +--------+ + + + + | 03/12/ | Procedure | Diagnostic Imaging | | | | 2017 | Pass | Services at [facility] | | | | | | [address] | | | | | | Jazzmine Abernathy Mailcode: | | | | | | [address] [facility] | | | | | | [place], [place] | | | | | | [address] | | | | | | [phone] | | | +--------+ + + + [...]
--- OUTSIDE RECORDS SUMMARY | ~2019-09-15 | XMS | Encounter Summary ---
Demographics + + + | Address | [address] | | | [place] [address] | + + + | Home Phone [...] Author | [facility] | | | and Johnnyana | + + + | Organization | [facility] | | | and [place] | [...] [address], [place] | | | | | [address] | | + + + + + [...] [place] | | | | | [address] | | + + + + + Care Team Providers + +------+ + | Care Retail Business Manager Name | Role | Phone | + +------+ + | Mela Condon PA-C | PCP | | + +------+ + Reason for Visit Service/Procedure (Routine) +--------+--------+ + + + + | Status | Reason | Specialty | Diagnoses / | Referred By | Referred To | | | | | Procedures | Contact | Contact | +--------+--------+ + + + + | Closed | | Infusion | Diagnoses | | [facility] | | | | Therapy | Malignant | Narcisa, | Infusion [address] | | | | | neoplasm of | [address], | [address] | | | | | upper-outer | MD [address] | [place], | | | | | quadrant of | [address] | [place] [address] | | | | | female | [place], | Phone: | | | | | breast (HCC) | [place] [address] | [phone] | | | | | Procedures | Phone: | Fax: | | | | | [place] | [phone] | [phone] | | | | | GOSER[place]IN | Fax: | | | | | | ACETATE | [phone] | | | | | | IMPLANT, 3.6 | | | | | | | MG | | | +--------+--------+ + + + + Encounter Details +--------+ + + + + | Date | Type | Department | Care Team | Description | +--------+ + + + + | 05/25/ | Hospital | [facility] | Narcisa, | Canceled (Clinic | | 2015 | Encounter | MED CTR CHEMO | Mu Gutierrez MD [address] | and/or Provider | | | | INFUSION [address] [place] | Cancellation) | | | | [place], | [place] [address] | | | | | [place] [address] | [phone] | | | | | [phone] | | | +--------+ + + + [...]
--- OUTSIDE RECORDS SUMMARY | ~2019-09-15 | XMS | Encounter Summary ---
Demographics + + + | Address | [address] | | | [place] [address] | + + + | Home Phone | | + + + | Preferred Language | Unknown | + + + | Marital Status | | + + + | Anglican Affiliation | Unknown | + + + | Race | Unknown | + + + | Ethnic Group | Unknown | + + + Author + + + | Author | [facility] | | | and [place]ana | + + + | Organization | [facility] | | | and [place] [...] [address], [place] | | | | | [address] | | + + + + + [...] [place] | | | | | [address] | | + + + + + Care Team Providers + +------+ + | Care Food Scientist Name | Role | Phone | + +------+ + PCP | Unavailable | + +------+ + Encounter Details +--------+ + + + + | Date | Type | Department | Care Team | Description | +--------+ + + + + | 05/21/ | Hospital | [facility] | Afua Zambrano, | | | 2010 | Encounter | MED CTR LABORATORY | MD [address] | | | | | [address] [place] | [place], | | | | | [place], [place] | [place] [address] | | | | | [address] | [phone] | | | | | [phone] | | | +--------+ + + + [...] ST. | [address] | [place], [place] | [phone] | | [facility] | | [address] | | | - LABORATORY | | | | + + + + + | [address] | [address] | [place], [place] | | | [facility] | | [address] | | | - LABORATORY | | | | + + + + + documented in this encounter Visit Diagnoses Not on filedocumented in this encounter"
--- OUTSIDE RECORDS SUMMARY | ~2019-09-15 | XMS | Encounter Summary ---
Demographics + + + | Address | [address] | | | [place] [address] | + + + | Home Phone | | + + + | Preferred Language | Unknown | + + + | Marital Status | | + + + | Sabianism Affiliation | Unknown | + + + | Race | Unknown | + + + | Ethnic Group | Unknown | + + + Author + + + | Author | [facility] | | | and Johnnyana | + + + | Organization | [facility] | | | and [place] [...] [address], [place] | | | | | [address] | | + + + + + [...] [place] | | | | | [address] | | + + + + + Care Team Providers + +------+ + | Care Show Host Name | Role | Phone | + +------+ + | Luis Garcia PA-C | PCP | | + +------+ + Encounter Details +--------+ + + + + | Date | Type | Department | Care Team | Description | +--------+ + + + + | 09/06/ | Hospital | [facility] | Renee Wood | | | 2015 | Encounter | MED CTR RADIATION | [place], [address] | | | | | ONCOLOGY [address] [facility] [place] | | | | | [place], | [address] | | | | | [place] [address] | | | | | | [phone] | | | +--------+ + + + [...]
--- OUTSIDE RECORDS SUMMARY | ~2019-09-15 | XMS | Encounter Summary ---
Demographics + + + | Address | [address] | | | [place] [address] | + + + | Home Phone | | + + + | Preferred Language | Unknown | + + + | Marital Status | | + + + | Anabaptism Affiliation | Unknown | + + + | Race | Unknown | + + + | Ethnic Group | Unknown | + + + Author + + + | Author | [facility] | | | and [place] | + + + | Organization | [facility] | | | and [place]ana [...] [place], [place] | | | | | [address] | | + + + + + [...] [place] | | | | | [address] | | + + + + + Care Team Providers + +------+ + | Care Refrigeration Lead Name | Role | Phone | + +------+ + | Luis Garcia PA-C | PCP | | + +------+ + Reason for Visit + + + | Reason | Comments | + + + | Hand Pain | bilateral hands, right greater than left | + + + | Numbness | in the morning | + + + Evaluate & Treat (Routine) +--------+ + + [...] | | | | syndrome | [facility] | [place], [place] | | | | | Cubital | [place], [place] | [address] Phone: | | | | | tunnel | [phone] | [phone] | | | | | syndrome, | Phone: | Fax: | | | | | bilateral | [phone] | [phone] | | | | | | Fax: | | | | | | | [phone] | | +--------+ + + + + + Encounter Details +--------+ + + + + | Date | Type | Department | Care Team | Description | +--------+ + + + + | 08/08/ | Procedure | [facility] | Rubén Merlos, | Bilateral hand | | 2015 | visit | PHYSIATRY [address] | MD Noni SCHAEFER | numbness (Primary | | | | [place], | [address] [place], [place] | Dx) | | | | [place] [address] | [id number] | | | | | [phone] | | | +--------+ + + + [...] + + + + | Pulse | - | - | | + + + + + | Temperature | - | - | | + + + + + | Respiratory Rate | - | - | | + + + + + | Oxygen Saturation | - | - | | + + + + + | Inhaled Oxygen | - | - | | | Concentration | | | | + + + + + | Weight | 68.9 kg (152 lb) | 08/08/2016 4:34 PM | | | | | PST | | + + + + + | Height | 162.6 cm (5' 4") | 08/08/2016 4:34 PM | | | | | PST | | + + + + + | Body Mass Index | 26.09 | 08/08/2016 4:34 PM | | | | | PST | | + + + + + documented in this encounter Plan of Treatment Not on filedocumented as of this encounter Procedures + +--------+ + + + | Procedure Name | Priori | Date/Time | Associated Diagnosis | Comments | | | ty | | | | + +--------+ + + + | EMG STUDY | Routin | 08/20/2016 | Bilateral hand | Results for this | | | e | 4:23 PM | numbness | procedure are in the | | | | PST | | results section. | + +--------+ + + + documented in this encounter Results EMG Study (08/20/2016 4:23 PM PST) + + + | Narrative | Performed At | + + + | Rubén Merlos MD 08/20/2016 16:23 [facility] | | | Physician Group [facility] [place] | | | [facility] [address] [place] [id number] Ph: | | | Test Date: 08/08/2016 | | | Patient Name: Carissa Downey : 1955 Physician: Kvng Merlos, | | | MR #: [id number] Sex: Female Referring Physician: Arya Rowland, | | | PA-C HISTORY: Ms. Downey is a 50 year-old left-handed woman who | | | was referred to the EMG lab to evaluate her bilateral hand pain. | | | She reports that the pain is over the dorsum of her hand/wrist | | | with radiation to her ring fingers. She also reports numbness in | | | the morning in her bilateral ring/long/index fingers. She has been | | | wearing bilateral neutral wrist splints at night which has helped | | | with her symptoms. She denies any weakness. On exam she has | | | normal strength and sensation. Anti Sensory Summary Table | | | Site NR Peak (ms) Norm Peak (ms) P-T Amp ( V) Norm P-T Amp Site1 | | | Site2 Delta-P (ms) Dist (cm) Gene (m/s) Norm Gene (m/s) Left Median | | | Anti Sensory (2nd Digit) Wrist 3.4 <3.6 40.5 >10 Wrist 2nd | | | Digit 3.4 14.0 41 >39 Right Median Anti Sensory (2nd Digit) Wrist | | | 3.4 <3.6 27.1 >10 Wrist 2nd Digit 3.4 14.0 41 >39 Right Radial | | | Anti Sensory (Base 1st Digit) Wrist 1.7 <3.1 55.0 Wrist Base | | | 1st Digit 1.7 0.0 Left Ulnar Anti Sensory (5th Digit) Wrist | | | 3.5 <3.7 35.8 >15.0 Wrist 5th Digit 3.5 14.0 40 >38 Right Ulnar | | | Anti Sensory (5th Digit) Wrist 3.7 <3.7 17.3 >15.0 Wrist 5th | | | Digit 3.7 14.0 38 >38 Motor Summary Table Site NR Onset (ms) | | | Norm Onset (ms) O-P Amp (mV) Norm O-P Amp Site1 Site2 Delta-0 (ms) | | | Dist (cm) Gene (m/s) Norm Gene (m/s) Left Median Motor (Abd Poll Brev) | | | Wrist 3.7 <4.2 5.9 >5 Elbow Wrist 3.9 22.0 56 >50 Elbow | | | 7.6 5.6 Right Median Motor (Abd Poll Brev) Wrist | | | 3.7 <4.2 6.1 >5 Elbow Wrist 4.4 23.0 52 >50 Elbow 8.1 4.9 | | | Left Ulnar Motor (Abd Dig Minimi) Wrist 3.2 <4.2 | | | 7.6 >3 B Elbow Wrist 3.4 19.0 56 >53 B Elbow 6.6 6.4 A | | | Elbow B Elbow 1.6 9.0 56 >53 A Elbow 8.2 6.5 | | | Right Ulnar Motor (Abd Dig Minimi) Wrist 3.0 <4.2 8.5 >3 B | | | Elbow Wrist 10.8 0.0 >53 B Elbow 13.8 0.1 | | | Comparison Summary Table Site NR Peak (ms) Norm Peak (ms) P-T Amp | | | ( V) Site1 Site2 Delta-P (ms) Norm Delta (ms) Right Median/Radial | | | Dig I Comparison (Digit 1 - 10cm) Median 2.8 <2.9 137.8 Median | | | Radial 0.1 <0.4 Radial 2.7 <2.8 11.9 Right | | | Median/Ulnar Dig IV Comparison (Digit 4 - 14cm) Median Wr 3.5 | | | 23.1 Median Wr Ulnar Wr 0.1 <0.4 Ulnar Wr 3.6 20.8 | | | Right Median/Ulnar Palm Comparison (Wrist - 8cm) Median Palm | | | 1.9 <2.2 21.6 Median Palm Ulnar Palm 0.0 <0.3 Ulnar Palm 1.9 | | | <2.2 9.2 FINDINGS: 1. Left median, right median, right | | | radial, left ulnar, and right ulnar SNAP | | | | | | s were normal. 2. Left median, right median, left ulnar, right ulnar | | | CMAP | | | | | | s were normal. 3. Right and left comparative sensory index | | | | | | s (comparison of median to ulnar/radial SNAP peak latencies) were | | | normal. EMG was not done as patient did not endorse radicular | | | pain symptoms and the CMAP amplitudes were normal. IMPRESSION: | | | This is a normal study. There is no electrodiagnostic evidence of | | | a right or left median mononeuropathy across the wrist (i.e. carpal | | | tunnel syndrome), nor evidence of left or right ulnar neuropathies. | | | Thank you for allowing me to perform neurodiagnostic testing on | | | your patient. If you have any further questions or comments, please | | | do not hesitate to call. Kvng | | | MD Gaurang Diplomate, Citizen Of [place] Board of Physical Medicine and | | | Rehabilitation. | | + + + documented in this encounter Visit Diagnoses + + | Diagnosis | + + | Bilateral hand numbness - Primary Disturbance of skin sensation | + + documented in this encounter
--- OUTSIDE RECORDS SUMMARY | ~2019-09-15 | XMS | Encounter Summary ---
Demographics + + + | Address | [address] | | | [place] [address] | + + + | Home Phone | | + + + | Preferred Language | Unknown | + + + | Marital Status | | + + + | Moravian Affiliation | Unknown | + + + | Race | Unknown | + + + | Ethnic Group | Unknown | + + + Author + + + | Author | [facility] | | | and [place]ana | + + + | Organization | [facility] [...] [address], [place] | | | | | [address] | | + + + + + [...] [place] | | | | | [address] | | + + + + + Care Team Providers + +------+ + | Care Processing Assistant Name | Role | Phone | + [...] Closed | | Oncology | Diagnoses | Won, | | | | | | Malignant | Edi Morse | Narcisa, | | | | | neoplasm of | [address] | Reggie Gutierrez MD | | | | | upper-outer | [address] | [address] | | | | | quadrant of | [address] | [address] | | | | | unspecified | [place], | [place] | | | | | female | [place] [address] | [address] Phone: | | | | | breast (HCC) | Phone: | [phone] | | | | | Procedures | [phone] | Fax: | | | | | [place] OFFICE | Fax: | [phone] | | | | | OUTPATIENT | [phone] | | | | | | VISIT 25 | | | | | | | MINUTES | | | +--------+--------+ + + + + Encounter Details +--------+ + + + + | Date | Type | Department | Care Team | Description | +--------+ + + + + | 04/15/ | Hospital | [facility] | Narcisa, | Breast cancer of | | 2016 | Encounter | [facility] | Reggie Gutierrez MD [address] | upper-outer quadrant | | | | ONCOLOGY CLINIC [address] [place] | of left female | | | | [address] [place] | [place] [address] | breast (HCC) | | | | [place] [address] | [phone] | (Primary Dx) | | | | [phone] | | | +--------+ + + + [...] + + + | Blood Pressure | 113/71 | 04/15/2016 3:58 PM | | | | | PDT | | + + + + + | Pulse | 101 | 04/15/2016 3:58 PM | | | | | PDT | | + + + + + | Temperature | 37.2 C (99 F) | 04/15/2016 3:58 PM | | | | | PDT | | + + + + + | Respiratory Rate | 18 | 04/15/2016 3:58 PM | | | | | PDT | | + + + + + | Oxygen Saturation | 98% | 04/15/2016 3:58 PM | | | | | PDT | | + + + + + | Inhaled Oxygen | - | - | | | Concentration | | | | + + + + + | Weight | 67.5 kg (148 lb 13 | 04/15/2016 3:58 PM | | | | oz) | PDT | | + + + + + | Height | - | - | | + + + + + | Body Mass Index | - | - | | + + + + + documented in this encounter Medications at Time of Discharge + + + +---------+ + + | Medication | Sig | Dispensed | Refills | Start | End Date | | | | | | Date | | + + + +---------+ + + | DULoxetine | Take 1 capsule by | 30 | 5 | 04/15/20 | | | (CYMBALTA) [address] | mouth Daily for 30 | capsule | | 16 | 6 | | capsule | days. | | | | | + + [...] tablet by | 30 | 0 | 04/15/20 | | | oxyCODONE-acetaminop | mouth every 6 hours | tablet | | 16 | 6 | | hen (PERCOCET) 5-325 | as needed for Pain. | | | | | | mg per tablet | | | | | | + + + +---------+ + + documented as of this encounter Progress Notes Reggie Ervin MD - 04/15/2016 4:00 PM PDTFormatting of this note might be differe nt from the original. Hematology/Oncology Progress Note [facility] Pt. Name/Age/: Carissa Downey 50 y.o. 1965 Med. Record Number: [id number] Date of admission: 04/15/2016 Identifying Statement: Carissa Downey is a 50 y.[facility]. [place] [address] [facility] [address] with Stage IA, premenopausal ER-positive LEFT breast cancer. The patient chart and medications were reviewed in detail and the patient was seen and exam ined. History of Present Illnesses, their Current Assessments and Plans: Problems That Were Updated This Visit Breast cancer of upper-outer quadrant of left female breast Overview ACTIVE DIAGNOSIS: Stage IA, Premenopausal ER-positive LEFT breast cancer. 1. Clinical breast exam by Dr. Nanci [...] was performed by Dr. Iman Perales of [facility] diagnostic imaging. Pathological specimen [id number] was analyzed by Yessenia Champion a [facility] and returned a grade 1 invasive [...] image guided left breast lumpectomy and ax illary sentinel lymph node biopsy. Specimen number [id number] returned a 1.1 cm well-diff erentiated invasive [...] therapy supervised by Dr. Renee norton the [facility] in [facility] with 4005 cGy in 15 fractions to the left breast over 21 elapsed calendar days May 17, 2015 through 2014 followed immediately by 800 cGy boost to the lumpectomy scar in 4 fractions over 6 elapsed calendar days June 08, 2015 through June 14, 2015. 6. Initiation of endocrine therapy with ovarian function suppression and exemestane 25 mg o rally daily June 30, 2015 7. Elective PARRISH/BSO August 28, 2015. Current Assessment & Plan Carissa Downey returned to clinic on 04/15/2016 with the chief complaint of left breast pain. Pain is severe enough to require ongoing narcotic therapy with Percocet. Pain origi nates in the upper outer quadrant at the site of her lumpectomy and radiates to the nipple. There is no associated nipple discharge. Clinical exam is negative. Mammographic exam on February 29, 2016 is also negative. Plan; reassurance. For ongoing left breast mastodynia following breast conserving therapy I asked Carissa to begin therapy with duloxetine 30 mg for daily in addition to her when neces lucero Percocet. Duloxetine may provide a more continuous relief from her chronic left breast pain and may also improve her mood. Review of Systems: Constitutional: Energy is fair. Appetite is fair. Denies high fevers, shaking chills, naus ea, vomiting, weight loss, or night sweats. Appetite without changes. Ear, Nose, Mouth, Throat: Denies odynophagia, dysphagia, or tinnitus. Cardiovascular: Denies shortness of breath, dyspnea on exertion, chest pain, palpitations o r orthopnea. Respiratory: Denies cough, hemoptysis, or sputum production. Gastrointestinal: Denies abdominal pain, constipation, diarrhea, melena, or bright red bloo d per rectum. Genitourinary: Denies hematuria or dysuria. Musculoskeletal: Hands hurt at bedtimes. Neurologic:Headaches are intermittent. Blurred vision is intermittent. Denies numbness/tin gling of the extremities. Headaches are intermittent. Endocrine: Denies peripheral edema or heat/cold intolerance. Hematologic: Denies spontaneous bruising or bleeding. Integumentary: Denies rash or wounds or other skin concerns. Pain: Left breast and bilateral axilla sharp pain is as high as 9/10 and as low as 3/10. Le ft forearm more than right forearm sharp pain has been present for the past month. Hands are also painful. Goal <4. ROS otherwise negative. Note:Complains of pain in bilateral axilla as well as progressively worse pain in left dante st over the past three months. Left breast feels swollen and warm but is not red. My chart:declined. Past Medical and Surgical History, Social History and Problems: No past medical history on file. No past surgical history on file. History Social History Marital Status: Spouse Name: [...] Dosage exemestane (AROMASIN) 25 MG tablet (Taking) loratadine (CLARITIN) 10 mg tablet (Taking) Take 5 mg by mouth. Every four hours prn Number of times this order has been changed since signin Order Audit [place] oxyCODONE-acetaminophen (PERCOCET) 5-325 mg per tablet (Taking) Take 1 tablet by mouth ev lili 6 hours as needed for Pain. Number of times this order has been changed since signin Order Audit [place] Allergies: Allergy: No Known Allergies Objectives: Temp: 37.2 C (99 F) BP: 113/71 mmHg Pulse: 101 Resp: 18 SpO2: 98 % on Min/Max Temp past 24 hours:No Data Recorded No intake or output data in the 24 hours ending 04/16/16 1924 Wt. Admission: Weight: 67.5 kg (148 lb 13 oz) Wt. Current: Weight: 67.5 kg (148 lb 13 o z) Wt Readings from Last 3 Encounters: 04/15/16 67.5 kg (148 lb 13 oz) 05/22/15 68.7 kg (151 lb 7.3 oz) Physical Exam: General: The patient is [...] As published in Am. J. Clin. Oncol.: Anna Aceves, Carie Jaramillo., Kristen Rivers., Marlyn Rincon., Gary Grossman., Troy Samson., Nadia, P CliveP.: [...] mammography with CAD February 29, 2016 is [facility] in [facility] BI-RADS Category 2 benign. Pharmacovigilance: Palliative Care: Patient's Medications New Prescriptions DULOXETINE (CYMBALTA) [address] CAPSULE Take 1 capsule by mouth Daily for 30 days. OXYCODONE-ACETAMINOPHEN (PERCOCET) 5-325 MG PER TABLET Take 1 tablet by mouth every 6 h ours as needed for Pain. Modified Medications No medications on file Discontinued Medications No medications on file Procedure: REGGIE ERVIN MD Portions of this chart may have been created with [employer] voice recognition software. Occasi onal wrong-word or sound-alike substitutions may have occurred due to the inherent richard itations of voice recognition software. Please read the chart carefully and recognize, using context, where these substitutions have occurred. documented in t his encounter Plan of Treatment Not on filedocumented as of this encounter Visit Diagnoses + + | Diagnosis | + + | Breast cancer of upper-outer quadrant of left female breast (HCC) - Primary | + + documented in this encounter"
--- OUTSIDE RECORDS SUMMARY | ~2019-09-15 | XMS | Encounter Summary ---
Demographics + + + | Address | [address] | | | [place] [address] | + + + | Home Phone | | + + + | Preferred Language | Unknown | + + + | Marital Status | | + + + | Judaism Affiliation | Unknown | + + + | Race | Unknown | + + + | Ethnic Group | Unknown | + + + Author + + + | Author | [facility] | | | and [place] | + + + | Organization | [facility] | | | and [...] [address], [place] | | | | | [address] | | + + + + + [...] [place] | | | | | [address] | | + + + + + Care Team Providers + +------+ + | Care Magnetic Tester Name | Role | Phone | + [...] [place], [place] | | | | | [place], | [address] | | | | | [place] [address] | | | | | | [phone] | | | +--------+ + + + [...]
--- OUTSIDE RECORDS SUMMARY | ~2019-09-15 | XMS | Encounter Summary ---
Demographics + + + | Address | [address] | | | [place] [address] | + + + | Home Phone [...] + | Author | [facility] | | | and [place] | + + + | Organization | [facility] | | | and [place] | [...] [address], [place] | | | | | [address] | | + + + + + [...] [place] | | | | | [address] | | + + + + + Care Team Providers + +------+ + | Care Drink Mixer Name | Role | Phone | [...] | | | | | [address] | | | | | | [place] [address] | | | | | | [phone] | | | +--------+ + + + [...]
--- OUTSIDE RECORDS SUMMARY | ~2019-09-15 | XMS | Encounter Summary ---
Demographics + + + | Address | [address] | | | [place] [address] | + + + | Home Phone | | + + + | Preferred Language | Unknown | + + + | Marital Status | | + + + | Church Affiliation | Unknown | + + + | Race | or | + + + | Ethnic Group | Not or | + + + Author + + + | Author | [facility] | + + + | Organization | [facility] | + + + | Address | Unknown | + + + | Phone | Unavailable | + + + Support + + +---------+ + | Name | Relationship | Address | Phone | + + +---------+ + | Jak Daley | ECON | Unknown | | + + +---------+ + Care Team Providers + +------+ + | Care Coremaker Name | Role | Phone | + [...] | | 2018 | | [facility] | MD Carolyn [address] | | | | | for Health & Healing | [address] [place], [place] | | | | | [address] | [address] | | | | | Mailcode: [place] | [phone] | | | | | for Health and | | | | | | Healing, [address] | | | | | | [place], [place] | | | | | | [address] | | | | | | [phone] | | | +--------+ + + + [...]
--- OUTSIDE RECORDS SUMMARY | ~2019-09-15 | XMS | Encounter Summary ---
Demographics + + + | Address | [address] | | | [place] [address] | + + + | Home Phone | | + + + | Preferred Language | Unknown | + + + | Marital Status | | + + + | Lutheran Affiliation | Unknown | + + + | Race | Unknown | + + + | Ethnic Group | Unknown | + + + Author + + + | Author | [facility] | | | and [place] | + + + | Organization | [facility] | | | and [place] [...] [address], [place] | | | | | [address] | | + + + + + [...] [place] | | | | | [address] | | + + + + + Care Team Providers + +------+ + | Care Livestock Commission Agent Name | Role | Phone | + [...] | Radiation | Diagnoses | [facility] | [facility] | | | | Oncology | Breast | Radiation | Renee Haile MD | | | | | cancer of | Oncology | [address] | | | | | upper-outer | Clinic [address] | | | | | quadrant of | [address] | [place], | | | | | left female | [place], | [place] [address] | | | | | breast (HCC) | [place] | Phone: | | | | | Procedures | [address] | [phone] | | | | | [place] OFFICE | Phone: | Fax: | | | | | OUTPATIENT | [phone] | [phone] | | | | | VISIT 25 | Fax: | | | | | | MINUTES | [phone] | | +--------+--------+ + + + + Encounter Details +--------+ + + + + | Date | Type | Department | Care Team | Description | +--------+ + + + + | 12/23/ | Hospital | [facility] | Renee Wood | No Show | | 2019 | Encounter | MED [facility] RAD[facility] | MD Lazara [address] | | | | | ON[facility]OGY CLINIC [address] | [facility] | | | | | [address] | [address] | | | | | [place] [address] | | | | | | [phone] | | | +--------+ + + + [...]
--- OUTSIDE RECORDS SUMMARY | ~2019-09-15 | XMS | Encounter Summary ---
Demographics + + + | Address | [address] | | | [place] [address] | + + + | Home Phone [...] + + | Author | [facility] | + + + | Organization | [facility] | + + + | Address | Unknown | + + + | Phone | Unavailable | + + + Support + + +---------+ + | Name | Relationship | Address | Phone | + + +---------+ + | Jak Daley | ECON | Unknown | | + + +---------+ + Care Team Providers + +------+ + | Care Anti Tank Missileman Name | Role | Phone | + +------+ + | Mela Condon PA-C | PCP | | + +------+ + Encounter Details +--------+ + + + + | Date | Type | Department | Care Team | Description | +--------+ + + + + | 04/10/ | Ancillary | Diagnostic Imaging | Mela Condon | | | 2018 | Orders | Services [address] | | | | | [facility] | [facility] | | | | | [place], [place] | [address] | | | | | [address] | [address] | | | | | [address] [place], | | | | | | [place] [address] | | | | | | [phone] | | | | | | | [...]
--- OUTSIDE RECORDS SUMMARY | ~2019-09-15 | XMS | Encounter Summary ---
Demographics + + + | Address | [address] | | | [place] [address] | + + + | Home Phone | | + + + | Preferred Language | Unknown | + + + | Marital Status | | + + + | Yarsanism Affiliation | Unknown | + + + | Race | Unknown | + + + | Ethnic Group | Unknown | + + + Author + + + | Author | [facility] | | | and [place] | + + + | Organization | [facility] | | | and [place] [...] [address], [place] | | | | | [address] | | + + + + + [...] [place] | | | | | [address] | | + + + + + Care Team Providers + +------+ + | Care Marine Farmer Name | Role | Phone | + [...] + + | 12/26/ | Telephone | [facility] | MargaritaPanchitoy Fili, | Other (Survivorship) | | 2015 | | [facility] | RN | | | | | ONCOLOGY CLINIC [address] | | | | | | [address] | | | | | | [place] [address] | | | | | | [phone] | | | +--------+ + + + [...]
--- OUTSIDE RECORDS SUMMARY | ~2019-09-15 | XMS | Encounter Summary ---
Demographics + + + | Address | [address] | | | [place] [address] | + + + | Home Phone [...] [facility] | | | and [place] | + + + | Organization | [facility] | | | and [...] [address], [place] | | | | | [address] | | + + + + + [...] [place] | | | | | [address] | | + + + + + Care Team Providers + +------+ + | Care Public Information Officer Name | Role | Phone | + [...] | ONCOLOGY CLINIC [address] | [address] [place], [place] | | | | | [address] [place] | [address] | | | | | [place] [address] | | | | | | [phone] | | | +--------+ + + + [...]
--- OUTSIDE RECORDS SUMMARY | ~2019-09-15 | XMS | Encounter Summary ---
Demographics + + + | Address | [address] | | | [place] [address] | + + + | Home Phone | | + + + | Preferred Language | Unknown | + + + | Marital Status | | + + + | Tenriism Affiliation | Unknown | + + + | Race | Unknown | + + + | Ethnic Group | Unknown | + + + Author + + + | Author | [facility] | | | and [place] | + + + | Organization | [facility] | | | and [place] [...] [address], [place] | | | | | [address] | | + + + + + [...] [place] | | | | | [address] | | + + + + + Care Team Providers + +------+ + | Care Police Commanding Officer Name | Role | Phone | [...] [place] | | | | | [address] [place] | [place] [address] | | | | | [place] [address] | [phone] | | | | | [phone] | | | +--------+ + + + [...]
--- OUTSIDE RECORDS SUMMARY | ~2019-09-15 | XMS | Encounter Summary ---
Demographics + + + | Address | [address] | | | [place] [address] | + + + | Home Phone | | + + + | Preferred Language | Unknown | + + + | Marital Status | | + + + | Confucianism Affiliation | Unknown | + + + | Race | Unknown | + + + | Ethnic Group | Unknown | + + + Author + + + | Author | [facility] | | | and [place] | + + + | Organization | [facility] | | | and [...] [address], [place] | | | | | [address] | | + + + + + [...] [place] | | | | | [address] | | + + + + + Care Team Providers + +------+ + | Care Cellulose Insulation Helper Name | Role | Phone | + +------+ + | Luis Gracia PA-C | PCP | | + +------+ [...] | | | neoplasm of | PA-C [address] | [address] | | | | | upper-outer | [address] | | | | | quadrant of | WAY | [place], | | | | | unspecified | [place], | [place] [address] | | | | | female | [place] [address] | Phone: | | | | | breast (HCC) | Phone: | [phone] | | | | | Procedures | [phone] | Fax: | | | | | [place] OFFICE | Fax: | [phone] | | | | | OUTPATIENT | [phone] | | | | | | VISIT 25 | | | | | | | MINUTES | | | +--------+--------+ + + + + Encounter Details +--------+ + + + + | Date | Type | Department | Care Team | Description | +--------+ + + + + | 07/09/ | Hospital | [facility] | Narcisa, | | | 2016 | Encounter | MED CTR RAD[facility]ATION | Mu Gutierrez MD [address] | | | | [address] [place] | | | | | [place], | [place] [address] | | | | | [place] [address] | [phone] | | | | | [phone] | | | | | | | Renee Wood, | | | | | | [address] | | | | | | [place], [place] | | | | | | [address] | | | | | | | [...] Renee Fuentes MD - 07/09/2016 12:00 AM [facility] Radiation Oncology Follow-up Note PATIENT: Carissa Downey MR#: [id number] :1965 DOS:07/09/2016 ICD/Diagnosis: 174.4 - Malignant neoplasm of upper-outer quadrant of female breast, Diagnosed 04/2015 (Act [place]) Chief Complaint/History of Present Illness: Carissa Downey is a 50 year old woman with a history of left breast cancer. Pathologic stage IA, pT1c pN0 cM0. Tumor characteristics: well-differentiated invasive ductal carcinom a, tumor size 1.1 cm, low-grade DCIS present. No LVSI. Negative margins. ER 100%, WI 70- 75%, Ki-67 less than 1%, HER-2/jamia nonamplified by FISH with ratio 1.0, sentinel lymph node negative for metastatic carcinoma. Received adjuvant radiation with hypofractionated whol e breast radiation, 40.05 to the breast with a 8 Gy of a irehnyy11 Gy lumpectomy boost for a total 48.05 [...] to arthralgia. Bilateral diagnostic mammogram performed at [place] on 02/29/16 was benign, BIRADS-2. She has [...] 0 = no pain and 10= worst dibe0Olcphzry your pain (quality) i.e. aching, s harp, [...] present. No LVSI. Negative margins. ER 100%, WI 70-75%, Ki-67 less than 1 %, HER-2/jmaia nonamplified by FISH with ratio 1.0, sentinel lymph node negative for metasta tic carcinoma. Recieved adjuvant radiation with hypofractionated whole breast irradiaiton, 40.05 to the breast with a 8 Gy of a Gy lumpectomy boost for a total 48.05 [...] also continue follow-up with Dr. Brewster in [place]. Thank you for allowing me to participate in the care of Carissa Downey. If you should have any questions regarding this evaluation, please do not hesitate to contact me. Renee Johnson M.D. Radiation Oncologist Department of Radiation Oncology [facility] Electronically signed by Renee Fuentes M.D CC: FREDDY Kitchen M.D. [place] Rojas M.D. [place]-- This note was transcribed using i-nexus speech recognition software. As a result, there ma y be unintended for medical and/or spelling errors. Every attempt is made to correct dicta tion. If there are any questions or errors please contact our office. CSN: [id number] signed by Renee Fuentes MD at 07/15/2016 2:59 PM PDTd ocumented in this encounter Plan of Treatment Not on filedocumented as of this encounter Visit Diagnoses Not on filedocumented in this encounter"
--- OUTSIDE RECORDS SUMMARY | ~2019-09-15 | XMS | Encounter Summary ---
Demographics + + + | Address | [address] | | | [place] [address] | + + + | Home Phone [...] | [facility] | | | and [place] | + + + | Organization | [facility] | | | and [...] [address], [place] | | | | | [address] | | + + + + + [...] [place] | | | | | [address] | | + + + + + Care Team Providers + +------+ + | Care Manager Subway Name | Role | Phone | + [...] + + | Closed | Specialty | Oncology | Diagnoses | Nina, | Dipak, | | | Services | | Malignant | Renee Haile, | Jemima Leon, | | | Required | | neoplasm of | MD [address] | MD [address] | | | | | [address]-outer | [address] | [address] | | | | | quadrant of | [place], | [place], [place] | | | | | left breast | [place] [address] | [address] | | | | | in female, | Phone: | Phone: | | | | | estrogen | [phone] | [phone] | | | | | receptor | Fax: | Fax: | | | | | positive | [phone] | [phone] | | | | | (HCC) | | | +--------+ + + + + + Reason for Visit + + + | Reason | Comments | + + + | Follow-up | | + + + | Breast Cancer | | + + + Evaluate & [...] | | | neoplasm of | PA-C [address] | [address] | | | | | upper-outer | [address] | | | | | quadrant of | WAY | [place], | | | | | unspecified | [place], | [place] [address] | | | | | female | [place] [address] | Phone: | | | | | breast (HCC) | Phone: | [phone] | | | | | Procedures | [phone] | Fax: | | | | | [place] OFFICE | Fax: | [phone] | | | | | OUTPATIENT | [phone] | | | | | | VISIT 25 | | | | | | | MINUTES | | | +--------+--------+ + + + + Encounter Details +--------+ + + + + | Date | Type | Department | Care Team | Description | +--------+ + + + + | 12/17/ | Hospital | [facility] | Renee Wood | Malignant neoplasm | | 2018 | Encounter | MED CTR RADIATION | MD Lazara [address] | of upper-outer | | | | [facility] [address] [place], [place] | quadrant of left | | | | [place] | [address] | breast in female, | | | | [place] [address] | | estrogen receptor | | | | [phone] | | positive (HCC) | | | | | | (Primary Dx); Breast | | | | | | cancer screening, | | | | | | high risk patient | +--------+ + + + + Social [...] + + documented as of this encounter Discharge Instructions Patient Instructions Renee Zhong MD - 12/17/2017 11:38 AM PDTIt was so nice to see you today. We discussed that your exam and breast imaging from last January are very reassurin g that there are no signs of cancer. I understand that you continue to have breast pain. T his may be a long-term side effects of treatment. It is reassuring that you do not have hyp ersensitivity on exam. We also discussed that depressed mood and anxiety can contribute to pain perception. I encourage you to discuss your mood and pain symptoms with your primary c are physician as well. -Plan for follow-up at [facility]. Carissa expressed interest in starting tamoxifen for chemo prev ention. -Annual screening Mammogram to be ordered at [facility], due in January 2018 -Follow-up with me in 1 year, sooner if needed. documented in this encounter Medications at Time [...] as of this encounter Progress Notes Renee Zhong MD - 12/17/2017 10:56 AM PDT Radiation Oncology Follow-up Chief Complaint/ICD10 ICD-10-CM ICD-9-CM 1. Malignant neoplasm of upper-outer quadrant of left breast in female, estrogen receptor p ositive (HCC) C50.412 174.4 Z17.0 V86.0 2. Breast cancer screening, high risk patient Z12.31 V76.11 History of Present Illness: Carissa Downey is a 52 y.o. woman with a history of left breast cancer. Pathologic stag e IA, pT1c pN0 cM0. Tumor characteristics: well-differentiated invasive ductal carcinoma, t umor size 1.1 cm, low-grade DCIS present. No LVSI. Negative margins. ER 100%, AZ 70-75%, Ki-67 less than 1%, HER-2/jamia nonamplified by FISH with ratio 1.0, sentinel lymph node ne gative for metastatic carcinoma. Received adjuvant radiation with hypofractionated whole b reast radiation, 40.05 to the breast with a 8 Gy of a awiluem61 Gy lumpectomy boost for a t otal 48.05 Gy in 20 fraction, completed on 06/14/15. Had undergone oophorectomy, continued AI therapy due to arthralgia. Carissa was last seen in Jun 2016. She cancelled planned follow-up here in January 2017 due to co nsultation around that time with the [facility] breast clinic. On 01/31/17 She had a consulation wi th the surgical TRUCK MECHANIC APPRENTICE, Puja Fairchild. History was reviewed and surveillance imaging performe d with bilateral diagnostic mammogram and right breast ultrasound performed on the same date . No malignant findings detected, overall BIRADS category 2 for all exams. She was advise d to consult with of medical oncology for consideration of tamoxifen as a means fo r further risk reduction and potential breast tenderness management. Carissa cancelled the con sultation. She is now 2-1/2 years out from radiation treatment. Continues to have frequent left breas t tenderness. She describes rare shooting pain in the breast, likely knife stab. Primarily pain is at the end of the day and described as a ache. She holds her breast and takes Tyle nol or ibuprofen for management. She notes discomfort at the upper inner quadrant, edge of sternum/rib. Feels this area may swelling intermittently. In recent months she has also fe lt a fullness and discomfort in bilateral axilla. Overall she is chronically fatigued and h as a depressed affect. This is not changed from her prior baseline. Her weight is largely stable. She is not experiencing any focal areas of bone pain. Denies headaches. Notes mil d changes in vision related to cataracts. General health is otherwise stable. ROS REVIEW OF SYSTEMS Constitutional: Reports increase in fatigue over the last month, difficulty getting out of bed for work, sleeping through lunch break and after work. Appetite has also been poor. Rep orts frequent chills. Reports occasional nausea. Reports occasional night sweats. Denies high fevers, shaking chills, anorexia, vomiting, weight loss. Ear, Nose, Mouth, Throat: Reports difficulty with swallowing and feels like she is choking shamar with meat. Cardiovascular: Denies shortness of breath, dyspnea on exertion, chest pain, palpitations o r orthopnea. Respiratory: Reports chronic non-productive cough. Denies hemoptysis, or sputum productio n. Gastrointestinal: Denies abdominal pain, constipation, diarrhea, melena, or bright red bloo d per rectum. Genitourinary: Denies hematuria or dysuria. Musculoskeletal: Reports general joint pain. Neurologic: Reports occasion headaches and tingling in her hands. Denies visual changes.. Endocrine: Denies peripheral edema or heat/cold intolerance. Hematologic: Denies spontaneous bruising or bleeding. Integumentary:Reports rash to left flank. She did see her PCP for this and was given some o intment. Denies wounds or other skin concerns. Pain: Reports pain at a level 4 to left breast and this increases at night to a sharp pain that wakes her up. Pain assessment: Location: Left breast Pain Level: 4 Pain Quality: Sharp Current pain regimen: none Current Outpatient Prescriptions Medication Sig Dispense Refill EPIPEN 2-DAVID 0.3 MG/0.3ML injection Inject 0.3 mg into the muscle as needed. Fexofenadine HCl (TAMEKA ALLERGY PO) Take 1 tablet by mouth Daily. non-formulary medication Allergy shots 1 time/week. No current facility-administered medications for this encounter. Allergies Allergen Reactions Bee Venom Swelling Intolerance No active intolerances/contraindications There were no vitals filed for this visit. Wt Readings from Last 3 Encounters: 08/08/16 68.9 kg (152 lb) 07/09/16 69.4 kg (152 lb 14.4 oz) 06/26/16 70.8 kg (156 lb) Physical Exam: General: Healthy appearing woman in no acute medical distress. KPS: 90 HEENT: Pupils equal, round and reactive to [...] extremities normally with normal gait. Psychiatric: Appropriate. Breast:On upright exam breasts appear symmetric bilaterally with no contour abnormalities or malignant appearing skin changes. The left breast demonstrates a well-healed surgical in cision at the UOQ and anterior axilla. Keloid at axillary incision. On supine exam palpati on of the left breast demonstrates minimal volume loss and fibrosis at the site of prior lum pectomy. Right breast demonstrated normal parenchyma. No discrete mass lesions are identif ied in either breast. There is no pain with palpation. No nipple changes. Labs: No recent results. Imaging: See HPI. Assessment: ICD-10-CM ICD-9-CM 1. Malignant neoplasm of upper-outer quadrant of left breast in female, estrogen receptor p ositive (HCC) C50.412 174.4 AMB REFERRAL TO [facility] Medical Oncology Z17.0 V86.0 2. Breast cancer screening, high risk patient Z12.31 V76.11 [facility] Tomosynthesis Screening [place] ateral Carissa Dwoney is a 52 y.o. woman with a history of left breast cancer. Pathologic stag e IA, pT1c pN0 cM0. Tumor characteristics: well-differentiated invasive ductal carcinoma, t umor size 1.1 cm, low-grade DCIS present. No LVSI. Negative margins. ER 100%, AZ 70-75%, Ki-67 less than 1%, HER-2/jamia nonamplified by FISH with ratio 1.0, sentinel lymph node ne gative for metastatic carcinoma. Received adjuvant radiation with hypofractionated whole b reast radiation, 40.05 to the breast with a 8 Gy of a liywdef74 Gy lumpectomy boost for a t otal 48.05 Gy in 20 fraction, completed on 06/14/15. Had undergone oophorectomy, continued AI therapy due to arthralgia. Reassurance was again provided today that exam and prior imaging do not demonstrate any tray dence of malignancy. Her continued breast is out of proportion with expectations from treat ment alone. Exam is also notable for no significant hyper sensitivity. I encouraged her to consider the contribution of anxiety and depression to her interpretation/tolerance of pain . Discuss this with her primary care physician. She has a very depressed affect and has be en in this date on multiple prior visits. She has requested ongoing follow-up and imaging at [facility]. She is agreed for annual follow-u p with me as well. We discussed the option of tamoxifen. She expressed interest. I encour aged her to undergo consultation with medical oncologist in January when she returns to [facility] for imaging. Plan: It was so nice to see you today. We discussed that your exam and breast imaging from last January are very reassuring that there are no signs of cancer. I understand that you continue t o have breast pain. This may be a long-term side effects of treatment. It is reassuring th at you do not have hypersensitivity on exam. We also discussed that depressed mood and anxi ety can contribute to pain perception. I encourage you to discuss your mood and pain sympto ms with your primary care physician as well. -Plan for follow-up at [facility]. Carissa expressed interest in starting tamoxifen for chemo prev ention. -Annual screening Mammogram to be ordered at [facility], due in January 2018 -Follow-up with me in 1 year, sooner if needed. Orders Placed This Encounter Procedures [facility] Tomosynthesis Screening Bilateral AMB REFERRAL TO [facility] Medical Oncology Thank you for allowing me to participate in the care of Carissa Downey. If you should lepe ve any questions regarding this evaluation, please do not hesitate to contact me. Renee Sanches M.D. Radiation Oncologist Department of Radiation Oncology [facility] Office: [phone] CC: Patient Care Team: Luis Garcia PA-C as PCP - General (Physician Bioprocess Engineer-Medical) Nanci Kee MD (Obstetrics and Gynecology) Renee Zhong MD as Physician (Radiation Oncology) NORRIS Blanchard as Consulting Physician (Nurse Practitioner - Family) Jemima Quesada MD as Consulting Physician (Oncology) documented in thi s encounter Plan of Treatment + +---------+--------+ + + | Name | Type | Priori | Associated Diagnoses | Order Schedule | | | | ty | | | + +---------+--------+ + + | [facility] Tomosynthesis | Imaging | Routin | Breast cancer | Expected: | | Screening Bilateral | | e | screening, high risk | 02/02/2018, Expires: | | | | | patient | 02/16/2019 | + +---------+--------+ + + + + +--------+ + + | Name | Type | Priori | Associated Diagnoses | Order Schedule | | | | ty | | | + + +--------+ + + | AMB REFERRAL TO [facility] | Outpatient | Routin | Malignant Neoplasm | Ordered: 12/17/2017 | | Medical Oncology | Referral | e | Of Upper-Outer | | | | | | Quadrant Of Left | | | | | | Breast In Female, | | | | | | Estrogen Receptor | | | | | | Positive (Hcc) | | + + +--------+ + + documented as of this encounter Visit Diagnoses + + | Diagnosis | + + | Malignant neoplasm of upper-outer quadrant of left breast in female, estrogen receptor | | positive (HCC) - Primary | + + | Breast cancer screening, high risk patient Screening mammogram for high-risk patient | + + documented in this encounter"
--- OUTSIDE RECORDS SUMMARY | ~2019-09-15 | XMS | Encounter Summary ---
Demographics + + + | Address | [address] | | | [place] [address] | + + + | Home Phone | | + + + | Preferred Language | Unknown | + + + | Marital Status | | + + + | Worship Affiliation | Unknown | + + + | Race | Unknown | + + + | Ethnic Group | Unknown | + + + Author + + + | Author | [facility] | | | and [place] | + + + | Organization | [facility] | | | and [...] [address], [place] | | | | | [address] | | + + + + + [...] [place] | | | | | [address] | | + + + + + Care Team Providers + +------+ + | Care Spot Worker Name | Role | Phone | + +------+ + | Mela Condon PA-C | PCP | | + +------+ + Encounter Details +--------+ + + + + | Date | Type | Department | Care Team | Description | +--------+ + + + + | 09/01/ | Imaging | [facility] | Provider, | | | 2019 | Exam | MED CTR EXTERNAL | MD S[id number] | | | | | IMAGING | [place] | | | | | [phone] | [place] [address] | | +--------+ + + + + [...] + +--------+ + + + | CT SOFT TISSUE NECK | Routin | 03/19/2019 | | Results for this | | W CONTRAST | e | 12:00 AM | | procedure are in the | | | | PDT | | results section. | + +--------+ + + + documented in this encounter Results CT Soft Tissue Neck w Contrast (03/19/2019 12:00 AM PDT) + + | Specimen | + + | | + + + + + | Narrative | Performed At | + + + | External films for comparison only | [facility] | | | | | No results will be in the chart. | | + + + + +---------+ + + | Performing | Address | City/State/Zipcode | Phone Number | | Organization | | | | + +---------+ + + | [facility] | | | | + +---------+ + + documented in this encounter Visit Diagnoses Not on filedocumented in this encounter"
--- OUTSIDE RECORDS SUMMARY | ~2019-09-15 | XMS | Encounter Summary ---
Demographics + + + | Address | [address] | | | [place] [address] | + + + | Home Phone | | + + + | Preferred Language | Unknown | + + + | Marital Status | | + + + | Temple Affiliation | Unknown | + + + | Race | Unknown | + + + | Ethnic Group | Unknown | + + + Author + + + | Author | [facility] | | | and [place] | + + + | Organization | [facility] | | | and [...] [address], [place] | | | | | [address] | | + + + + + [...] [place] | | | | | [address] | | + + + + + Care Team Providers + +------+ + | Care Hospice Administrator Name | Role | Phone | + [...] | | syndrome | [address] [place] | [place], [place] | | | | | [place] | [place], [place] | [address] Phone: | | | | | tunnel | [address] | [phone] | | | | | syndrome, | Phone: | Fax: | | | | | bilateral | [phone] | [phone] | | | | | | Fax: | | | | | | | [phone] | | +--------+ + + + + [...] tunnel syndrome | | | | [address] [facility] | [address] [place] | (Primary Dx); | | | | [place], [place] | [place] [address] | [place] tunnel | | | | [address] | [phone] | syndrome, bilateral | | | | [phone] | | | +--------+ + + + [...] of this encounter Plan of Treatment + + +--------+ + + | Name | Type | Priori | Associated Diagnoses | Order Schedule | | | | ty | | | + + +--------+ + + | * [facility] [place] | Outpatient | Routin | Bilateral carpal [...]
--- OUTSIDE RECORDS SUMMARY | ~2019-09-15 | XMS | Encounter Summary ---
Demographics + + + | Address | [address] | | | [place] [address] | + + + | Home Phone [...] + + | Author | [facility] | + + + | Organization | [facility] | + + + | Address | Unknown | + + + | Phone | Unavailable | + + + Support + + +---------+ + | Name | Relationship | Address | Phone | + + +---------+ + | Jak Daley | ECON | Unknown | | + + +---------+ + Care Team Providers + +------+ + | Care Medical Insurance Clerk Name | Role | Phone | + +------+ + | Mela Condon PA-C | PCP | | + +------+ + Encounter Details +--------+ + + + + | Date | Type | Department | Care Team | Description | +--------+ + + + + | 03/13/ | Document-Sc | Health Information | Unknown . | | | 2014 | anned | Services [address] | | | | | | [address] | | | | | | Mailcode: [id number] | | | | | | [facility] | | | | | | [place], [place] | | | | | | [address] | | | | | | [phone] | | | +--------+ + + + [...]
--- OUTSIDE RECORDS SUMMARY | ~2019-09-15 | XMS | Encounter Summary ---
Demographics + + + | Address | [address] | | | [place] [address] | + + + | Home Phone | | + + + | Preferred Language | Unknown | + + + | Marital Status | | + + + | Yazdanism Affiliation | Unknown | + + + | Race | or | + + + | Ethnic Group | Not or | + + + Author + + + | Author | [facility] | + + + | Organization | [facility] | + + + | Address | Unknown | + + + | Phone | Unavailable | + + + Support + + +---------+ + | Name | Relationship | Address | Phone | + + +---------+ + | Jak Daley | ECON | Unknown | | + + +---------+ + Care Team Providers + +------+ + | Care Certified Medical Transcriptionist Name | Role | Phone | + +------+ + | Mela Condon PA-C | PCP | | + +------+ + Reason for Visit + + + | Reason | Comments | + + + | Symptom Management | sharp breast pains | + + + Encounter Details +--------+ + + + + | Date | Type | Department | Care Team | Description | +--------+ + + + + | 06/22/ | Telephone | Hematology/Medical | Jemima Quesada | Symptom Management | | 2018 | | [facility] [place] | MD Carolyn [address] | (sharp breast pains) | | | | for Health & Healing | [address] [place], [place] | | | | | [address] | [address] | | | | | Mailcode: [place] | [phone] | | | | | for Health and | | | | | | Healing, [facility] | | | | | | [place], [place] | | | | | | [address] | | | | | | [phone] | | | +--------+ + + + [...]
--- OUTSIDE RECORDS SUMMARY | ~2019-09-15 | XMS | Encounter Summary ---
Demographics + + + | Address | [address] | | | [place] [address] | + + + | Home Phone [...] + | Author | [facility] | | | and [place]ana | + + + | Organization | [facility] | | [...] [place], [place] | | | | | [address] | | + + + + + [...] [place] | | | | | [address] | | + + + + + Care Team Providers + +------+ + | Care Money Counter Name | Role | Phone | + [...] [place], [place] | | | | | [place], | [address] | | | | | [place] [address] | | | | | | [phone] | | | +--------+ + + + [...]
--- OUTSIDE RECORDS SUMMARY | ~2019-09-15 | XMS | Encounter Summary ---
Demographics + + + | Address | [address] | | | [place] [address] | + + + | Home Phone | | + + + | Preferred Language | Unknown | + + + | Marital Status | | + + + | Gnosticist Affiliation | Unknown | + + + | Race | Unknown | + + + | Ethnic Group | Unknown | + + + Author + + + | Author | [facility] | | | and [place] | + + + | Organization | [facility] | | | and [...] [place], [place] | | | | | [address] | | + + + + + [...] + + + + + | Luigi Beendict | ECON | [address] | | | | | [place] | | | | | [address] | | + + + + + Care Team Providers + +------+ + | Care International Marketing Coordinator Name | Role | Phone | + +------+ + | Lusi Garcia PA-C | PCP | | + +------+ + Encounter Details +--------+ + + + + | Date | Type | Department | Care Team | Description | +--------+ + + + + | 05/25/ | Orders Only | [facility] | Renee Wood | Mastitis (Primary | | 2015 | | [facility] | MD Lazara [address] | Dx) | | | | ONCOLOGY [address] [place], [place] | | | | | [place], | [address] | | | | | [place] [address] | | | | | | [phone] | | | +--------+ + + + [...] + | Diagnosis | + + | Mastitis - Primary Inflammatory disease of breast | + + documented in this encounter"
--- OUTSIDE RECORDS SUMMARY | ~2019-09-15 | XMS | Encounter Summary ---
Demographics + + + | Address | [address] | | | [place] [address] | + + + | Home Phone | | + + + | Preferred Language | Unknown | + + + | Marital Status | | + + + | Mormonism Affiliation | Unknown | + + + | Race | Unknown | + + + | Ethnic Group | Unknown | + + + Author + + + | Author | [facility] | | | and [place] | + + + | Organization | [facility] | | | and [...] [address], [place] | | | | | [address] | | + + + + + [...] [place] | | | | | [address] | | + + + + + Care Team Providers + +------+ + | Care Mortuary Beautician Name | Role | Phone | + +------+ + | Luis Garcia PA-C | PCP | | + +------+ + Reason for Visit +--------+ + | Reason | Comments | +--------+ + | Other | | +--------+ + Encounter Details +--------+ + + + + | Date | Type | Department | Care Team | Description | +--------+ + + + + | 06/27/ | Telephone | [facility] | Kayla Avila, | Other | | 2014 | | [facility] | RN | | | | | ONCOLOGY CLINIC [address] | | | | | | [address] | | | | | | [place] [address] | | | | | | [phone] | | | +--------+ + + + [...]
--- OUTSIDE RECORDS SUMMARY | ~2019-09-15 | XMS | Clinical Summary ---
Demographics + + + | Address | [address] | | | [place] [address] | + + + | Home Phone [...] Team Providers + +------+ + | Care Warehouser Name | Role | Phone | + +------+ + | Mela Condon PA-C | PCP | | + +------+ + Source Comments BILLY is fully live on both [facility] and [facility] In[facility] Allergies + + + + + [...] | | | cortney | 6 | [id number] | ity | | | | | for | | [place] | | | | | | all | | [address] | | | | | | dates | | | | + +--------+ +--------+ + +--------+ | [facility] | ZIMBABWEAN | [phone] | Effect | | | [...] | | madhuri/Lenin | | 1966 | [phone] | [place] [address] | | | daniel | | | 9 (Home) | | + +--------+ +--------+ + +
--- OUTSIDE RECORDS SUMMARY | ~2019-09-15 | XMS | Encounter Summary ---
Demographics + + + | Address | [address] | | | [place] [address] | + + + | Home Phone [...] [facility] | | | and [place] | + + + | Organization | [facility] | | [...] [address], [place] | | | | | [address] | | + + + + + [...] [place] | | | | | [address] | | + + + + + Care Team Providers + +------+ + | Care Perinatal Social Worker Name | Role | Phone | [...] | | | neoplasm of | PA-C [address] | Reggie Gutierrez MD | | | | | upper-outer | [facility] | [address] | | | | | quadrant of | WAY | [place] | | | | | unspecified | [place], | [place] | | | | | female | [place] [address] | [address] Phone: | | | | | breast (HCC) | Phone: | [phone] | | | | | Procedures | [phone] | Fax: | | | | | IN OFFICE | Fax: | [phone] | | | | | OUTPATIENT | [phone] | | | | | | VISIT 25 | | | | | | | MINUTES | | | +--------+--------+ + + + + Encounter Details +--------+ + + + + | Date | Type | Department | Care Team | Description | +--------+ + + + + | 07/09/ | Hospital | [facility] | Narcisa, | Breast cancer of | | 2016 | Encounter | MED CTR MEDICAL | Reggie Gutierrez MD [address] | upper-outer quadrant | | | | ONCOLOGY CLINIC [address] [place] | of left female | | | | [address] [place] | [place] [address] | breast (HCC) | | | | [facility] [place] [address] | [phone] | (Primary Dx) | | | | [phone] | | | +--------+ + + + [...] are stopping your medicine. Repeat mammogram at [facility] in February 2017 I will see you [...] nt from the original. Hematology/Oncology Progress Note [facility] Pt. Name/Age/: Carissa Downey 50 y.o. 1965 Med. Record Number: [id number] Date of admission: 07/09/2016 Identifying Statement: Carissa Downey is a 50 y.o. female from [place] [address] with Stage IA, premenopausal ER-positive LEFT breast [...] was performed by Dr. Iman Perales of [facility] diagnostic imaging. Pathological specimen [id number] was analyzed by Yessenia Champion a [facility] and returned a grade 1 invasive [...] image guided left breast lumpectomy and ax [facility] sentinel lymph node biopsy. Specimen number [id number] returned a 1.1 cm well-diff erentiated invasive [...] therapy supervised by Dr. Renee norton the [facility] in [facility] with 4005 cGy in 15 fractions to [...] Assessment & Plan Carissa Downey returned to [facility] with her , Jak Daley, for follow-up [...] evidence of local recurrence. Mammographic data from [facility] in [facility] on February 29, 2016 and interpr eted [...] in February after her next mammogram at [facility] cancer clinic in [facility] to review her symptoms and to [...] has been changed since signin Order Audit Beaumont non-formulary medication (Taking) Allergy shots 1 time/week. oxyCODONE-acetaminophen (PERCOCET) 5-325 mg per tablet (Taking) Take 1 tablet by mouth ev lili 6 hours as needed for Pain. Number of times this order has been changed since signin Order Audit Beaumont Allergies: Allergy: No Known Allergies Objectives: Temp: [...] mammography with CAD February 29, 2016 is [facility] in [facility] BI-RADS Category 2 benign. Pharmacovigilance: Palliative Care: Patient's Medications New Prescriptions No medications on file Modified Medications No medications on file Discontinued Medications OXYCODONE-ACETAMINOPHEN (PERCOCET) 5-325 MG PER TABLET Take 1 tablet by mouth every 6 h ours as needed for Pain. Procedure: REGGIE ERVIN MD Portions of this chart may have been created with [employer] voice recognition software. Occasi onal wrong-word or sound-alike substitutions may have occurred due to the inherent richard itations of voice recognition software. Please read the chart carefully and recognize, using context, where these substitutions have occurred. documented in t his encounter Plan of Treatment + +---------+--------+ + [...]
--- OUTSIDE RECORDS SUMMARY | ~2019-09-15 | XMS | Encounter Summary ---
Demographics + + + | Address | [address] | | | [place] [address] | + + + | Home Phone | | + + + | Preferred Language | Unknown | + + + | Marital Status | | + + + | Episcopal Affiliation | Unknown | + + + | Race | Unknown | + + + | Ethnic Group | Unknown | + + + Author + + + | Author | [facility] | | | and [place] | + + + | Organization | [facility] | | | and [...] [address], [place] | | | | | [address] | | + + + + + | Luis Downey | ECON | Unknown | | + + + + + | Kourtney Carlos | ECON | Unknown | | + + + + + | Adrianne Carlos | ECON | Unknown | | + + + + + | Rnea Uribe | ECON | Unknown | | + + + + + | Luigi Benedict | ECON | [address] | | | | | [place] | | | | | [address] | | + + + + + Care Team Providers + +------+ + | Care Hangar Attendant Name | Role | Phone | [...] Gutierrez MD | | | | | breast | [address] | [address] | | | | | (female), | [address] | [address] [place] | | | | | unspecified | [place], | [place] | | | | | site | [place] [address] | [address] Phone: | | | | | Procedures | Phone: | [phone] | | | | | [place] OFFICE | [phone] | Fax: | | | | | OUTPATIENT | Fax: | [phone] | | | | | VISIT 25 | [phone] | | | | | | MINUTES | | | +--------+--------+ + + + + Encounter Details +--------+ + + + + | Date | Type | Department | Care Team | Description | +--------+ + + + + | 05/22/ | Hospital | [facility] | Narcisa, | Breast cancer of | | 2015 | Encounter | MED CTR MEDICAL | Reggie Gutierrez MD [address] | upper-outer quadrant | | | | ONCOLOGY CLINIC [address] [place] | of left female | | | | [address] [place] | [place] [address] | breast (HCC) | | | | [place] [address] | [phone] | (Primary Dx) | | | | [phone] | | | +--------+ + + + [...] + + + | Blood Pressure | 111/59 | 05/22/2015 3:03 PM | | | | | PDT | | + + + + + | Pulse | 88 | 05/22/2015 3:03 PM | | | | | PDT | | + + + + + | Temperature | 36.2 C (97.2 F) | 05/22/2015 3:03 PM | | | | | PDT | | + + + + + | Respiratory Rate | 18 | 05/22/2015 3:03 PM | | | | | PDT | | + + + + + | Oxygen Saturation | 99% | 05/22/2015 3:03 PM | | | | | PDT | | + + + + + | Inhaled Oxygen | - | - | | | Concentration | | | | + + + + + | Weight | 68.7 kg (151 lb 7.3 | 05/22/2015 3:03 PM | | | | oz) | PDT | | + + + + + | Height | - | - | | + + + + + | Body Mass Index | - | - | | + + + + + documented in this encounter Medications at Time of Discharge + + + +---------+--------+ + | Medication | Sig | Dispensed | Refills | Start | End Date | | | | | | Date | | + + + +---------+--------+ + | loratadine | Take 5 mg by mouth. | | 0 | | | | (CLARITIN) 10 mg | Every four hours prn | | | | 8 | | tablet | | | | | | + + + +---------+--------+ + | | Take 1 tablet by | | 0 | | | | oxyCODONE-acetaminop | mouth every 6 hours | | | | 5 | | hen (PERCOCET) 5-325 | as needed for Pain. | | | | | | mg per tablet | | | | | | + + + +---------+--------+ + documented as of this encounter Progress Notes Reggie Ervin MD - 05/22/2015 4:02 PM PDTFormatting of this note might be differe nt from the original. Hematology/Oncology Progress Note [facility] Pt. Name/Age/: Carissa Downey 49 y.o. 1965 Med. Record Number: [id number] Date of admission: 05/22/2015 Identifying Statement: Carissa Downey is a 49 y.o. female from [address] [place] [address] [place] [address] with Stage IA, premenopausal ER-positive LEFT breast [...] was performed by Dr. Iman Perales of [facility] diagnostic imaging. Pathological specimen [id number] was analyzed by Yessenia Champion a [facility] and returned a grade 1 invasive [...] image guided left breast lumpectomy and ax [facility] sentinel lymph node biopsy. Specimen number [id number] returned a 1.1 cm well-diff erentiated invasive [...] up until the time of her biopsy. Current Assessment & Plan Carissa is currently under the care of Dr. Renee Johnson with adjuvant LEFT breast irra diation as part of breast conserving therapy. The case was discussed with Dr. Johnson who approved initiation of ovarian function suppression while the patient is receiving adjuvant LEFT breast radiation therapy. Insurance prior-authorization will be submitted for goserelin implant injection 3.6 mg subcutaneously monthly. To be initiated in [place], then sandhya ed forward monthly in [place] once she is finished with her radiation therapy on June 14. Endocrine therapy with the aromatase inhibitor Exemestane 25 mg orally daily will be de ferred until radiation therapy is completed. Review of Systems: Constitutional: Energy is low. Appetite is low.. Denies high fevers, shaking chills, nause a, vomiting, weight loss, or night sweats. Appetite without changes. Ear, Nose, Mouth, Throat: Denies odynophagia, dysphagia, or tinnitus. Cardiovascular: Denies shortness of breath, dyspnea on exertion, chest pain, palpitations o r orthopnea. Respiratory: Denies hemoptysis, or sputum production. Intermittent dry cough reported. Gastrointestinal: Denies abdominal pain, constipation, diarrhea, melena, or bright red bloo d per rectum. Genitourinary: Denies hematuria or dysuria. Musculoskeletal: Hands and feet hurt at bedtimes. Neurologic: Denies numbness/tingling of the extremities. Headaches are intermittent. Blurre d vision is intermittent. Endocrine: Denies peripheral edema or heat/cold intolerance. Hematologic: Denies spontaneous bruising or bleeding. Integumentary: Denies rash or wounds. Reports dark spots on skin upper and lower back and s houlders. Pain: Left breast sharp pain is as high as 10 on 0 to 10 pain scale. Goal <4. ROS otherwise negative. Note:Complains of trouble sleeping at night related to sharp left breast pains. Undergoing breast radiation treatments here, started last week on 05/17/15. My chart:declined. Past Medical and Surgical History, [...] breast Scheduled Medications: Patient Reported Taking Dosage loratadine (CLARITIN) 10 mg tablet (Taking) Take 5 mg by mouth Daily. oxyCODONE-acetaminophen (PERCOCET) 5-325 mg per tablet (Taking) Take 1 tablet by mouth ev lili 6 hours as needed for Pain. Allergies: Allergy: No Known Allergies Objectives: Temp: 36.2 C (97.2 F) BP: 111/59 mmHg Pulse: 88 Resp: 18 SpO2: 99 % on Min/Max Temp past 24 hours:Temp Av.2 C (97.2 F) Min: 36.2 C (97.2 F) Max: 3 6.2 C (97.2 F) No intake or output data in the 24 hours ending 05/22/15 1603 Wt. Admission: Weight: 68.7 kg (151 lb 7.3 oz) Wt. Current: Weight: 68.7 kg (151 lb 7.3 oz) Wt Readings from Last 3 Encounters: 05/22/15 68.7 kg (151 lb 7.3 oz) Physical Exam: General: The patient is alert and oriented. No acute distress. Healthy adult woman in no acute distress was not examined in detail. ECOG Performance Status [x] 0 [] 1 [...] in Am. J. Clin. Oncol.: Bill Aceves., Carie Jaramillo., Kristen Rivers., Lauro Rincon, Gary Grossman., Troy Samson., Nadia, P .P.: Toxicity And Response Criteria Of The Eastern [...] here or in the Assessment and Plan. Pharmacovigilance: Palliative Care: Procedure: Patient will return on for her first injection of goserelin. REGGIE ERVIN MD Portions of this chart may have been created with [employer] voice recognition software. Occasi onal wrong-word or sound-alike substitutions may have occurred due to the inherent richard itations of voice recognition software. Please read the chart carefully and recognize, using context, where these substitutions have occurred. reJackson grant RN - 05/22/2015 3:07 PM PDTREVIEW OF SYSTEMS Constitutional: Energy is low. Appetite is low.. Denies high fevers, shaking chills, nause a, vomiting, weight loss, or night sweats. Appetite without changes. Ear, Nose, Mouth, Throat: Denies odynophagia, dysphagia, or tinnitus. Cardiovascular: Denies shortness of breath, dyspnea on exertion, chest pain, palpitations o r orthopnea. Respiratory: Denies hemoptysis, or sputum production. Intermittent dry cough reported. Gastrointestinal: Denies abdominal pain, constipation, diarrhea, melena, or bright red bloo d per rectum. Genitourinary: Denies hematuria or dysuria. Musculoskeletal: Hands and feet hurt at bedtimes. Neurologic: Denies numbness/tingling of the extremities. Headaches are intermittent. Blurre d vision is intermittent. Endocrine: Denies peripheral edema or heat/cold intolerance. Hematologic: Denies spontaneous bruising or bleeding. Integumentary: Denies rash or wounds. Reports dark spots on skin upper and lower back and s houlders. Pain: Left breast sharp pain is as high as 10 on 0 to 10 pain scale. Goal <4. ROS otherwise negative. Note:Complains of trouble sleeping at night related to sharp left breast pains. Undergoing breast radiation treatments here, started last week on 05/17/15. My chart:declined. documented in this encounter Plan of Treatment Not on filedocumented as of this encounter Visit Diagnoses + + | Diagnosis | + + | Breast cancer of upper-outer quadrant of left female breast (HCC) - Primary | + + documented in this encounter"
--- OUTSIDE RECORDS SUMMARY | ~2019-09-15 | XMS | Encounter Summary ---
Demographics + + + | Address | [address] | | | [place] [address] | + + + | Home Phone | | + + + | Preferred Language | Unknown | + + + | Marital Status | | + + + | Methodist Affiliation | Unknown | + + + | Race | or | + + + | Ethnic Group | Not or | + + + Author + + + | Author | [facility] | + + + | Organization | [facility] | + + + | Address | Unknown | + + + | Phone | Unavailable | + + + Support + + +---------+ + | Name | Relationship | Address | Phone | + + +---------+ + | Jak Daley | ECON | Unknown | | + + +---------+ + Care Team Providers + +------+ + | Care Fitness Management Director Name | Role | Phone | + +------+ + | Mela Condon PA-C | PCP | | + +------+ + Encounter Details +--------+ + + + + | Date | Type | Department | Care Team | Description | +--------+ + + + + | 01/31/ | Hospital | Women's Imaging | [place], | | | 2017 | Encounter | [facility] [address] | MEN'S LOCKER ROOM ATTENDANT [address] | | | | | [address] | [address] | | | | | [id number] | [place], [place] | | | | | [facility], | [address] | | | | | [place] [address] | [phone] | | | | | [phone] | | | +--------+ + + + [...] | + +--------+ + + + | US BREAST RIGHT | Routin | 01/31/2017 | Breast pain, right | Results for this | | | e | 1:53 PM | Personal history | procedure are in the | | | | PDT | of breast cancer | results section. | + +--------+ + + + documented in this encounter Results US BREAST RIGHT (01/31/2017 [...] study?->No Order Comment: BP on (01/31/2017) 122/74 MOLLY MCCLELLAN | | | DIAGNOSTIC BILAT W/CAD: January [...] full field digital mammography on the dedicated [employer]ificationPoint System | | | with R2 CAD. Performed at [facility]. | | | ASSESSMENT: Benign - Category 2 (Overall) VY ANVJOT BI CAD: Benign - | | | [...] Hologic System with R2 CAD. Performed at [facility].ASSESSMENT: Benign - Category 2 (Overall)VY NAVJOT BI [...] Hologic System with R2 CAD. Performed at [facility]. | | | |ASSESSMENT: [...] | + + | Breast pain, right Mastodynia | + + | Personal history of breast cancer Personal history of malignant neoplasm of breast | + + documented in this encounter"
--- OUTSIDE RECORDS SUMMARY | ~2019-09-15 | XMS | Encounter Summary ---
Demographics + + + | Address | [address] | | | [place] [address] | + + + | Home Phone | | + + + | Preferred Language | Unknown | + + + | Marital Status | | + + + | Nondenominational Affiliation | Unknown | + + + | Race | Unknown | + + + | Ethnic Group | Unknown | + + + Author + + + | Author | [facility] | | | and [place] | + + + | Organization | [facility] | | | and [place] | [...] [place], [place] | | | | | [address] | | + + + + + [...] [place] | | | | | [address] | | + + + + + Care Team Providers + +------+ + | Care Information Delivery Analyst Name | Role | Phone | [...] | | upper-outer | [address] | [address] | | | | | quadrant of | [address] | [place], | | | | | unspecified | [place], | [place] [address] | | | | | female | [place] [address] | Phone: | | | | | breast (HCC) | Phone: | [phone] | | | | | Procedures | [phone] | Fax: | | | | | [place] OFFICE | Fax: | [phone] | | | | | OUTPATIENT | [phone] | | | | | | VISIT 25 | | | | | | | MINUTES | | | +--------+--------+ + + + + Encounter Details +--------+ + + + + | Date | Type | Department | Care Team | Description | +--------+ + + + + | 09/27/ | Hospital | [facility] | Renee Wood | Screening mammogram | | 2015 | Encounter | [facility] | MD Lazara [address] | for high-risk | | | | ONCOLOGY [address] | [facility] [place] | patient (Primary Dx) | | | | [place], | [address] | | | | | [place] [address] | | | | | | [phone] | | | +--------+ + + + [...] encounter Progress Notes Renee Fuentes MD - 09/27/2015 12:00 AM PSTPATIENT: Carissa Miriam Vicente:09/[birth year]/2015MR #: [id number] Radiation Oncology Follow-up Clinic Note ICD/Diagnosis: 174.4 - Malignant neoplasm of upper-outer quadrant of female breast, Diagnosed 04/2015 (Act cortney) CC: FREDDY Kitchen M.D. Nanci Kee M.D. Mu Brewster M.D. Chief Complaint/History of Present Illness: 49 year old woman with a history of left breast cancer. Pathologic stage IA, pT1c pN0 cM0. Tumor characteristics: well-differentiated invasive ductal carcinoma, tumor size 1.1 cm, l ow-grade DCIS present. No LVSI. Negative margins. ER 100%, FL 70-75%, Ki-67 less than 1 %, HER-2/jamia nonamplified by FISH with ratio 1.0, sentinel lymph node negative for metasta tic carcinoma. Received adjuvant radiation with hypofractionated whole breast irradiation, 40.05 to the breast with a 8 Gy of a [id number] Gy lumpectomy boost for a total 48.05 Gy in 20 fraction, completed on 06/14/15. Carissa was last seen at the completion of radiation treatment and returns today for routine three-month follow-up. Following radiation treatment, she initiated endocrine therapy wit h AI and Lupron injections. Last month she underwent a total abdominal hysterectomy and o ophorectomy and the care of Dr. Kee. She continues to endorse fatigue related to both pos toperative changes and postradiation. At the breast, she continues to experience tendernes s and finds massage helpful. Denies breast swelling or arm range of motion limitations. She has not identified any lumps or nodules. Denies headaches or new areas of pain. Oscar nues to feel fatigue and a depressed mood. Review of Systems: ROS Constitutional Abnormal - Complains of lack of appetite. Complains of fatigue. Complains of fever. Complains of night sweats. Complains of a weight loss of 5 to 10 pounds . ROS Integumentary Abnormal - Complains of alopecia. Denies bruising, dry skin, nail changes, pruritus, rash and urticaria. ROS Breasts Abnormal - Complains of mild pain in both breasts that has been present for more than one month. Denies breast masses, nipple discharge and nipple inversion. ROS Cardiovascular Normal - Denies arrhythmias, chest pain, dyspnea, edema, orthopn ea and palpitations. ROS Genitourinary (F) Abnormal - Complains of vaginal discharge / bleeding and vagi nal spotting. Denies dysuria and frequency. ROS Musculoskeletal Abnormal - Complains of arthritis and joint pain. Denies bone p ain, muscle weakness and decreased range of motion. ROS Psychiatric Abnormal - Compl ains of mood swings and depression. Denies delusions and hallucinations. ROS Hematologic/Lymphatic Abnormal - Complains of easy bruising. Medications: EXEMESTANE TABLET ORAL percocet 7.5-325 mg TABLET Take as Directed Allergies: No Known Allergies Physical Exam: Performed on 09/27/2015, 14:42 Weight 69.3 kg Temperature 37.1 C Pulse 93 / min Respiration 16 / min BP 98/70 mm(hg) O2 Sat 99 % Pain 0 General: Healthy appearing woman in no acute [...] Neurologic: Alert, oriented and appropriated in conversation. Psychiatric: Depressed affec t. Breast: Exam performed in the presence of a textile knitter. On upright exam breasts appear sym metric bilaterally with no contour abnormalities or malignant appearing skin changes. The left breast demonstrates a well-healed surgical incision. On supine exam palpation of the left breast demonstrates minimal fibrosis at the site of prior lumpectomy. No discrete mas s lesions are identified in either breast. There is mild pain with palpation on the left. No nipple changes. Questionnaires: Are you having pain? Yes Where does it hurt most? abdomen Rate your pain from 0-10: 0-10 scale with 0 = no pain and 10= worst pain 3 Describe your pain (quality) i.e. aching, sharp, stabbing, etc. aching What do you use for pain medication? Name and dose Percocet What is your numerical pain rating a fter taking pain medication? 0-10 scale with 0 = no pain and 10= worst pain 3 What pain level is tolerable for you as a goal? 3 Diagnosis: 174.4 - Malignant neoplasm of upper-outer quadrant of female breast, Diagnosed 04/2015 (Act cortney) ,. Impression/Plan: 49 year old woman with a history of left breast cancer. Pathologic stage IA, pT1c pN0 cM0. Tumor characteristics: well-differentiated invasive ductal carcinoma, tumor size 1.1 cm, l ow-grade DCIS present. No LVSI. Negative margins. ER 100%, FL 70-75%, Ki-67 less than 1 %, HER-2/jamia nonamplified by FISH with ratio 1.0, sentinel lymph node negative for metasta tic carcinoma. Received adjuvant radiation with hypofractionated whole breast irradiation, 40.05 to the breast with a 8 Gy of a pmyttfr32 Gy lumpectomy boost for a total 48.05 Gy in 20 fraction, completed on 06/14/15. Status post oophorectomy and continues on AI. Clinically, Carissa does not demonstrate any evidence of disease recurrence. She has exper ienced a slow recovery from treatment and continues to endorse fatigue. Some of her fatigu e symptoms may also be related to concurrent hysterectomy and underlying depression. We di scussed the importance of increasing physical activity and participating in activities she enjoys. She is well supported and accompanied to clinic by her . Local radiation side effects that continue include tenderness at the pectoralis muscle. She was encouraged to continue massage and stretches. She does not demonstrate any functional limitations an d is not interested and occupational therapy at this time. Carissa will continue to follo w with Dr. Brewster for management of endocrine therapy. She is due for annual screenin g mammography in late January, this will be ordered to be done at [facility]. I have asked her to return for follow-up clinical breast exam in 6 months. She was encouraged to contac t our office for any concerns or questions in the interval. Thank you for allowing me to participate in the care of Carissa Downey. If you should have any questions regarding this evaluation, please do not hesitate to contact me. Renee Johnson M.D. Radiation Oncologist Department of Radiation Oncology [facility] This note was transcribed using [employer]eng[employer] speech recognition software. As a result, there ma y be unintended for medical and/or spelling errors. Every attempt is made to correct dicta tion. If there are any questions or errors please contact our office. Page 1 of 3 CSN: [id number] signed by Renee Fuentes MD at 10/04/2015 2:58 PM PSTd ocumented in this encounter Plan of Treatment + +---------+--------+ + + | Name | Type | Priori | Associated Diagnoses | Order Schedule | | | | ty | | | + +---------+--------+ + + | [facility] | Imaging | Routin | Encounter For | Expected: | | Screening Bilateral | | e | Screening Mammogram | 02/19/2016, Expires: | | | | | For High-Risk | 11/26/2016 | | | | | Patient | | + +---------+--------+ + + documented as of this encounter Visit Diagnoses + + | Diagnosis | + + | Screening mammogram for high-risk patient - Primary | + + documented in this encounter"
--- OUTSIDE RECORDS SUMMARY | ~2019-09-15 | XMS | Encounter Summary ---
Demographics + + + | Address | [address] | | | [place] [address] | + + + | Home Phone | | + + + | Preferred Language | Unknown | + + + | Marital Status | | + + + | Shinto Affiliation | Unknown | + + + | Race | or | + + + | Ethnic Group | Not or | + + + Author + + + | Author | [facility] | + + + | Organization | [facility] | + + + | Address | Unknown | + + + | Phone | Unavailable | + + + Support + + +---------+ + | Name | Relationship | Address | Phone | + + +---------+ + | Jak Daley | ECON | Unknown | | + + +---------+ + Care Team Providers + +------+ + | Care Team Leader Surgery Name | Role | Phone | + [...] | | 2018 | | [facility] [place] | MD Carolyn [address] | (sharp breast pains) | | | | for Health & Healing | [address] [place], [place] | | | | | [address] | [address] | | | | | Mailcode: [place] | [phone] | | | | | for Health and | | | | | | Healing, [facility] [address] | | | | | | [place], [place] | | | | | | [address] | | | | | | [phone] | | | +--------+ + + + [...]
--- OUTSIDE RECORDS SUMMARY | ~2019-09-15 | XMS | Encounter Summary ---
Demographics + + + | Address | [address] | | | [place] [address] | + + + | Home Phone | | + + + | Preferred Language | Unknown | + + + | Marital Status | | + + + | Alevism Affiliation | Unknown | + + + | Race | Unknown | + + + | Ethnic Group | Unknown | + + + Author + + + | Author | [facility] | | | and [place] | + + + | Organization | [facility] | | | and [place]ana [...] [address], [place] | | | | | [address] | | + + + + + [...] [place] | | | | | [address] | | + + + + + Care Team Providers + +------+ + | Care Tennis Ball Cover Cementer Name | Role | Phone | + [...] | Malignant | Renee M, | [address] | | | | | neoplasm of | [address] | [place], | | | | | left breast | [address] | [place] [address] | | | | | (HCC) | [place], | Phone: | | | | | Procedures | [place] [address] | [phone] | | | | | CT Treatment | Phone: | Fax: | | | | | Plan | [phone] | [phone] | | | | | Complex | Fax: | | | | | | | [phone] | | +--------+--------+ + + + + [...] | (Primary Dx) | | | | [place], | [address] | | | | | [place] [address] | | | | | | [phone] | | | +--------+ + + + [...] on filedocumented as of this encounter Results CT Treatment [...]
--- OUTSIDE RECORDS SUMMARY | ~2019-09-15 | XMS | Encounter Summary ---
Demographics + + + | Address | [address] | | | [place] [address] | + + + | Home Phone [...] + + | Author | [facility] | + + + | Organization | [facility] | + + + | Address | Unknown | + + + | Phone | Unavailable | + + + Support + + +---------+ + | Name | Relationship | Address | Phone | + + +---------+ + | Jak Daley | ECON | Unknown | | + + +---------+ + Care Team Providers + +------+ + | Care Producer Assistant Name | Role | Phone | + +------+ + | Mela Condon PA-C | PCP | | + +------+ + Encounter Details +--------+ + + + + | Date | Type | Department | Care Team | Description | +--------+ + + + + | 07/27/ | Results | Registration [id number] | Jemima Quesada | | | 2018 | Only | YOHAN Leon MD [address] | | | | | [place] Mailcode: [id number] | [place], [place] | | | | | [facility] [place] | [address] | | | | | [address] | [phone] | | | | | [phone] | | | +--------+ + + + [...] | + +--------+ + + + | ONCOLOGY PATHWAYS | Routin | 07/27/2018 | | Results for this | | TREATMENT DECISION | e | | | procedure are in the | | | | | | results section. | + +--------+ + + + documented in this encounter Results ONCOLOGY PATHWAYS TREATMENT DECISION (07/27/2018) + + + + + + | Component | Value | Ref Range | Performed | Pathologist | | | | | At | Signature | + + + + + + | ONCOLOGY | DISCONTINUE Breast - No | | VIA | | | PATHWAYS | Medical Intervention - | | ONCOLOGY | | | TREATMENT | Off Treatment. START ON | | PATHWAYS | | | PLAN | PATHWAY REGIMEN - Breast | | | | | REGIMEN | - [id number]: Anastrozole | | | | | | Daily | | | | + + + + + + | ONCOLOGY | DISCONTINUE ON PATHWAY | | VIA | | | PATHWAYS | REGIMEN - Breast No | | ONCOLOGY | | | TREATMENT | Medical Intervention - | | PATHWAYS | | | DECISION | Off Treatment. REASON: | | | | | DETAILS | Other ReasonPRIOR | | | | | | TREATMENT: Off Treatment | | | | | | START ON PATHWAY | | | | | | REGIMEN - Breast [id number]: | | | | | | Anastrozole Daily | | | | | | Daily: | | | | | | Anastrozole | | | | | | (Arimidex(R)) 1 mg | | | | | | orally daily Always | | | | | | confirm dose/schedule in | | | | | | your pharmacy ordering | | | | | | system | | | | | | Administration Notes: | | | | | | Patient with limited | | | | | | life expectancy due to | | | | | | advanced GBM. Patient | | | | | | Characteristics:Preopera | | | | | | tive or Nonsurgical | | | | | | Candidate (Clinical | | | | | | Staging), No Surgery | | | | | | Planned, Invasive | | | | | | Disease, ER Positive, | | | | | | Palliative Primary | | | | | | Endocrine | | | | | | TherapyTherapeutic | | | | | | Status: Preoperative or | | | | | | Nonsurgical Candidate | | | | | | (Clinical Staging)AJCC M | | | | | | Category: [id number] | | | | | | Grade: T1Gjsppw Surgical | | | | | | Plan: No Surgery | | | | | | PlannedER Status: | | | | | | Positive (+)AJCC 8 Stage | | | | | | Grouping: IAHER2 | | | | | | Status: Negative (-)AJCC | | | | | | T Category: [id number] N | | | | | | Category: cN0PR Status: | | | | | | Positive (+)Intent of | | | | | | Therapy:Non-Curative / | | | | | | Palliative Intent, | | | | | | Discussed with Patient | | | | + + + + + + | ONCOLOGY | [id number] | | VIA | | | PATHWAYS | | | ONCOLOGY | | | TREATMENT | | | PATHWAYS | | | DECISION | | | | | + + + + + + + + | Specimen | + + | | + + + +---------+ + + | Performing | Address | City/State/Zipcode | Phone Number | | Organization | | | | + +---------+ + + | [facility] | | | | | [facility]WAYS | | | | + +---------+ + + documented in this encounter Visit Diagnoses Not on filedocumented in this encounter"
--- OUTSIDE RECORDS SUMMARY | ~2019-09-15 | XMS | Encounter Summary ---
Demographics + + + | Address | [address] | | | [place] [address] | + + + | Home Phone | | + + + | Preferred Language | Unknown | + + + | Marital Status | | + + + | Oriental Orthodox Affiliation | Unknown | + + + | Race | Unknown | + + + | Ethnic Group | Unknown | + + + Author + + + | Author | [facility] | | | and [place] | + + + | Organization | [facility] | [...] [address], [place] | | | | | [address] | | + + + + + [...] [place] | | | | | [address] | | + + + + + Care Team Providers + +------+ + | Care Coding Compliance Specialist Name | Role | Phone | [...] [place], [place] | | | | | [place], | [address] | | | | | [place] [address] | | | | | | [phone] | | | +--------+ + + + [...]
--- OUTSIDE RECORDS SUMMARY | ~2019-09-15 | XMS | Encounter Summary ---
Demographics + + + | Address | [address] | | | [place] [address] | + + + | Home Phone | | + + + | Preferred Language | Unknown | + + + | Marital Status | | + + + | Judaism Affiliation | Unknown | + + + | Race | Unknown | + + + | Ethnic Group | Unknown | + + + Author + + + | Author | [facility] | | | and [place]ana | + + + | Organization | [facility] | [...] [address], [place] | | | | | [address] | | + + + + + [...] [place] | | | | | [address] | | + + + + + Care Team Providers + +------+ + | Care Commercial Front Load Operator Name | Role | Phone | + +------+ + | Luis Garcia PA-C | PCP | | + +------+ + Reason for Visit + + + | Reason | Comments | + + + | Psychosocial Support | | + + + Encounter Details +--------+ + + + + | Date | Type | Department | Care Team | Description | +--------+ + + + + | 07/24/ | Telephone | [facility] | Lisa Regalado, | Psychosocial Support | | 2014 | | [facility] CTR [facility] | SHEEP RANCHER | | | | | ONCOLOGY CLINIC [address] | | | | | | [address] | | | | | | [place] [address] | | | | | | [phone] | | | +--------+ + + + [...]
--- OUTSIDE RECORDS SUMMARY | ~2019-09-15 | XMS | Encounter Summary ---
Demographics + + + | Address | [address] | | | [place] [address] | + + + | Home Phone | | + + + | Preferred Language | Unknown | + + + | Marital Status | | + + + | Holiness Affiliation | Unknown | + + + | Race | Unknown | + + + | Ethnic Group | Unknown | + + + Author + + + | Author | [facility] | | | and [place] | + + + | Organization | [facility] | | | and [...] [address], [place] | | | | | [address] | | + + + + + [...] [place] | | | | | [address] | | + + + + + Care Team Providers + +------+ + | Care Grader Meat Name | Role | Phone | + [...] | | ONCOLOGY CLINIC [address] [place], [place] | | | | | [address] | [address] | | | | | [place] [address] | | | | | | [phone] | | | +--------+ + + + [...]
--- OUTSIDE RECORDS SUMMARY | ~2019-09-15 | XMS | Encounter Summary ---
Demographics + + + | Address | [address] | | | [place] [address] | + + + | Home Phone | | + + + | Preferred Language | Unknown | + + + | Marital Status | | + + + | Gnosticism Affiliation | Unknown | + + + | Race | Unknown | + + + | Ethnic Group | Unknown | + + + Author + + + | Author | [facility] | | | and [place] | + + + | Organization | [facility] | | | [...] [address], [place] | | | | | [address] | | + + + + + [...] [place] | | | | | [address] | | + + + + + Care Team Providers + +------+ + | Care Motor Assembler Name | Role | Phone | [...] + + | Closed | Specialty | Occupational | Diagnoses | [place], | [address] | | | Services | Therapy | Malignant | Renee M, | [facility] | | | Required | | neoplasm of | MD [address] | HOSPITAL | | | | | upper-outer | [address] | [address] | | | | | quadrant of | [place], | AVE | | | | | female | [place] [address] | [place], [place] | | | | | breast, | Phone: | [address] | | | | | unspecified | [phone] | Phone: | | | | | laterality | Fax: | [phone] | | | | | 174.4 | [phone] | Fax: | | | | | (ICD-9-CM) - | | [phone] | | | | | C50.419 | | | | | | | (ICD-10-CM) | | | | | | | - Malignant | | | | | | | neoplasm of | | | | | | | upper-outer | | | | | | | quadrant of | | | | | | | female | | | | | | | breast, | | | | | | | unspecified | | | | | | | laterality | | | | | | | (HCC) | | | | | | | Procedures | | | | | | | SC THERAPEUT | | | | | | | ACTVITY | | | | | | | DIRECT PT | | | | | | | CONTACT EACH | | | | | | | 15 MIN | | | | | | | lymph eval | | | +--------+ + + + + + Encounter Details +--------+ + + + + | Date | Type | Department | Care Team | Description | +--------+ + + + + | 06/07/ | Orders Only | [facility] | Renee Wood | Malignant neoplasm | | 2014 | | [facility] | MD Lazara [address] | of upper-outer | | | | ONCOLOGY [address] [facility] [place] | quadrant of female | | | | [place], | [address] | breast, unspecified | | | | [place] [address] | | laterality (HCC) | | | | [phone] | | (Primary Dx) | +--------+ + [...] + + +--------+ + + | * [facility] | Outpatient | Routin | Malignant neoplasm | Ordered: 06/07/2015 | | Therapy - AMB | Referral | e | of upper-outer | | | Referral | | | quadrant of female | | | | | | breast, unspecified | | | | | | laterality (HCC) | | + + +--------+ + + documented as of this encounter Visit Diagnoses + + | Diagnosis | + + | Malignant neoplasm of upper-outer quadrant of female breast, unspecified laterality - | | Primary | + + documented in this encounter"
--- OUTSIDE RECORDS SUMMARY | ~2019-09-15 | XMS | Encounter Summary ---
Demographics + + + | Address | [address] | | | [place] [address] | + + + | Home Phone | | + + + | Preferred Language | Unknown | + + + | Marital Status | | + + + | Sikhism Affiliation | Unknown | + + + | Race | or | + + + | Ethnic Group | Not or | + + + Author + + + | Author | [facility] [employer] [facility] | + + + | Organization | [facility] | + + + | Address | Unknown | + + + | Phone | Unavailable | + + + Support + + +---------+ + | Name | Relationship | Address | Phone | + + +---------+ + | Jak Daley | ECON | Unknown | | + + +---------+ + Care Team Providers + +------+ + | Care Spa Host Name | Role | Phone | + +------+ + | Mela Condon PA-C | PCP | | + +------+ + Encounter Details +--------+ + + + + | Date | Type | Department | Care Team | Description | +--------+ + + + + | 01/30/ | Dry Clipper Tender | Hematology/Medical | Jemima Quesada | Malignant neoplasm | | 2018 | | Oncology at [place] | MD Carolyn [address] | of [facility] | | | | for Health & Healing | Ave [place], [place] | quadrant of left | | | | [address] | [address] | breast in female, | | | | Mailcode: [place] | [phone] | estrogen receptor | | | | for Health and | | positive (HCC) | | | | Healing, Building [address] | | (Primary Dx) | | | | [place], [place] | | | | | | [address] | | | | | | [phone] | | | +--------+ + + + [...] on filedocumented as of this encounter Results Jogg DIAGNOSTIC BILAT W/CAD (03/12/2018 10:01 AM PDT) [...] cancer, conservation | | | therapy. C50.412 Jogg DIAGNOSTIC BILAT W/CAD: March 12, 2018 - | | | Bilateral CC and MLO view(s) were taken. | | | Prior study comparison: January 31, 2017, bilateral MA VY DIAGNOSTIC | | | BILAT w/CAD performed at [facility]. There | | | are scattered fibroglandular densities. Stable post-lumpectomy | | | changes in the left breast. No suspicious calcifications, masses, or | | | architectural distortion present in either breast. No significant | | | changes when compared with prior studies. The images were | | | obtained using full field digital mammography on the dedicated | | | Vozeeme System with R2 CAD. Performed at [facility] | | | [place]. 3D tomosynthesis mammography was performed as part [...] 12, 2018 - Accession #: | | [id number] CC and MLO view(s) were taken.Prior study comparison: January 31, 2017, | | bilateral MA VY DIAGNOSTICBILAT w/CAD performed at [facility] | | [place].There are scattered fibroglandular densities. Stable post-lumpectomy changes | | in the left breast. No suspicious calcifications, masses, or architectural distortion | | present in either breast. No significant changes when compared with prior studies.The | | images were obtained using full field digital mammography on the dedicated Vozeeme | | System with R2 CAD. Performed at [facility]. 3D | | tomosynthesis mammography wasperformed as [...] Hologic System with R2 CAD. Performed at [facility]. 3D tomosynthesis mammography was | |performed [...]
--- OUTSIDE RECORDS SUMMARY | ~2019-09-15 | XMS | Encounter Summary ---
Demographics + + + | Address | [address] | | | [place] [address] | + + + | Home Phone [...] + + | Author | [facility] | + + + | Organization | [facility] | + + + | Address | Unknown | + + + | Phone | Unavailable | + + + Support + + +---------+ + | Name | Relationship | Address | Phone | + + +---------+ + | Jak Daley | ECON | Unknown | | + + +---------+ + Care Team Providers + +------+ + | Care Vessel Specialist Name | Role | Phone | [...] | Malignant | Jemima Leon, | [address] | | | | | neoplasm of | MD [address] | [address]ilion | | | | | upper-outer | [address] | Loop | | | | | quadrant of | [place], [place] | Mailcode: | | | | | left breast | [address] | [address] | | | | | in female, | Phone: | Virgil Huffman | | | | | estrogen | [phone] | [place], [place] | | | | | receptor | Fax: | [address] | | | | | positive | [phone] | Phone: | | | | | (HCC) | | [phone] | | | | | Weight loss | | Fax: | | | | | Bone pain | | [phone] | | | | | Procedures | | | | | | | NM BONE &/OR | | | | | | | JOINT | | | | | | | IMAGING | | | | | | | WHOLE BODY | | | | | | | [place] BONE | | | | | | [...] | | | | quadrant of | [place], [place] | Mailcode: | | | | | left breast | [address] | [address] [facility] | | | | | in female, | Phone: | Hospital | | | | | estrogen | [phone] | [place], [place] | | | | | receptor | Fax: | [address] | | | | | positive | [phone] | Phone: | | | | | (HCC) | | [phone] | | | | | Weight loss | | Fax: | | | | | Bone pain | | [phone] | | | | | Procedures | | | | | | | CT CHEST, | | | | | | | ABDOMEN AND | | | | | | | PELVIS W IV | | | | | | | CONTRAST [place] | | | | | | | CT | | | | | | | ABDOMEN&PELV | | | | | | | IS | | | | | | | W/CONTRAST | | | | | | | [place] CAT SCAN | | | | | [...] | Mailcode: | | | | | [place] NEW | | Center for | | | | | PATIENT | | Health and | | | | | LEVEL V [place] | | Healing, | | | | | EST PATIENT | | Building [address] | | | | | LEVEL V | | [place], [place] | | | | | | | [address] | | | | | | | Phone: | | | | | | | [phone] | | | | | | | Fax: | | | | | | | [phone] | +--------+--------+ + + + + Encounter Details +--------+---------+ + + + | Date | Type | Department | Care Team | Description | +--------+---------+ + + + | 03/12/ | Office | Hematology/Medical | Justus Waddelleen | Malignant neoplasm | | 2018 | Visit | Oncology at [place] | MD Carolyn [address] | of upper-outer | | | | for Health & Healing | Ave [place], [place] | quadrant of left | | | | [address] | [address] | breast in female, | | | | Mailcode: [place] | [phone] | estrogen receptor | | | | for Health and | | positive (HCC) | | | | Healing, [address] | | (Primary Dx); Weight | | | | [place], [place] | | loss; Bone pain | | | | [address] | | | | | | [phone] | | | +--------+---------+ + + + [...] diffuse bone pa ins. Schedule these at [facility] in next 1-3 weeks. We will contact [...] months. JEMIMA WADDELL MD HEMATOLOGY/MEDICAL ONCOLOGY AT [address] Oswaldo Campos Mailcode: [place] [address] documented in this encounter Progress Notes Dipak Ortega, Jemima Leon - 03/12/2018 11:00 AM PDTFormatting of this note might be different f rom the original. Medical Oncology [facility] Cancer [place] Consult 03/12/2018 Carissa Downey is a 52 y.o. female here for evaluation of breast cancer. Referred by No Referring Provider P*. Records reviewed as detailed in my note. 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 She presented with palpable lump. She is s/p lumpectomy and SNB, T = 1.1 cm IDC G1, SN = 0/1 (Dr. Edi Upton, [place] ). Left breast radiation ended 06/14/15. She took adjuvant exemestane Jun 2015 to Jun 2016 (i nitially with ovarian suppression, then PARRISH/BSO 08/28/15), stopped due to arthralgias and shu ne pains. Then tried tamoxifen from Jul 2016 to Aug 2016 (and she can't remember why she sto pped, outside chart notes depression and brain fog). She last saw Dr. Brewster last year (in [place]). She tells me today she is interested in re-trying adjuvant endocrine therapy and transferri ng her care to [facility]. 03/12/18 bilateral mammogram: benign, cat 2. Carissa [...] back in with her). She lives in [place]. PAST MEDICAL HISTORY: Past Medical History: Diagnosis Date Arthropathy Breast cancer, stage 1, estrogen receptor positive, left (HCC) 2014 [id number] IDC ER+WV+ Chronic fatigue Depression Mastodynia of right breast [...] and plan: 52 yo postmenopausal female with [id number] ER+(100%)WV+(70-75%)JYP5rlv - invasive ductal carcinoma G1 of left [...] d would like to transfer care to [facility]. She is motivated to try tamoxifen again [...] plan. JEMIMA WADDELL MD HEMATOLOGY/MEDICAL ONCOLOGY AT [address] [place] Mailcode: [place] [address] documented in this encounter Plan [...] [facility] | [address] | [place] [address] | | | SERVICES, CORE | YAIMA [...] | | | LABORATORY | | | GRE[place]DIAN | | | SERVICES, | | | [...] [facility] | [address] | [place] [address] | | | SERVICES, CORE | PARK [...]
--- OUTSIDE RECORDS SUMMARY | ~2019-09-15 | XMS | Encounter Summary ---
Demographics + + + | Address | [address] | | | [place] [address] | + + + | Home Phone | | + + + | Preferred Language | Unknown | + + + | Marital Status | | + + + | Mandaen Affiliation | Unknown | + + + | Race | Unknown | + + + | Ethnic Group | Unknown | + + + Author + + + | Author | [facility] | | | and [place] | + + + | Organization | [facility] | | | and [place] | [...] [place] | | | | | [address] | | + + + + + [...] [place] | | | | | [address] | | + + + + + Care Team Providers + +------+ + | Care Mainspring Winder And Oiler Name | Role | Phone | + +------+ + | Mela Condon PA-C | PCP | | + +------+ + Reason for Referral Evaluate & Treat (Routine) + + + [...] Services | y | Dysphagia, | Renee M, | E, MD [address] | | | Required | | unspecified | MD [address] | | | | | type | [address] | [address] | | | | | | [place], | [place], | | | | | | [place] [address] | [place] [address] | | | | | | Phone: | Phone: | | | | | | [phone] | [phone] | | | | | | Fax: | Fax: | | | | | | [phone] | [phone] | + + + + + + + Diagnostic/Screening (Routine) +--------+--------+ + + + + | Status | Reason | Specialty | Diagnoses / | Referred By | Referred To | | | | | Procedures | Contact | Contact | +--------+--------+ + + + + | Closed | | Radiology | Diagnoses | Nina, | [address] ST | | | | | Dysphagia, | Renee M, | [place] | | | | | unspecified | [address] | HOSPITAL | | | | | type | [address] | [address] | | | | | Procedures | [place], | AVE | | | | | [place] Neck | [place] [address] | [place], [place] | | | | | Chest w | Phone: | [address] | | | | | Contrast | [phone] | Phone: | | | | | | Fax: | [phone] | | | | | | [phone] | Fax: | | | | | | | [phone] | +--------+--------+ + + + + Reason for Visit +--------+ + | Reason | Comments | +--------+ + | Other | | +--------+ + Encounter Details +--------+ + + + + | Date | Type | Department | Care Team | Description | +--------+ + + + + | 02/19/ | Telephone | [facility] | Renee Wood | Other | | 2019 | | MED CTR RAD[facility]ATION | MD Lazara [address] | | | | | ONCOLOGY CLINIC [address] | [address] [place] | | | | | [address] [place] [place] | [address] | | | | | [place] [address] | | | | | | [phone] | | | +--------+ + + + [...] | | + +---------+--------+ + + | CT Neck Chest w | Imaging | Routin | Dysphagia, | Expected: | | Contrast | | e | Unspecified Type | 02/19/2019, Expires: | | | | | | 02/20/2020 | + +---------+--------+ + + + + +--------+ + + | Name | Type | Priori | Associated Diagnoses | Order Schedule | | | | ty | | | + + +--------+ + + | * [facility] | Outpatient | Routin | Dysphagia, [...]
--- OUTSIDE RECORDS SUMMARY | ~2019-09-15 | XMS | Encounter Summary ---
Demographics + + + | Address | [address] | | | [place] [address] | + + + | Home Phone | | + + + | Preferred Language | Unknown | + + + | Marital Status | | + + + | Anabaptism Affiliation | Unknown | + + + | Race | Unknown | + + + | Ethnic Group | Unknown | + + + Author + + + | Author | [facility] | | | and [place] | + + + | Organization | [facility] | | | and [...] [place], [place] | | | | | [address] | | + + + + + [...] [place] | | | | | [address] | | + + + + + Care Team Providers + +------+ + | Care Architecture Internship Name | Role | Phone | + [...] W | | | | | | [place], | | | | | | [place] [address] | | | | | | [phone] | | | +--------+ + + + [...]
--- OUTSIDE RECORDS SUMMARY | ~2019-09-15 | XMS | Encounter Summary ---
Demographics + + + | Address | [address] | | | [place] [address] | + + + | Home Phone | | + + + | Preferred Language | Unknown | + + + | Marital Status | | + + + | Presybeterian Affiliation | Unknown | + + + | Race | or | + + + | Ethnic Group | Not or | + + + Author + + + | Author | [facility] [facility] | + + + | Organization [...] Team Providers + +------+ + | Care Geometry Professor Name | Role | Phone | [...] | Malignant | Jemima Leon, | s [address] | | | | | neoplasm of | [address] | [address] | | | | | upper-outer | [address] | [address] | | | | | quadrant of | [place], [place] | Mailcode: | | | | | left breast | [address] | [address] [facility] | | | | | in female, | Phone: | Hospital | | | | | estrogen | [phone] | [place], [place] | | | | | receptor | Fax: | [address] | | | | | positive | [phone] | Phone: | | | | | (HCC) | | [phone] | | | | | Weight loss | | Fax: | | | | | Bone pain | | [phone] | | | | | Procedures | | | | | | | CT CHEST, | | | | | | | ABDOMEN AND | | | | | | | PELVIS W IV | | | | | | | CONTRAST IN | | | | | | | CT | | | | | | | ABDOMEN&PELV | | | | | | | IS | | | | | | | W/CONTRAST | | | | | | | IN CAT SCAN | | | | | [...] | | | | quadrant of | [place], [place] | Mailcode: | | | | | left breast | [address] | [address] [facility] | | | | | in female, | Phone: | Hospital | | | | | estrogen | [phone] | [place], [place] | | | | | receptor | Fax: | [address] | | | | | positive | [phone] | Phone: | | | | | (HCC) | | [phone] | | | | | Weight loss | | Fax: | | | | | Bone pain | | [phone] | | | | | Procedures | | | | | | | CT CHEST, | | | | | | | ABDOMEN AND | | | | | | | PELVIS W IV | | | | | | | CONTRAST IN | | | | | | | CT | | | | | | | ABDOMEN&PELV | | | | | | | IS | | | | | | | W/CONTRAST | | | | | | | IN CAT SCAN | | | | | [...] | 2018 | Encounter | Services at [facility] | MD Carolyn [address] | | | | | [address] | [place], [place] | | | | | [address] Mailcode: | [address] | | | | | [address] [facility] | [phone] | | | | | [place], [place] | | | | | | [address] | | | | | | [phone] | | | +--------+ + + + [...]
--- OUTSIDE RECORDS SUMMARY | ~2019-09-15 | XMS | Encounter Summary ---
Demographics + + + | Address | [address] | | | [place] [address] | + + + | Home Phone | | + + + | Preferred Language | Unknown | + + + | Marital Status | | + + + | Yarsanism Affiliation | Unknown | + + + | Race | or | + + + | Ethnic Group | Not or | + + + Author + + + | Author | [facility] | + + + | [...] Team Providers + +------+ + | Care Regulatory Auditor Name | Role | Phone | + +------+ + | Mela Condon PA-C | PCP | | + +------+ + Reason for Visit + + + | Reason | Comments | + + + | Ct Scan Result | | + + + Encounter Details +--------+ + + + + | Date | Type | Department | Care Team | Description | +--------+ + + + + | 04/10/ | Telephone | Hematology/Medical | Jemima Quesada | Ct Scan Result | | 2018 | | [facility]cology at [place] | MD Carolyn [address] | | | | | for Health & Healing | Ave [place], [place] | | | | | [address] | [address] | | | | | Mailcode: [place] | [phone] | | | | | for Health and | | | | | | Healing, [address] | | | | | | [place], [place] | | | | | | [address] | | | | | | [phone] | | | +--------+ + + + [...]
--- OUTSIDE RECORDS SUMMARY | ~2019-09-15 | XMS | Encounter Summary ---
Demographics + + + | Address | [address] | | | [place] [address] | + + + | Home Phone | | + + + | Preferred Language | Unknown | + + + | Marital Status | | + + + | Congregational Affiliation | Unknown | + + + | Race | Unknown | + + + | Ethnic Group | Unknown | + + + Author + + + | Author | [facility] | | | and [place] | + + + | Organization | [facility] | | | and [place] [...] [place], [place] | | | | | [address] | | + + + + + [...] [place] | | | | | [address] | | + + + + + Care Team Providers + +------+ + | Care Lean Coach Name | Role | Phone | + +------+ + | Luis Garcia PA-C | PCP | | + +------+ + Reason for Visit +--------+ + | Reason | Comments | +--------+ + | Other | | +--------+ + Encounter Details +--------+ + + + + | Date | Type | Department | Care Team | Description | +--------+ + + + + | 05/16/ | Telephone | [facility] | Narcisa, | Other | | 2014 | | MED CTR MEDICAL | Mu Gutierrez MD [address] | | | | | ONCOLOGY CLINIC [address] [place] | | | | | [place] | [place] [address] | | | | | [place] [address] | [phone] | | | | | [phone] | | | +--------+ + + + [...]
--- OUTSIDE RECORDS SUMMARY | ~2019-09-15 | XMS | Encounter Summary ---
Demographics + + + | Address | [address] | | | [place] [address] | + + + | Home Phone | | + + + | Preferred Language | Unknown | + + + | Marital Status | | + + + | Protestant Affiliation | Unknown | + + + | Race | Unknown | + + + | Ethnic Group | Unknown | + + + Author + + + | Author | [facility] | | | and [place] | + + + | Organization | [facility] | [...] [place], [place] | | | | | [address] | | + + + + + [...] [place] | | | | | [address] | | + + + + + Care Team Providers + +------+ + | Care Station Supervisor Name | Role | Phone | + +------+ + | Luis Garcia PA-C | PCP | | + +------+ + Encounter Details +--------+ + + + + | Date | Type | Department | Care Team | Description | +--------+ + + + + | 09/06/ | Hospital | [facility] | Renee Wood | | | 2015 | Encounter | MED CTR RADIATION | [place], [address] | | | | | ONCOLOGY [address] | [facility] [place] | | | | | [place], | [address] | | | | | [place] [address] | | | | | | [phone] | | | +--------+ + + + [...]
--- OUTSIDE RECORDS SUMMARY | ~2019-09-15 | XMS | Encounter Summary ---
Demographics + + + | Address | [address] | | | [place] [address] | + + + | Home Phone [...] | [facility] | | | and [place] | + + + | Organization | [facility] | | [...] [place], [place] | | | | | [address] | | + + + + + [...] [place] | | | | | [address] | | + + + + + Care Team Providers + +------+ + | Care Counter Hop Name | Role | Phone | + [...] | | ONCOLOGY CLINIC [address] [place], [place] | | | | | [address] [place] | [address] | | | | | [place] [address] | | | | | | [phone] | | | +--------+ + + + [...]
--- OUTSIDE RECORDS SUMMARY | ~2019-09-15 | XMS | Encounter Summary ---
Demographics + + + | Address | [address] | | | [place] [address] | + + + | Home Phone [...] + + | Author | [facility] | + + + | Organization | [facility] | + + + | Address | Unknown | + + + | Phone | Unavailable | + + + Support + + +---------+ + | Name | Relationship | Address | Phone | + + +---------+ + | Jak Daley | ECON | Unknown | | + + +---------+ + Care Team Providers + +------+ + | Care Laborer General Name | Role | Phone | + +------+ + | Mela Condon PA-C | PCP | | + +------+ + Encounter Details +--------+------+ + + + | Date | Type | Department | Care Team | Description | +--------+------+ + + + | 03/12/ | Lab | Laboratory at [facility] | | Malignant neoplasm | | 2018 | | [address] | | of upper-outer | | | | [place], [place] | | quadrant of left | | | | [address] | | breast in female, | | | | [phone] | | estrogen receptor | | | | | | positive (HCC); | | | | | | Weight loss; Bone | | | | | | pain | +--------+------+ + + + Social History + +-------+ [...] | + +--------+ + + + | CBC AND AUTO DIFF | Routin | 03/12/2018 | Malignant neoplasm | Results for this | | | e | 12:54 PM | of upper-outer | procedure are [...] | + +--------+ + + + | CBC, WITH | Routin | 03/12/2018 | Malignant neoplasm | Results for this | | DIFFERENTIAL | e | 12:54 PM | of upper-outer | procedure are [...] | + +--------+ + + + | COMPLETE METABOLIC | Routin | 03/12/2018 | Malignant neoplasm | Results for this | | SET | e | 12:54 PM | of upper-outer | procedure are in the | | (NA,K,CL,CO2,BUN,CRE | | PDT | quadrant of left | results section. | | AT,GLUC,CA,AST,ALT,B | | | breast in female, | | | ALYX TOTAL,ALK | | | estrogen receptor | | | PHOS,ALB,PROT TOTAL) | | | positive (HCC) | | | | | | Weight loss Bone | | | | | | pain | | + +--------+ + + + | TSH | Routin | 03/12/2018 | Malignant neoplasm | Results for this | | | e | 12:54 PM | of upper-outer | procedure are in the | | | | PDT | quadrant of left | results section. | | | | | breast in female, | | | | | | estrogen receptor | | | | | | positive (HCC) | | | | | | Weight loss | | + +--------+ + + + documented in this encounter Results CBC AND AUTO DIFF (03/12/2018 12:54 PM PDT) + + + + + + | Component | Value | Ref Range | Performed | Pathologist | | | | | At | Signature | + + + + + + | WHITE CELL | 4.79 | 3.50 - 10.80 | [facility] | | | COUNT | | K/cu mm | LABORATORY | | | | | | SERVICES, | | | | | | [facility] | | [facility] | | | [facility] | | + + + + + + | RED CELL | 4.37 | 4.00 - 5.20 | [facility] | | | COUNT | | M/cu mm | LABORATORY | | | | | | SERVICES, | | | | | | [facility] + | | | | | | [facility] | | + + + + + + | HEMOGLOBIN | 11.9 (L) | 12.0 - 16.0 | [facility] | | | | | g/dL | LABORATORY | | | | | | SERVICES, | | | | | | [facility] + | | | | | | [facility] | | + + + + + + | HEMATOCRIT | 36.6 | 36.0 - 46.0 % | [facility] | | | | | | LABORATORY | | | | | | SERVICES, | | | | | | [facility] + | | | | | | [facility]ALING | | + + + + + + | MCV | 83.8 | 80.0 - 100.0 fL | [facility] | | | | | | LABORATORY | | | | | | SERVICES, | | | | | | [facility] + | | | | | | [facility] | | + + + + + + | MCHC | 32.5 | 32.0 - 36.0 | [facility] | | | | | g/dL | LABORATORY | | | | | | SERVICES, | | | | | | [facility] + | | | | | | [facility]ALING | | + + + + + + | RDW SD | 46.1 | 35.1 - 46.3 fL | [facility] | | | | | | LABORATORY | | | | | | SERVICES, | | | | | | [facility] + | | | | | | [facility] | | + + + + + + | PLATELET | 302 | 150 - 400 K/cu | [facility] | | | COUNT | | mm | LABORATORY | | | | | | SERVICES, | | | | | | [facility] + | | | | | | [facility]AL[facility] | | + + + + + + | MPV | 8.7 (L) | 9.7 - 12.3 fL | [facility] | | | | | | LABORATORY | | | | | | SERVICES, | | | | | | [facility] + | | | | | | [facility]AL[facility] | | + + + + + + | NEUTROPHIL | 50.7 | 50.0 - 70.0 % | [facility] | | | % | | | LABORATORY | | | | | | SERVICES, | | | | | | [facility] + | | | | | | [facility]ALING | | + + + + + + | LYMPHOCYTE | 37.0 | 18.0 - 42.0 % | [facility] | | | % | | | LABORATORY | | | | | | SERVICES, | | | | | | [facility] + | | | | | | [facility]ALING | | + + + + + + | MONOCYTE % | 7.9 | 3.5 - 9.0 % | [facility] | | | | | | LABORATORY | | | | | | SERVICES, | | | | | | [facility] | [facility] + | | | | | | [facility]ALING | | + + + + + + | EOS % | 2.1 | 1.0 - 3.0 % | [facility] | | | | | | LABORATORY | | | | | | SERVICES, | | | | | | [facility] + | | | | | | [facility]ALING | | + + + + + + | BASO % | 2.3 (H) | 0.0 - 2.0 % | [facility] | | | | | | LABORATORY | | | | | | SERVICES, | | | | | | [facility] + | | | | | | [facility]ALING | | + + + + + + | NEUTROPHIL | 2.43 | 1.80 - 7.70 | [facility] | | | # | | K/cu mm | LABORATORY | | | | | | SERVICES, | | | | | | [facility] | [facility] + | | | | | | [facility]ALING | | + + + + + + | LYMPHOCYTE | 1.77 | 1.00 - 4.80 | [facility] | | | # | | K/cu mm | LABORATORY | | | | | | SERVICES, | | | | | | [facility] | [facility] + | | | | | | [facility]ALING | | + + + + + + | MONOCYTE # | 0.38 | 0.10 - 0.90 | [facility] | | | | | K/cu mm | LABORATORY | | | | | | SERVICES, | | | | | | [facility] | [facility] + | | | | | | [facility]ALING | | + + + + + + | EOS # | 0.10 | 0.00 - 0.50 | [facility] | | | | | K/cu mm | LABORATORY | | | | | | SERVICES, | | | | | | [facility] | [facility] | [facility] + | | | | | | HEALING | | + + + + + + | BASO # | 0.11 (H) | 0.00 - 0.10 | [facility] | | | | | K/cu mm | LABORATORY | | | | | | SERVICES, | | | | | | [facility] | | [facility] + | | | | | | HEALING | | + + + + + + + + | Specimen | + + | Blood - Blood | | (substance) | + + + + + | Narrative | Performed At | + + + | New pediatric reference ranges for Lymphocyte % in effect March 12, | [facility] | | 2018. | LABORATORY | | | [facility], | | | [facility] | [facility] + | | | [facility]AL[facility] | + + + + + + + + | Performing | Address | City/State/Zipcode | Phone Number | | Organization | | | | + + + + + | [facility] | [address] | [place] [address] | | | SERVICES, [facility] | | | | [facility] + HEALING | | | | + + + + + TSH (03/12/2018 12:54 PM PDT) [...] | + + + + + | [facility] | [address] | [place] [address] | | | SERVICES, CORE | YAIMA [...] | | | LABORATORY | | | [facility] | | | SERVICES, | | | [...] | + + + + + | [facility] | [address] | [place] [address] | | | SERVICES, CORE | YAIMA [...]
--- OUTSIDE RECORDS SUMMARY | ~2019-09-15 | XMS | Encounter Summary ---
Demographics + + + | Address | [address] | | | [place] [address] | + + + | Home Phone | | + + + | Preferred Language | Unknown | + + + | Marital Status | | + + + | Adventist Affiliation | Unknown | + + + | Race | or | + + + | Ethnic Group | Not or | + + + Author + + + | Author | [facility] | + + + | Organization [...] Team Providers + +------+ + | Care Line Assembler Aircraft Name | Role | Phone | + [...] | Received (St. | | | | [place] | [address] | Reilly bolden | | | | [id number] | [place], [place] | reports ) | | | | [facility], | [address] | | | | | [place] [address] | | | | | | [phone] | | | +--------+ + + + [...]
--- OUTSIDE RECORDS SUMMARY | ~2019-09-15 | XMS | Encounter Summary ---
Demographics + + + | Address | [address] | | | [place] [address] | + + + | Home Phone [...] | Author | [facility] | | | and [place] | + + + | Organization | [facility] | | | and [...] [place], [place] | | | | | [address] | | + + + + + [...] [place] | | | | | [address] | | + + + + + Care Team Providers + +------+ + | Care Radio Frequency Technician Name | Role | Phone | [...] [place], [place] | | | | | [place], | [address] | | | | | [place] [address] | | | | | | [phone] | | | +--------+ + + + [...]
--- OUTSIDE RECORDS SUMMARY | ~2019-09-15 | XMS | Encounter Summary ---
Demographics + + + | Address | [address] | | | [place] [address] | + + + | Home Phone [...] | Author | [facility] [...] Providers + +------+ + | Care Manager Of Housekeeping Name | Role | Phone | + +------+ + | Mela Condon PA-C | PCP | | + +------+ + Reason for Visit + + + | Reason | Comments | + + + | Care Coordination | | + + + Encounter Details +--------+ + + + + | Date | Type | Department | Care Team | Description | +--------+ + + + + | 03/23/ | Telephone | Hematology/Medical | Jemima Quesada | Care Coordination | | 2018 | | Oncology at [place] | MD Carolyn [address] | | | | | for Health & Healing | [address] [facility] [place] | | | | | [address] | [address] | | | | | Mailcode: [place] | [phone] | | | | | for Health and | | | | | | [address] | | | | | | [place], [place] | | | | | | [address] | | | | | | [phone] | | | +--------+ + + + [...]
--- OUTSIDE RECORDS SUMMARY | ~2019-09-15 | XMS | Encounter Summary ---
Demographics + + + | Address | [address] | | | [place] [address] | + + + | Home Phone | | + + + | Preferred Language | Unknown | + + + | Marital Status | | + + + | Yazidism Affiliation | Unknown | + + + | Race | Unknown | + + + | Ethnic Group | Unknown | + + + Author + + + | Author | [facility] | | | and [place] | + + + | Organization | [facility] | | | and [place] [...] [place], [place] | | | | | [address] | | + + + + + [...] [place] | | | | | [address] | | + + + + + Care Team Providers + +------+ + | Care Licensed Clinician Name | Role | Phone | + [...] | quadrant of | [place], | [place], [place] | | | | | left breast | [place] [address] | [address] | | | | | in female, | Phone: | Phone: | | | | | estrogen | [phone] | [phone] | | | | | receptor | Fax: | Fax: | | | | | positive | [phone] | [phone] | | | | | (HCC) | [...] | | | neoplasm of | [place] [address] | [address] | | | | | upper-outer | [address] | [address] | | | | | quadrant of | WAY | [place], | | | | | unspecified | [place], | [place] [address] | | | | | female | [place] [address] | Phone: | | | | | breast (HCC) | Phone: | [phone] | | | | | Procedures | [phone] | Fax: | | | | | [place] OFFICE | Fax: | [phone] | | | | | OUTPATIENT | [phone] | | | | | | VISIT 25 | | | | | | | MINUTES | | | +--------+--------+ + + + + Encounter Details +--------+ + + + + | Date | Type | Department | Care Team | Description | +--------+ + + + + | 12/17/ | Hospital | [facility] | Renee Wood | Malignant neoplasm | | 2018 | Encounter | MED CTR RAD[facility]ATION | MD Lazara [address] | of upper-outer | | | | ONCOLOGY CLINIC [address] | [place], [place] | quadrant of left | | | | [address] [place] | [address] | breast in female, | | | | [place] [address] | | estrogen receptor | | | | [phone] | | positive (HCC) | | | [...] physician as well. -Plan for follow-up at [facility]. Carissa expressed interest in starting tamoxifen for chemo prev ention. -Annual screening Mammogram to be ordered at [facility], due in January 2018 -Follow-up with [...] present. No LVSI. Negative margins. ER 100%, AK 70-75%, Ki-67 less than 1%, HER-2/jamia nonamplified by FISH with ratio 1.0, sentinel lymph node ne gative for metastatic carcinoma. Received adjuvant radiation with hypofractionated whole b reast radiation, 40.05 to the breast with a 8 Gy of a ubiaeck45 Gy lumpectomy boost for a t otal 48.05 Gy in 20 fraction, completed on 06/14/15. Had undergone oophorectomy, continued AI therapy due to arthralgia. Carissa was last seen in Jun 2016. She cancelled planned follow-up here in January 2017 due to co nsultation around that time with the [facility] breast clinic. On 01/31/17 She had a consulation wi th the surgical [employer], Puja Fairchild. History was reviewed and surveillance [...] ositive (HCC) C50.412 174.4 AMB REFERRAL TO [facility] Medical Oncology Z17.0 V86.0 2. Breast cancer screening, high risk patient Z12.31 V76.11 [facility] Tomosynthesis Screening [place] ateral Carissa Downey is a 52 y.o. woman with a history of left breast cancer. Pathologic stag e IA, pT1c pN0 cM0. Tumor characteristics: well-differentiated invasive ductal carcinoma, t umor size 1.1 cm, low-grade DCIS present. No LVSI. Negative margins. ER 100%, AK 70-75%, Ki-67 less than 1%, HER-2/jamia nonamplified by FISH with ratio 1.0, sentinel lymph node ne gative for metastatic carcinoma. Received adjuvant radiation with hypofractionated whole b reast radiation, 40.05 to the breast with a 8 Gy of a yaffhog54 Gy lumpectomy boost for a t otal 48.05 Gy in 20 fraction, completed on 06/14/15. Had undergone oophorectomy, continued AI therapy due to arthralgia. Reassurance was again provided today that exam and prior imaging do not demonstrate any trya dence of malignancy. Her continued breast is [...] has requested ongoing follow-up and imaging at [facility]. She is agreed for annual follow-u p with me as well. We discussed the option of tamoxifen. She expressed interest. I encour aged her to undergo consultation with medical oncologist in January when she returns to [facility] for imaging. Plan: It was so [...] physician as well. -Plan for follow-up at [facility]. Carissa expressed interest in starting tamoxifen for chemo prev ention. -Annual screening Mammogram to be ordered at [facility], due in January 2018 -Follow-up with me in 1 year, sooner if needed. Orders Placed This Encounter Procedures FRANCISCO Tomosynthesis Screening Bilateral AMB REFERRAL TO [facility] Medical Oncology Thank you for allowing me to participate in the care of Carissa Downey. If you should lepe ve any questions regarding this evaluation, please do not hesitate to contact me. Renee Sanches M.D. Radiation Oncologist Department of Radiation Oncology [facility] Office: [phone] CC: Patient Care Team: Luis Gracia PA-C as PCP - General (Physician Product Assurance Engineer-Medical) Nanci Kee MD (Obstetrics and Gynecology) [...] +--------+ + + | AMB REFERRAL TO [facility] | Outpatient | Routin | Malignant Neoplasm [...]
--- OUTSIDE RECORDS SUMMARY | ~2019-09-15 | XMS | Encounter Summary ---
Demographics + + + | Address | [address] | | | [place] [address] | + + + | Home Phone [...] + | Author | [facility] | | | and [place] | + + + | Organization | [facility] | | | and [place] | [...] [place], [place] | | | | | [address] | | + + + + + [...] [place] | | | | | [address] | | + + + + + Care Team Providers + +------+ + | Care Senior Litigation Paralegal Name | Role | Phone | + [...] W | | | | | | [place], | | | | | | [place] [address] | | | | | | [phone] | | | +--------+ + + + [...]
--- OUTSIDE RECORDS SUMMARY | ~2019-09-15 | XMS | Encounter Summary ---
Demographics + + + | Address | [address] | | | [place] [address] | + + + | Home Phone | | + + + | Preferred Language | Unknown | + + + | Marital Status | | + + + | Amish Affiliation | Unknown | + + + | Race | Unknown | + + + | Ethnic Group | Unknown | + + + Author + + + | Author | [facility] | | | and [place] | + + + | Organization | [facility] | [...] [place], [place] | | | | | [address] | | + + + + + [...] [place] | | | | | [address] | | + + + + + Care Team Providers + +------+ + | Care Head Sawyer Automatic Name | Role | Phone | + +------+ + | Luis Garcia PA-C | PCP | | + +------+ + Encounter Details +--------+ + + + + | Date | Type | Department | Care Team | Description | +--------+ + + + + | 08/05/ | Abstract | [facility] | Rubén Merlos, | | | 2016 | | REHABILITATION | [address] | | | | | MEDICINE [address] | [address] [place], [place] | | | | | [address] [place] | [address] | | | | | [place] [address] | | | | | | [phone] | | | +--------+ + + + [...]
--- OUTSIDE RECORDS SUMMARY | ~2019-09-15 | XMS | Encounter Summary ---
Demographics + + + | Address | [address] | | | [place] [address] | + + + | Home Phone | | + + + | Preferred Language | Unknown | + + + | Marital Status | | + + + | Baptism Affiliation | Unknown | + + + | Race | or | + + + | Ethnic Group | Not or | + + + Author + + + | Author | [facility] | + + + | Organization | [facility] | + + + | Address | Unknown | + + + | Phone | Unavailable | + + + Support + + +---------+ + | Name | Relationship | Address | Phone | + + +---------+ + | Jak Daley | ECON | Unknown | | + + +---------+ + Care Team Providers + +------+ + | Care Spray Technician Name | Role | Phone | + +------+ + | Mela Condon PA-C | PCP | | + +------+ + Encounter Details +--------+ + + + + | Date | Type | Department | Care Team | Description | +--------+ + + + + | 02/28/ | Document-Sc | Health Information | Unknown . | | | 2016 | anned | Services [id number] | | | | | | [address] | | | | | | Mailcode: OP17A | | | | | | [facility] | | | | | | [place], [place] | | | | | | [address] | | | | | | [phone] | | | +--------+ + + + [...]
--- OUTSIDE RECORDS SUMMARY | ~2019-09-15 | XMS | Encounter Summary ---
Demographics + + + | Address | [address] | | | [place] [address] | + + + | Home Phone [...] Author | [facility] | | | and [place] | + + + | Organization | [facility] | | | and [place] [...] [place], [place] | | | | | [address] | | + + + + + [...] [place] | | | | | [address] | | + + + + + Care Team Providers + +------+ + | Care Deposit Refund Clerk Name | Role | Phone | [...] + + | 12/26/ | Telephone | [facility] | MargaritaPanchitoy Fili, | Other (Survivorship) | | 2015 | | MED CTR MEDICAL | RN | | | | | ONCOLOGY CLINIC [address] | | | | | | [address] | | | | | | [place] [address] | | | | | | [phone] | | | +--------+ + + + [...]
--- OUTSIDE RECORDS SUMMARY | ~2019-09-15 | XMS | Encounter Summary ---
Demographics + + + | Address | [address] | | | [place] [address] | + + + | Home Phone [...] Author | [facility] [employer] [facility] | + + + | Organization | [facility] | + + + | Address | Unknown | + + + | Phone | Unavailable | + + + Support + + +---------+ + | Name | Relationship | Address | Phone | + + +---------+ + | Jak Daley | ECON | Unknown | | + + +---------+ + Care Team Providers + +------+ + | Care Information Technology Specialist Name | Role | Phone | + +------+ + | Mela Condon PA-C | PCP | | + +------+ + Encounter Details +--------+ + + + + | Date | Type | Department | Care Team | Description | +--------+ + + + + | 02/17/ | Document-Sc | Health Information | Unknown . | | | 2014 | anned | Services [id number] | | | | | | [address] | | | | | | Mailcode: OP17A | | | | | | [facility] | | | | | | [place], [place] | | | | | | [address] | | | | | | [phone] | | | +--------+ + + + [...]
--- OUTSIDE RECORDS SUMMARY | ~2019-09-15 | XMS | Encounter Summary ---
Demographics + + + | Address | [address] | | | [place] [address] | + + + | Home Phone [...] + | Author | [facility] | | | and [place] | + + + | Organization | [facility] [...] [place], [place] | | | | | [address] | | + + + + + [...] [place] | | | | | [address] | | + + + + + Care Team Providers + +------+ + | Care Development Expert Name | Role | Phone | + [...] | | | quadrant of | [address] | [place], | | | | | left female | [place], | [place] [address] | | | | | breast (HCC) | [place] | Phone: | | | | | Procedures | [address] | [phone] | | | | | IN OFFICE | Phone: | Fax: | | | | | OUTPATIENT | [phone] | [phone] | | | | | VISIT 25 | Fax: | | | | | | MINUTES | [phone] | | +--------+--------+ + + + + Encounter Details +--------+ + + + + | Date | Type | Department | Care Team | Description | +--------+ + + + + | 01/20/ | Hospital | [facility] | Renee Wood | Malignant neoplasm | | 2019 | Encounter | MED CTR RADIATION | MD Lazara [address] | of upper-outer | | | | ONCOLOGY CLINIC [address] | [place], [place] | quadrant of left | | | | [address] [place] | [id number] | breast in female, | | | | [place] [address] | | estrogen receptor | | | | [phone] | | positive (HCC) | | | [...] mammogram due in February 2019. Anticipated at [facility], managed by Dr. Quesada. - Follow-up with Dr. Quesada, Med Onc at [facility] as directed with ongoing tamoxifen. - Order a swallow study at [place] to evaluate the difficulty swallowing and weight [...] present. No LVSI. Negative margins. ER 100%, IN 7 0-75%, Ki-67 less than 1%, HER-2/jamia nonamplified by FISH with ratio 1.0, sentinel lymph n ode negative for metastatic carcinoma. Received adjuvant radiation with hypofractionated whole breast radiation, 40.05 to the breast with a 8 Gy of a [id number] Gy lumpectomy shu ost for a total 48.05 Gy in 20 fraction, completed on 06/14/15. Had undergone oophorectomy, intolerant of AI therapy due to arthralgia, continues on tamoxifen. - Carissa continues to report fatigue, low mood and multiple areas of pain. New for her is a low appetite and weight loss. She is also followed by Dr. Quesada at [facility], last seen in February 2018. Bilateral mammogram [...] on 06/14/15. Patient saw Dr. Quesada at [facility] on 03/12/2018 and had mammogram same day. [...] MA VY DIAGNOSTIC BILAT w/CAD performed at [facility]. There are scattered fibroglandular densities.Stable post-lumpectomy changes in the left breast. No suspicious calcifications, masses, or architectural distortion present in either breast.No significant changes when compared with prior studies. The images were obtained using full field digital mammography on the dedicated [employer] System with R2 CAD. Performed at [facility]. 3D tomosynthesis mammography was performed as part [...] swallow st udy to be done at [place]. Plan: - Bilateral screening mammogram due in February 2019. Anticipated at [facility], managed by Dr. Julio sun. - Follow-up with Dr. Quesada, Med Onc at [facility] as directed with ongoing tamoxifen. - Order a swallow study at [place] to evaluate the difficulty swallowing and weight [...] M.D. Radiation Oncologist Department of Radiation Oncology [facility] Office: [phone] documented in this encounter Plan of Treatment [...]
--- OUTSIDE RECORDS SUMMARY | ~2019-09-15 | XMS | Encounter Summary ---
Demographics + + + | Address | [address] | | | [place] [address] | + + + | Home Phone [...] | Author | [facility] | | | and Johnnyana | + + + | Organization | [facility] | | | and Johnnyana [...] [place], [place] | | | | | [address] | | + + + + + [...] [place] | | | | | [address] | | + + + + + Care Team Providers + +------+ + | Care Bias Cutter Helper Name | Role | Phone | [...] | | | | | | [place] [address] | | | | | | [phone] | | | +--------+ + + + [...]
--- OUTSIDE RECORDS SUMMARY | ~2019-09-15 | XMS | Encounter Summary ---
Demographics + + + | Address | [address] | | | [place] [address] | + + + | Home Phone | | + + + | Preferred Language | Unknown | + + + | Marital Status | | + + + | Christianity Affiliation | Unknown | + + + | Race | Unknown | + + + | Ethnic Group | Unknown | + + + Author + + + | Author | [facility] | | | and Johnnyana | + + + | Organization | [facility] | | | and Johnnyana [...] [address], [place] | | | | | [address] | | + + + + + [...] [place] | | | | | [address] | | + + + + + Care Team Providers + +------+ + | Care Sanitary Engineer Name | Role | Phone | [...] | | | | female | [place] [address] | [address] Phone: | | | | | breast (HCC) | Phone: | [phone] | | | | | Procedures | [phone] | Fax: | | | | | MD OFFICE | Fax: | [phone] | | | | | OUTPATIENT | [phone] | | | | | | VISIT 25 | | | | | | | MINUTES | | | +--------+--------+ + + + + Encounter Details +--------+ + + + + | Date | Type | Department | Care Team | Description | +--------+ + + + + | 04/15/ | Hospital | [facility] | Narcisa, | Breast cancer of | | 2016 | Encounter | [facility] | Reggie Gutierrez MD [address] | upper-outer quadrant | | | | [facility]COLOGY CLINIC [address] [place] | of left female | | | | [address] [place] | [place] [address] | breast (HCC) | | | | [place] [address] | [phone] | (Primary Dx) | | | | [phone] | | | +--------+ + + + [...] nt from the original. Hematology/Oncology Progress Note [facility] Pt. Name/Age/: Carissa Downey 50 y.o. 1965 Med. Record Number: [id number] Date of admission: 04/15/2016 Identifying Statement: Carissa Downey is a 50 y.o. female [facility] [address] [address] with Stage IA, premenopausal ER-positive LEFT breast [...] was performed by Dr. Iman Perales of [facility] diagnostic imaging. Pathological specimen [id number] was analyzed by Yessenia Champion a [facility] and returned a grade 1 invasive [...] illary sentinel lymph node biopsy. Specimen number [id number] returned a 1.1 cm well-diff erentiated invasive [...] therapy supervised by Dr. Renee norton the [facility] in [facility] with 4005 cGy in 15 fractions to [...] has been changed since signin Order Audit Hawkeye oxyCODONE-acetaminophen (PERCOCET) 5-325 mg per tablet (Taking) Take 1 tablet by mouth ev lili 6 hours as needed for Pain. Number of times this order has been changed since signin Order Audit Hawkeye Allergies: Allergy: No Known Allergies Objectives: Temp: [...] Clin. Oncol.: Anna Aceves, Carie Jaramillo., Kristen Rievrs., Marlyn Rincon., Gary Grossman., Troy Samson., Nadia, [...] mammography with CAD February 29, 2016 is in [facility] BI-RADS Category 2 benign. Pharmacovigilance: Palliative [...] this chart may have been created with [employer] voice recognition software. Occasi onal wrong-word or [...]
--- OUTSIDE RECORDS SUMMARY | ~2019-09-15 | XMS | Encounter Summary ---
Demographics + + + | Address | [address] | | | [place] [address] | + + + | Home Phone [...] + | Author | [facility] | | | and Johnnyana | + + + | Organization | [facility] | | | and [...] [address], [place] | | | | | [address] | | + + + + + [...] [place] | | | | | [address] | | + + + + + Care Team Providers + +------+ + | Care Pin Ticket Machine Operator Name | Role | Phone | [...] [place] | | | | | [address] [place] | [place] [address] | | | | | [place] [address] | [phone] | | | | | [phone] | | | +--------+ + + + [...]
--- OUTSIDE RECORDS SUMMARY | ~2019-09-15 | XMS | Encounter Summary ---
Demographics + + + | Address | [address] | | | [place] [address] | + + + | Home Phone [...] + + | Author | [facility] | + + + | Organization | [facility] | + + + | Address | Unknown | + + + | Phone | Unavailable | + + + Support + + +---------+ + | Name | Relationship | Address | Phone | + + +---------+ + | Jak Daley | ECON | Unknown | | + + +---------+ + Care Team Providers + +------+ + | Care Director Of Automation Name | Role | Phone | + [...] | | | | breast | [address] | [address] | | | | | cancer | [place] | [address] | | | | | Procedures | [address][id number] | [place], [place] | | | | | CONSULT TO | [facility] | [address] | | | | | HEMATOLOGY / | HOSPITAL | Phone: | | | | | ONCOLOGY | [place], [place] | [phone] | | | | | PRACTICE | [address] | Fax: | | | | | | Phone: | [phone] | | | | | | [phone] | | | | | | | Fax: | | | | | | | [phone] | | +--------+--------+ + + + + Reason for Visit + + + | Reason | Comments | + + + | Medication Question | LMCB 5/ | + + + Encounter Details +--------+ + + + + | Date | Type | Department | Care Team | Description | +--------+ + + + + | 02/04/ | Telephone | [facility] | aKtie Dee MA | Medication Question | | 2017 | | at [address] | [address] | ([facility] 02/04 ) | | | | [place] | [address] | | | | | 8C/[id number] [facility] | [place], [place] | | | | | [facility], | [address] | | | | | [place] [address] | | | | | | [phone] | | | +--------+ + + + [...]
--- OUTSIDE RECORDS SUMMARY | ~2019-09-15 | XMS | Encounter Summary ---
Demographics + + + | Address | [address] | | | [place] [address] | + + + | Home Phone | | + + + | Preferred Language | Unknown | + + + | Marital Status | | + + + | Yarsani Affiliation | Unknown | + + + | Race | Unknown | + + + | Ethnic Group | Unknown | + + + Author + + + | Author | [facility] | | | and Johnnyana | + + + | Organization | [facility] | | | and Johnnyana [...] [address], [place] | | | | | [address] | | + + + + + | Luis Doweny | ECON | Unknown | | + [...] [place] | | | | | [address] | | + + + + + Care Team Providers + +------+ + | Care Methane Gas Collection System Operator Name | Role | Phone | + +------+ + | Mela Condon PA-C | PCP | | + +------+ + Encounter Details +--------+ + + + + | Date | Type | Department | Care Team | Description | +--------+ + + + + | 06/01/ | Orders Only | [facility] [place] | Servando Taylor MD | Dysphagia, | | 2019 | | OTOLARYNGOLOGY [address] | [address] [place] | pharyngoesophageal | | | | [address] | [address] [place], | phase (Primary Dx) | | | | [place], [place] | [place] [address] | | | | | [address] | [phone] | | | | | [phone] | | | +--------+ + + + [...] | + +---------+--------+ + + | FL Barium Swallow | Imaging | Routin | Dysphagia, | Expected: | | | | e | pharyngoesophageal | 12/01/2019, Expires: | | | | | phase | 06/01/2020 | + +---------+--------+ + + documented as of this encounter Visit Diagnoses + + | Diagnosis | + + | Dysphagia, pharyngoesophageal phase - Primary | + + documented in this encounter"
--- OUTSIDE RECORDS SUMMARY | ~2019-09-15 | XMS | Encounter Summary ---
Demographics + + + | Address | [address] | | | [place] [address] | + + + | Home Phone [...] + + | Author | [facility] | + + + | [...] Team Providers + +------+ + | Care Thread Tool Grinder Set Up Operator Name | Role | Phone | [...] | Malignant | Jemima Leon, | [address] | | | | | neoplasm of | MD [address] | Pavilion | | | | | upper-outer | [address] | Loop | | | | | quadrant of | [place], [place] | Mailcode: | | | | | left breast | [address] | [address] | | | | | in female, | Phone: | [address] | | | | | estrogen | [phone] | [place], [place] | | | | | receptor | Fax: | [address] | | | | | positive | [phone] | Phone: | | | | | (HCC) | | [phone] | | | | | Weight loss | | Fax: | | | | | Bone pain | | [phone] | | | | | Procedures | | | | | | | NM BONE &/OR | | | | | | | JOINT | | | | | | | IMAGING | | | | | | | WHOLE BODY | | | | | | | NE BONE | | | | | | [...] | | | | quadrant of | [place], [place] | Mailcode: | | | | | left breast | [address] | [address] [facility] | | | | | in female, | Phone: | Hospital | | | | | estrogen | [phone] | [place], [place] | | | | | receptor | Fax: | [address] | | | | | positive | [phone] | Phone: | | | | | (HCC) | | [phone] | | | | | Weight loss | | Fax: | | | | | Bone pain | | [phone] | | | | | Procedures | | | | | | | CT CHEST, | | | | | | | ABDOMEN AND | | | | | | | PELVIS W IV | | | | | | | CONTRAST NE | | | | | | | CT | | | | | | | ABDOMEN&PELV | | | | | | | IS | | | | | | | W/CONTRAST | | | | | | | NE CAT SCAN | | | | | [...] | Mailcode: | | | | | NE NEW | | Center for | | | | | PATIENT | | Health and | | | | | LEVEL V NE | | Healing, | | | | | EST PATIENT | | Building [address] | | | | | LEVEL V | | [place], [place] | | | | | | | [address] | | | | | | | Phone: | | | | | | | [phone] | | | | | | | Fax: | | | | | | | [phone] | +--------+--------+ + + + + Encounter Details +--------+---------+ + + + | Date | Type | Department | Care Team | Description | +--------+---------+ + + + | 03/12/ | Office | Hematology/Medical | Justus Waddelleen | Malignant neoplasm | | 2018 | Visit | Oncology at [place] | MD Carolyn [address] | of upper-outer | | | | for Health & Healing | Ave [place], [place] | quadrant of left | | | | [address] | [address] | breast in female, | | | | Mailcode: [place] | [phone] | estrogen receptor | | | | for Health and | | positive (HCC) | | | | Healing, Building [address] | | (Primary Dx); Weight | | | | [place], [place] | | loss; Bone pain | | | | [address] | | | | | | [phone] | | | +--------+---------+ + + + [...] diffuse bone pa ins. Schedule these at [facility] in next 1-3 weeks. We will [...] months. JEMIMA WADDELL MD HEMATOLOGY/MEDICAL ONCOLOGY AT [address] Mailcode: [place] [address] documented in this encounter Progress Notes Dipak Ortega, Jemima Leon - 03/12/2018 11:00 AM PDTFormatting of this note might be different f rom the original. Medical Oncology [facility] [place] Consult 03/12/2018 Carissa Downey is a 52 y.o. female here for evaluation of breast cancer. Referred by No Referring Provider P*. Records reviewed as detailed in my note. 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 She presented with palpable lump. She is s/p lumpectomy and SNB, T = 1.1 cm IDC G1, SN = 0/1 (Dr. Edi Upton, [place] ). Left breast radiation ended 06/14/15. She took adjuvant exemestane Jun 2015 to Jun 2016 (i nitially with ovarian suppression, then PARRISH/BSO 08/28/15), stopped due to arthralgias and shu ne pains. Then tried tamoxifen from Jul 2016 to Aug 2016 (and she can't remember why she sto pped, outside chart notes depression and brain fog). She last saw Dr. Brewster last year (in [place]). She tells me today she is interested in re-trying adjuvant endocrine therapy and transferri ng her care to [facility]. 03/12/18 bilateral mammogram: benign, cat 2. [...] back in with her). She lives in [place]. PAST MEDICAL HISTORY: Past Medical History: Diagnosis Date Arthropathy Breast cancer, stage 1, estrogen receptor positive, left (HCC) 2014 [id number] IDC ER+NE+ Chronic fatigue Depression Mastodynia of right breast [...] and plan: 52 yo postmenopausal female with [id number] ER+(100%)NE+(70-75%)ZLQ7dxs - invasive ductal carcinoma G1 of left [...] d would like to transfer care to [facility]. She is motivated to try tamoxifen [...] plan. JEMIMA WADDELL MD HEMATOLOGY/MEDICAL ONCOLOGY AT [address] [place] Mailcode: [place] [address] documented in this encounter Plan [...] [facility] | [address] | [place] [address] | | | SERVICES, CORE | [place] [...] | | | LABORATORY | | | TUNISIAN | | | SERVICES, | | | [...] [facility] | [address] | [place] [address] | | | SERVICES, CORE | PARK [...]
--- OUTSIDE RECORDS SUMMARY | ~2019-09-15 | XMS | Encounter Summary ---
Demographics + + + | Address | [address] | | | [place] [address] | + + + | Home Phone | | + + + | Preferred Language | Unknown | + + + | Marital Status | | + + + | Uatsdin Affiliation | Unknown | + + + | Race | Unknown | + + + | Ethnic Group | Unknown | + + + Author + + + | Author | [facility] | | | and Johnnyana | + + + | Organization | [facility] | | [...] [address], [place] | | | | | [address] | | + + + + + [...] [place] | | | | | [address] | | + + + + + Care Team Providers + +------+ + | Care Cookee Name | Role | Phone | + [...] [address] Millan | | | | | [phone] | [place] [address] | | +--------+ + + + + [...] + +--------+ + + + | CT CHEST W CONTRAST | Routin | 03/19/2019 | | Results for this | | | e | 12:05 AM | | procedure are in the | | | | PDT | | results section. | + +--------+ + + + documented in this encounter Results CT Chest w Contrast (03/19/2019 12:05 AM PDT) + + | Specimen | [...]
--- OUTSIDE RECORDS SUMMARY | ~2019-09-15 | XMS | Encounter Summary ---
Demographics + + + | Address | [address] | | | [place] [address] | + + + | Home Phone [...] Author | [facility] [employer] [facility] | + + + | Organization | [facility] | + + + | Address | Unknown | + + + | Phone | Unavailable | + + + Support + + +---------+ + | Name | Relationship | Address | Phone | + + +---------+ + | Jak Daley | ECON | Unknown | | + + +---------+ + Care Team Providers + +------+ + | Care Human Resources Manager Manufacturing Name | Role | Phone | + +------+ + | Mela Condon PA-C | PCP | | + +------+ + Encounter Details +--------+------+ + + + | Date | Type | Department | Care Team | Description | +--------+------+ + + + | 03/12/ | Lab | Laboratory at [facility] | | Malignant neoplasm | | 2018 | | [address] | | of upper-outer | | | | [place], [place] | | quadrant of left | | | | [address] | | breast in female, | | | | [phone] | | estrogen receptor | | | [...] | 2018. | LABORATORY | | | [facility], | | | [place] [facility] | | | HEALTH + | | | HEALING | + + + + + + + + | Performing | Address | City/State/Zipcode | Phone Number | | Organization | | | | + + + + + | [facility] | [address] | [place] [address] | | | SERVICES, [place] [facility] | | | | | HEALTH [...] | + + + + + | [facility] | [address] | [place] [address] | | | SERVICES, CORE | YA[place]A [...] | | | LABORATORY | | | CYMRO | | | SERVICES, | | | [...] | + + + + + | [facility] | [address] | [place] [address] | | | SERVICES, CORE | Y[place]A [...]
--- OUTSIDE RECORDS SUMMARY | ~2019-09-15 | XMS | Clinical Summary ---
Demographics + + + | Address | [address] | | | [place] [address] | + + + | Home Phone | | + + + | Preferred Language | Unknown | + + + | Marital Status | | + + + | Religion Affiliation | Unknown | + + + | Race | Unknown | + + + | Ethnic Group | Unknown | + + + Author + + + | Author | [facility] | | | and Johnnyana | + + + | Organization | [facility] | | | and [...] [address], [place] | | | | | [address] | | + + + + + [...] [place] | | | | | [address] | | + + + + + Care Team Providers + +------+ + | Care Airfield Engineer Officer Name | Role | Phone | [...] was performed by Dr. Iman Perales of [facility] diagnostic imaging. Pathological specimen [id number] | | was analyzed by Dr. Alba Champion a [facility] and | | returned a grade [...] | sentinel lymph node biopsy. Specimen number [id number] | | returned a 1.1 cm well-differentiated [...] supervised by Dr. Renee Johnson of the [facility] | [facility] in [facility] with 4005 | | cGy [...] Plan: | | Carissa Downey returned to [facility] | | [place] with her , Jak Daley, for follow-up [...] | evidence of local recurrence.[facility] on February 29, 2016 and interpreted by [...] after | | her next mammogram at [facility] cancer clinic in | | [facility] to review her symptoms and [...] +--------+ +---------+--------+ | GEHA | GEHA | [id number] | 09/29/19 | [phone] | | PPO | | | [employer] | | 16-Pre | 6 | | | | | PPO | | sent | | | | + +--------+ +--------+ +---------+--------+ | HEALTH | IHS | [id number] | 09/29/19 | | | Indemn | [...] | | al/[place]in | | 1966 | [phone] | [place] | | | daniel | | | 9 (Home) | [address] | | | | | | [phone] | | | | | | | 7 (Work) | | + +--------+ +--------+ + + Advance Directives + + + + + | Type | Date Recorded | Patient | Explanation | | | | Refurbish Technician | | + + + + + | Power of | | | | | Component Engineer | | | | + + + + + | Advance | | | | | Directive | | | | + + + + +
--- OUTSIDE RECORDS SUMMARY | ~2019-09-15 | XMS | Encounter Summary ---
Demographics + + + | Address | [address] | | | [place] [address] | + + + | Home Phone [...] | Author | [facility] [employer] [facility] | + + + | Organization [...] Team Providers + +------+ + | Care Varnisher Apprentice Name | Role | Phone | + +------+ + | Mela Condon PA-C | PCP | | + +------+ + Encounter Details +--------+ + + + + | Date | Type | Department | Care Team | Description | +--------+ + + + + | 02/12/ | Winter Sports Manager | Hematology/Medical | Jemima Quesada | Breast cancer of | | 2017 | | Oncology at [place] | MD Carolyn [address] | lower-inner quadrant | | | | for Health & Healing | Ave [place], [place] | of left female | | | | [address] | [address] | breast (HCC) | | | | Mailcode: [place] | [phone] | (Primary Dx) | | | | for Health and | | | | | | Healing, [address] | | | | | | [place], [place] | | | | | | [address] | | | | | | [phone] | | | +--------+ + + + [...] | OF | | | | SPECIMEN:B [place] | | PATHOLOGY | | | | lymph node left axilla; | | | | | | left breastlumpectomy | | | | | | Materials | | | | | | Received:Referring | | | | | | Institution: [facility] | | | | | | [facility] | | | | | | [place] [address] | | | | | | Specimen A:Outside | | | | | | Accession Number: | | | | | | [id number] | | | | | | Collection Date: | | | | | | 02/17/2015Sublabeled | | | | | | H&E | | | | | | A | | | | | | 1 | | | | | | Specimen B:Outside | | | | | | Accession Number: | | | | | | [id number] | | | | | | Collection [...] | | | | | biopsy- 3:00 ([id number], | | | | | | 05.15) [...] B. | | | | | | [place] lymph node left | | | | | | axilla, biopsy | | | | | | ([id number], 03.14.15, A): | | | | | | - One lymph | | | | | | node with no diagnostic | | | | | | abnormality (0/1)- | | | | | | Negative for | | | | | | malignancy C. | | | | | | Left breast lumpectomy | | | | | | ([id number], 03.14.15, B) | | | | | | - Invasive | | | | | | ductal carcinoma, 1.1 | | | | | | cm, modified | | | | | | Pleitez-Holloway grade I | | | | | | - Ductal | | | | | | carcinoma in-situ, | | | | | | kle-ub-stylnuvnqkah | | | | | | grade [...] | + + + + + | [facility] | [address] | [place] [address] | | | PATHOLOGY | [address] | | | + + + + + documented in this encounter Visit Diagnoses + + | Diagnosis | + + | Breast cancer of lower-inner quadrant of left female breast (HCC) - Primary | + + documented in this encounter"
--- OUTSIDE RECORDS SUMMARY | ~2019-09-15 | XMS | Encounter Summary ---
Demographics + + + | Address | [address] | | | [place] [address] | + + + | Home Phone | | + + + | Preferred Language | Unknown | + + + | Marital Status | | + + + | Mandaeism Affiliation | Unknown | + + + | Race | or | + + + | Ethnic Group | Not or | + + + Author + + + | Author | [facility] [employer] [facility] | + + + [...] Providers + +------+ + | Care Electrical Installer Name | Role | Phone | [...] [address] | | | | | | [place], [place] | | | | | | [address] | | | +--------+ + + + [...]
--- OUTSIDE RECORDS SUMMARY | ~2019-09-15 | XMS | Encounter Summary ---
Demographics + + + | Address | [address] | | | [place] [address] | + + + | Home Phone | | + + + | Preferred Language | Unknown | + + + | Marital Status | | + + + | Jainism Affiliation | Unknown | + + + | Race | or | + + + | Ethnic Group | Not or | + + + Author + + + | Author | [facility] | + + + | Organization [...] Team Providers + +------+ + | Care Fiber Designer Name | Role | Phone | [...] Encounter | Center at [address] | WET PAN MIXER [address] | | | | | [address] | [address] | | | | | Tatyana[facility] | [place], [place] | | | | | [facility], | [address] | | | | | [place] [address] | [phone] | | | | | [phone] | | | +--------+ + + + [...] | | BP on (01/31/2017) 122/74 MA [place] DIAGNOSTIC BILAT W/CAD: January 31, | | [...] R2 CAD. Performed | | | at [facility]. ASSESSMENT: Benign - | | | [...] Hologic System with R2 CAD. Performed at [facility] | | [place].ASSESSMENT: Benign - Category 2 (Overall)VY NAVJOT BI [...] Hologic System with R2 CAD. Performed at [place] | [facility]. | | | |ASSESSMENT: Benign - Category [...]
--- OUTSIDE RECORDS SUMMARY | ~2019-09-15 | XMS | Encounter Summary ---
Demographics + + + | Address | [address] | | | [place] [address] | + + + | Home Phone [...] + | Author | [facility] | | | and Johnnyana | + + + | Organization | [facility] | | | and [...] [place], [place] | | | | | [address] | | + + + + + [...] [place] | | | | | [address] | | + + + + + Care Team Providers + +------+ + | Care Rn Surgical Pcu Name | Role | Phone | + [...] [place], [place] | | | | | [place], | [address] | | | | | [place] [address] | | | | | | [phone] | | | +--------+ + + + [...]
--- OUTSIDE RECORDS SUMMARY | ~2019-09-15 | XMS | Encounter Summary ---
Demographics + + + | Address | [address] | | | [place] [address] | + + + | Home Phone [...] | Author | [facility] | | | and [place] | + + + | Organization | [facility] | | | and [...] [place], [place] | | | | | [address] | | + + + + + | Luis Downey | ECON | Unknown | | + + + + + | Kourtney Carlos | ECON | Unknown | | + + + + + | Adrianne Calros | ECON | Unknown | | + + + + + | Rena Uribe | ECON | Unknown | | + + + + + | Luigi Benedict | ECON | [address] | | | | | [place] | | | | | [address] | | + + + + + Care Team Providers + +------+ + | Care Surfboard Maker Name | Role | Phone | + [...] | | syndrome | St [place] | [place], [place] | | | | | [place] | [place], [place] | [address] Phone: | | | | | tunnel | [phone] | [phone] | | | | | syndrome, | Phone: | Fax: | | | | | bilateral | [phone] | [phone] | | | | | | Fax: | | | | | | | [phone] | | +--------+ + + + + [...] tunnel syndrome | | | | [address] [facility] | [address] [place] | (Primary Dx); | | | | [place], [place] | [place] [address] | [place] tunnel | | | | [address] | [phone] | syndrome, bilateral | | | | [phone] | | | +--------+ + + + [...]
--- OUTSIDE RECORDS SUMMARY | ~2019-09-15 | XMS | Encounter Summary ---
Demographics + + + | Address | [address] | | | [place] [address] | + + + | Home Phone [...] Author | [facility] | | | and [place]ana | + + + | Organization | [facility] | | | and [place] [...] [address], [place] | | | | | [address] | | + + + + + [...] [place] | | | | | [address] | | + + + + + Care Team Providers + +------+ + | Care Fruit Harvester Name | Role | Phone | + +------+ + PCP | Unavailable | + +------+ + Encounter Details +--------+ + + + + | Date | Type | Department | Care Team | Description | +--------+ + + + + | 06/12/ | Hospital | [facility] | Afua Zambrano, | | | 2010 | Encounter | MED CTR XRAY [address] | | | | | [place] | [address] [place], | | | | | [place] [address] | [place] [address] | | | | | [phone] | [phone] | | | | | | | [...] + +--------+ + + + | CT ANGIOGRAPHY | | 06/12/2011 | | Results for this | | CORONARY ARTERIES W | | 10:40 AM | | procedure are in the | | CONTRAST W 3D | | PDT | | results section. | + +--------+ + + + documented in this encounter Results CT Angiography Coronary Arteries W Cntrs (06/12/2011 10:40 AM PDT) + + | Specimen | + + | | + + + + + | Narrative | Performed At | + + + | [facility] Diagnostic Imaging Department | [place] | | [address] [facility] [place] | [place] [facility] | | CARDIAC CT ANGIOGRAPHY, | DIAG IMG | | 06/12/2011 CLINICAL HISTORY: THE PATIENT IS A 45 YEAR OLD FEMALE | | | WHO PRESENTS WITH CHEST PAIN ON EXERTION. PROCEDURE: After | | | informed consent was obtained, the patient was taken to the radiology | | | suite; 100 mg of metoprolol was given orally. The patient was also | | | given a 0.4 mg sublingual nitroglycerin prior to the imaging. The | | | noncontrast imaging was performed on this patient. The | | | contrast-enhanced CT imaging of the heart, coronary arteries, and | | | proximal great vessels was performed with a [employer] [address] scan ner. | | | A total amount of 130 mL of the Isovue 370 was utilized. The patient | | | was observed for at least 1 5 minutes after the scan and then the IV | | | line was removed. There were no complications and the patien t was | | | discharged with instructions to force fluids for the remainder of the | | | day. The images were revi ewed on an independent computer workstation | | | with thin-section, 2D and 3D volume images. The cardiac f unction, | | | acquisition, and analysis were also performed. DETAILED FINDINGS | | | LEFT MAIN: Normal. LEFT ANTERIOR DESCENDING ARTERY | | | PROXIMAL: Normal. MID AND DISTAL: Normal. DIAGONALS: | | | Normal. LEFT CIRCUMFLEX ARTERY THE CIRCUMFLEX PROPER: | | | Normal. OBTUSE MARGINALS: Normal. RIGHT CORONARY ARTERY | | | PROXIMAL, MID AND DISTAL: Normal. POSTERIOR DESCENDING | | | ARTERY: Normal. VENTRICULAR FUNCTION LEFT VENTRICULAR SIZE: | | | Normal. LEFT VENTRICULAR WALL THICKNESS: Normal. LEFT | | | VENTRICULAR EJECTION FRACTION: 60%. LEFT ATRIAL, RIGHT ATRIAL, | | | RIGHT VENTRICULAR SIZE: Normal. CORONARY CIRCULATION: Right | | | dominant. PERICARDIUM: Normal. No perfusion. CORONARY | | | CALCIUM SCORE: 0 IMPRESSION 1. A NORMAL CORONARY ANATOMY. | | | 2. THE CORONARY CIRCULATION IS RIGHT DOMINANT. 3. A NORMAL | | | LEFT VENTRICULAR SIZE, WALL THICKNESS AND MOTION. PRESERVED LEFT | | | VENTRICULAR SYSTOLIC F UNCTION. LVEF IS 60%. 4. A CORONARY | | | CALCIUM SCORE OF 0. 5. A NONCARDIAC FINDING WILL BE DICTATED | | | SEPARATELY BY DR. BONILLA. Dictated Date/Time: 06/13/2011 | | | 13:29 Transcribed Date/Time: 06/13/2011 10:02 Lot Attendant: | | | < Addendum > ADDENDUM: 07/08/11 1412 ADDENDUM: | | | Extracardiac portions of the examination are interpreted as an | | | addendum to the original report. The pulmonary parenchyma | | | demonstrates linear septal thickening at the left base. There is | | | patchy ground glass opacity which may reflect atelectasis. No | | | pulmonary nodules are seen. Limited assessment of the pulmonary | | | arterial tree shows no evidence of pulmonary thromboembolism. There is | | | no pleural effusion. Visualized bony structures and partially | | | imaged upper abdominal structures are unremarkable. IMPRESSION: | | | 1. LINEAR SEPTAL THICKENING OR FIBROUS BAND AT THE LEFT BASE. 2. | | | LEFT BASE GROUND GLASS OPACITIES POSSIBLY REFLECTING ATELECTASIS. | | | <Electronically Signed by Afua Zambrano MD [facility]> 06/14/11 | | | 0702 | | + + + + + | Procedure Note | + + | Martin Sylvester Conversion - 11/05/2013 3:49 PM [facility] | | Diagnostic Imaging Department [address] [place] [address] | | CARDIAC CT ANGIOGRAPHY, 06/12/2011 CLINICAL HISTORY: | | THE PATIENT IS A 45 YEAR OLD FEMALE WHO PRESENTS WITH CHEST PAIN ON EXERTION. | | PROCEDURE: After informed consent was obtained, the patient was taken to the radiology | | suite; 100 mg of metoprolol was given orally. The patient was also given a 0.4 mg | | sublingual nitroglycerin prior to the imaging. The noncontrast imaging was performed on | | this patient. The contrast-enhanced CT imaging of the heart, coronary arteries, and | | proximal great vessels was performed with a GE [address] scanner. A total amount of | | 130 mL of the Isovue 370 was utilized. The patient was observed for at least 15 minutes | | after the scan and then the IV line was removed. There were no complications and the | | patient was discharged with instructions to force fluids for the remainder of the day. | | The images were reviewed on an independent computer workstation with thin-section, 2D | | and 3D volume images. The cardiac function, acquisition, and analysis were also | | performed. DETAILED FINDINGS LEFT MAIN: Normal. LEFT ANTERIOR DESCENDING ARTERY | | PROXIMAL: Normal. MID AND DISTAL: Normal. DIAGONALS: Normal. LEFT CIRCUMFLEX ARTERY | | THE CIRCUMFLEX PROPER: Normal. OBTUSE MARGINALS: Normal. RIGHT CORONARY ARTERY | | PROXIMAL, MID AND DISTAL: Normal. POSTERIOR DESCENDING ARTERY: Normal. VENTRICULAR | | FUNCTION LEFT VENTRICULAR SIZE: Normal. LEFT VENTRICULAR WALL THICKNESS: Normal. | | LEFT VENTRICULAR EJECTION FRACTION: 60%. LEFT ATRIAL, RIGHT ATRIAL, RIGHT VENTRICULAR | | SIZE: Normal. CORONARY CIRCULATION: Right dominant. PERICARDIUM: Normal. No | | perfusion. CORONARY CALCIUM SCORE: 0 IMPRESSION 1. A NORMAL CORONARY ANATOMY. 2. THE | | CORONARY CIRCULATION IS RIGHT DOMINANT. 3. A NORMAL LEFT VENTRICULAR SIZE, W[place] | | THICKNESS AND MOTION. PRESERVED LEFT VENTRICULAR SYSTOLIC FUNCTION. LVEF IS 60%. 4. | | A CORONARY CALCIUM SCORE OF 0. 5. A NONCARDIAC FINDING WILL BE DICTATED SEPARATELY BY | | DR. BONILLA. Dictated Date/Time: 06/13/2011 13:29Transcribed Date/Time: 06/13/2011 | | 10:02Transcriptionist: < Addendum >ADDENDUM: 07/08/11 1412ADDENDUM: Extracardiac | | portions of the examination are interpreted as an addendum to the original report. The | | pulmonary parenchyma demonstrates linear septal thickening at the left base. There is | | patchy ground glass opacity which may reflect atelectasis. No pulmonary nodules are | | seen. Limited assessment of the pulmonary arterial tree shows no evidence of pulmonary | | thromboembolism. There is no pleural effusion. Visualized bony structures and partially | | imaged upper abdominal structures are unremarkable. IMPRESSION:1. LINEAR SEPTAL | | THICKENING OR FIBROUS BAND AT THE LEFT BASE. 2. LEFT BASE GROUND GLASS OPACITIES | | POSSIBLY REFLECTING ATELECTASIS. <Electronically Signed by Afua Zambrano MD [facility] | | FASE> 06/14/11 0702 | |OBTUSE MARGINALS: Normal. | | | |RIGHT CORONARY ARTERY | | | |PROXIMAL, MID AND DISTAL: Normal. | | | |POSTERIOR DESCENDING ARTERY: Normal. | | | |VENTRICULAR FUNCTION | | | |LEFT VENTRICULAR SIZE: Normal. | | | |LEFT VENTRICULAR WALL THICKNESS: Normal. | | | |LEFT VENTRICULAR EJECTION FRACTION: 60%. | | | |LEFT ATRIAL, RIGHT ATRIAL, RIGHT VENTRICULAR SIZE: Normal. | | | |CORONARY CIRCULATION: Right dominant. | | | |PERICARDIUM: Normal. No perfusion. | | | |CORONARY CALCIUM SCORE: 0 | | | |IMPRESSION | | | |1. A NORMAL CORONARY ANATOMY. | | | |2. THE CORONARY CIRCULATION IS RIGHT DOMINANT. | | | |3. A NORMAL LEFT VENTRICULAR SIZE, WALL THICKNESS AND MOTION. PRESERVED LEFT VENTRICULAR SYSTOLIC F | |UNCTION. LVEF IS 60%. | | | |4. A CORONARY CALCIUM SCORE OF 0. | | | |5. A NONCARDIAC FINDING WILL BE DICTATED SEPARATELY BY DR. BONILLA. | | | |Dictated Date/Time: 06/13/2011 13:29 | |Transcribed Date/Time: 06/13/2011 10:02 | |Lot Attendant: | |< Addendum > | |ADDENDUM: 07/08/11 1412 | |ADDENDUM: | |Extracardiac portions of the examination are interpreted as an addendum to the | |original report. The pulmonary parenchyma demonstrates linear septal thickening | |at the left base. There is patchy ground glass opacity which may reflect | |atelectasis. No pulmonary nodules are seen. Limited assessment of the pulmonary | |arterial tree shows no evidence of pulmonary thromboembolism. There is no | |pleural effusion. Visualized bony structures and partially imaged upper | |abdominal structures are unremarkable. | | | |IMPRESSION: | |1. LINEAR SEPTAL THICKENING OR FIBROUS BAND AT THE LEFT BASE. | | | |2. LEFT BASE GROUND GLASS OPACITIES POSSIBLY REFLECTING ATELECTASIS. | | | | | |<Electronically Signed by Afua Zambrano MD [facility]> 06/14/11 0702 | + + + +---------+ + + | Performing | Address | City/State/Zipcode | Phone Number | | Organization | | | | + +---------+ + + | [place] | | | | | [place] | | | | + +---------+ + + documented in this encounter Visit Diagnoses Not on filedocumented in this encounter"
--- OUTSIDE RECORDS SUMMARY | ~2019-09-15 | XMS | Encounter Summary ---
Demographics + + + | Address | [address] | | | [place] [address] | + + + | Home Phone | | + + + | Preferred Language | Unknown | + + + | Marital Status | | + + + | Voodoo Affiliation | Unknown | + + + | Race | Unknown | + + + | Ethnic Group | Unknown | + + + Author + + + | Author | [facility] | | | and [place] | + + + | Organization | [facility] [...] [address], [place] | | | | | [address] | | + + + + + [...] [place] | | | | | [address] | | + + + + + Care Team Providers + +------+ + | Care Cinder Pit Worker Name | Role | Phone | [...] | | [facility] [address] [place], [place] | (Primary Dx) | | | | [address] [place] | [address] | | | | | [place] [address] | | | | | | [phone] | | | +--------+ + + + [...]
--- OUTSIDE RECORDS SUMMARY | ~2019-09-15 | XMS | Encounter Summary ---
Demographics + + + | Address | [address] | | | [place] [address] | + + + | Home Phone | | + + + | Preferred Language | Unknown | + + + | Marital Status | | + + + | Congregational Affiliation | Unknown | + + + | Race | or | + + + | Ethnic Group | Not or | + + + Author + + + | Author | [facility] | + + + [...] Team Providers + +------+ + | Care Production Or Plant Engineer Name | Role | Phone | + +------+ + | Mela Condon PA-C | PCP | | + +------+ + Encounter Details +--------+ + + + + | Date | Type | Department | Care Team | Description | +--------+ + + + + | 03/12/ | Procedure | Diagnostic Imaging | | | | 2017 | Pass | Services at [facility] | | | | | | [address] | | | | | | Jazzmine Abernathy Mailcode: | | | | | | [address] | | | | | | [place], [place] | | | | | | [address] | | | | | | [phone] | | | +--------+ + + + [...]
--- OUTSIDE RECORDS SUMMARY | ~2019-09-15 | XMS | Encounter Summary ---
Demographics + + + | Address | [address] | | | [place] [address] | + + + | Home Phone [...] Author | [facility] | + + + [...] Team Providers + +------+ + | Care Title Insurance Sales Representative Name | Role | Phone | + +------+ + | Mela Condon PA-C | PCP | | + +------+ + Encounter Details +--------+ + + + + | Date | Type | Department | Care Team | Description | +--------+ + + + + | 02/12/ | Bench Hand Machine | Hematology/Medical | Jemima Quesada | Breast cancer of | | 2017 | | [facility]cology [facility] [place] | MD Carolyn [address] | lower-inner quadrant | | | | for Health & Healing | [address] [place], [place] | of left female | | | | [address] | [address] | breast (HCC) | | | | Mailcode: [facility] | [phone] | (Primary Dx) | | | | for Health and | | | | | | Healing, [address] | | | | | | [place], [place] | | | | | | [address] | | | | | | [phone] | | | +--------+ + + + [...] | OF | | | | SPECIMEN:B Shelby | | PATHOLOGY | | | | lymph node left axilla; | | | | | | left breastlumpectomy | | | | | | Materials | | | | | | Received:Referring | | | | | | Institution: [facility] | | | | | | [facility] | | | | | | [place] [address] | | | | | | Specimen A:Outside | | | | | | Accession Number: | | | | | | [id number] | | | | | | Collection Date: | | | | | | 02/17/2015Sublabeled | | | | | | H&E | | | | | | A | | | | | | 1 | | | | | | Specimen B:Outside | | | | | | Accession Number: | | | | | | [id number] | | | | | | Collection [...] | | | | | biopsy- 3:00 ([id number], | | | | | | 05.15) [...] B. | | | | | | Shelby lymph node left | | | | | | axilla, biopsy | | | | | | ([id number], 03.14.15, A): | | | | | | - One lymph | | | | | | node with no diagnostic | | | | | | abnormality (0/1)- | | | | | | Negative for | | | | | | malignancy C. 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
--- OUTSIDE RECORDS SUMMARY | ~2019-09-15 | XMS | Encounter Summary ---
Demographics + + + | Address | [address] | | | [place] [address] | + + + | Home Phone | | + + + | Preferred Language | Unknown | + + + | Marital Status | | + + + | Mosque Affiliation | Unknown | + + + | Race | Unknown | + + + | Ethnic Group | Unknown | + + + Author + + + | Author | [facility] | | | and [place] | + + + | Organization | [facility] | | | and [place] [...] [address], [place] | | | | | [address] | | + + + + + [...] [place] | | | | | [address] | | + + + + + Care Team Providers + +------+ + | Care Gold Layer Name | Role | Phone | + +------+ + PCP | Unavailable | + +------+ + Encounter Details +--------+ + + + + | Date | Type | Department | Care Team | Description | +--------+ + + + + | 06/12/ | Hospital | [facility] | Afua Zambrano, | | | 2010 | Encounter | MED CTR XRAY [address] | | | | | [address] [place] | [address] [place], | | | | | [place] [address] | [place] [address] | | | | | [phone] | [phone] | | | | | | | [...] Performed At | + + + | [facility] Diagnostic Imaging Department | [place] | | [address] [facility] [place] | [place] [facility] | | CARDIAC CT ANGIOGRAPHY, | DIAG [...] proximal great vessels was performed with a [employer] [address] scan ner. | | [...] | | 13:29 Transcribed Date/Time: 06/13/2011 10:02 Two Needle Machine Operator: | | | < Addendum > ADDENDUM: [...] | <Electronically Signed by Afua Zambrano MD [facility]> 06/14/11 | | | 0702 | | + + + + + | Procedure Note | + + | Martin Sylvester Conversion - 11/05/2013 3:[address] [facility] | | Diagnostic Imaging Department [address] [place] [address] | | CARDIAC CT ANGIOGRAPHY, 06/12/2011 CLINICAL [...] ATELECTASIS. <Electronically Signed by Afua Zambrano MD [facility] | | FASE> 06/14/11 0702 | [...] 13:29 | |Transcribed Date/Time: 06/13/2011 10:02 | |Two Needle Machine Operator: | |< Addendum > | |ADDENDUM: 07/08/11 [...] | |<Electronically Signed by Afua Zambrano MD [facility]> 06/14/11 0702 | + + [...]
--- OUTSIDE RECORDS SUMMARY | ~2019-09-15 | XMS | Encounter Summary ---
Demographics + + + | Address | [address] | | | [place] [address] | + + + | Home Phone | | + + + | Preferred Language | Unknown | + + + | Marital Status | | + + + | Jewish Affiliation | Unknown | + + + | Race | Unknown | + + + | Ethnic Group | Unknown | + + + Author + + + | Author | [facility] | | | and [place]ana | + + + | Organization | [facility] | [...] [place], [place] | | | | | [address] | | + + + + + [...] [place] | | | | | [address] | | + + + + + Care Team Providers + +------+ + | Care Roving Frame Tender Name | Role | Phone | + +------+ + | Luis Garcia PA-C | PCP | | + +------+ + Reason for Visit + + + | Reason | Comments | + + + | Wrist Pain | bilateral wrist pain ONSET 4 months | + + + Evaluate & Treat (Routine) +--------+--------+ + + + + | Status | Reason | Specialty | Diagnoses / | Referred By | Referred To | | | | | Procedures | Contact | Contact | +--------+--------+ + + + + | Closed | | Orthopedic | Diagnoses | Jose, | [place], | | | | Surgery | Bilateral | Luis Salcedo, | Burke Salcedo MD | | | | | javed | [place] [address] | [address] [place] [address] | | | | | tunnel | [address] | [address] | | | | | syndrome | WAY | [place] | | | | | | [place], | [address] Phone: | | | | | | [place] [address] | [phone] | | | | | | Phone: | Fax: | | | | | | [phone] | [phone] | | | | | | Fax: | | | | | | | [phone] | | +--------+--------+ + + + + Encounter Details +--------+---------+ + + + | Date | Type | Department | Care Team | Description | +--------+---------+ + + + | 06/26/ | Office | [facility] | Ross Rowland | Bilateral carpal | | 2016 | Visit | ORTHOPEDIC SURGERY | [address] | tunnel syndrome | | | | [address] [facility] | [place] [place] | (Primary Dx); | | | | [place] [place] | [place] [address] | Cub[place] tunnel | | | | [address] | [phone] | syndrome, bilateral | | | | [phone] | | | +--------+---------+ + + + [...] + + + + | Temperature | 36.7 C (98.1 F) | 06/26/2016 2:44 PM | | | [...] + + + + | Weight | 70.8 kg (156 lb) | 06/26/2016 2:44 PM | | | | | PDT | | + + + + + | Height | 162.6 cm (5' 4") | 06/26/2016 2:44 PM | | | | | PDT | | + + + + + | Body Mass Index | 26.78 | 06/26/2016 2:44 PM | | | [...] bilateral | + + documented in this encounter
--- OUTSIDE RECORDS SUMMARY | ~2019-09-15 | XMS | Encounter Summary ---
Demographics + + + | Address | [address] | | | [place] [address] | + + + | Home Phone | | + + + | Preferred Language | Unknown | + + + | Marital Status | | + + + | Holiness Affiliation | Unknown | + + + | Race | Unknown | + + + | Ethnic Group | Unknown | + + + Author + + + | Author | [facility] | | | and [place] | + + + | Organization | [facility] | | | and [...] [place], [place] | | | | | [address] | | + + + + + [...] [place] | | | | | [address] | | + + + + + Care Team Providers + +------+ + | Care Set Off Press Operator Name | Role | Phone | [...] | | | neoplasm of | PA-C [address] | [address] | | | | | upper-outer | [address] | | | | | quadrant of | WAY | [place], | | | | | unspecified | [place], | [place] [address] | | | | | female | [place] [address] | Phone: | | | | | breast (HCC) | Phone: | [phone] | | | | | Procedures | [phone] | Fax: | | | | | [place] OFFICE | Fax: | [phone] | | | | | OUTPATIENT | [phone] | | | | | | VISIT 25 | | | | | | | MINUTES | | | +--------+--------+ + + + + Encounter Details +--------+ + + + + | Date | Type | Department | Care Team | Description | +--------+ + + + + | 01/08/ | Hospital | [facility] | Renee Wood | No Show | | 2017 | Encounter | MED CTR RADIATION | [place], [address] | | | | | ONCOLOGY [address] [place], [place] | | | | | [place], | [address] | | | | | [place] [address] | | | | | | [phone] | | | +--------+ + + + [...]
--- OUTSIDE RECORDS SUMMARY | ~2019-09-15 | XMS | Encounter Summary ---
Demographics + + + | Address | [address] | | | [place] [address] | + + + | Home Phone | | + + + | Preferred Language | Unknown | + + + | Marital Status | | + + + | Congregation Affiliation | Unknown | + + + | Race | or | + + + | Ethnic Group | Not or | + + + Author + + + | Author | [facility] [facility] | + + + | Organization | [facility] | + + + | Address | Unknown | + + + | Phone | Unavailable | + + + Support + + +---------+ + | Name | Relationship | Address | Phone | + + +---------+ + | Jak Daley | ECON | Unknown | | + + +---------+ + Care Team Providers + +------+ + | Care Signal System Testing Maintainer Name | Role | Phone | + [...] Encounter | [facility] [address] | WASTEWATER ENGINEER [address] | | | | | [address] | [address] | | | | | [id number] | [place], [place] | | | | | [facility], | [address] | | | | | [place] [address] | [phone] | | | | | [phone] | | | +--------+ + + + [...] full field digital mammography on the dedicated LogoneX System | | | with R2 CAD. Performed at [facility]. | | | ASSESSMENT: Benign - Category [...] Hologic System with R2 CAD. Performed at [facility].ASSESSMENT: Benign - Category 2 (Overall)VY NAVJOT [...] Hologic System with R2 CAD. Performed at [facility]. | | | [...]
--- OUTSIDE RECORDS SUMMARY | ~2019-09-15 | XMS | Encounter Summary ---
[...] | Author | [facility] | | | and Johnnyana | + + + | Organization | [facility] | | [...] [place], [place] | | | | | [address] | | + + + + + [...] [place] | | | | | [address] | | + + + + + Care Team Providers + +------+ + | Care Press Setter Name | Role | Phone | + [...] [place], [place] | | | | | [place], | [address] | | | | | [place] [address] | | | | | | [phone] | | | +--------+ + + + [...]
--- OUTSIDE RECORDS SUMMARY | ~2019-09-15 | XMS | Encounter Summary ---
Demographics + + + | Address | [address] | | | [place] [address] | + + + | Home Phone [...] Author + + + | Author | [facility] | + + + | Organization | [facility] | + + + | Address | Unknown | + + + | Phone | Unavailable | + + + Support + + +---------+ + | Name | Relationship | Address | Phone | + + +---------+ + | Jak Daley | ECON | Unknown | | + + +---------+ + Care Team Providers + +------+ + | Care Digital Marketing Program Manager Name | Role | Phone | [...] | Malignant | Jemima Leon, | [address] | | | | | neoplasm of | MD [address] | [address]ilion | | | | | upper-outer | [address] | Loop | | | | | quadrant of | [place], [place] | Mailcode: | | | | | left breast | [address] | [address] | | | | | in female, | Phone: | [address] | | | | | estrogen | [phone] | [place], [place] | | | | | receptor | Fax: | [address] | | | | | positive | [phone] | Phone: | | | | | (HCC) | | [phone] | | | | | Weight loss | | Fax: | | | | | Bone pain | | [phone] | | | | | Procedures | | | | | | | NM BONE &/OR | | | | | | | JOINT | | | | | | | IMAGING | | | | | | | WHOLE BODY | | | | | | | ID BONE | | | | | | [...] | | 2018 | Encounter | at [facility] [address] | A, MD [address] | | | | | [address] | [place], [place] | | | | | Mailcode: [address] [facility] | [address] | | | | | [address] | [phone] | | | | | [place], [place] | | | | | | [address] | | | | | | [phone] | | | +--------+ + + + [...]
--- OUTSIDE RECORDS SUMMARY | ~2019-09-15 | XMS | Encounter Summary ---
Demographics + + + | Address | [address] | | | [place] [address] | + + + | Home Phone [...] | Author | [facility] | | | and Johnnyana | + + + | Organization | [facility] | | | and [...] [address], [place] | | | | | [address] | | + + + + + [...] [place] | | | | | [address] | | + + + + + Care Team Providers + +------+ + | Care Window Trimmer Apprentice Name | Role | Phone | [...] | Malignant | Renee M, | [address] | | | | | neoplasm of | [address] | [place], | | | | | left breast | [address] | [place] [address] | | | | | (HCC) | [place], | Phone: | | | | | Procedures | [place] [address] | [phone] | | | | | CT Treatment | Phone: | Fax: | | | | | Plan | [phone] | [phone] | | | | | Complex | Fax: | | | | | | | [phone] | | +--------+--------+ + + + + Encounter Details +--------+ + + + + | Date | Type | Department | Care Team | Description | +--------+ + + + + | 05/04/ | Orders Only | [facility] | Renee Wood | Malignant neoplasm | | 2015 | | MED CTR RADIATION | MD Lazara [address] | of left breast (HCC) | | | | ONCOLOGY [address] | [place], [place] | (Primary Dx) | | | | [place], | [address] | | | | | [place] [address] | | | | | | [phone] | | | +--------+ + + + [...]
--- OUTSIDE RECORDS SUMMARY | ~2019-09-15 | XMS | Encounter Summary ---
Demographics + + + | Address | [address] | | | [place] [address] | + + + | Home Phone [...] | Author | [facility] | | | and Johnnyana | + + + | Organization | [facility] | [...] [address], [place] | | | | | [address] | | + + + + + [...] [place] | | | | | [address] | | + + + + + Care Team Providers + +------+ + | Care Probation Officer Name | Role | Phone | [...] | | ONCOLOGY CLINIC [address] | [address] [place], [place] | | | | | [address] [place] | [address] | | | | | [place] [address] | | | | | | [phone] | | | +--------+ + + + [...]
--- OUTSIDE RECORDS SUMMARY | ~2019-09-15 | XMS | Encounter Summary ---
Demographics + + + | Address | [address] | | | [place] [address] | + + + | Home Phone [...] + | Author | [facility] | | | and Johnnyana | + + + | Organization | [facility] | | | and Johnnyana [...] [address], [place] | | | | | [address] | | + + + + + | Luis Downey | ECON | Unknown | | + + + + + | Kourtney Cralos | ECON | Unknown | | + + + + + | Adrianne Carlos | ECON | Unknown | | + + + + + | Rena Uribe | ECON | Unknown | | + + + + + | Luigi Benedict | ECON | [address] | | | | | [place] | | | | | [address] | | + + + + + Care Team Providers + +------+ + | Care Component Lab Tech Name | Role | Phone | + [...] | | | | | | [place] [address] | [place] [address] | | | | | | Phone: | Phone: | | | | | | [phone] | [phone] | | | | | | Fax: | Fax: | | | | | | [phone] | [phone] | + + + + + + + Encounter Details +--------+---------+ + + + | Date | Type | Department | Care Team | Description | +--------+---------+ + + + | 05/24/ | Office | [facility] | Renee Wood | Pharyngoesophageal | | 2019 | Visit | OTOLARYNGOLOGY [address] | MD Lazara [address] | dysphagia (Primary | | | | [address] | [place], [place] | Dx); | | | | [place], [place] | [address] | Laryngopharyngeal | | | | [address] | | reflux (LPR) | | | | [phone] | Servando Taylor MD | | | | | | [address] | | | | | | [address] [facility] [place] | | | | | | [address] | | | | | | | [...] indicates she had a swallow study in [place] about a month ago and was told [...] documented in this encounter Plan of Treatment + + [...]
--- OUTSIDE RECORDS SUMMARY | ~2019-09-15 | XMS | Encounter Summary ---
Demographics + + + | Address | [address] | | | [place] [address] | + + + | Home Phone [...] + | Author | [facility] | | | and Johnnyana | + + + | Organization | [facility] | | | and [...] [address], [place] | | | | | [address] | | + + + + + [...] [place] | | | | | [address] | | + + + + + Care Team Providers + +------+ + | Care Loan Officer Name | Role | Phone | [...] | | | ONCOLOGY CLINIC [address] | [place], [place] | | | | | [facility] | [address] | | | | | [place] [address] | | | | | | [phone] | | | +--------+ + + + [...]
--- OUTSIDE RECORDS SUMMARY | ~2019-09-15 | XMS | Encounter Summary ---
Demographics + + + | Address | [address] | | | [place] [address] | + + + | Home Phone | | + + + | Preferred Language | Unknown | + + + | Marital Status | | + + + | Christian Affiliation | Unknown | + + + | Race | Unknown | + + + | Ethnic Group | Unknown | + + + Author + + + | Author | [facility] | | | and Johnnyana | + + + | Organization | [facility] | | | and Johnnyana [...] [address], [place] | | | | | [address] | | + + + + + [...] [place] | | | | | [address] | | + + + + + Care Team Providers + +------+ + | Care Supervisor Name | Role | Phone | [...] | | | quadrant of | [address] | [place], | | | | | left female | [place], | [place] [address] | | | | | breast (HCC) | [place] | Phone: | | | | | Procedures | [address] | [phone] | | | | | NE OFFICE | Phone: | Fax: | | | | | OUTPATIENT | [phone] | [phone] | | | | | VISIT 25 | Fax: | | | | | | MINUTES | [phone] | | +--------+--------+ + + + + Encounter Details +--------+ + + + + | Date | Type | Department | Care Team | Description | +--------+ + + + + | 01/20/ | Hospital | [facility] | Renee Wood | Malignant neoplasm | | 2019 | Encounter | MED CTR RADIATION | MD Lazara [address] | of upper-outer | | | | ONCOLOGY CLINIC [address] | [place], [place] | quadrant of left | | | | [address] [place] | [id number] | breast in female, | | | | [place] [address] | | estrogen receptor | | | | [phone] | | positive (HCC) | | | [...] mammogram due in February 2019. Anticipated at [facility], managed by Dr. Quesada. - Follow-up with Dr. Quesada, Med Onc at [facility] as directed with ongoing tamoxifen. - Order a swallow study at [place] to evaluate the difficulty swallowing and weight [...] present. No LVSI. Negative margins. ER 100%, NE 7 0-75%, Ki-67 less than 1%, HER-2/jamia nonamplified by FISH with ratio 1.0, sentinel lymph n ode negative for metastatic carcinoma. Received adjuvant radiation with hypofractionated whole breast radiation, 40.05 to the breast with a 8 Gy of a caqetzj57 Gy lumpectomy shu ost for a total 48.05 Gy in 20 fraction, completed on 06/14/15. Had undergone oophorectomy, intolerant of AI therapy due to arthralgia, continues on tamoxifen. - Carissa continues to report fatigue, low mood and multiple areas of pain. New for her is a low appetite and weight loss. She is also followed by Dr. Quesada at [facility], last seen in February 2018. Bilateral [...] on 06/14/15. Patient saw Dr. Quesada at [facility] on 03/12/2018 and had mammogram same [...] MA VY DIAGNOSTIC BILAT w/CAD performed at [facility]. There are scattered fibroglandular densities.Stable post-lumpectomy changes in the left breast. No suspicious calcifications, masses, or architectural distortion present in either breast.No significant changes when compared with prior studies. The images were obtained using full field digital mammography on the dedicated Pay-Me System with R2 CAD. Performed at [facility]. 3D tomosynthesis mammography was performed as part [...] swallow st udy to be done at [place]. Plan: - Bilateral screening mammogram due in February 2019. Anticipated at [facility], managed by Dr. Julio sun. - Follow-up with Dr. Quesada, Med Onc at [facility] as directed with ongoing tamoxifen. - Order a swallow study at [place] to evaluate the difficulty swallowing and weight [...] M.D. Radiation Oncologist Department of Radiation Oncology Located Within [facility] Office: [phone] documented in this encounter Plan of Treatment [...]
--- OUTSIDE RECORDS SUMMARY | ~2019-09-15 | XMS | Encounter Summary ---
Demographics + + + | Address | [address] | | | [place] [address] | + + + | Home Phone | | + + + | Preferred Language | Unknown | + + + | Marital Status | | + + + | Sabianist Affiliation | Unknown | + + + | Race | Unknown | + + + | Ethnic Group | Unknown | + + + Author + + + | Author | [facility] | | | and Johnnyana | + + + | Organization | [facility] | | | and [...] [address], [place] | | | | | [address] | | + + + + + [...] [place] | | | | | [address] | | + + + + + Care Team Providers + +------+ + | Care Marine Photographer Name | Role | Phone | + [...] | | unspecified | [place], | [place] [address] | | | | | site | [place] [address] | Phone: | | | | | consult/dante | Phone: | [phone] | | | | | st/won | [phone] | Fax: | | | | | Procedures | Fax: | [phone] | | | | | [place] OFFICE | [phone] | | | | | | OUTPATIENT [...] + + | 05/03/ | Hospital | [facility] | Renee Wood | | | 2015 | Encounter | MED CTR RADIATION | [place]azara, [address] | | | | | ONCOLOGY [address] | [address] [place], [place] | | | | | [place], | [address] | | | | | [place] [address] | | | | | | [phone] | | | +--------+ + + + [...]
--- OUTSIDE RECORDS SUMMARY | ~2019-09-15 | XMS | Encounter Summary ---
Demographics + + + | Address | [address] | | | [place] [address] | + + + | Home Phone [...] + | Author | [facility] | + + + | [...] Team Providers + +------+ + | Care Yarn Inspector Name | Role | Phone | + +------+ + | Mela Condon PA-C | PCP | | + +------+ + Encounter Details +--------+ + + + + | Date | Type | Department | Care Team | Description | +--------+ + + + + | 02/17/ | Document-Sc | Health Information | Unknown . | | | 2014 | anned | Services [id number] | | | | | | [address] | | | | | | Mailcode: OP17A | | | | | | [facility] | | | | | | [place], [place] | | | | | | [address] | | | | | | [phone] | | | +--------+ + + + [...]
--- OUTSIDE RECORDS SUMMARY | ~2019-09-15 | XMS | Encounter Summary ---
Demographics + + + | Address | [address] | | | [place] [address] | + + + | Home Phone [...] + | Author | [facility] | + + + | Organization | [...] Providers + +------+ + | Care Supervisor Food Checkers And Cashiers Name | Role | Phone | + [...] [address] | | | | | | [place], [place] | | | | | | [address] | | | +--------+ + + + [...] | | | | | | Institution: [facility] | | | | | | [facility] | | | | | | [facility] [place], [place] | | | | | | [address] | | | | | | Accession Number: | | | | | | [id number] | | | | | | Collection [...] | | | | | | Number: [id number] | | | | | | Collection Date: | | | | | | 02/10/2015Stained | | | | | | 1 Specimen | | | | | | COutside Accession | | | | | | Number: [id number] | | | | | | Collection [...] Number: | | | | | | [id number] | | | | | | Collection [...] polyp | | | | | | ([id number], 02/10/15): | | | | | | - Secretory phase | | | | | | endometrium, negative | | | | | | for hyperplasia and | | | | | | carcinoma - Benign | | | | | | endocervical polyp | | | | | | B: Cervix, [facility] | | | | | | Pap cytology ([id number], | | | | | | 02/10/15): - | | | | | | Atypical glandular cells | | | | | | of undetermined | | | | | | significance (ANDRA) | | | | | | (seecomment) C: | | | | | | Cervix biopsy at 6:00 | | | | | | and ECC ([id number], | | | | | | 02/27/15):- Benign | | | | | | squamous and glandular | | | | | | mucosa -D: | | | | | | Cervical cone, | | | | | | cervical biopsies, and | | | | | | endometrial curettage | | | | | | ([id number],03/03/15):- | | | | | | Benign [...] | + + + + + | [facility] | [address] | [place] [address] | | | PATHOLOGY | [address] | | | + + + + + documented in this encounter Visit Diagnoses Not on filedocumented in this encounter"
--- OUTSIDE RECORDS SUMMARY | ~2019-09-15 | XMS | Encounter Summary ---
Demographics + + + | Address | [address] | | | [place] [address] | + + + | Home Phone [...] + + + | Author | [facility] | + + + | Organization | [facility] | + + + | Address | Unknown | + + + | Phone | Unavailable | + + + Support + + +---------+ + | Name | Relationship | Address | Phone | + + +---------+ + | Jak Daley | ECON | Unknown | | + + +---------+ + Care Team Providers + +------+ + | Care Rn Camp Name | Role | Phone | + +------+ + | Mela Condon PA-C | PCP | | + +------+ + Encounter Details +--------+ + + + + | Date | Type | Department | Care Team | Description | +--------+ + + + + | 04/13/ | Ancillary | Diagnostic Imaging | Meal Condon | | | 2018 | Orders | Services [address] | | | | | [facility] | [facility] | | | | | [place], [place] | [address] | | | | | [address] | [address] | | | | | [address] [place], | | | | | | [place] [address] | | | | | | [phone] | | | | | | | [...] + | Diagnosis | + + | Bone pain Disorder of bone and cartilage, unspecified | + + | History of breast cancer Personal history of malignant neoplasm of breast | + + documented in this encounter"
--- OUTSIDE RECORDS SUMMARY | ~2019-09-15 | XMS | Encounter Summary ---
Demographics + + + | Address | [address] | | | [place] [address] | + + + | Home Phone [...] + | Author | [facility] | + + + | Organization | [facility] | + + + | Address | Unknown | + + + | Phone | Unavailable | + + + Support + + +---------+ + | Name | Relationship | Address | Phone | + + +---------+ + | Jak Daley | ECON | Unknown | | + + +---------+ + Care Team Providers + +------+ + | Care Healthcare Insurance Sales Agent Name | Role | Phone | [...] | | 2018 | | [facility] [place] | MD Carolyn [address] | | | | | for Health & Healing | [address] [place], [place] | | | | | [address] | [address] | | | | | Mailcode: [place] | [phone] | | | | | for Health and | | | | | | Healing, [address] | | | | | | [place], [place] | | | | | | [address] | | | | | | [phone] | | | +--------+ + + + [...]
--- OUTSIDE RECORDS SUMMARY | ~2019-09-15 | XMS | Encounter Summary ---
Demographics + + + | Address | [address] | | | [place] [address] | + + + | Home Phone | | + + + | Preferred Language | Unknown | + + + | Marital Status | | + + + | Muslim Affiliation | Unknown | + + + | Race | Unknown | + + + | Ethnic Group | Unknown | + + + Author + + + | Author | [facility] | | | and Johnnyana | + + + | Organization | [facility] | | | and [...] [place], [place] | | | | | [address] | | + + + + + [...] [place] | | | | | [address] | | + + + + + Care Team Providers + +------+ + | Care Stock Taker Name | Role | Phone | + [...] | | | | site | [place] [address] | [address] Phone: | | | | | Procedures | Phone: | [phone] | | | | | [place] OFFICE | [phone] | Fax: | | | | | OUTPATIENT | Fax: | [phone] | | | | | VISIT 25 | [phone] | | | | | | MINUTES | | | +--------+--------+ + + + + Encounter Details +--------+ + + + + | Date | Type | Department | Care Team | Description | +--------+ + + + + | 05/22/ | Hospital | [facility] | Narcisa, | Breast cancer of | | 2015 | Encounter | MED CTR MEDICAL | Reggie Gutierrez MD [address] | upper-outer quadrant | | | | ONCOLOGY CLINIC [address] [place] | of left female | | | | [address] [place] | [place] [address] | breast (HCC) | | | | [place] [address] | [phone] | (Primary Dx) | | | | [phone] | | | +--------+ + + + [...] nt from the original. Hematology/Oncology Progress Note [facility] Pt. Name/Age/: Carissa Downey 49 y.o. 1965 Med. Record Number: [id number] Date of admission: 05/22/2015 Identifying Statement: Carissa Downey is a 49 y.o. female from [address] [place] [address] [place] [address] with Stage IA, premenopausal ER-positive LEFT breast [...] was performed by Dr. Iman Perales of [facility] diagnostic imaging. Pathological specimen [id number] was analyzed by Yessenia Champion a [facility] and returned a grade 1 invasive [...] image guided left breast lumpectomy and ax [facility] sentinel lymph node biopsy. Specimen number [id number] returned a 1.1 cm well-diff erentiated invasive [...] mg subcutaneously monthly. To be initiated in [place], then sandhya ed forward monthly in [place] once she is finished with her radiation [...] this chart may have been created with [employer] voice recognition software. Occasi onal wrong-word or [...]
--- OUTSIDE RECORDS SUMMARY | ~2019-09-15 | XMS | Encounter Summary ---
Demographics + + + | Address | [address] | | | [place] [address] | + + + | Home Phone [...] + + | Author | [facility] | | | and Johnnyana | + + + | Organization | [facility] | | | and [place] [...] [place], [place] | | | | | [address] | | + + + + + [...] [place] | | | | | [address] | | + + + + + Care Team Providers + +------+ + | Care Device Test Engineer Name | Role | Phone | [...] [place] | | | | | [address] [place] | [place] [address] | | | | | [place] [address] | [phone] | | | | | [phone] | | | +--------+ + + + [...]
--- OUTSIDE RECORDS SUMMARY | ~2019-09-15 | XMS | Encounter Summary ---
Demographics + + + | Address | [address] | | | [place] [address] | + + + | Home Phone | | + + + | Preferred Language | Unknown | + + + | Marital Status | | + + + | Pentecostal Affiliation | Unknown | + + + | Race | Unknown | + + + | Ethnic Group | Unknown | + + + Author + + + | Author | [facility] | | | and Johnnyana | + + + | Organization | [facility] | | | and [...] [place], [place] | | | | | [address] | | + + + + + [...] [place] | | | | | [address] | | + + + + + Care Team Providers + +------+ + | Care Chaser Tar Name | Role | Phone | + [...] | | | | | [address] [place] | [place] [address] | | | | | [place] [address] | [phone] | | | | | [phone] | | | +--------+ + + + [...]
--- OUTSIDE RECORDS SUMMARY | ~2019-09-15 | XMS | Encounter Summary ---
Demographics + + + | Address | [address] | | | [place] [address] | + + + | Home Phone [...] | Author | [facility] | + + + [...] Team Providers + +------+ + | Care Hotel Casino Floorperson Name | Role | Phone | + [...] | breast | [address] | | | | | cancer | [place] | [address] | | | | | Procedures | [id number] | [place], [place] | | | | | CONSULT TO | [facility] | [address] | | | | | HEMATOLOGY / | HOSPITAL | Phone: | | | | | ONCOLOGY | [place], [place] | [phone] | | | | | PRACTICE | [address] | Fax: | | | | | | Phone: | [phone] | | | | | | [phone] | | | | | | | Fax: | | | | | | | [phone] | | +--------+--------+ + + + + [...] [address] | [address] | ([facility] 02/04 ) | | | | [place] | [address] | | | | | [id number] [facility] | [place], [place] | | | | | [facility], | [address] | | | | | [place] [address] | | | | | | [phone] | | | +--------+ + + + [...]
--- OUTSIDE RECORDS SUMMARY | ~2019-09-15 | XMS | Encounter Summary ---
Demographics + + + | Address | [address] | | | [place] [address] | + + + | Home Phone | | + + + | Preferred Language | Unknown | + + + | Marital Status | | + + + | Scientology Affiliation | Unknown | + + + | Race | Unknown | + + + | Ethnic Group | Unknown | + + + Author + + + | Author | [facility] | | | and Johnnyana | + + + | Organization | [facility] | | | and [...] [place], [place] | | | | | [address] | | + + + + + [...] [place] | | | | | [address] | | + + + + + Care Team Providers + +------+ + | Care At Risk Paraprofessional Name | Role | Phone | + [...] | | unspecified | [place], | [place] [address] | | | | | female | [place] [address] | Phone: | | | | | breast (HCC) | Phone: | [phone] | | | | | Procedures | [phone] | Fax: | | | | | [place] OFFICE | Fax: | [phone] | | | | | OUTPATIENT | [phone] | | | | | | VISIT 25 | | | | | | | MINUTES | | | +--------+--------+ + + + + Encounter Details +--------+ + + + + | Date | Type | Department | Care Team | Description | +--------+ + + + + | 09/27/ | Hospital | [facility] | Renee Wood | Screening mammogram | | 2015 | Encounter | MED CTR RADIATION | MD Lazara [address] | for high-risk | | | | ONCOLOGY [address] | [facility] | patient (Primary Dx) | | | | [place], | [address] | | | | | [place] [address] | | | | | | [phone] | | | +--------+ + + + [...] 12:00 AM PSTPATIENT: Carissa Miriam Vicente:09/27/2013MR #: [id number] Radiation Oncology Follow-up Clinic Note ICD/Diagnosis: 174.4 [...] present. No LVSI. Negative margins. ER 100%, KS 70-75%, Ki-67 less than 1 %, HER-2/jamia [...] Exam performed in the presence of a risk tech. On upright exam breasts appear sym metric [...] present. No LVSI. Negative margins. ER 100%, KS 70-75%, Ki-67 less than 1 %, HER-2/jamia nonamplified by FISH with ratio 1.0, sentinel lymph node negative for metasta tic carcinoma. Received adjuvant radiation with hypofractionated whole breast irradiation, 40.05 to the breast with a 8 Gy of a jfmzixa86 Gy lumpectomy boost for a total 48.05 [...] will be ordered to be done at [facility]. I have asked her to return for [...] M.D. Radiation Oncologist Department of Radiation Oncology [facility] This note was transcribed using [employer] speech recognition software. As a result, there ma y be unintended for medical and/or spelling errors. Every attempt is made to correct dicta tion. If there are any questions or errors please contact our office. Page 1 of 3 CSN: [id number] signed by Renee Fuentes MD at 10/04/2015 [...]
--- OUTSIDE RECORDS SUMMARY | ~2019-09-15 | XMS | Encounter Summary ---
Demographics + + + | Address | [address] | | | [place] [address] | + + + | Home Phone | | + + + | Preferred Language | Unknown | + + + | Marital Status | | + + + | Shinto Affiliation | Unknown | + + + | Race | or | + + + | Ethnic Group | Not or | + + + Author + + + | Author | [facility] [employer] [facility] | + + + | Organization | [facility] | + + + | Address | Unknown | + + + | Phone | Unavailable | + + + Support + + +---------+ + | Name | Relationship | Address | Phone | + + +---------+ + | Jak Daley | ECON | Unknown | | + + +---------+ + Care Team Providers + +------+ + | Care Pan Shaker Name | Role | Phone | + [...] 2018 | Only | YOHAN Leon MD [address] | | | | | Jose[place] Mailcode: [id number] | [place], [place] | | | | | [facility] [place] | [address] | | | | | [address] | [phone] | | | | | [phone] | | | +--------+ + + + [...]
--- OUTSIDE RECORDS SUMMARY | ~2019-09-15 | XMS | Encounter Summary ---
Demographics + + + | Address | [address] | | | [place] [address] | + + + | Home Phone | | + + + | Preferred Language | Unknown | + + + | Marital Status | | + + + | Lutheran Affiliation | Unknown | + + + | Race | Unknown | + + + | Ethnic Group | Unknown | + + + Author + + + | Author | [facility] | | | and [place] | + + + | Organization | [facility] | | | and [place] | + [...] [address], [place] | | | | | [address] | | + + + + + [...] [place] | | | | | [address] | | + + + + + Care Team Providers + +------+ + | Care Exhibit Builder Name | Role | Phone | + [...] | | | | | | [place] [address] | | | | | | [phone] | | | +--------+ + + + [...]
--- OUTSIDE RECORDS SUMMARY | ~2019-09-15 | XMS | Encounter Summary ---
Demographics + + + | Address | [address] | | | [place] [address] | + + + | Home Phone [...] | Author | [facility] | | | and [place]ana | + + + | Organization | [facility] | | | and [...] [address], [place] | | | | | [address] | | + + + + + [...] [place] | | | | | [address] | | + + + + + Care Team Providers + +------+ + | Care Academic Manager Name | Role | Phone | [...] | | | | | | [place] [address] | [place] [address] | | | | | | Phone: | Phone: | | | | | | [phone] | [phone] | | | | | | Fax: | Fax: | | | | | | [phone] | [phone] | + + + + + + + Encounter Details +--------+---------+ + + + | Date | Type | Department | Care Team | Description | +--------+---------+ + + + | 05/24/ | Office | [facility] | Renee Wood | Pharyngoesophageal | | 2019 | Visit | OTOLARYNGOLOGY [address] | MD Lazara [address] | dysphagia (Primary | | | | [address] | [place], [place] | Dx); | | | | [place], [place] | [address] | Laryngopharyngeal | | | | [address] | | reflux (LPR) | | | | [phone] | Servando Taylor MD | | | | | | [address] [place] | | | | | | [address] [facility] [place] | | | | | | [address] | | | | | | | [...] indicates she had a swallow study in [place] about a month ago and was told [...]
--- OUTSIDE RECORDS SUMMARY | ~2019-09-15 | XMS | Encounter Summary ---
Demographics + + + | Address | [address] | | | [place] [address] | + + + | Home Phone | | + + + | Preferred Language | Unknown | + + + | Marital Status | | + + + | Hindu Affiliation | Unknown | + + + | Race | Unknown | + + + | Ethnic Group | Unknown | + + + Author + + + | Author | [facility] | | | and [place]ana | + + + | Organization | [facility] | | | and [...] [address], [place] | | | | | [address] | | + + + + + [...] [place] | | | | | [address] | | + + + + + Care Team Providers + +------+ + | Care Cooler Tender Name | Role | Phone | [...] | | | ONCOLOGY CLINIC [address] | [place], [place] | | | | | [facility] | [address] | | | | | [place] [address] | | | | | | [phone] | | | +--------+ + + + [...]
--- OUTSIDE RECORDS SUMMARY | ~2019-09-15 | XMS | Encounter Summary ---
Demographics + + + | Address | [address] | | | [place] [address] | + + + | Home Phone [...] + + + | Author | [facility] | + + + | Organization | [facility] | + + + | Address | Unknown | + + + | Phone | Unavailable | + + + Support + + +---------+ + | Name | Relationship | Address | Phone | + + +---------+ + | Jak Daley | ECON | Unknown | | + + +---------+ + Care Team Providers + +------+ + | Care Bartacker Name | Role | Phone | + [...] Encounter | Center at [facility] [address] | INVENTORY COORDINATOR [address] | | | | | [address] | [address] | | | | | Tatyana[id number] | [place], [place] | | | | | [facility], | [address] | | | | | [place] [address] | [phone] | | | | | [phone] | | | +--------+ + + + [...] | | BP on (01/31/2017) 122/74 MA [employer] DIAGNOSTIC BILAT W/CAD: January 31, | | [...] CAD. Performed | | | at [facility]. ASSESSMENT: Benign - [...] System with R2 CAD. Performed at [facility] | | [place].ASSESSMENT: Benign - Category 2 (Overall)VY NAVJOT BI [...] Hologic System with R2 CAD. Performed at [place] | [facility]. | | | |ASSESSMENT: Benign - Category [...]
--- OUTSIDE RECORDS SUMMARY | ~2019-09-15 | XMS | Encounter Summary ---
Demographics + + + | Address | [address] | | | [place] [address] | + + + | Home Phone [...] Author | [facility] | | | and [place]ana | + + + | Organization | [facility] | | | [...] [address], [place] | | | | | [address] | | + + + + + [...] [place] | | | | | [address] | | + + + + + Care Team Providers + +------+ + | Care Still Runner Name | Role | Phone | + +------+ + | Luis Garcia PA-C | PCP | | + +------+ + Encounter Details +--------+ + + + + | Date | Type | Department | Care Team | Description | +--------+ + + + + | 08/06/ | Hospital | [facility] | Renee Wood | | | 2015 | Encounter | MED CTR RADIATION | Lazara, [address] | | | | | ONCOLOGY [address] | [facility], [place] | | | | | [place], | [address] | | | | | [place] [address] | | | | | | [phone] | | | +--------+ + + + [...]
--- OUTSIDE RECORDS SUMMARY | ~2019-09-15 | XMS | Encounter Summary ---
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 | | | | | quadrant of | [place], [place] | Mailcode: | | | | | left breast | [address] | [address] | | | | | in female, | Phone: | [address] | | | | | estrogen | [phone] | [place], [place] | | | | | receptor | Fax: | [address] | | | | | positive | [phone] | Phone: | | | | | (HCC) | | [phone] | | | | | Weight loss | | Fax: | | | | | Bone pain | | [phone] | | | | | Procedures | | | | | | | NM BONE &/OR | | | | | | | JOINT | | | | | | | IMAGING | | | | | | | WHOLE BODY | | | | | | | SC BONE | | | | | | [...] | 2018 | Encounter | at [facility] [address] | A, MD [address] | | | | | [address] | [place], [place] | | | | | Mailcode: [address] [facility] | [address] | | | | | [address] | [phone] | | | | | [place], [place] | | | | | | [address] | | | | | | [phone] | | | +--------+ + + + [...]
--- OUTSIDE RECORDS SUMMARY | ~2019-09-15 | XMS | Encounter Summary ---
Demographics + + + | Address | [address] | | | [place] [address] | + + + | Home Phone [...] | Author | [facility] | | | and Johnnyana | + + + | Organization | [facility] | | | and [...] [address], [place] | | | | | [address] | | + + + + + [...] [place] | | | | | [address] | | + + + + + Care Team Providers + +------+ + | Care Laboratory Chemical Assistant Name | Role | Phone | [...] | | | | | | [place] [address] | [place] [address] | | | | | | Phone: | Phone: | | | | | | [phone] | [phone] | | | | | | Fax: | Fax: | | | | | | [phone] | [phone] | + + + + + + [...] | | | CT Neck | [place] [address] | [place], [place] | | | | | Chest w | Phone: | [address] | | | | | Contrast | [phone] | Phone: | | | | | | Fax: | [phone] | | | | | | [phone] | Fax: | | | | | | | [phone] | +--------+--------+ + + + + Reason [...] ONCOLOGY CLINIC [address] | [place] | | | | | [address] | [address] | | | | | [place] [address] | | | | | | [phone] | | | +--------+ + + + [...]
--- OUTSIDE RECORDS SUMMARY | ~2019-09-15 | XMS | Encounter Summary ---
Demographics + + + | Address | [address] | | | [place] [address] | + + + | Home Phone | | + + + | Preferred Language | Unknown | + + + | Marital Status | | + + + | Spiritism Affiliation | Unknown | + + + | Race | or | + + + | Ethnic Group | Not or | + + + Author + + + | Author | [facility] [employer] [facility] | + + + | Organization | [...] Team Providers + +------+ + | Care Jewel Inspector Name | Role | Phone | + +------+ + | Mela Cnodon PA-C | PCP | | + +------+ + Encounter Details +--------+ + + + + | Date | Type | Department | Care Team | Description | +--------+ + + + + | 03/14/ | Document-Sc | Health Information | Unknown . | | | 2014 | anned | Services [address] | | | | | | [address] | | | | | | Mailcode: OP17A | | | | | | [facility] | | | | | | [place], [place] | | | | | | [address] | | | | | | [phone] | | | +--------+ + + + [...]
--- OUTSIDE RECORDS SUMMARY | ~2019-09-15 | XMS | Encounter Summary ---
Demographics + + + | Address | [address] | | | [place] [address] | + + + | Home Phone [...] Author | [facility] | | | and Johnnyana | + + + | Organization | [facility] | | [...] [address], [place] | | | | | [address] | | + + + + + [...] [place] | | | | | [address] | | + + + + + Care Team Providers + +------+ + | Care Timber Inspector Name | Role | Phone | + +------+ + | Mela Condon PA-C | PCP | | + +------+ + Encounter Details +--------+ + + + + | Date | Type | Department | Care Team | Description | +--------+ + + + + | 05/25/ | Hospital | [facility] | Narcisa, | Canceled (Clinic | | 2015 | Encounter | MED CTR MEDICAL | Mu Gutierrez MD [address] | and/or Provider | | | | ONCOLOGY CLINIC [address] | [address] [place] | Cancellation) | | | | [address] [place] | [place] [address] | | | | | [place] [address] | [phone] | | | | | [phone] | | | +--------+ + + + [...]
--- OUTSIDE RECORDS SUMMARY | ~2019-09-15 | XMS | Encounter Summary ---
Demographics + + + | Address | [address] | | | [place] [address] | + + + | Home Phone [...] | Author | [facility] [facility] | + + + | Organization | [facility] [place] [facility] | + + + | Address | Unknown | + + + | Phone | Unavailable | + + + Support + + +---------+ + | Name | Relationship | Address | Phone | + + +---------+ + | Jak Daley | ECON | Unknown | | + + +---------+ + Care Team Providers + +------+ + | Care Pewter Caster Name | Role | Phone | + [...] | Oncology at Center | MD Carolyn [address] | (Tamoxifen) | | | | for Health & Healing | [address] [place], [place] | | | | | [address] | [address] | | | | | Mailcode: [place] | [phone] | | | | | for Health and | | | | | | Healing, [address] | | | | | | [place], [place] | | | | | | [address] | | | | | | [phone] | | | +--------+--------+ + + + [...]
--- OUTSIDE RECORDS SUMMARY | ~2019-09-15 | XMS | Encounter Summary ---
Demographics + + + | Address | [address] | | | [place] [address] | + + + | Home Phone [...] | Author | [facility] | | | and [place]ana | + + + | Organization | [facility] [...] [address], [place] | | | | | [address] | | + + + + + [...] [place] | | | | | [address] | | + + + + + Care Team Providers + +------+ + | Care Supervisor Aircraft Cleaning Name | Role | Phone | + [...] | ONCOLOGY CLINIC [address] | [address] [place], [place] | | | | | [address] [place] | [address] | | | | | [place] [address] | | | | | | [phone] | | | +--------+ + + + [...]
--- OUTSIDE RECORDS SUMMARY | ~2019-09-15 | XMS | Encounter Summary ---
Demographics + + + | Address | [address] | | | [place] [address] | + + + | Home Phone [...] + + + | Author | [facility] | + + [...] Team Providers + +------+ + | Care Milk Bottling Machine Operator Name | Role | Phone | + +------+ + | Mela Condon PA-C | PCP | | + +------+ + Encounter Details +--------+ + + + + | Date | Type | Department | Care Team | Description | +--------+ + + + + | 02/02/ | Document-Sc | Hematology/Medical | Jemima Quesada | | | 2018 | annart | Oncology at [place] | MD Carolyn [address] | | | | | for Health & Healing | [place], [place] | | | | | [address] | [address] | | | | | Mailcode: [place] | [phone] | | | | | for Health and | | | | | | [facility] [place] [address] | | | | | | [place], [place] | | | | | | [address] | | | | | | [phone] | | | +--------+ + + + [...] | + +--------+ + + + | OUTSIDE RADIOLOGY - | | 02/02/2018 | | Results for this | | ULTRASOUND | | 12:00 AM | | procedure are in the | | | | PDT | | results section. | + +--------+ + + + | OUTSIDE RADIOLOGY - | | 02/02/2018 | | Results for this | | X-RAY | | 12:00 AM | | procedure are in the | | | | PDT | | results section. | + +--------+ + + + | PATHOLOGY | | 02/02/2018 | | Results for this | | | | 12:00 AM | | procedure are in the | | | | PDT | | results section. | + +--------+ + + + documented in this encounter Results PATHOLOGY (02/02/2018 12:00 AM PDT) + + + | Narrative | Performed At | + + + | | | + + + OUTSIDE RADIOLOGY - X-RAY (02/02/2018 12:00 AM PDT) + + + | Narrative | Performed At | + + + | | | + + + OUTSIDE RADIOLOGY - ULTRASOUND (02/02/2018 12:00 AM PDT) + + + | Narrative | Performed At | + + + | | | + + + documented in this encounter Visit Diagnoses Not on filedocumented in this encounter"
--- OUTSIDE RECORDS SUMMARY | ~2019-09-15 | XMS | Encounter Summary ---
Demographics + + + | Address | [address] | | | [place] [address] | + + + | Home Phone [...] + + | Author | [facility] | + + + | Organization | [facility] | + + + | Address | Unknown | + + + | Phone | Unavailable | + + + Support + + +---------+ + | Name | Relationship | Address | Phone | + + +---------+ + | Jak Daley | ECON | Unknown | | + + +---------+ + Care Team Providers + +------+ + | Care Public Works Laborer Name | Role | Phone | + +------+ + | Mela Condon PA-C | PCP | | + +------+ + Encounter Details +--------+ + + + + | Date | Type | Department | Care Team | Description | +--------+ + + + + | 03/14/ | Document-Sc | Health Information | Unknown . | | | 2014 | anned | Services [address] | | | | | | [address] | | | | | | Mailcode: OP17A | | | | | | [facility] | | | | | | [place], [place] | | | | | | [address] | | | | | | [phone] | | | +--------+ + + + [...]
--- OUTSIDE RECORDS SUMMARY | ~2019-09-15 | XMS | Encounter Summary ---
Demographics + + + | Address | [address] | | | [place] [address] | + + + | Home Phone [...] + + | Author | [facility] | + + + | Organization [...] Team Providers + +------+ + | Care Monitoring And Evaluation Advisor Name | Role | Phone | [...] Rd | | | | | | | | | | | | [address] | | | +--------+ + + + [...] | | | | | | Institution: [place] | | | | | | [facility] | | | | | | [facility] [place], [place] | | | | | | [address] | | | | | | Accession Number: | | | | | | [id number] | | | | | | Collection [...] | | | | | | Number: [id number] | | | | | | Collection Date: | | | | | | 02/10/2015Stained | | | | | | 1 Specimen | | | | | | COutside Accession | | | | | | Number: [id number] | | | | | | Collection [...] Number: | | | | | | [id number] | | | | | | Collection [...] polyp | | | | | | ([id number], 02/10/15): | | | | | | - Secretory phase | | | | | | endometrium, negative | | | | | | for hyperplasia and | | | | | | carcinoma - Benign | | | | | | endocervical polyp | | | | | | B: Cervix, [facility] | | | | | | Pap cytology ([id number], | | | | | | 02/10/15): - | | | | | | Atypical glandular cells | | | | | | of undetermined | | | | | | significance (ANDRA) | | | | | | (seecomment) C: | | | | | | Cervix biopsy at 6:00 | | | | | | and ECC ([id number], | | | | | | 02/27/15):- Benign | | | | | | squamous and glandular | | | | | | mucosa -D: | | | | | | Cervical cone, | | | | | | cervical biopsies, and | | | | | | endometrial curettage | | | | | | ([id number],03/03/15):- | | | | | | Benign [...] + + + + + | [facility] | [address] | [address] | | | PATHOLOGY | [address] | | | + + + + + documented in this encounter Visit Diagnoses Not on filedocumented in this encounter"
--- OUTSIDE RECORDS SUMMARY | ~2019-09-15 | XMS | Encounter Summary ---
Demographics + + + | Address | [address] | | | [place] [address] | + + + | Home Phone | | + + + | Preferred Language | Unknown | + + + | Marital Status | | + + + | Adventism Affiliation | Unknown | + + + | Race | Unknown | + + + | Ethnic Group | Unknown | + + + Author + + + | Author | [facility] | | | and Johnnyana | + + + | Organization | [facility] | [...] [place], [place] | | | | | [address] | | + + + + + [...] [place] | | | | | [address] | | + + + + + Care Team Providers + +------+ + | Care Fnp Name | Role | Phone | + [...] | | | | javed | [address] [address] | [address] [place] [address] | | | | | tunnel | CONF[address]ATED | [address] | | | | | syndrome | WAY | [place] | | | | | | [place], | [address] Phone: | | | | | | [place] [address] | [phone] | | | | | | Phone: | Fax: | | | | | | [phone] | [phone] | | | | | | Fax: | | | | | | | [phone] | | +--------+--------+ + + + + Encounter Details +--------+---------+ + + + | Date | Type | Department | Care Team | Description | +--------+---------+ + + + | 06/26/ | Office | [facility] | Ross Rowland | Bilateral carpal | | 2016 | Visit | ORTHOPEDIC SURGERY | [address] | tunnel syndrome | | | | [address] [facility] | [place] | (Primary Dx); | | | | [place] | [place] [address] | 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
--- OUTSIDE RECORDS SUMMARY | ~2019-09-15 | XMS | Encounter Summary ---
Demographics + + + | Address | [address] | | | [place] [address] | + + + | Home Phone [...] | [facility] [facility] | + + + | [...] Team Providers + +------+ + | Care Sawsmith Name | Role | Phone | + +------+ + | Mela Condon PA-C | PCP | | + +------+ + Encounter Details +--------+ + + + + | Date | Type | Department | Care Team | Description | +--------+ + + + + | 02/02/ | Document-Sc | Hematology/Medical | Jemima Quesada | | | 2018 | annart | [facility] at [facility] | MD Carolyn [address] | | | | | for Health & Healing | [place], [place] | | | | | [address] | [address] | | | | | Mailcode: [facility] | [phone] | | | | | for Health and | | | | | | [facility] [place] [address] | | | | | | [place], [place] | | | | | | [address] | | | | | | [phone] | | | +--------+ + + + [...]
--- OUTSIDE RECORDS SUMMARY | ~2019-09-15 | XMS | Encounter Summary ---
Demographics + + + | Address | [address] | | | [place] [address] | + + + | Home Phone [...] Author | [facility] | | | and [place]ana | + + + | Organization | [facility] | | | and [place] | [...] [place], [place] | | | | | [address] | | + + + + + [...] [place] | | | | | [address] | | + + + + + Care Team Providers + +------+ + | Care Elementary School Teacher Name | Role | Phone | + +------+ + | Luis Garcia PA-C | PCP | | + +------+ + Encounter Details +--------+ + + + + | Date | Type | Department | Care Team | Description | +--------+ + + + + | 08/06/ | Hospital | [facility] | Renee Wood | | | 2015 | Encounter | MED CTR RADIATION | Laz[place], [address] | | | | | ONCOLOGY [address] | [facility] | | | | | [place], | [address] | | | | | [place] [address] | | | | | | [phone] | | | +--------+ + + + [...]
--- OUTSIDE RECORDS SUMMARY | ~2019-09-15 | XMS | Encounter Summary ---
Demographics + + + | Address | [address] | | | [place] [address] | + + + | Home Phone [...] + + | Author | [facility] | + + + | Organization | [facility] | + + + | Address | Unknown | + + + | Phone | Unavailable | + + + Support + + +---------+ + | Name | Relationship | Address | Phone | + + +---------+ + | Jak Daley | ECON | Unknown | | + + +---------+ + Care Team Providers + +------+ + | Care Pharmacy Aide Name | Role | Phone | + +------+ + | Mela Condon PA-C | PCP | | + +------+ + Encounter Details +--------+ + + + + | Date | Type | Department | Care Team | Description | +--------+ + + + + | 04/13/ | Ancillary | Diagnostic Imaging | Mela Condon | | | 2018 | Orders | Services [address] | | | | | [facility] | [facility] | | | | | [place], [place] | [place] [address] | | | | | [address] | [address] | | | | | | [address] [place], | | | | | | [place] [address] | | | | | | [phone] | | | | | | | [...]
--- OUTSIDE RECORDS SUMMARY | ~2019-09-15 | XMS | Encounter Summary ---
Demographics + + + | Address | [address] | | | [place] [address] | + + + | Home Phone [...] Author | [facility] | | | and Johnnyana | + + + | Organization | [facility] | [...] [place], [place] | | | | | [address] | | + + + + + [...] [place] | | | | | [address] | | + + + + + Care Team Providers + +------+ + | Care Chief Librarian Branch Name | Role | Phone | + +------+ + | Luis Garcia PA-C | PCP | | + +------+ + Encounter Details +--------+ + + + + | Date | Type | Department | Care Team | Description | +--------+ + + + + | 08/05/ | Abstract | [facility] | Rubén Merlos, | | | 2016 | | REHABILITATION | [address] | | | | | MEDICINE [address] | [address] [place], [place] | | | | | [address] [place] | [address] | | | | | [place] [address] | | | | | | [phone] | | | +--------+ + + + [...]
--- OUTSIDE RECORDS SUMMARY | ~2019-09-15 | XMS | Encounter Summary ---
Demographics + + + | Address | [address] | | | [place] [address] | + + + | Home Phone | | + + + | Preferred Language | Unknown | + + + | Marital Status | | + + + | Jewish Affiliation | Unknown | + + + | Race | Unknown | + + + | Ethnic Group | Unknown | + + + Author + + + | Author | [facility] | | | and [place] | + + + | Organization | [facility] | | | and [place] [...] [address], [place] | | | | | [address] | | + + + + + [...] [place] | | | | | [address] | | + + + + + Care Team Providers + +------+ + | Care Principal Secretary Name | Role | Phone | + +------+ + | Mela Condon PA-C | PCP | | + +------+ + Encounter Details +--------+ + + + + | Date | Type | Department | Care Team | Description | +--------+ + + + + | 05/25/ | Hospital | [facility] | Narcisa, | Canceled (Clinic | | 2015 | Encounter | MED CTR MEDICAL | Mu Gutierrez MD [address] | and/or Provider | | | | ONCOLOGY CLINIC [address] [place] | Cancellation) | | | | [address] [place] | [place] [address] | | | | | [place] [address] | [phone] | | | | | [phone] | | | +--------+ + + + [...]
--- OUTSIDE RECORDS SUMMARY | ~2019-09-15 | XMS | Encounter Summary ---
Demographics + + + | Address | [address] | | | [place] [address] | + + + | Home Phone [...] + + | Author | [facility] | + + + | Organization | [facility] | + + + | Address | Unknown | + + + | Phone | Unavailable | + + + Support + + +---------+ + | Name | Relationship | Address | Phone | + + +---------+ + | Jak Daley | ECON | Unknown | | + + +---------+ + Care Team Providers + +------+ + | Care Overseamer Name | Role | Phone | + [...] | [facility] | [address] [place], [place] | | | | | [address] | [address] | | | | | Mailcode: [place] | [phone] | | | | | [facility] | | | | | | Healing, [address] | | | | | | [place], [place] | | | | | | [address] | | | | | | [phone] | | | +--------+--------+ + + + [...]
--- OUTSIDE RECORDS SUMMARY | ~2019-09-15 | XMS | Encounter Summary ---
Demographics + + + | Address | [address] | | | [place] [address] | + + + | Home Phone [...] + + | Author | [facility] | | | and [place] | + + + | Organization | [facility] [...] [place], [place] | | | | | [address] | | + + + + + [...] [place] | | | | | [address] | | + + + + + Care Team Providers + +------+ + | Care Rope Cutter Name | Role | Phone | + [...] | | ONCOLOGY CLINIC [address] [place], [place] | | | | | [address] [place] | [address] | | | | | [place] [address] | | | | | | [phone] | | | +--------+ + + + [...]
--- OUTSIDE RECORDS SUMMARY | ~2019-09-15 | XMS | Encounter Summary ---
Demographics + + + | Address | [address] | | | [place] [address] | + + + | Home Phone [...] + + + | Author | [facility] [...] Team Providers + +------+ + | Care Hide Inspector Name | Role | Phone | [...] | neoplasm of | Mu Gutierrez, | [address] | | | | | upper-outer | MD [address] | [address] | | | | | quadrant of | [place] | [address] | | | | | left female | [place], | [facility] [place] | | | | | breast | [place] [address] | [address] | | | | | request for | Phone: | Phone: | | | | | 2nd opinion | [phone] | [phone] | | | | | | Fax: | Fax: | | | | | | [phone] | [phone] | +--------+--------+ + + + + Encounter Details +--------+---------+ + + + | Date | Type | Department | Care Team | Description | +--------+---------+ + + + | 05/05/ | Office | [facility] | FairchildPuja, | Breast pain, right | | 2017 | Visit | at [facility] [address] | [address] | (Primary Dx); | | | | [place] | [address] | Personal history of | | | | 8C/OXS1KV[address] [facility] | [place], [place] | breast cancer | | | | [facility], | [address] | | | | | [place] [address] | [phone] | | | | | [phone] | | | +--------+---------+ + + + [...] + documented in this encounter Progress Notes Katie Dee MA - 01/31/2017 11:00 AM PDTSpoke with [...] 11:00 AM PDTTc to pt, LMCB Puja Murrieta - 01/31/2017 11:00 AM PDTBreast imaging results as follows : ASSESSMENT: Benign - Category 2 (Overall) VY [...] Onc/PCP providers and see her back PRN. 1 0:07 AM Puja Murrieta - 01/31/2017 11:00 AM PDTFormatting of this note might be d ifferent from the original. 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 She had 0/1 SLN. [...] s she has been referred to a Battery Assembler. She is also reporting an intermittent R [...] numbness. PSYCHIATRIC: No depression or anxiety. 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 I have placed a referral for this [...] | | with R2 CAD. Performed at [facility]. | | | ASSESSMENT: Benign [...] RIGHT: January 31, 2017 - | | Rahda Shine MDTargeted ultrasound to evaluate the | [...] Hologic System with R2 CAD. Performed at [facility] | | [place].ASSESSMENT: Benign - Category 2 (Overall)VY NAVJOT BI [...] Hologic System with R2 CAD. Performed at [place] | |[facility] [place]. | | | |ASSESSMENT: Benign - Category 2 (Overall) | |VY NVAJOT BI CAD: Benign - category 2 finding. [...] + +---------+ + + MA VY DIAGNOSTIC MANFREDAT W/CHEO (01/31/2017 1:15 PM PDT) + + [...] R2 CAD. Performed | | | at [facility]. ASSESSMENT: Benign - | | [...] Hologic System with R2 CAD. Performed at [facility] | | [place].ASSESSMENT: Benign - Category 2 (Overall)VY NAVJOT BI [...] Hologic System with R2 CAD. Performed at [place] | |[facility]. | | | |ASSESSMENT: Benign - [...]
--- OUTSIDE RECORDS SUMMARY | ~2019-09-15 | XMS | Encounter Summary ---
Demographics + + + | Address | [address] | | | [place] [address] | + + + | Home Phone [...] + | Author | [facility] | + + + [...] Team Providers + +------+ + | Care Tree Doctor Name | Role | Phone | + [...] 2018 | Only | YOHAN Leon MD [address] | | | | | [address] Mailcode: RPB07 | [place], [place] | | | | | [facility] [place] | [address] | | | | | [address] | [phone] | | | | | [phone] | | | +--------+ + + + [...]
--- OUTSIDE RECORDS SUMMARY | ~2019-09-15 | XMS | Encounter Summary ---
Demographics + + + | Address | [address] | | | [place] [address] | + + + | Home Phone [...] + | Author | [facility] | + + + | Organization [...] Team Providers + +------+ + | Care Underwater Hunter Trapper Name | Role | Phone | + +------+ + | Mela Condon PA-C | PCP | | + +------+ + Encounter Details +--------+ + + + + | Date | Type | Department | Care Team | Description | +--------+ + + + + | 02/16/ | Document-Sc | Health Information | Unknown . | | | 2014 | anned | Services [address] | | | | | | [address] | | | | | | Mailcode: OP17A | | | | | | [facility] | | | | | | [place], [place] | | | | | | [address] | | | | | | [phone] | | | +--------+ + + + [...]
--- OUTSIDE RECORDS SUMMARY | ~2019-09-15 | XMS | Encounter Summary ---
Demographics + + + | Address | [address] | | | [place] [address] | + + + | Home Phone [...] | Author | [facility] | + + + | Organization [...] Team Providers + +------+ + | Care Farm Machine Tender Name | Role | Phone [...] 2018 | Only | YOHAN Leon MD [address] | | | | | [address] Mail[address]: RPB07 | [place], [place] | | | | | [facility] [place] | [address] | | | | | [address] | [phone] | | | | | [phone] | | | +--------+ + + + [...] | | | | REGIMEN | - [id number]: Anastrozole | | | | | | [...] | | | | REGIMEN - Breast [id number]: | | | | | | Anastrozole [...] | | | | | | Category: [id number] | | | | | | Grade: E8Bsweiz Surgical | | | | | | Plan: No Surgery | | | | | | PlannedER Status: | | | | | | Positive (+)AJCC 8 Stage | | | | | | Grouping: IAHER2 | | | | | | Status: Negative (-)AJCC | | | | | | T Category: [id number] N | | | | | | Category: cN0PR Status: | | | | | | Positive (+)Intent of | | | | | | Therapy:Non-Curative / | | | | | | Palliative Intent, | | | | | | Discussed with Patient | | | | + + + + + + | ONCOLOGY | [id number] | | VIA | | | PATHWAYS [...]
--- OUTSIDE RECORDS SUMMARY | ~2019-09-15 | XMS | Encounter Summary ---
Demographics + + + | Address | [address] | | | [place] [address] | + + + | Home Phone | | + + + | Preferred Language | Unknown | + + + | Marital Status | | + + + | Temple Affiliation | Unknown | + + + | Race | Unknown | + + + | Ethnic Group | Unknown | + + + Author + + + | Author | [facility] | | | and [place]ana | + + + | Organization | [facility] [...] [place], [place] | | | | | [address] | | + + + + + [...] [place] | | | | | [address] | | + + + + + Care Team Providers + +------+ + | Care Claims Account Manager Name | Role | Phone | [...] | | | syndrome | [facility] | [place], [place] | | | | | Cubital | [place], [place] | [address] Phone: | | | | | tunnel | [address] | [phone] | | | | | syndrome, | Phone: | Fax: | | | | | bilateral | [phone] | [phone] | | | | | | Fax: | | | | | | | [phone] | | +--------+ + + + + + Encounter Details +--------+ + + + + | Date | Type | Department | Care Team | Description | +--------+ + + + + | 08/08/ | Procedure | [facility] | Rubén Merlos, | Bilateral hand | | 2015 | visit | PHYSIATRY [address] | MD Noni SCHAEFER | numbness (Primary | | | | [place], | [address] [place], [place] | Dx) | | | | [place] [address] | [id number] | | | | | [phone] | | | +--------+ + + + [...] | Rubén Merlos MD 08/20/2016 16:23 [facility] | | | Physician Group Musculoskeletal, Sports and Spine, Physiatry [place] | | | [facility] Complex [address] [place] [address] Ph: | | | Test Date: 08/08/2016 | | | Patient Name: Carissa Downey : 1955 Physician: Kvng Merlos, | | | MR #: [id number] Sex: Female Referring Physician: Arya Rowland, | [...] Kvng | | | MD Gaurang Diplomate, [place] Board of Physical Medicine and | | | Rehabilitation. | | + + + documented in this encounter Visit Diagnoses + + | Diagnosis | + + | Bilateral hand numbness - Primary Disturbance of skin sensation | + + documented in this encounter
--- OUTSIDE RECORDS SUMMARY | ~2019-09-15 | XMS | Encounter Summary ---
Demographics + + + | Address | [address] | | | [place] [address] | + + + | Home Phone | | + + + | Preferred Language | Unknown | + + + | Marital Status | | + + + | Yazidism Affiliation | Unknown | + + + | Race | or | + + + | Ethnic Group | Not or | + + + Author + + + | Author | [facility] [email or web address] [facility] | + + + [...] Team Providers + +------+ + | Care Bun Icer Name | Role | Phone | + [...] Center at [facility] [address] Leon MD [address] | | | | | [place] | [facility] [place] | | | | | 8C/MRF[address]AMIM[address]ERTON [address] | [address] | | | | | [facility], | [phone] | | | | | [place] [address] | | | | | | [phone] | | | +--------+ + + + [...] | | | BILAT w/CAD performed at [facility]. There | | | are scattered fibroglandular densities. Stable post-lumpectomy | | | changes in the left breast. No suspicious calcifications, masses, or | | | architectural distortion present in either breast. No significant | | | changes when compared with prior studies. The images were | | | obtained using full field digital mammography on the dedicated | | | KeepIdeas System with R2 CAD. Performed at [facility] | | | [place]. 3D tomosynthesis mammography was performed as part [...] 12, 2018 - Accession #: | | [id number] CC and MLO view(s) were taken.Prior study comparison: January 31, 2017, | | bilateral MA VY DIAGNOSTICBILAT w/CAD performed at [facility] | | [place].There are scattered fibroglandular densities. Stable post-lumpectomy changes | | in the left breast. No suspicious calcifications, masses, or architectural distortion | | present in either breast. No significant changes when compared with prior studies.The | | images were obtained using full field digital mammography on the dedicated KeepIdeas | | System with R2 CAD. Performed at [facility]. 3D | | tomosynthesis mammography [...] Hologic System with R2 CAD. Performed at [facility]. 3D tomosynthesis mammography was | |performed as [...]
--- OUTSIDE RECORDS SUMMARY | ~2019-09-15 | XMS | Encounter Summary ---
Demographics + + + | Address | [address] | | | [place] [address] | + + + | Home Phone | | + + + | Preferred Language | Unknown | + + + | Marital Status | | + + + | Rastafarian Affiliation | Unknown | + + + | Race | Unknown | + + + | Ethnic Group | Unknown | + + + Author + + + | Author | [facility] | | | and [place]ana | + + + | Organization | [facility] | | | and [...] [place], [place] | | | | | [address] | | + + + + + [...] [place] | | | | | [address] | | + + + + + Care Team Providers + +------+ + | Care Mail Distribution Scheme Examiner Name | Role | Phone | + [...] | | | neoplasm of | PA-C [address] | [address] | | | | | upper-outer | [address] | | | | | quadrant of | WAY | [place], | | | | | unspecified | [place], | [place] [address] | | | | | female | [place] [address] | Phone: | | | | | breast (HCC) | Phone: | [phone] | | | | | Procedures | [phone] | Fax: | | | | | [place] OFFICE | Fax: | [phone] | | | | | OUTPATIENT | [phone] | | | | | | VISIT 25 | | | | | | | MINUTES | | | +--------+--------+ + + + + Encounter Details +--------+ + + + + | Date | Type | Department | Care Team | Description | +--------+ + + + + | 07/09/ | Hospital | [facility] | Narcisa, | | | 2016 | Encounter | MED CTR RADIATION | Mu Gutierrez MD [address] | | | | | [address] [place] | | | | | [place], | [place] [address] | | | | | [place] [address] | [phone] | | | | | [phone] | | | | | | | Renee Wood, | | | | | | [address] | | | | | | [place], [place] | | | | | | [address] | | | | | | | [...] Renee Fuentes MD - 07/09/2016 12:00 AM [facility] Radiation Oncology Follow-up Note PATIENT: Carissa Downey MR#: [id number] :1965 DOS:07/09/2016 ICD/Diagnosis: 174.4 - Malignant neoplasm of upper-outer quadrant of female breast, Diagnosed 04/2015 (Act cortney) Chief Complaint/History of Present Illness: Carissa Downey is a 50 year old woman with a history of left breast cancer. Pathologic stage IA, pT1c pN0 cM0. Tumor characteristics: well-differentiated invasive ductal carcinom a, tumor size 1.1 cm, low-grade DCIS present. No LVSI. Negative margins. ER 100%, CO 70- 75%, Ki-67 less than 1%, HER-2/jamia nonamplified by FISH with ratio 1.0, sentinel lymph node negative for metastatic carcinoma. Received adjuvant radiation with hypofractionated whol e breast radiation, 40.05 to the breast with a 8 Gy of a gpamkfn12 Gy lumpectomy boost for a total 48.05 [...] to arthralgia. Bilateral diagnostic mammogram performed at [place] on 02/29/16 was benign, BIRADS-2. She has [...] 0 = no pain and 10= worst [id number] your pain (quality) i.e. aching, s harp, [...] present. No LVSI. Negative margins. ER 100%, CO 70-75%, Ki-67 less than 1 %, HER-2/jamia nonamplified by FISH with ratio 1.0, sentinel lymph node negative for metasta tic carcinoma. Recieved adjuvant radiation with hypofractionated whole breast irradiaiton, 40.05 to the breast with a 8 Gy of a tyvwpjr76 Gy lumpectomy boost for a total 48.05 [...] also continue follow-up with Dr. Brewster in [place]. Thank you for allowing me to participate in the care of Carissa Downey. If you should have any questions regarding this evaluation, please do not hesitate to contact me. Renee Johnson M.D. Radiation Oncologist Department of Radiation Oncology [facility] Electronically signed by Renee Fuentes M.D CC: FREDDY Kitchen M.D. [place] Rojas M.D. [facility]-- This note was transcribed using Directr speech recognition software. As a result, there ma y be unintended for medical and/or spelling errors. Every attempt is made to correct dicta tion. If there are any questions or errors please contact our office. CSN: [id number] signed by Renee Fuentes MD at 07/15/2016 2:59 PM PDTd ocumented in this encounter Plan of Treatment Not on filedocumented as of this encounter Visit Diagnoses Not on filedocumented in this encounter"
--- OUTSIDE RECORDS SUMMARY | ~2019-09-15 | XMS | Encounter Summary ---
Demographics + + + | Address | [address] | | | [place] [address] | + + + | Home Phone [...] Author | [facility] | | | and [place]ana | + + + | Organization | [facility] | | | and [...] [place], [place] | | | | | [address] | | + + + + + [...] [place] | | | | | [address] | | + + + + + Care Team Providers + +------+ + | Care Biztalk Consultant Name | Role | Phone | [...] | | | quadrant of | [address] | [place], | | | | | left female | [place], | [place] [address] | | | | | breast (HCC) | [place] | Phone: | | | | | Procedures | [address] | [phone] | | | | | [place] OFFICE | Phone: | Fax: | | | | | OUTPATIENT | [phone] | [phone] | | | | | VISIT 25 | Fax: | | | | | | MINUTES | [phone] | | +--------+--------+ + + + + Encounter Details +--------+ + + + + | Date | Type | Department | Care Team | Description | +--------+ + + + + | 12/23/ | Hospital | [facility] | Renee Wood | No Show | | 2019 | Encounter | MED CTR RADIATION | MD Lazara [address] | | | | | ONCOLOGY CLINIC [address] | [facility] [place] | | | | | [place] | [address] | | | | | [place] [address] | | | | | | [phone] | | | +--------+ + + + [...]
--- OUTSIDE RECORDS SUMMARY | ~2019-09-15 | XMS | Encounter Summary ---
Demographics + + + | Address | [address] | | | [place] [address] | + + + | Home Phone | | + + + | Preferred Language | Unknown | + + + | Marital Status | | + + + | Mosque Affiliation | Unknown | + + + | Race | Unknown | + + + | Ethnic Group | Unknown | + + + Author + + + | Author | [facility] | | | and [place] | + + + | Organization | [facility] | [...] [place], [place] | | | | | [address] | | + + + + + | Luis Downey | ECON | Unknown | | + + + + + | Kourtney Carols | ECON | Unknown | | + + + + + | Adrianne Carlos | ECON | Unknown | | + + + + + | Rena Uribe | ECON | Unknown | | + + + + + | Luigi Benedict | ECON | [address] | | | | | [place] | | | | | [address] | | + + + + + Care Team Providers + +------+ + | Care Customer Services Coordinator Name | Role | Phone | [...] [place] | | | | | [address] [place] | [place] [address] | | | | | [place] [address] | [phone] | | | | | [phone] | | | +--------+ + + + [...]
--- OUTSIDE RECORDS SUMMARY | ~2019-09-15 | XMS | Encounter Summary ---
Demographics + + + | Address | [address] | | | [place] [address] | + + + | Home Phone [...] + + | Author | [facility] | | | and [place]ana | + + + | Organization | [facility] | | | [...] [place], [place] | | | | | [address] | | + + + + + [...] [place] | | | | | [address] | | + + + + + Care Team Providers + +------+ + | Care Abattoir Supervisor Name | Role | Phone | + +------+ + | Mela Condon PA-C | PCP | | + +------+ + Encounter Details +--------+ + + + + | Date | Type | Department | Care Team | Description | +--------+ + + + + | 09/01/ | Imaging | [facility] | Provider, | | | 2019 | Exam | MED CTR EXTERNAL | MD Sreekanth [id number] | | | | | IMAGING | [place] | | | | | [phone] | [place] [address] | | +--------+ + + + + [...]
--- OUTSIDE RECORDS SUMMARY | ~2019-09-15 | XMS | Encounter Summary ---
Demographics + + + | Address | [address] | | | [place] [address] | + + + | Home Phone [...] + | Author | [facility] | + + + [...] Team Providers + +------+ + | Care Invoice Clerk Name | Role | Phone | [...] | Malignant | Jemima Leon, | [address] | | | | | neoplasm of | MD [address] | Pavilion | | | | | upper-outer | [address] | Loop | | | | | quadrant of | [place], [place] | Mailcode: | | | | | left breast | [address] | [address] | | | | | in female, | Phone: | [address] | | | | | estrogen | [phone] | [place], [place] | | | | | receptor | Fax: | [address] | | | | | positive | [phone] | Phone: | | | | | (HCC) | | [phone] | | | | | Weight loss | | Fax: | | | | | Bone pain | | [phone] | | | | | Procedures | | | | | | | NM BONE &/OR | | | | | | | JOINT | | | | | | | IMAGING | | | | | | | WHOLE BODY | | | | | | | [place] BONE | | | | | | [...] | | | | quadrant of | [place], [place] | Mailcode: | | | | | left breast | [address] | [address] | | | | | in female, | Phone: | [address] | | | | | estrogen | [phone] | [place], [place] | | | | | receptor | Fax: | [address] | | | | | positive | [phone] | Phone: | | | | | (HCC) | | [phone] | | | | | Weight loss | | Fax: | | | | | Bone pain | | [phone] | | | | | Procedures | | | | | | | NM BONE &/OR | | | | | | | JOINT | | | | | | | IMAGING | | | | | | | WHOLE BODY | | | | | | | [place] BONE | | | | | | [...] | | 2018 | Encounter | at [facility] [address] | MD Carolyn [address] | | | | | Anny [address] | [place], [place] | | | | | Mailcode: [address] [facility] | [address] | | | | | [facility] | [phone] | | | | | [place], [place] | | | | | | [address] | | | | | | [phone] | | | +--------+ + + + [...]
--- OUTSIDE RECORDS SUMMARY | ~2019-09-15 | XMS | Clinical Summary ---
Demographics + + + | Address | [address] | | | [place] [address] | + + + | Home Phone | | + + + | Preferred Language | Unknown | + + + | Marital Status | Unknown | + + + | Religion Affiliation | Unknown | + + + | Race | Unknown | + + + | Ethnic Group | Unknown | + + + Author + + + | Author | [facility] (Historical as of | | | 05-15-19) | + + + | Organization | [facility] (Historical as of | | | 05-15-19) [...] [place] | | | | | [address] | | + + + + + Care Team Providers + +------+ + | Care Foot Press Operator Name | Role | Phone [...] | | | + +--------+ +------+-------+---------+ | /[employer] [place] [employer] | YELLOW | [id number] | | | | | PLANS | HAWK | | | | | + +--------+ +------+-------+---------+ | AETNA | AETNA | [id number] | | | | | | - [...] | daniel | | | 0428 | [address] | + +--------+ +--------+ + +"
--- OUTSIDE RECORDS SUMMARY | ~2019-09-15 | XMS | Encounter Summary ---
Demographics + + + | Address | [address] | | | [place] [address] | + + + | Home Phone [...] [facility] | | | and [place]ana | + + + | Organization | [facility] | | | and [place] | [...] [place], [place] | | | | | [address] | | + + + + + [...] [place] | | | | | [address] | | + + + + + Care Team Providers + +------+ + | Care Paper Hanger Name | Role | Phone | + [...] | | ONCOLOGY CLINIC [address] [place], [place] | | | | | [address] [place] | [id number] | | | | | [place] [address] | | | | | | [phone] | | | +--------+ + + + [...]
--- OUTSIDE RECORDS SUMMARY | ~2019-09-15 | XMS | Encounter Summary ---
Demographics + + + | Address | [address] | | | [place] [address] | + + + | Home Phone [...] | Author | [facility] | + + + | [...] Team Providers + +------+ + | Care Rim Roller Setter Name | Role | Phone | [...] 04/10/ | Telephone | Hematology/Medical | Jemima uQesada | Ct Scan Result | | 2018 | | [facility] [place] | MD Carolyn [address] | | | | | for Health & Healing | [address] [place], [place] | | | | | [address] | [address] | | | | | Mailcode: [place] | [phone] | | | | | for Health and | | | | | | Healing, [address] | | | | | | [place], [place] | | | | | | [address] | | | | | | [phone] | | | +--------+ + + + [...]
--- OUTSIDE RECORDS SUMMARY | ~2019-09-15 | XMS | Encounter Summary ---
Demographics + + + | Address | [address] | | | [place] [address] | + + + | Home Phone [...] | Author | [facility] | | | and [place] | + + + | Organization | [facility] | | | and [place] [...] [place], [place] | | | | | [address] | | + + + + + [...] [place] | | | | | [address] | | + + + + + Care Team Providers + +------+ + | Care Director Recreation Name | Role | Phone | + [...] | Malignant | Renee M, | [address] | | | | | neoplasm of | MD [address] | [place], | | | | | left breast | [address] | [place] [address] | | | | | (HCC) | [place], | Phone: | | | | | Procedures | [place] [address] | [phone] | | | | | CT Treatment | Phone: | Fax: | | | | | Plan | [phone] | [phone] | | | | | Complex | Fax: | | | | | | | [phone] | | +--------+--------+ + + + + [...] | Malignant | Renee M, | [address] [place] | | | | | neoplasm of | MD [address] | [place], | | | | | left breast | [address] | [place] [address] | | | | | (HCC) | [place], | Phone: | | | | | Procedures | [place] [address] | [phone] | | | | | CT Treatment | Phone: | Fax: | | | | | Plan | [phone] | [phone] | | | | | Complex | Fax: | | | | | | | [phone] | | +--------+--------+ + + + + Encounter Details +--------+ + + + + | Date | Type | Department | Care Team | Description | +--------+ + + + + | 05/10/ | Hospital | [facility] | Renee Wood | Malignant neoplasm | | 2015 | Encounter | MED CTR CT [address] | MD Lazara [address] | of left breast (HCC) | | | | [place], | [place], [place] | | | | | [place] [address] | [address] | | | | | [phone] | | | +--------+ + + + [...] the | | | | PDT | ([facility]) | results section. | + +--------+ + [...]
--- OUTSIDE RECORDS SUMMARY | ~2019-09-15 | XMS | Encounter Summary ---
Demographics + + + | Address | [address] | | | [place] [address] | + + + | Home Phone [...] + | Author | [facility] | + + + | Organization [...] Team Providers + +------+ + | Care Telehealth Nurse Educator Name | Role | Phone | + [...] | neoplasm of | Mu Gutierrez, | RESEARCH NURSE [address] | | | | | upper-outer | MD [address] | [address] | | | | | quadrant of | [place] [address] | [address] | | | | | left female | [place], | [facility], [place] | | | | | breast | [place] [address] | [address] | | | | | request for | Phone: | Phone: | | | | | 2nd opinion | [phone] | [phone] | | | | | | Fax: | Fax: | | | | | | [phone] | [phone] | +--------+--------+ + + + + Encounter Details +--------+---------+ + + + | Date | Type | Department | Care Team | Description | +--------+---------+ + + + | 05/05/ | Office | [facility] | [facility], | Breast pain, right | | 2017 | Visit | at [facility] [address] | RESEARCH NURSE [address] | (Primary Dx); | | | | [place] | [address] | Personal history of | | | | [id number] [facility] | [place], [place] | breast cancer | | | | [facility], | [address] | | | | | [place] [address] | [phone] | | | | | [phone] | | | +--------+---------+ + + + [...] 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 She had 0/1 SLN. [...] s she has been referred to a [employer] Service Team Member. She is also reporting an intermittent R [...] numbness. PSYCHIATRIC: No depression or anxiety. 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 I have placed a referral for this [...] | | with R2 CAD. Performed at [facility]. | | | ASSESSMENT: Benign - Category [...] Hologic System with R2 CAD. Performed at [facility] | | [place].ASSESSMENT: Benign - Category 2 (Overall)VY NAVJOT BI [...] Hologic System with R2 CAD. Performed at [place] | |[facility] [place]. | | | |ASSESSMENT: Benign - Category [...] R2 CAD. Performed | | | at [facility]. ASSESSMENT: Benign - | | | Category [...] Hologic System with R2 CAD. Performed at [facility] | | [place].ASSESSMENT: Benign - Category 2 (Overall)VY NAVJOT BI [...] Hologic System with R2 CAD. Performed at [place] | |[facility]. | | | |ASSESSMENT: Benign [...]
--- OUTSIDE RECORDS SUMMARY | ~2019-09-15 | XMS | Encounter Summary ---
Demographics + + + | Address | [address] | | | [place] [address] | + + + | Home Phone [...] | Author | [facility] | | | and [place] | + + + | Organization | [facility] | | | and [place] | + + + | Address | Unknown | + + + | Phone | Unavailable | + + + Support + + + + + | Name | Relationship | Address | Phone | + + + + + | aJk Daley | [place] | [address] | | | | | [place], [place] | | | | | [address] | | + + + + + [...] [place] | | | | | [address] | | + + + + + Care Team Providers + +------+ + | Care Dental Financial Coordinator Name | Role | Phone | [...] | Malignant | Renee M, | [address] [place] | | | | | neoplasm of | MD [address] | [place], | | | | | left breast | [address] | [place] [address] | | | | | (HCC) | [place], | Phone: | | | | | Procedures | [place] [address] | [phone] | | | | | CT Treatment | Phone: | Fax: | | | | | Plan | [phone] | [phone] | | | | | Complex | Fax: | | | | | | | [phone] | | +--------+--------+ + + + + [...] | Malignant | Renee M, | [address] [place] | | | | | neoplasm of | MD [address] | [place], | | | | | left breast | [address] | [place] [address] | | | | | (HCC) | [place], | Phone: | | | | | Procedures | [place] [address] | [phone] | | | | | CT Treatment | Phone: | Fax: | | | | | Plan | [phone] | [phone] | | | | | Complex | Fax: | | | | | | | [phone] | | +--------+--------+ + + + + Encounter Details +--------+ + + + + | Date | Type | Department | Care Team | Description | +--------+ + + + + | 05/10/ | Hospital | [facility] | Renee Wood | Malignant neoplasm | | 2015 | Encounter | MED CTR [address] | MD Lazara [address] | of left breast (HCC) | | | | [place], | [place], [place] | | | | | [place] [address] | [address] | | | | | [phone] | | | +--------+ + + + [...] the | | | | PDT | ([facility]) | results section. | + +--------+ + [...]
--- OUTSIDE RECORDS SUMMARY | ~2019-09-15 | XMS | Encounter Summary ---
Demographics + + + | Address | [address] | | | [place] [address] | + + + | Home Phone [...] Author | [facility] | | | and [place]ana | + + + | Organization | [facility] | | | and [place] [...] [place], [place] | | | | | [address] | | + + + + + [...] [place] | | | | | [address] | | + + + + + Care Team Providers + +------+ + | Care Manager Community Name | Role | Phone | + [...] [place] | | | | | [phone] | [place] [address] | | +--------+ + + + + [...]
--- OUTSIDE RECORDS SUMMARY | ~2019-09-15 | XMS | Encounter Summary ---
Demographics + + + | Address | [address] | | | [place] [address] | + + + | Home Phone [...] + | Author | [facility] | | | and [place] | + + + | Organization | [facility] | | | and [...] [place], [place] | | | | | [address] | | + + + + + [...] [place] | | | | | [address] | | + + + + + Care Team Providers + +------+ + | Care Manufacturer'S Representative Name | Role | Phone | [...] + | 07/24/ | Telephone | [facility] | Lisa Regalado, | Psychosocial Support | | 2014 | | MED CTR MEDICAL | AUTOMOBILE BUMPER STRAIGHTENER | | | | | ONCOLOGY CLINIC [address] | | | | | | [address] | | | | | | [place] [address] | | | | | | [phone] | | | +--------+ + + + [...]
--- OUTSIDE RECORDS SUMMARY | ~2019-09-15 | XMS | Encounter Summary ---
Demographics + + + | Address | [address] | | | [place] [address] | + + + | Home Phone [...] + | Author | [facility] | | | and [place] | + + + | Organization | [facility] | | | and [...] [place], [place] | | | | | [address] | | + + + + + [...] [place] | | | | | [address] | | + + + + + Care Team Providers + +------+ + | Care Circuit Board Assembler Name | Role | Phone | [...] neoplasm of | Mu C, | [address] [place] | | | | | upper-outer | MD [address] | [place], | | | | | quadrant of | [address] | [place] [address] | | | | | female | [place], | Phone: | | | | | breast (HCC) | [place] [address] | [phone] | | | | | Procedures | Phone: | Fax: | | | | | CT | [phone] | [phone] | | | | | [place] | Fax: | | | | | | ACETATE | [phone] | | | | | | IMPLANT, 3.6 | | | | | | | MG | | | +--------+--------+ + + + + Encounter Details +--------+ + + + + | Date | Type | Department | Care Team | Description | +--------+ + + + + | 05/25/ | Hospital | [facility] | Narcisa, | Canceled (Clinic | | 2015 | Encounter | MED CTR CHEMO | Mu Gutierrez MD [address] | and/or Provider | | | | INFUSION [address] | [address] [place] | Cancellation) | | | | [place], | [place] [address] | | | | | [place] [address] | [phone] | | | | | [phone] | | | +--------+ + + + [...]
--- OUTSIDE RECORDS SUMMARY | ~2019-09-15 | XMS | Encounter Summary ---
Demographics + + + | Address | [address] | | | [place] [address] | + + + | Home Phone [...] + | Author | [facility] | | | and [place] | + + + | Organization | [facility] | | | and [place] [...] [place], [place] | | | | | [address] | | + + + + + [...] [place] | | | | | [address] | | + + + + + Care Team Providers + +------+ + | Care Bending Machine Set Up Operator Name | Role | [...] W | | | | | | [place], | | | | | | [place] [address] | | | | | | [phone] | | | +--------+ + + + [...]
--- OUTSIDE RECORDS SUMMARY | ~2019-09-15 | XMS | Encounter Summary ---
Demographics + + + | Address | [address] | | | [place] [address] | + + + | Home Phone | | + + + | Preferred Language | Unknown | + + + | Marital Status | | + + + | Taoism Affiliation | Unknown | + + + | Race | Unknown | + + + | Ethnic Group | Unknown | + + + Author + + + | Author | [facility] | | | and [place] | + + + | Organization | [facility] | | | and [...] [place], [place] | | | | | [address] | | + + + + + [...] [place] | | | | | [address] | | + + + + + Care Team Providers + +------+ + | Care Seamer Elastic Band Name | Role | Phone | + [...] | | | | [place] | [place] [address] | [place], [place] | | | | | breast, | Phone: | [address] | | | | | unspecified | [phone] | Phone: | | | | | laterality | Fax: | [phone] | | | | | 174.4 | [phone] | Fax: | | | | | (ICD-9-CM) - | | [phone] | | | | | C50.419 | [...] | | | | | | | [place] THERAPEUT | | | | | | [...] | | ONCOLOGY [address] | [facility] [place] | quadrant of female | | | | [place], | [address] | breast, unspecified | | | | [place] [address] | | laterality (HCC) | | | | [phone] | | (Primary Dx) | +--------+ + [...]
--- OUTSIDE RECORDS SUMMARY | ~2019-09-15 | XMS | Encounter Summary ---
Demographics + + + | Address | [address] | | | [place] [address] | + + + | Home Phone | | + + + | Preferred Language | Unknown | + + + | Marital Status | | + + + | Anabaptism Affiliation | Unknown | + + + | Race | Unknown | + + + | Ethnic Group | Unknown | + + + Author + + + | Author | [facility] | | | and [place] | + + + | Organization | [facility] [...] [place], [place] | | | | | [address] | | + + + + + [...] [place] | | | | | [address] | | + + + + + Care Team Providers + +------+ + | Care Bundle Tier And Labeler Name | Role | Phone | + [...] [place] | | | | | [address] [place] | [place] [address] | | | | | [place] [address] | [phone] | | | | | [phone] | | | +--------+ + + + [...]
--- OUTSIDE RECORDS SUMMARY | ~2019-09-15 | XMS | Encounter Summary ---
Demographics + + + | Address | [address] | | | [place] [address] | + + + | Home Phone [...] | Author | [facility] | | | and [place] | + + + | Organization | [facility] | [...] [place], [place] | | | | | [address] | | + + + + + [...] [place] | | | | | [address] | | + + + + + Care Team Providers + +------+ + | Care Management Rep Name | Role | Phone | + [...] phase (Primary Dx) | | | | [place], [place] | [place] [address] | | | | | [address] | [phone] | | | | | [phone] | | | +--------+ + + + [...]
--- OUTSIDE RECORDS SUMMARY | ~2019-09-15 | XMS | Encounter Summary ---
Demographics + + + | Address | [address] | | | [place] [address] | + + + | Home Phone | | + + + | Preferred Language | Unknown | + + + | Marital Status | | + + + | Anabaptism Affiliation | Unknown | + + + | Race | Unknown | + + + | Ethnic Group | Unknown | + + + Author + + + | Author | [facility] | | | and [place]ana | + + + | Organization | [facility] [...] [place], [place] | | | | | [address] | | + + + + + [...] [place] | | | | | [address] | | + + + + + Care Team Providers + +------+ + | Care Explosives Detonator Name | Role | Phone | + [...] W | | | | | | [place], | | | | | | [place] [address] | | | | | | [phone] | | | +--------+ + + + [...]
--- OUTSIDE RECORDS SUMMARY | ~2019-09-15 | XMS | Encounter Summary ---
Demographics + + + | Address | [address] | | | [place] [address] | + + + | Home Phone [...] | Author | [facility] | + + + | Organization | [facility] | + + + | Address | Unknown | + + + | Phone | Unavailable | + + + Support + + +---------+ + | Name | Relationship | Address | Phone | + + +---------+ + | Jak Daley | ECON | Unknown | | + + +---------+ + Care Team Providers + +------+ + | Care Furnace Caretaker Name | Role | Phone | + [...] | | 2018 | | [facility] [place] | MD Carolyn [address] | | | | | for Health & Healing | [address] [facility] [place] | | | | | [address] | [address] | | | | | Mailcode: [place] | [phone] | | | | | for Health and | | | | | | [address] | | | | | | [place], [place] | | | | | | [address] | | | | | | [phone] | | | +--------+ + + + [...]
--- OUTSIDE RECORDS SUMMARY | ~2019-09-15 | XMS | Encounter Summary ---
Demographics + + + | Address | [address] | | | [place] [address] | + + + | Home Phone [...] Author | [facility] | | | and Johnnyana | + + + | Organization | [facility] | [...] [place], [place] | | | | | [address] | | + + + + + [...] [place] | | | | | [address] | | + + + + + Care Team Providers + +------+ + | Care Bacteriology Professor Name | Role | Phone | [...] | | ONCOLOGY CLINIC [address] | [address] [place], [place] | | | | | [address] [place] | [address] | | | | | [place] [address] | | | | | | [phone] | | | +--------+ + + + [...]
--- OUTSIDE RECORDS SUMMARY | ~2019-09-15 | XMS | Encounter Summary ---
Demographics + + + | Address | [address] | | | [place] [address] | + + + | Home Phone [...] | Author | [facility] | | | and Johnnyana | + + + | Organization | [facility] | | | and [...] [id number], [place] | | | | | [address] | | + + + + + [...] [place] | | | | | [address] | | + + + + + Care Team Providers + +------+ + | Care Director Critical Care Name | Role | Phone | [...] | | | neoplasm of | PA-C [address] | Reggie Gutierrez MD | | | | | upper-outer | [facility] | [address] | | | | | quadrant of | WAY | [place] | | | | | unspecified | [place], | [place] | | | | | female | [place] [address] | [address] Phone: | | | | | breast (HCC) | Phone: | [phone] | | | | | Procedures | [phone] | Fax: | | | | | ME OFFICE | Fax: | [phone] | | | | | OUTPATIENT | [phone] | | | | | | VISIT 25 | | | | | | | MINUTES | | | +--------+--------+ + + + + Encounter Details +--------+ + + + + | Date | Type | Department | Care Team | Description | +--------+ + + + + | 07/09/ | Hospital | [facility] | Narcisa, | Breast cancer of | | 2016 | Encounter | [facility] | Reggie Gutierrez MD [address] | upper-outer quadrant | | | | [facility] [address] [place] | of left female | | | | [address] | [place] [address] | breast (HCC) | | | | [place] [address] | [phone] | (Primary Dx) | | | | [phone] | | | +--------+ + + + [...] are stopping your medicine. Repeat mammogram at in February 2017 I will see you [...] nt from the original. Hematology/Oncology Progress Note [facility] Pt. Name/Age/: Carissa Downey 50 y.o. 1965 Med. Record Number: [id number] Date of admission: 07/09/2016 Identifying Statement: Carissa Downey is a 50 y.o. female from [place] [address] with Stage IA, premenopausal ER-positive LEFT breast [...] was performed by Dr. Iman Perales of [facility] diagnostic imaging. Pathological specimen [id number] was analyzed by Yessenia Champion a [facility] and returned a grade 1 invasive [...] image guided left breast lumpectomy and ax [facility] sentinel lymph node biopsy. Specimen number [id number] returned a 1.1 cm well-diff erentiated invasive [...] therapy supervised by Dr. Renee norton the [facility] in [facility] with 4005 cGy in 15 fractions [...] Assessment & Plan Carissa Downey returned to [facility] with her , Jak Daley, for follow-up [...] evidence of local recurrence. Mammographic data from in [facility] on February 29, 2016 and interpr eted [...] in February after her next mammogram at cancer clinic in [facility] to review her symptoms and to discuss [...] has been changed since signin Order [facility] [place] non-formulary medication (Taking) Allergy shots 1 time/week. oxyCODONE-acetaminophen (PERCOCET) 5-325 mg per tablet (Taking) Take 1 tablet by mouth ev lili 6 hours as needed for Pain. Number of times this order has been changed since signin Order [facility] [place] Allergies: Allergy: No Known Allergies Objectives: Temp: [...] Aceves., Clint, R.H., Ney Rivers, Lauro Rincon, Gray Grossman., Troy Samson., Nadia, P CliveP.: Toxicity [...] with CAD February 29, 2016 is in [facility] BI-RADS Category 2 benign. Pharmacovigilance: Palliative Care: Patient's Medications New Prescriptions No medications on file Modified Medications No medications on file Discontinued Medications OXYCODONE-ACETAMINOPHEN (PERCOCET) 5-325 MG PER TABLET Take 1 tablet by mouth every 6 h ours as needed for Pain. Procedure: REGGIE ERVIN MD Portions of this chart may have been created with [employer] voice recognition software. Occasi onal wrong-word or [...]
[~2019-09-15 12:14] MED LIST changes: +TRAMADOL HCL50 MG PO; +ZOFRAN4 MG PO
--- OUTSIDE RECORDS SUMMARY | 2019-09-15 12:18 | XMS ---
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 Care History Medical/Surgical 08/10/2019 [facility] \T\middot;\T\nbsp; PATIENT- [facility] ELIGIBLE \T\middot;\T\nbsp; PLEASE REFER PATIENT TO [facility] FOR NON EMERGENT MEDICAL NEEDS. \T\middot;\ T\nbsp; [facility] CAN SEE PATIENTS SAME DAY FOR APTS IF PATIENT CALLS FIRST THING IN THE MORNING. E.D. VISIT COUNT (12 MO.) 3 [facility] TOTAL 3 NOTE: Visits indicate total known visits. 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
[2019-09-15] MEDS ORDERED: ALLEGRA-D 24 H1 EACH PO (12:47)
[2019-09-15] MEDS ORDERED: OMEPRAZOLE20 MG PO (12:47)
[2019-09-15] MEDS ORDERED: FOLIC ACID1 MG PO (12:47)
[2019-09-15] MEDS ORDERED: VITAMIN D34000 UNIT PO (12:48)
[2019-09-15] MEDS ORDERED: CEFUROXIME250 MG PO (15:05)
[2019-09-15] MEDS ORDERED: ULTRAM50 MG PO (15:05)
== END 2019-09-15 15:17 | disposition home or self-care (01) ==
LOC: ED 12:14
DX: N39.0 Urinary tract infection, site not specified (principal); K21.9 Gastro-esophageal reflux disease without esophagitis; Z79.899 Other long term (current) drug therapy
CPT/HCPCS: 87502; 87880; 96372; 99284; J0696; J1885